=== PATIENT | female | born 1960 | race Caucasian/White ===

== ENCOUNTER 2017-08-14 12:30 | Outpatient (RCR) | payer BC, SELFPAY ==
--- NOTE | 2017-06-24 12:26 | HP.PTEVAL_ITS ---
Patient's Visit Information MELYSSA DOSS is a 56 year old F referred to Physical Therapy by Irma Ramos with a diagnosis of VERTIGO AND CERVICAL SPINE PAIN. Date of Evaluation: 06/24/17 Physical Therapist: Sandy Faith Visit Plan Frequency: 1x/Week Duration: 8 VISITS Plan: CERVICAL DEEP TISSUE MASSAGE. POSTURE CORRECTION/STRENGTHENING, INSTRUCTION IN APPROPRIATE BODY MECHANICS AND ACTIVITY MODIFICATIONS. CARMEL UE ROM, STRETCHING AND STRENGTHENING. HEP INSTRUCTION. - Subjective Subjective: Diagnosis: VERTIGO AND CERVICAL SPINE PAIN. 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 Disability: NO. Present symptoms: CARMEL NECK PAIN. Present since: 30 YEARS. Pain Scale: WORST 6/10, LEAST 0/10. Currently: 0/10. Commenced as a result of: NO APPARENT REASON. Symptoms at onset: SAME. Worse: MAKING JEWLRY, LOOKING DOWN, WORK, LEANING OVER COMPUTER. Better: MASSAGE, CHIROPRACTIC, TYLON[place], DOING NOTHING. Disturbed sleep: YES. Previous history/Previous treatment: MASSAGE, CHIROPRACTIC, ACCUNCTURE. CURRENTLY SEEING CHIROPRACTOR. Dizziness: 99% GONE. Tinnitis: NO. Nausea: NO. Difficulty Swollowing: NO. Gait: NORMAL. Accidents: NO. Unexplained weight loss: NO. Imaging: NO HISTORY OF NECK X-RAY OR MRI PER PATIENT REPORT. PMH: HYPOTHYROIDISM, ALL CANCER 2005 - TREATED WITH CHEMO. I'VE BEEN TOLD I HAVE LOW BACK ISSUES TOO. Recent major surgery: BROKEN NOSE. OTHER: PATIENT REPORTS THAT SHE IS HERE FOR DEEP TISSUE MASSAGE. OPEN TO CORRECTIVE EX TOO. PATIENT IS QUESTIONING MASSAGE COVERAGE BY PHYSICAL THERAPY AND STATES SHE HAS UNLIMITED VISITS THROUGH HER INSURANCE - Objective Sitting Posture: FAIR. Standing Posture: FAIR. Active Correction of posture: NE. Other Observations: INDEP GAIT AND TRANSFERS. PATIENT DENIES BEING IN ANY ACUTE PAIN AND MOVEMENTS ARE NOT GUARDED. Motor deficit: CARMEL UE'S WFL. Sensory deficit: CARMEL UE LIGHT TOUCH SENSATION APPEARS GROSSLY INTACT AND SYMMETRICAL. ROM deficit: CARMEL UE ROM WFL. Dural Signs: NEGATIVE CARMEL UE'S. Cervical Mvmt Loss: Flex: MIN. Pro: NIL. Ext: MIN. Ret: MOD. RSB: MIN. LSB: MIN. R Rot: MOD. L Rot: MIN. Postural strength: FAIR. Palpation: INCREASED MUSCLE TONE CARMEL UPPER TRAPS AND CERVICAL PARASPINALS. NO ACUTE SPINAL TENDERNESS. OCCIPUT TENDERNESS RIGHT > LEFT. OTHER: INSTRUCTION GIVEN IN INSURANCE COVERAGE LIMITATIONS - Goals Goal 1:: DECREASE C/O NECK PAIN Goal Time Frame: 6-8 Weeks Goal 2:: IMPROVE READING, SLEEP AND RECREATIONAL FUNCTION Goal Time Frame: 6-8 Weeks Goal 3:: INSTRUCT IN PROPHYLAXIS/INDEP HEP Goal Time Frame: 6-8 Weeks - Rehabilitation Potential Rehabilitation Potential: Fair - Anticipated Interventions Patient/Client Instruction: Educate patient on: Condition, Plan of Care, Risk Factors, Benefits of Fitness Program For the Purpose of:: To improve self management Therapeutic Exercise to Include: Strength training, Body mechanics, Postural training, Flexibilty training, Scapular Strength/Stabilization Comment: CORRECTIVE EX FOLLOWING DEEP TISSUE MASSAGE. For the Purpose of:: To decrease pain, To increase ROM, To improve muscle performance and motor function, To increase tolerance to activity/condition/ position, To improve ability of physical actions for home/community/work/leisure Manual Therapy Techniques to Include: Massage, Soft tissue mobilization Comment: DEEP TISSUE MASSAGE For the Purpose of:: To decrease pain, To increase ROM Thank you for the opportunity to evaluate your patient. For Medicare and Medicare HMO plans, please review the plan of care and approve it. It will need to be FAXED BACK to us at [phone] for Medicare purposes. Please let me know if there are questions or concerns regarding this plan of care. Physician Signature: Date:
--- NOTE | 2017-08-14 13:15 | HP.PTDCSUM ---
HP - PT D/C Summary It has been my pleasure to treat MELYSSA DOSS under orders from Irma Vásquez, for the diagnosis of VERTIGO AND CERVICAL SPINE PAIN for a total of 8 visit(s). Discharge Date: 08/14/17 Please see the following information for a summary of their discharge status. - Subjective Subjective: PATIENT REPORTS THE LENGTH OF TIME BETWEEN PAIN IS LONGER. ABLE TO BE ACTIVE LONGER WITHOUT CREATING PAIN. PATIENT REPORTS SHE HAS LEARNED A LOT AND SHE IS READY TO TRY TO CONTINUE ON HER OWN AT THIS POINT. IS GOING TO CONSIDER DRY NEEDLING IN THE FUTURE NEEDED. - Overall Improvement % Improvement: 85 - Objective Objective/Function: ALL GOALS MET. INDEP HOME PROGRAM. UPON EXAM,. Cervical Mvmt Loss: Flex: VERY MIN. Pro: NIL. Ext: MIN. Ret: MOD. RSB: MIN. LSB: MIN. R Rot: MIN. L Rot: NIL. Palpation: INCREASED MUSCLE TONE CARMEL UPPER TRAPS AND CERVICAL PARASPINALS. RIGHT UPPER TRAP TENDERNESS TOO TODAY. NECK OSWESTRY HAS IMPROVED FROM 8 TO 6. - Goals Goal 1:: DECREASE C/O NECK PAIN Goal 2:: IMPROVE READING, SLEEP AND RECREATIONAL FUNCTION Goal 3:: INSTRUCT IN PROPHYLAXIS/INDEP HEP - Plan Plan: D/C TO INDEP EX AND FOLLOW UP WITH DR. VÁSQUEZ NEEDED. IF PATIENT DOES NOT CONTINUE TO IMPROVE WITH TIME AND EX SHE MAY BE A GOOD DRY NEEDLING CANDIDATE. - D/C Information If there are questions or concerns regarding this patient's physical therapy, please feel free to call me at [phone]. Thank you for the referral of this patient. Sincerely, Sandy Jiang
== END 2017-08-14 14:07 | disposition home or self-care (01) ==
LOC: PT 12:30
PROVIDERS: Family Provider Internal Medicine; PCP Internal Medicine; Visit Provider Internal Medicine
DX: R42 Dizziness and giddiness (principal); M54.2 Cervicalgia
CPT/HCPCS: 97110; 97140; 97162; 97164; 97530

== ENCOUNTER → 2018-02-12 15:22 | Outpatient (CLI) | payer BC, SELFPAY ==
--- NOTE | 2018-02-12 15:30 | BD_ITS ---
STUDY: DUAL ENERGY X-RAY ABSORPTIOMETRY / DXA REASON FOR EXAM: Female, 57 years old. Early menopause. Loss of height. TECHNIQUE: Bone Mineral Density (BMD) measurements of lumbar spine and bilateral hips were obtained. COMPARISON: Comparison is made with prior study dated July 28, 2012. FINDINGS: Lumbar Spine (L1-L4): g/cm2 (1.081) / T-score (-0.7) / Z-score (0.4) Findings are suggestive of normal bone density with a low fracture risk. Left Femur Total: g/cm2 (0.753) / T-score (-2.0) / Z-score (-1.1) Left Femoral Neck: g/cm2 (0.677) / T-score (-2.6) / Z-score (-1.4) Right Femur Total: g/cm2 (0.805) / T-score (-1.6) / Z-score (-0.7) Right Femoral Neck: g/cm2 (0.753) / T-score (-2.0) / Z-score (-0.8) The T-Scores on the most recent prior examination were: Lumbar Spine (L1-L4): There has been improvement of bone density since the previous examination. Left Femur Total: which represents a worsening of 1.2%. Right Femur Total: which represents a worsening of 1.2%. BD/Dexa Bone Density Study IMPRESSION: The patient is considered osteopenic as outlined below according to World Erwin Organization (WHO) criteria with a high fracture risk. There has been worsening of bone density since the previous examination. Reference Information: The T-score is the number of standard deviations above or below the standard which is normal for young adults at their peak bone mineral density. The World Health Organization (WHO) interprets the T-scores as follows: Above -1 Normal bone density Between -1 and -2.5 Osteopenia Equal to / or below -2.5 Osteoporosis As a practical clinical guideline, osteopenia may be graded as follows: Mild -1 through -1.5 Moderate -1.6 through -2.0 Severe -2.1 through -2.4 The Z-score is the number of standard deviations above or below age-matched controls. A Z-score of less than -1.5 would be considered abnormal. References: 1. NIH Osteoporosis and Related Bone Diseases http://www.osteo.org 2. International Society for Clinical Densitometry http://www.iscd.org 3. National Osteoporosis Foundation http://www.nof.org Electronically Signed: Johnnie Bejarano MD at 10:13 EST Tel [phone], Service support ,
== END ==
PROVIDERS: Family Provider Internal Medicine; PCP Internal Medicine; Visit Provider Internal Medicine
DX: Z78.0 Asymptomatic menopausal state (principal)
CPT/HCPCS: 77080

== ENCOUNTER → 2018-03-04 12:40 | Outpatient (CLI) | payer BC, SELFPAY ==
--- NOTE | 2018-03-04 12:44 | BI_ITS ---
MAMMOGRAPHY - BILATERAL SCREENING REASON FOR EXAM: Female, 57 years old. Routine annual screening examination. PERTINENT HISTORY: Non-contributory. TECHNIQUE: Digital bilateral breast lauro (3D mammographic acquisition) in the CC and MLO projections. 2-D mediolateral oblique (MLO) and craniocaudad (CC) views of both breasts were obtained. CAD: Full Field Digital Mammography with Computer Added Detection was performed. COMPARISON: Comparison is made with prior study dated January 20, 2017 and April 12, 2015. FINDINGS: Breast Composition: The breasts are heterogeneously dense, which may obscure small masses. There are no dominant masses or suspicious calcifications. No other significant abnormalities are identified. There has been no significant change since the prior study. BI/SCREENING MAMM (CAD), BILAT IMPRESSION: Stable bilateral screening mammogram. Yearly follow-up mammogram recommended. (A) ASSESSMENT CATEGORY: BIRADS Category 1: Negative. A letter regarding these results will be sent to the patient by the facility within 30 days. Approximately 10% of breast cancers are not detected by mammography. A normal mammogram should not delay biopsy of a clinically suspicious abnormality. [id number] Electronically Signed: Johnnie Bejarano MD at 14:16 EST Tel [phone], Service support ,
--- OUTSIDE RECORDS SUMMARY | 2018-05-09 08:51 | XMS RPT_ITS | Continuity of Care Document ---
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 Status: Active Cough (R05, 786.2) Comments: mucienx Status: Active Cough (R05, 786.2) Status: Active Current nonsmoker (Renamed from Current non-smoker) (Z78.9, V49.89) Status: Active Deliveries (Parity) Comments: Term, 2 Status: Active Eczema, unspecified type (L30.9, 692.9) Comments: derm said -- synthriod can exac--?? but at this time with dose working and eczema min will cont Status: Active Encounter for screening for lipid disorder (Z13.220, V77.91) Status: Active Encounter for screening mammogram for malignant neoplasm of breast (Z12.31, V76.12) Status: Active Hypothyroid (E03.9, 244.9) Status: Active Low HDL (under 40) (E78.6, 272.5) Status: Active Need for prophylactic vaccination and inoculation against influenza (Renamed from Need for immunization against influenza) (Z23, V04.81) Status: Active Osteopenia (M85.80, 733.90) Status: Active Postmenopausal (Renamed from Postmenopausal status) (Z78.0, V49.81) Status: Active Pregnancies () Comments: 2 Status: Active right foot 4th nail -abnormality Status: Active Screening for breast cancer (Z12.31, V76.10) Status: Active Screening for malignant neoplasm of breast (Z12.39, V76.10) Status: Active Shingles (B02.9, 053.9) Status: Active Sleep disorder (G47.9, 780.50) Comments: she is doing better Status: Active Synovial cyst (M71.30, 727.40) Status: Active Unspecified Diagnosis Status: Active Unspecified Diagnosis Status: Active Vertigo (R42, 780.4) Status: Active Vertigo (R42, 780.4) Status: Active Wheezing (R06.2, 786.07) Status: Active Medications Name Dates Details CALCIUM 600 + D, [id number] (Oral Tablet) 1 BID for 0 days Refills: 0 Ordered:29-Jan-2009 Mast BETSY, Lia Magnesium 300 MG Oral Capsule 1 (one) Capsule daily for 0 days Quantity: 30 {Capsule} Refills: 0 Ordered:14-Nov-2015 Rosie Maxwell CNP Start : 14-Nov-2015 Active Meclizine HCl 25 MG Oral Tablet 1 (one) Tablet q 8hr prn for 0 days Quantity: 20 {Tablet} Refills: 0 Ordered:29-May-2017 David Vásquez DO, DO, Kathleen Start : 29-May-2017 Active PROVENTIL HFA, 108 (90 Base)MCG/ACT (Inhalation Aerosol Solution) 2 (two) Aerosol Soln qid prn for 0 days Quantity: 1 {Inhaler} Refills: 0 Ordered:05-Jun-2015 Alison Rodriguez DO Start : 05-Jun-2015 Active Synthroid 75 MCG Oral Tablet 1 (one) Tablet daily for 90 days Quantity: 90 {Tablet} Refills: 3 Ordered:16-Feb-2018 David Vásquez DO, DO, Kathleen Start : 16-Feb-2018 Active Dispense as Written Comments:MAIKOL MAIKOL MAIKOL- take 2 on sun Vitamin D3 5000 UNIT Oral Tablet 1 (one) Tablet daily for 0 days Quantity: 30 {Tablet} Refills: 0 Ordered:14-Nov-2015 Alissa VAN Rosie Bauer Start : 14-Nov-2015 Active ACTONEL, 35MG (Oral Tablet) 1 tab Tablet q week for 90 days Quantity: 12 {Tablet} Refills: 3 Ordered:06-Aug-2013 Alison Rodriguez DO Start : 06-Aug-2013 End : 06-Aug-2013 Inactive Acyclovir 800 MG Oral Tablet 1 (one) Tablet 5 times daily for 7 days Quantity: 35 {QS} Refills: 0 Ordered:18-Mar-2016 Alissa VAN Rosie Bauer Start : 18-Mar-2016 End : 25-Mar-2016 Inactive ACYCLOVIR, 400MG (PO Tab) 1 Bid (400 MG) Inactive ATIVAN, 0.5MG (Oral Tablet) 1-2 PRN for 0 days Refills: 0 Ordered:25-May-2010 Moriah Mosley LPN End : 25-May-2010 Inactive AZITHROMYCIN, 250MG (Oral Tablet) 1 Tablet 2 the first day then 1 a day for 4 more days for 5 days Quantity: 6 {Tablet} Refills: 0 Ordered:20-Dec-2010 Samira Espinal MD Start : 20-Dec-2010 End : 25-Dec-2010 Inactive BACTRIM DS, 800-160MG (PO Tablet) (800-160 MG) Inactive BIAXIN XL, 500MG (Oral Tablet Extended Release 24 Hour) 2 (two) Tablet ER 24HR qd for 0 days Quantity: 28 {Tablet_ER_24HR} Refills: 0 Ordered:25-May-2010 Moriah Mosley LPN Start : 23-Mar-2010 End : 25-May-2010 Inactive CIPRO, 500MG (Oral Tablet) 1 Tablet BID for 7 days Quantity: 14 {Tablet} Refills: 0 Ordered:2-Aug-2007 Pamela Kelly RN Start : 18-Sep-2006 End : 13-Oct-2006 Inactive CLARITHROMYCIN, 500MG (Oral Tablet) 1 (one) Tablet Tablet bid for 0 days Quantity: 20 {Tablet} Refills: 0 Ordered:07-Jun-2015 Kim Naidu LPN Start : 06-Jan-2015 End : 07-Jun-2015 Inactive Comments:will call if need this, void after 30 days CORTISPORIN, 3.5-16975-8 (Otic Solution) 2 (two) Drop(s) tid for 7 days Quantity: 1 {Solution} Refills: 0 Ordered:25-May-2010 Rosie Maxwell CNP Start : 25-May-2010 End : 01-Jun-2010 Inactive COUMADIN, 5MG (PO Tab) 1 qd (5 MG) Inactive DEXAMETHASONE, 4MG (Oral Tablet) 2.5 tabs x 5days once a month for 0 days Refills: 0 Ordered:22-Dec-2007 Pamela Kelly RN End : 04-Nov-2006 Inactive FISH OIL CONCENTRATE, 1000MG (Oral Capsule) 1 cap daily for 0 days Refills: 0 Ordered:25-May-2010 Moriah Mosley LPN End : 25-May-2010 Inactive LEVAQUIN, 500MG (Oral Tablet) 1 (one) Tablet qd for 0 days Quantity: 10 {Tablet} Refills: 0 Ordered:25-May-2010 Moriah Mosley LPN Start : 11-Apr-2008 End : 25-May-2010 Inactive METHOTREXATE, 2.5MG (Oral Tablet) 16tabs once a week for 0 days Refills: 0 Ordered:22-Dec-2007 Pamela Kelly RN End : 04-Nov-2006 Inactive PLAQUENIL, 200MG (Oral Tablet) 1 1/2 tab qd (200 MG) Inactive PURINETHOL, 50MG (Oral Tablet) 2 tabs qd for 0 days Refills: 0 Ordered:22-Dec-2007 Pamela Kelly RN End : 04-Nov-2006 Inactive TESSALON PERLES, 100MG (Oral Capsule) 1 (one) Capsule tid prn for 0 days Quantity: 30 {Capsule} Refills: 0 Ordered:07-Jun-2015 Kim Naidu LPN Start : 02-Jun-2015 End : 07-Jun-2015 Inactive VICODIN HP, 10-660MG (Oral Tablet) PRN for 0 days Refills: 0 Ordered:27-Nov-2010 Princess Beavers End : 27-Nov-2010 Inactive Zithromax Z-Igor 250 MG Oral Tablet 1 Tablet TAD for 0 days Quantity: 1 {Package} Refills: 0 Ordered:24-Jan-2017 Kim Naidu LPN Start : 14-Nov-2015 End : 24-Jan-2017 Inactive B6 (tingling) End : 18-Sep-2006 Discontinued Biaxin XL Pac 500 MG Oral Tablet Extended Release 24 Hour 2 (two) Tablet ER 24HR Tablet ER 24HR qd for 0 days Quantity: 1 {Package} Refills: 0 Ordered:14-Nov-2015 Masha Goss LPN Start : 07-Jun-2015 End : 14-Nov-2015 Discontinued CHERATUSSIN AC, 100-10MG/5ML (Oral Syrup) 1-2 Teaspoon qhs prn for 0 days Quantity: 6 {Ounce} Refills: 0 Ordered:29-Aug-2014 Princess Beavers Start : 19-May-2014 End : 29-Aug-2014 Discontinued CLARINEX, 5MG (Oral Tablet) 1 tab Tablet qd, prn for 0 days Quantity: 30 {Tablet} Refills: 3 Ordered:07-Jun-2015 Masha Goss LPN Start : 02-Jun-2015 End : 07-Jun-2015 Discontinued COD LIVER OIL (Oral Oil) 1 cap qd End : 29-Aug-2014 Discontinued DIAZEPAM, 5MG (PO Tablet) PRN (5 MG) End : 18-Sep-2006 Discontinued FLONASE, 50MCG/ACT (Nasal Suspension) 2 (two) Suppository(ies) daily for 0 days Quantity: 1 {Suspension} Refills: 0 Ordered:29-Aug-2014 Princess Beavers Start : 02-Aug-2011 End : 29-Aug-2014 Discontinued GABAPENTIN, 300MG (Oral Capsule) 2 (two) Capsule tid for 0 days Quantity: 180 {Capsule} Refills: 3 Ordered:16-Feb-2007 Mast Pamela MEYER Start : 16-Feb-2007 End : 15-Sep-2007 Discontinued GUAIATUSSIN AC, 100-10MG/5ML (Oral Syrup) 1 Syrup qhs / HS for 0 days Quantity: 6 {Ounce(s)} Refills: 0 Ordered:02-Nov-2007 Mast BETSYPamela Start : 02-Nov-2007 End : 11-Nov-2007 Discontinued KYTRIL, 1MG (PO Tab) PRN (1 MG) End : 18-Sep-2006 Discontinued MECLIZINE ( Powder) prn End : 18-Sep-2006 Discontinued MULTIPLEX-1 (Oral Capsule) End : 10-Jun-2007 Discontinued MULTIVITAMIN (PO Tab) 1 tab qd End : 02-Jun-2015 Discontinued NASACORT AQ, 55MCG/ACT (Nasal Aerosol Solution) Aerosol Soln 1-2 squirts daily for 0 days Refills: 0 Ordered:02-Nov-2007 Mast BETSY Pamela Start : 02-Nov-2007 End : 11-Nov-2007 Discontinued PredniSONE 20 MG Oral Tablet 1 (one) Tablet Tablet qd for 0 days Quantity: 5 {Tablet} Refills: 0 Ordered:14-Nov-2015 Slarb CONTRIBUTION SOLICITOR, Masha Start : 12-Jun-2015 End : 14-Nov-2015 Discontinued PROMETHAZINE-DM, 5-7.5MG/5ML (PO Syrup) prn (5-7.5 MG/5ML) End : 18-Sep-2006 Discontinued SYNTHROID, 50MCG (PO Tablet) 1 qd (50 MCG) End : 18-Sep-2006 Discontinued VICODIN, 5-500MG (Oral Tablet) 1 tab Tablet prn for 0 days Quantity: 30 {Tablet} Refills: 0 Ordered:31-Jul-2010 Julia Bermudez Start : 31-Jul-2010 End : 19-Aug-2012 Discontinued Comments:This order discontinued per -Span. Allergies and Adverse Reactions Name Dates Details Adhesive Tape (Allergy) Status: Active Penicillins (Allergy) Status: Active Past Medical History Name Dates Details Abnormal lung sounds (R09.89, 786.7) Status: Resolved as of 16-Jun-2015 Abnormal mammogram (R92.8, 793.80) Status: Resolved as of 19-Jun-2010 Acute embolism and thrombosis of unspecified deep veins of unspecified lower extremity (I82.409, 453.40) Status: Inactive as of 06-Jan-2015 Allergic rhinitis due to other allergen (J30.89, 477.8) Status: Inactive as of 11-Aug-2008 Bilateral impacted cerumen (H61.23, 380.4) Status: Resolved as of 30-Jan-2018 Bronchitis (J40, 490) Status: Resolved as of 29-May-2011 Cerumen impaction (H61.20, 380.4) 21-May-2010 Status: Resolved as of 19-Jun-2010 Chronic pain of left knee (M25.562, 719.46) Status: Resolved as of 30-Jan-2018 Cough (R05, 786.2) 02-Aug-2011 Status: Resolved as of 25-Aug-2014 DVT Status: Inactive as of 06-Jan-2015 Dysuria (R30.0, 788.1) Comments: any fevers, shakes, worsening symptoms need to see medical care- pt to call oncologist so she is aware of issues Status: Inactive as of 11-Aug-2008 Elevated LFTs (R94.5, 790.6) Status: Resolved as of 15-Sep-2007 ETD (Eustachian tube dysfunction), left (H69.82, 381.81) Status: Resolved as of 30-Jan-2018 Eustachian tube dysfunction (H69.80, 381.81) Status: Resolved as of 30-Jan-2018 grinding of the elbow Status: Inactive as of 11-Aug-2008 Hematest positive stools (792.1) Status: Resolved as of 07-Dec-2012 Herpes zoster with other nervous system complications (B02.29, 053.19) Status: Resolved as of 29-May-2011 Hyperglyceridemia (E78.1, 272.1) Status: Resolved as of 15-Sep-2007 Hypotension, unspecified (I95.9, 458.9) Status: Resolved as of 19-Jun-2010 Laceration (879.8) Comments: pointer finger Left hand - flapcovered -applied steri dtrip Status: Inactive as of 06-Jan-2015 Laryngitis (J04.0, 464.00) Status: Resolved as of 26-Jun-2012 leg cramps Status: Resolved as of 26-Jun-2012 menopasual sx Status: Inactive as of 11-Aug-2008 Need for prophylactic vaccination and inoculation against influenza (Z23, V04.81) Status: Inactive as of 25-Aug-2014 Need for prophylactic vaccination and inoculation against influenza (Z23, V04.81) Status: Inactive as of 27-Apr-2010 Neoplasm of uncertain behavior of skin (D48.5, 238.2) Status: Resolved as of 26-Jun-2012 Otitis externa (H60.90, 380.10) Status: Resolved as of 19-Jun-2010 Paresthesia (R20.2, 782.0) Status: Resolved as of 30-Jan-2018 Pneumonia due to other specified bacteria (J15.8, 482.89) Status: Inactive as of 11-Aug-2008 possible ganglion vs other soft tissue mass right 3rd toe- refer Dr. Durán Status: Inactive as of 11-Aug-2008 Post-nasal drip (R09.82, 784.91) Status: Resolved as of 30-Jan-2018 Proteinuria (R80.9, 791.0) Status: Resolved as of 19-Jun-2010 rash Comments: question fungal- question granuloma annulare- try lotrisone bid for 2 weeks- call if worse or no resolve - send to [facility] Status: Inactive as of 11-Aug-2008 repeat pap for lack of cells- no charge Status: Resolved as of 19-Jun-2010 screening Status: Inactive as of 25-Aug-2014 screening Status: Inactive as of 25-Aug-2014 screening Status: Inactive as of 25-Aug-2014 Screening for HPV (human papillomavirus) (Z11.51, V73.81) Status: Inactive as of 25-Aug-2014 Sinusitis, acute (J01.90, 461.9) Comments: really think uri and willtreat think node in right neck small lymph node. will return if grows will have recheck 12- 14 when get pap Status: Resolved as of 25-Aug-2014 Subluxation of left patella, initial encounter (S83.002A, 836.3) Status: Resolved as of 30-Jan-2018 syncope Status: Inactive as of 11-Aug-2008 Thyroiditis, unspecified (245.9) Status: Inactive as of 06-Jan-2015 Unspecified Diagnosis Status: Inactive as of 29-May-2011 Urinary tract infection, site not specified (N39.0, 599.0) Status: Inactive as of 11-Aug-2008 Weight loss (R63.4, 783.21) Status: Resolved as of 26-Jun-2012 Well woman exam with routine gynecological exam (Z01.419, V72.31) Status: Inactive as of 25-Aug-2014 Procedures Procedure Dates Details Appendectomy Completed Tonsillectomy Completed Date Value Details 12-Feb-2018 Dexa Bone Density Study Result: Comments: See Note; NOTES: [facility] Imaging Services [address] [place] [address] Dexa Bone Density Study MR#: [id number] Acct: [id number] Name: MELYSSA HAYWOOD Rep #: [id number] : 1960 F 57 From: Johnnie Huizar MD PCP: Irma Vásquez DO Status: REG CLI Study: Dexa Bone Density Study Date of Exam: 02/12/18 Exam# [id number] Ordering Dr: Irma Vásquez DO ALEYDA DY: DUAL ENERGY X-RAY ABSORPTIOMETRY / DXA REASON FOR EXAM: Female, 57 years old. Early menopause. Loss of height. TECHNIQUE: Bone Mineral Density (BMD) measurements of lumbar spine and bilateral hips were obtained. COMPARISON: Comparison is made with prior study dated July 28, 2012. FINDINGS: Lumbar Spine (L1-L4): g/cm2 (1.081) / T-score (-0.7) / Z-score (0.4) Findings are suggestive of normal bone density with a low fracture risk. Left Femur Total: g/cm2 (0.753) / T-score (-2.0) / Z-score (-1.1) Left Femoral Neck: g/cm2 (0.677) / T-score (-2.6) / Z-score ( -1.4) Right Femur Total: g/cm2 (0.805) / T-score (-1.6) / Z-score (-0.7) Right Femoral Neck: g/cm2 (0.753) / T-score (-2.0) / Z-score (-0.8) The T-Scores on the most recent prior examination were: Lum bar Spine (L1-L4): There has been improvement of bone density since the previous examination. Left Femur Total: which represents a worsening of 1.2%. Right Femur Total: which represents a worsening of 1.2%. BD/Dexa Bone Density Study IMPRESSION: The patient is considered osteopenic as outlined below according to World Erwin Organization (WHO) c edilia with a high fracture risk. There has been worsening of bone density since the previous examination. Reference Information: The T-score is the number of summer dard deviations above or below the standard which is normal for young adults at their peak bone mineral density. The World Health Organization (WHO) interprets the T-scores as follows: Above -1 Normal bone density Between -1 and -2.5 Osteopenia Equal to / or below -2.5 Osteoporosis As a practical clinical guideline, osteopenia may be graded as follows: Mild - 1 through -1.5 Moderate -1.6 through -2.0 Severe -2.1 through -2.4 The Z-score is the number of standard deviations above or below age-matched controls. A Z-score of less than -1.5 would be considered abnormal. References: 1. NIH Osteoporosi s and Related Bone Diseases http://www.osteo.org 2. International Society for Clinical Densitometry http://www.iscd.org 3. National Osteoporosis Foundation http://www.nof.org Electronically Signed: Patrick Huizar MD at 10:13 EST Tel [phone], Service support , CC: Irma Vásquez DO Fire Investigation Manager: Signed 24-Nov-2017 Mule Developer Office Visit Report Result: Comments: See Note; NOTES: [facility]'s [address] [place] [address] OFFICE VISIT Date of Service: 11/24/17 MR#: [id number] Acct: [id number] Name: JOSHUA HAYWOOD Rep #: [id number] : 1960 Provider: Jasmine Dufyf MD Age/Sex: 57/F Location: [facility] Status: Signed Intake Vital Signs11/24/17 Height 5 ft 8.5 in 11/24/17 Weight: 148 lb 5 oz 11/24/17 Body Mass Index (BMI) 22.2 11/24/17 Blood Pressure 140/78 H Intake Visit Reasons: DISCUSS MENOPAUSE Chief Complaint: Menopause Consult Wiring Inspector Required: No Is patient in pain?: No Allergies clind amycin Allergy (Mild, Verified 11/24/17 13:05) nausea epinephrine Allergy (Mild, Verified 11/24/17 13:05) heart palpitations Latex, Natural Rubber Allergy (Mild, Verified 11/24/17 13:05) rash levofloxac in [From Levaquin] Allergy (Mild, Verified 11/24/17 13:07) Other penicillin V Allergy (Mild, Verified 11/24/17 13:05) unknown Medications calcium carbonate 600 mg calcium (1,500 mg) tablet 600 mg PO ONCE tab 02/06/17 [History Confirmed 11/24/17] cholecalciferol (vitamin D3) 5,000 unit capsule 5,000 unit PO ONCE 02/06/17 [History Confirmed 11/24/17] levothyroxine 75 mcg tablet PO 02/06/17 [History C onfirmed 11/24/17] magnesium 250 mg tablet 250 mg PO ONCE 02/06/17 [History Confirmed 11/24/17] Is last menstrual period known: No Post menopausal: Yes Patient : No : No PFSH Med ical History Acute lymphoblastic leukemia (ALL) (Acute) Hypothyroidism (Chronic) Osteopenia (Chronic) ALL (acute lymphoid leukemia) in remission (Inacti ve) Surgical History History of tonsillectomy (Acute) Hx of appendectomy (Acute) Broken nose (Inactive) Elbow fracture (Inactive) Hx of appendectomy ( Inactive) Hx of tonsillectomy (Inactive) Family History Mother Fibromyalgia Arthritis Social History Smoking Status: Never smoker alcohol intake: current details: social substance use type: does not use caffeine: Yes what type of physical activity do you participate in: walking frequency: 3-4 times per week seatbelt use: always do you feel safe at home: Yes additional social history: [employer]- Retired Patient works at [employer] HPI DISCUSS MENOPAUSE: Details: MELYSSA HAYWOOD is a 57 year old who presents for management of menopausal symptoms. she started having symptoms when sh rasheeda was getting treatment for ALL in 2004. she was on gabaptentin until 2009 for hot flash treatments. since then she has had persistent but non debilitating symptoms. she co daytime hot flash symptoms ar e getting worse and wanting to have support. she hasn't done any hormonal therapies in the past, she has tried black cohosh and acupuncture, no improvements. she has taken other natural therapies with n o improvement. Female Reproductive History Menopausal Symptoms: Yes hot flashes, Yes difficulty concentrating Pregancy History 2 Elective abortions Hx Para 2 Spontaneous abortions Past Preg nancies Del. DatName GA/WeeksOutcome Route [facility] LocaProviderFOB e ht en tn Unknown 1980 Liane Unknown 1982 Cor y ROS Const Constitutional: Denies poor appetite, hea dache(s), fever(s), increased appetite, weight gain, weight loss or fatigue Cardio Card: Denies chest pain Resp Resp: Denies dyspnea or cough GI GI: Reports as per HPI; denies vomiting, nausea, abdomina l pain or constipation : Reports hot flashes; denies nipple discharge Skin Skin/Breast: Denies breast lump, breast pain, breast skin changes, nipple discharge or change in hair Psych Psych: Reports difficulty concentrating Exam Const General: cooperative, healthy appearing, comfortable, no acute distress, well developed Nutritional Appearance: average body habitus Orientation: alert [facility] Head: normal to inspection, normocephalic Ears: hearing grossly normal bilaterally, external ears normal Nose: external nose normal, nares normal Face and sinus: normal facial exam Neck Neck: normal visual i nspection, trachea midline, no lymphadenopathy Thyroid: thyroid normal Resp Effort AND Inspection: normal respiratory effort Musc Other: gross motor intact no deficits, full bilateral strength Skin Gene ral: no rashes or lesions noted Neuro Motor: muscle tone normal throughout Assessment AND Plan Problems 1. Climacteric N95.1 Plan discussed at length information about hormonal and nonhormonal treatm ents of menopause. discussed safety and efficacy. plan for relizen possibly, consider effexor. would not recommend HRT at this time. Coding Level of Care Code Off vis,new,level 4 Diagnoses Climacteri c N95.1 11/24/17 1401 <Electronically signed by Jasmine Duffy MD> Date Jasmine Duffy MD Cosigner Signature: Date ____ (if applicable) CC: 14-Aug-2017 PT D/C Summary (1) Result: Comments: See Note; NOTES: [facility] Physical Therapy Health[address] [place] [address] Fax REHABILITATION SERVICES DISCHAR GE SUMMARY MR#: [id number] Acct: [id number] Name: MELYSSA HAYWOOD Rep #: [id number] : 1960 57 From: Sandy Jiang PT, Cert. MDT Referring Dr.: Irma Vásquez DO Status: REG RCR Insurance: ANT HEM SELF PAY INSURANCE HP - PT D/C Summary It has been my pleasure to treat MELYSSA HAYWOOD under orders from Irma Vásquez, for the diagnosis of VERTIGO AND CERVICAL SPINE PAIN for a total of 8 vis it(s). Discharge Date: 08/14/17 Please see the following information for a summary of their discharge status. - Subjective Subjective: PATIENT REPORTS THE LENGTH OF TIME BETWEEN PAIN IS LONGER. ABLE TO BE ACTIVE LONGER WITHOUT CREATING PAIN. PATIENT REPORTS SHE HAS LEARNED A LOT AND SHE IS READY TO TRY TO CONTINUE ON HER OWN AT THIS POINT. IS GOING TO CONSIDER DRY NEEDLING IN THE FUTURE NEEDED. - Overall Improvement % Improvement: 85 - Objective Objective/Function: ALL GOALS MET. INDEP HOME PROGRAM. UPON EXAM,. Cervical Mvmt Loss: Flex: VERY MIN. Pro: NIL. Ext: MIN. Ret: MOD. RSB: MIN. LSB: MIN. R Rot: MIN. L Rot: NIL. Palpation: INCREASED MUSCLE TONE CARMEL UPPER TRAPS AND CERVICAL PARASPINALS. RIGHT UPPER TRAP TENDERNESS TOO TODAY. NECK OSWESTRY HAS IMPROVED FROM 8 TO 6. - Goals Goal 1:: DECREASE C/O NECK PAIN Goal 2:: IMPROVE READING, SLEEP AND RECREATIONAL FUNCTION Goal 3:: INSTRUCT IN PROPHYLAXIS/INDEP HEP - Plan Plan: D/C TO INDEP EX AND FOLLOW UP WITH DR. VÁSQUEZ NEEDED. IF [facility] DOES NOT CONTINUE TO IMPROVE WITH TIME AND EX SHE MAY BE A GOOD DRY NEEDLING CANDIDATE. - D/C Information If there are questions or concerns regarding this patient's physical therapy, please feel f ree to call me at [phone]. Thank you for the referral of this patient. Sincerely, Sandy Jiang <Electronically signed by Sandy Jiang PTCert. MAYERT> 08/14/17 1315 CC: Irma Vásquez DO CHRIS Signed 24-Jun-2017 Inital Evaluation (1) - PT Result: Comments: See Note; NOTES: [facility] [address] [place], [place] [address] Fax REHABILITATION SERVICES INITIAL EVALUATION MR#: [id number] Acct: [id number] Name: MELYSSA HAYWOOD Rep #: [id number] : 1960 56 From: Cert. LEYLA Gary PTT Referring Dr.: Irma Vásquez DO Status: REG RCR Insurance: AN THEM SELF PAY INSURANCE Patient's Visit Information MELYSSA HAYWOOD is a 56 year old F referred to Physical Therapy by Irma Vásquez with a diagnosis of VERTIGO AND CERVICAL SPINE PAIN. Date of Leanne luation: 06/24/17 Physical Therapist: Sandy Jiang - Visit Plan Frequency: 1x/Week Duration: 8 VISITS Plan: CERVICAL DEEP TISSUE MASSAGE. POSTURE CORRECTION/STRENGTHENING, INSTRUCTION IN APPROPRIATE B LOKESH MECHANICS AND ACTIVITY MODIFICATIONS. CARMEL UE ROM, STRETCHING AND STRENGTHENING. HEP INSTRUCTION. - Subjective Subjective: Diagnosis: VERTIGO AND CERVICAL SPINE PAIN. 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 Disability: NO. Present symptoms: CARMEL NECK PAIN. Present since: 30 YEARS. Pain Scale: WORST 6/10, LEAST 0/10. Currently: 0/10. Commenced as a result of: NO APPARENT REASON. Symptoms at onset: SAME. Worse: MAKING JEWLRY, LOOKING DOWN, WORK, LEANING OVER COMPUTER. Better: MASSAGE, CHIROPRACTIC, TYLONOL, DOING NOTHING. Disturbe d sleep: YES. Previous history/Previous treatment: MASSAGE, CHIROPRACTIC, ACCUNCTURE. CURRENTLY SEEING CHIROPRACTOR. Dizziness: 99% GONE. Tinnitis: NO. Nausea: NO. Difficulty Swollowing: NO. Gait: ANGEL LUIS L. Accidents: NO. Unexplained weight loss: NO. Imaging: NO HISTORY OF NECK X-RAY OR MRI PER PATIENT REPORT. PMH: HYPOTHYROIDISM, ALL CANCER 2005 - TREATED WITH CHEMO. I'VE BEEN TOLD I HAVE LOW BACK ISSUES TOO. Recent major surgery: BROKEN NOSE. OTHER: PATIENT REPORTS THAT SHE IS HERE FOR DEEP TISSUE MASSAGE. OPEN TO CORRECTIVE EX TOO. PATIENT IS QUESTIONING MASSAGE COVERAGE BY PHYSIC AL THERAPY AND STATES SHE HAS UNLIMITED VISITS THROUGH HER INSURANCE - Objective Sitting Posture: FAIR. Standing Posture: FAIR. Active Correction of posture: NE. Other Observations: INDEP GAIT AND SELLERS SFERS. PATIENT DENIES BEING IN ANY ACUTE PAIN AND MOVEMENTS ARE NOT GUARDED. Motor deficit: CARMEL UE'S WFL. Sensory deficit: CARMEL UE LIGHT TOUCH SENSATION APPEARS GROSSLY INTACT AND SYMMETRICAL. ROM defici t: CARMEL UE ROM WFL. Dural Signs: NEGATIVE CARMEL UE'S. Cervical Mvmt Loss: Flex: MIN. Pro: NIL. Ext: MIN. Ret: MOD. RSB: MIN. LSB: MIN. R Rot: MOD. L Rot: MIN. Postural strength: FAIR. Palpation: INCREASED MUSCLE TONE CARMEL UPPER TRAPS AND CERVICAL PARASPINALS. NO ACUTE SPINAL TENDERNESS. OCCIPUT TENDERNESS RIGHT > LEFT. OTHER: INSTRUCTION GIVEN IN INSURANCE COVERAGE LIMITATIONS - Goals Goal 1:: DE CREASE C/O NECK PAIN Goal Time Frame: 6-8 Weeks Goal 2:: IMPROVE READING, SLEEP AND RECREATIONAL FUNCTION Goal Time Frame: 6-8 Weeks Goal 3:: INSTRUCT IN PROPHYLAXIS/INDEP HEP Goal Time Frame: 6-8 Weeks - Rehabilitation Potential Rehabilitation Potential: Fair - Anticipated Interventions Patient/Client Instruction: Educate patient on: Condition, Plan of Care, Risk Factors, Benefits of Fitness Nayely garcia For the Purpose of:: To improve self management Therapeutic Exercise to Include: Strength training, Body mechanics, Postural training, Flexibilty training, Scapular Strength/Stabilization Comment: COR RECTIVE EX FOLLOWING DEEP TISSUE MASSAGE. For the Purpose of:: To decrease pain, To increase ROM, To improve muscle performance and motor function, To increase tolerance to activity/condition/position, To improve ability of physical actions for home/community/work/leisure Manual Therapy Techniques to Include: Massage, Soft tissue mobilization Comment: DEEP TISSUE MASSAGE For the Purpose of:: To decrea se pain, To increase ROM Thank you for the opportunity to evaluate your patient. For Medicare and Medicare HMO plans, please review the plan of care and approve it. It will need to be FAXED BACK to us at [phone] for Medicare purposes. Please let me know if there are questions or concerns regarding this plan of care. Physician Signature: Dat e: <Electronically signed by Sandy Jiang PT, CertMichael MDT> 06/24/17 2185 CC: Irma Vásquez DO CHRIS Signed For Medicare only, by signing this I certify the plan of care. Physicians Signature Date 14-Feb-2017 PT D/C Summary (1) Result: Comments: See Note; NOTES: [facility] [address] [place] [address]. [address] [place], [place] [address] Fax REHABILITATION SERVICES AMI ZIEGLER SUMMARY MR#: [id number] Acct: [id number] Name: MELYSSA HAYWOOD Rep #: [id number] : 1960 56 From: Sandy Jiang PT, Cert. MDT Referring Dr.: Irma Rachel DO Status: REG RCR Insurance: ANT HEM SELF PAY INSURANCE HP - PT D/C Summary It has been my pleasure to treat MELYSSA HAYWOOD under orders from Irma Vásquez, for the diagnosis of LEFT KNEE PAIN AND PATELLA SUBLUXATION for a total o f 7 visit(s). Discharge Date: Please see the following information for a summary of their discharge status. - Subjective Subjective: Feeling good. Today will be my last visit. - Objective Objective /Function: Impriving strength and stability. Challenged with SLS but improving. - Goals Goal 1:: DECREASE EPISODES OF LEFT KNEE PATELLA DISLOCATIONS AND EPISODES OF PAIN. Goal 2:: PATIENT WILL BE INDEP WITH A HEP AND INDEP EX KNOWLEDGE FOR CHRONIC LEFT KNEE PATELAR DISLOCATIONS. - Plan Plan: Discharge per pt request. - D/C Information If there are questions or concerns regarding this patient's phys ical therapy, please feel free to call me at [phone]. Thank you for the referral of this patient. Sincerely, Sandy Jiang <Electronically signed by Sandy Jiang PT, Cert. MDT> 1640 CC: Miracle Rodríguez DO; Irma Vásquze DO CHRIS Signed 06-Feb-2017 Orthopedic Visit Report Result: Comments: See Note; NOTES: [facility] Orthopaedics AND Sports Medicine [address] [place] [address] OFFICE VISIT Date of Service: 02/06/17 MR#: [id number] Acct: [id number] Name: MELYSSA HAYWOOD Rep #: [id number] : 1960 Provider: Miracle Rodríguez DO Age/Sex: 56/F Location: [facility] [place] Status: Signed Intake Vital Signs02/06/17 Height 5 ft 8 in 02/06/17 Weight: 137 lb 1 04/09/16 Body Mass Index (BMI) 20.8 Intake Visit Reasons: LEFT KNEE Is patient in pain?: Yes Pain scale (1-10): 1 Allergies clindamycin Allergy (Mild, Verified 02/06/17 12:54) nausea epinephrine Aller gy (Mild, Verified 02/06/17 12:54) heart palpitations Latex, Natural Rubber Allergy (Mild, Verified 02/06/17 12:54) rash penicillin V Allergy (Mild, Verified 02/06/17 12:54) unknown Medications calci um carbonate 600 mg calcium (1,500 mg) tablet 600 mg PO ONCE tab 02/06/17 [History Confirmed 02/06/17] cholecalciferol (vitamin D3) 5,000 unit capsule 5,000 unit PO ONCE 02/06/17 [History Confirmed 01/18 03/05] levothyroxine 75 mcg tablet PO 02/06/17 [History Confirmed 02/06/17] magnesium 250 mg tablet 250 mg PO ONCE 02/06/17 [History Confirmed 02/06/17] [facility] Medical History Hypothyroidism (Chronic) Osteopenia (Chronic) ALL (acute lymphoid leukemia) in remission (Inactive) Surgical History Broken nose (Inactive) Elbow fracture (Inactive) Hx of appe ndectomy (Inactive) Hx of tonsillectomy (Inactive) Family History Mother Fibromyalgia Social History Smoking Status: Never smoker HPI LEFT KNEE: Details: MELYSSA HAYWOOD is a 56 year old F here to day for left knee. She states her knee cap dislocates which she then has pain anteriorly for about 1 hour. She states this has been going on since she was a child. No injury. No swelli ng. No radiation of pain. No tingling/numbness. Denies locking. Denies giving out. She has seen Dr. Vásquez for left knee, had x-ray done, ordered PT which she has only had 1 session so far. No prior kne e injections. ROS Const Reports system reviewed and no additional complaints, except as docu Eyes Reports system reviewed and no additional complaints, except as docu ENT Reports system reviewed and no additional complaints, except as docu Card Reports system reviewed and no additional complaints, except as docu Resp Reports system reviewed and no additional complaints, except as docu GI Reports syst em reviewed and no additional complaints, except as docu Reports system reviewed and no additional complaints, except as docu Musc Reports joint pain Skin/Breast Reports system reviewed and no additi onal complaints, except as docu Neuro Yes system reviewed and no additional complaints, except as docu Psych Reports system reviewed and no additional complaints, except as docu Endo Reports system revi ewed and no additional complaints, except as docu Dashawn/Lymph Reports system reviewed and no additional complaints, except as docu Aller/Immun Reports system reviewed and no additional complaints, except as docu Ortho Exam Left Knee Skin/Wound: Yes CDI Contralateral Normal: Yes Swelling: No Quad Atrophy: Yes Examination: Crepitus Patellar Tilt Normal: Yes Assessment AND Plan 1. 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 would benefit from cartilage injecttions. discussed knee scope and indications for this as well vs pf re placement. Personally reviewed the patients left knee xrays. See imaging report in chart for further details. Spoke with the patient about damage to the cartilage due to chronic patellar dislocations. S he has weakness of her VMO and she needs to work on strengthening. Explained the importance of strengthening.She should continue with her physical therapy. Patient may wear a knee brace to help with pat ellar stability. Spoke with her about cartilage injection which she did not want to do at this time. Patient should refrain from deep knee squats and lunges. Follow up on an as needed basis or sooner i f pain, swelling, numbness or associated symptoms, or concerns develop. Orders Referrals: 2. Primary osteoarthritis of left knee M17.12; M17.12 02/06/17 1329 <Electronically signed by Miracle castellano DO> Date Miracle Rodríguez DO Cosigner Signature: Date (if applicable) CC: 30-Jan-2017 Inital Evaluation (1) - PT Result: Comments: See Note; NOTES: [facility] [place] [address] Fax REHABILITATION SERVICES INITIAL EVALUATION MR#: [id number] Acct: [id number] Name: MELYSSA HAYWOOD Rep #: [id number] : 1960 56 From: Sandy Jiang PT, Cert. MDT Referring Dr.: Irma Vásquez DO Status: REG RCR Insurance: AN THEM SELF PAY INSURANCE Patient's Visit Information MELYSSA HAYWOOD is a 56 year old F referred to Physical Therapy by Irma Vásquez with a diagnosis of LEFT KNEE PAIN AND PATELLA SUBLUXATION. Date of Evaluation: 01/30/17 Physical Therapist: Sandy Jiang - Visit Plan Frequency: 2-3x /Week Duration: 4-6 Weeks Plan: CORE STRENGTHEING. POSTURE CORRECTION. CARMEL LE ROM, STRETCHING AND STRENGTHEING FO R CHRONIC PATELLAR DISLOCATING. CONSIDER ORTHOTICS. 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 Disability: NO. Present symptoms: LEFT KNEE DISLOCATING. NEV ER DAILY. THE LAST TIME IT DISLOCATED WAS ABOUT A WEEK AGO BUT CAUGHT IT BEFORE IT WENT COMPLETELY OUT. PATIENT ALSO HAS LOCALIZED LEFT KNEE PAIN THAT SHE HAS HAD SINCE 2006 AFTER CHEMOTHERAPY. THIS CARLOTTA N OCCURS EVERY FEW MONTHS AND CAN LAST BETWEEN 5 AND 10 MINUTES. SHE REPORTS IT OCCURS SEPERATELY FROM THE DISLOCATIONS. Present since: ABOUT 50 YEARS. Pain Scale: WORST IS 10/10 AND IT IS USUALLY A 10 OUT OF 10 EVERY TIME IT GOES OUT. NO PAIN IF IT IS NOT OUT. Currently: 0/10. Commenced as a result of: NO APPARENT REASON. Symptoms at onset: LEFT KNEE. Worse: FULL LEFT KNEE FLEXION IS THE MOST CONSIST ENT THING THAT MAKES IT GO OUT. Better: KNEE EXTENSION. PATIENT REPORTS SHE HAS ALWAYS BEEN ABLE TO GET IT BACK IN HERSELF. Disturbed sleep: NO. Previous history/Previous treatment: NONE. Gait: NORMAL U NLESS IT IS OUT. ABLE TO INDEP'LY REDUCE QUICKLY IF IT GOES OUT. Accidents: NO. Unexplained weight loss: NO. Imaging: SMALL JOINT EFFUSION. PMH: ACUTE LYMPHOBLASTIC LEUKEMIA 2005 - CHEMO. HYPOTHYROIDISM . OSTEOPENIA. OTHER: GOES TO A FITNESS CLASS AND HAS FOR ABOUT 3 YEARS NOW. IT HAS OCCASSIONALLY GONE OUT THERE AND INSTRUCTOR RECOMMENDED SHE HAVE IT LOOKED OUT. DR. VÁSQUEZ HAS REFERRED PATIENT TO DR. RODRÍGUEZ FOR CONSULT. - Objective THIS PATIENT AMBULATES INDEP'LY INTO PT WITHOUT ANY DEVIATIONS NOTED. SHE HAS GOOD FUNCTIONAL ROM AND STRENGTH OF CARMEL LE'S. SHE HAS POOR POSTURE CONTROL AND DECREASE D CORE STRENGTH. SHE HAS DECREASED APPROPRIATE EX KNOWLEDGE FOR THIS CONDITION. HER EXAM IS RELATIVELY BENIGN BUT SHE DOES HAVE CARMEL VASTUS MEDIALIS WEAKNESS AND CORE WEAKNESS. NO PAIN WAS PROVOKED DURIN IG EXAM AND SHE DOES APPEAR TO HAVE VERY MILD SWELLING LOCALIZED TO THE LEFT KNEE JOINT. - Goals Goal 1:: DECREASE EPISODES OF LEFT KNEE PATELLA DISLOCATIONS AND EPISODES OF PAIN. Goal Time Frame: 4-6 Weeks Goal 2:: PATIENT WILL BE INDEP WITH A HEP AND INDEP EX KNOWLEDGE FOR CHRONIC LEFT KNEE PATELAR DISLOCATIONS. Goal Time Frame: 4-6 Weeks - Rehabilitation Potential Rehabilitation Potential: Good - Anticipated Interventions Patient/Client Instruction: Educate patient on: Condition, Plan of Care, Risk Factors, Benefits of Fitness Program For the Purpose of:: To improve self management Therapeutic Exercise to Include: Strength training, Body mechanics, Postural training, Flexibilty training For the Purpose of:: To improve ability of physical actions for home/community/work/leisure Thank you for the opportunity to evaluate your patient. For Medicare and Medicare HMO plans, please review the plan of care and approve it. It will need to be FAXED BACK to us at [phone] for Medicare purpos es. Please let me know if there are questions or concerns regarding this plan of care. Physician Signature: Date: <Electronicall y signed by Sandy Jiang PT, Cert. MDT> 01/30/17 1322 CC: Irma Vásquez DO CHRIS Signed For Medicare only, by signing this I certify the plan of care. Physicians Signature Date 27-Jan-2017 Knee 4 or More Views Result: Comments: See Note; NOTES: [facility] Imaging Services [address] [place] [address] Knee 4 or More Views MR#: [id number] Acct: [id number] Name: MELYSSA HAYWOOD Rep #: [id number] : 1960 F 56 From: Payam Pisano MD PCP: Irma Vásquez DO Status: REG CLI Study: Knee 4 or More Views Date of Exam: 01/27/17 Exam# [id number] Ordering Dr: Irma Vásquez DO STUDY: X-RA Y - LEFT KNEE REASON FOR EXAM: Female, 56 years old. Dislocation TECHNIQUE: 4 view(s) of the knee. COMPARISON: None. FINDINGS: Normal visualized distal femur. Nor mal visualized proximal tibia and fibula. Normal proximal tibiofibular articulation. Normal medial femorotibial compartment. Normal lateral femorotibial compartment. Normal patellofemoral articulation. There is a small joint effusion. RAD/Knee 4 or More Views IMPRESSION: Small joint effusion Electronically Signed: Payam Pisano MD at 21:48 EST Tel , Service support , CC: Irma Vásquez DO Fire Investigation Manager: Signed 20-Jan-2017 SCREENING MAMM (CAD), BILAT Result: Comments: See Note; NOTES: [facility] Imaging Services [address] [place] [id number] SCREENING MAMM (CAD), BILAT MR#: [id number] Acct: [id number] Name: MELYSSA HAYWOOD Rep #: [id number] : 1960 F 56 From: Johnnie Huizar MD PCP: Irma Vásquez DO Status: REG CLI Study: SCREENING MAMM (CAD), BILAT Date of Exam: 01/20/17 Exam# [id number] Ordering Dr: Irma Vásquez DO MAMMOGRAPHY - BILATERAL SCREENING REASON FOR EXAM: Female, 56 years old. Routine annual screening examination. PERTINENT HISTORY: Non-contributory. TECHNIQUE: Digital bilateral breast lauro (3D mammographic acquisition) in the CC and MLO projections. 2-D mediolateral oblique (MLO) and craniocaudad (CC) views of both breasts were obtained. CAD: Full Field Digital Mammography with Computer Added Detection was performed. COMPARISON: Comparison is made with prior study dated April 12, 2015 and February 03, 2014. FINDINGS: Breast Composition: The breasts a re heterogeneously dense, which may obscure small masses. There are no dominant masses or suspicious calcifications. No other significant abnormalities are identified. There has been no significant ch zunilda since the prior study. 0022 HPBI/SCREENING MAMM (CAD), BILAT IMPRESSION: Stable bilateral screening mammogram. Yearly follow-up mammogram recomme nded. (A) ASSESSMENT CATEGORY: BIRADS Category 1: Negative. A letter regarding these results will be sent to the patient by the facility within 30 days. Approximat fani 10% of breast cancers are not detected by mammography. A normal mammogram should not delay biopsy of a clinically suspicious abnormality. [id number] Electronically Signed: Johnnie Huizar MD 01/20 at 13:55 EST Tel [phone], Service support , CC: Irma Vásquez DO Fire Investigation Manager: Signed 07-Jun-2015 Spirometry ([id number]) Comments: mild abnormality Result: 12-Apr-2015 Bilat Scrn Digital AND CAD Result: Comments: See Note; NOTES: [facility] Imaging Services [address] [place] [address] Verdana 4d Bilat Scrn Digital AND CAD MR#: [id number] Acct: [id number] Name: MELYSSA HAYWOOD Rep #: [id number] : 1960 F 54 From: Johnnie Huizar MD PCP: Alison Rodriguez DO Status: REG CLI Study: Ezequiel Verdugo Digital AND CAD Date of Exam: 04/12/15 Exam# [id number] Ordering Dr: Alison Rodriguez DO MAMMOGRAPHY - BILATERAL SCREENING REASON FOR EXAM: Female, 54 years old. Routine annual screening examination. PERTINENT HISTORY: Non- contributory. TECHNIQUE: Digital exam ination. Mediolateral oblique (MLO) and craniocaudad (CC) views of both breasts were obtained. CAD: CAD was performed on this study. COMPARISON: Comparison is made with prior study dated January and February 01, 2013. FINDINGS: Breast Composition: The breasts are heterogeneously dense, which may obscure small masses. There are no dominant alysia s or suspicious calcifications. No other significant abnormalities are identified. There has been no significant change since the prior study. IMPRESSION: Stab le bilateral screening mammogram. Yearly follow-up mammogram recommended. (A) ASSESSMENT CATEGORY: BIRADS Category 1: Negative. A letter regarding these results will be sent to the patient by the facility within 30 days. Approximately 10% of breast cancers are not detected by mammography. A normal mammogram should not delay biopsy of a clinically suspiciou s abnormality. [id number] Electronically Signed: Johnnie Huizar MD at 14:58 EST Tel [phone], Service support [phone], CC: Alison Rodriguez DO Fire Investigation Manager: Signed 03-Feb-2014 zEequiel Verdugo Digital AND CAD Result: Comments: See Note; NOTES: [facility] Imaging Services [address] [place] [address] Breast Imaging Report MR#: [id number] Acct: [id number] Name: MELYSSA HAYWOOD Rep #: [id number] : 1960 F 53 From: Johnnie Huizar MD PCP: Alison Rodriguez DO Status: REG CLI Study: Ezequeil Scrn Digital AND CAD Date of Exam: 02/03/14 Exam# [id number] Ordering Dr: Alison Rodriguez DO MAMMOGRAPHY - BILATERAL SCREENING REASON FOR EXAM: Female, 53 years old. Routine annual screening examination. PERTINENT HISTORY: Non-contributory. TECHNIQUE: Digital examination. Mediolateral o blique (MLO) and craniocaudad (CC) views of both breasts were obtained. CAD: CAD was performed on this study. COMPARISON: Comparison is made with prior study dated February 01, 2013 and January. FINDINGS: Breast Composition: The breasts are heterogeneously dense, which may obscure small masses. There are no dominant masses or suspicious calcifi cations. No other significant abnormalities are identified. There has been no significant change since the prior study. IMPRESSION: Stable bilateral screening mammogram. Yearly follow-up recommended. (A) ASSESSMENT CATEGORY: BIRADS Category 2: Benign. A letter regarding these results will be sent to the patient by the facility within 30 days. Approximately 10% of breast cancers are not detected by mammography. A normal mammogram should not delay biopsy of a clinically suspicious abnormality. Electronically Sign ed: Johnnie Huizar MD at 10:55 EST Tel [phone], Service support [phone], CC: Alison Rodriguez DO Fire Investigation Manager: Signed 29-Aug-2013 Carotid Duplex Ultrasound Result: Comments: See Note; NOTES: [facility] Cardiovascular Services [address] [place] [address] Carotid Duplex Ultrasound 08/19/13 1102 MR#: [id number] Acct: [id number] Vitaliy e: MELYSSA HAYWOOD Rep #: [id number] : 1960 53 From: Yannick Garcia MD Attending Dr: Alison Rodriguez DO Status: REG CLI Ordering Dr: Alison Rodriguez DO Date: 08/19/13 Location: [facility] Sex: F C Admitted: Rt. Velocities/BP Lt. Velocities/BP Prox CCA 98.5/32.2 cm/sec. Prox CCA 101/32.8 cm/sec. Mid CCA 106/29.9 cm/sec. Mid CCA 97.9/35.2 cm/sec. Dist CCA 90.9/32.8 cm/sec. Dist CCA 98.5/ 38.1 cm/sec . Prox ICA 93.2/27.6 cm/sec. Prox ICA 47.5/ 17.6 cm/sec. Mid ICA 103/49.8 cm/sec. Mid ICA 81.5/36.4 cm/sec. Dist ICA 100/44.0 cm/sec. Dist ICA 93.8/ 42.8 cm/sec. Rt. ICA/CCA = 1.0. Lt. ICA/CCA = 1. 0. Prox ECA 90.3/21.1 cm/sec. Prox ECA 89.7/ 23.5 cm/sec. Rt. Vert. 61.0/22.9 cm/sec. Lt. Vert. 47.5/ 17.0 cm/sec. Right Extracranial There is intimal thickening but no significant atherosclerotic plaque noted in the right common carotid artery. There is intimal thickening but no significant atherosclerotic plaque noted in the right internal carotid artery. There is intimal thickening but no significant atherosclerotic plaque noted in the right external carotid artery. Antegrade flow is noted in the right vertebral artery. Left Extracranial There is intimal thickening but no significa nt atherosclerotic plaque noted in the left common carotid artery. There is intimal thickening but no significant atherosclerotic plaque noted in the left internal carotid artery. There is intimal t hickening but no significant atherosclerotic plaque noted in the left external carotid artery. Antegrade flow is noted in the left vertebral artery. Procedure Carotid Duplex [id number]. The exam was di agnostic. Exam performed in department. Interpretation Summary Mild (<50%) stenosis right extracranial internal carotid. Mild (<50%) stenosis left extracranial internal carotid. Phi w within the vertebral arteries is antegrade bilaterally. Ordering Physician: Alison Rodriguez ormed By: Alfa Zamarripa RVAndrea : Alison Rodriguez DO Date Dictated: 08/19/13 1102 Date Transcribed: 08/29/13 0859 Fire Investigation Manager: Signed 01-Feb-2013 Bilat Scrn Digital & CAD Result: Comments: See Note; NOTES: [facility] Imaging Services [address] [place] [address] Breast Imaging Report MR#: [id number] Acct: [id number] Name: MELYSSA HAYWOOD Rep #: [id number] : 1960 F 52 From: Johnnie Huizar MD PCP: Alison Rodriguez DO Status: REG CLI Exam# [id number] Ordering Dr: Alison Rodriguez DO MAMMOGRAPHY - BILATERAL SCREENING REASON FOR EXAM: Fem brandon, 52 years old. Routine annual screening examination. PERTINENT HISTORY: Non-contributory. TECHNIQUE: Digital examination. Mediolateral oblique (MLO) and craniocaudad (CC) views of both breasts were obtained. CAD: CAD was performed on this study. COMPARISON: Comparison is made with prior study dated January 31, 2012 and June 15, 2010. FINDINGS: Th e breast composition is heterogeneously dense - ranging from 51% to 75% of the breast tissue. There are no dominant masses or suspicious calcifications. No other significant abnormalities are ident ified. There has been no significant change since the prior study. IMPRESSION: Stable bilateral screening mammogram. Yearly follow-up recommended. (A) ASSESSMENT CATEGORY: BIRADS Category 2: Benign finding(s). A letter regarding these results will be sent to the patient by the facility within 30 days. Approximately 10% of breast cancers are not detected by mammography. A normal mammogram should not delay biopsy of a clinically suspicious abnormality. Electronically Signed: Johnnie Huizar M.D. at 9:56 EST , Service support [phone], CC: Alison Rodriguez DO Fire Investigation Manager: Signed Immunization Name Dates Details Influenza (3 years and up) on: 09-Dec-2006 Comments: given in left deltoid, 0.5cc, lot#[id number], exp.6.30.08 WF Influenza (3 years and up) on: 22-Dec-2007 Comments: Lot #:[id number] date:07/26Amount given:0.5mlRoute: imSite given:Right deltoidGiven by: Amilcar Obrien LPN Influenza (3 years and up) on: 25-Nov-2008 Tdap (7 years and up) on: 27-Jan-2009 Comments: Lot #[id number]-left deltoidDose0.5mlgiven by Zenobia English LPN Social History Name Dates Details Alcohol Use Comments: Heavy alcohol use - 2 glasses of red wine daily Status: Active Caffeine Use Comments: 1-2 cups qd Status: Active 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 Status: Active Smoking Status Name Dates Details Never smoker Vital Signs Date Test Result Details [id number] Temperature 97.1 f Comments: Method: Temporal Pulse 89 /min Comments: Pattern: Regular Respiration Rate 18 /min Comments: Pattern: Unlabored O2 SAT 98 % Comments: Room air BP Systolic 126 mm[Hg] Comments: Patient Position: Sitting; Cuff Location: Left Arm; Cuff Size: Standard BP Diastolic 80 mm[Hg] Comments: Patient Position: Sitting; Cuff Location: Left Arm; Cuff Size: Standard Weight 146.375 lb Height 68 in Body Mass Index Calculated 22.26 kg/m2 Body Surface Area Calculated 1.79 m2 :51 Pulse 82 /min Comments: Pattern: Regular Respiration Rate 18 /min Comments: Pattern: Unlabored O2 SAT 98 % Comments: Room air BP Systolic 118 mm[Hg] Comments: Patient Position: Sitting; Cuff Location: Left Arm; Cuff Size: Large BP Diastolic 80 mm[Hg] Comments: Patient Position: Sitting; Cuff Location: Left Arm; Cuff Size: Large Weight 143.125 lb Height 68 in Body Mass Index Calculated 21.76 kg/m2 Body Surface Area Calculated 1.77 m2 :01 Pulse 83 /min Comments: Pattern: Regular Respiration Rate 18 /min Comments: Pattern: Unlabored O2 SAT 98 % Comments: Room air BP Systolic 118 mm[Hg] Comments: Patient Position: Sitting; Cuff Location: Left Arm; Cuff Size: Standard BP Diastolic 62 mm[Hg] Comments: Patient Position: Sitting; Cuff Location: Left Arm; Cuff Size: Standard Weight 143 lb Height 68 in Body Mass Index Calculated 21.74 kg/m2 Body Surface Area Calculated 1.77 m2 :47 Pulse 95 /min Comments: Pattern: Regular Respiration Rate 18 /min Comments: Pattern: Unlabored O2 SAT 96 % Comments: Room air BP Systolic 122 mm[Hg] Comments: Patient Position: Sitting; Cuff Location: Left Arm; Cuff Size: Standard BP Diastolic 76 mm[Hg] Comments: Patient Position: Sitting; Cuff Location: Left Arm; Cuff Size: Standard Weight 141.25 lb Height 68 in Body Mass Index Calculated 21.48 kg/m2 Body Surface Area Calculated 1.76 m2 :40 Temperature 98.2 f Comments: Method: Temporal Pulse 106 /min Comments: Pattern: Regular Respiration Rate 17 /min Comments: Pattern: Unlabored O2 SAT 98 % Comments: Room air BP Systolic 124 mm[Hg] Comments: Patient Position: Sitting; Cuff Location: Left Arm; Cuff Size: Standard BP Diastolic 72 mm[Hg] Comments: Patient Position: Sitting; Cuff Location: Left Arm; Cuff Size: Standard Weight 135.25 lb Height 68 in Body Mass Index Calculated 20.56 kg/m2 Body Surface Area Calculated 1.73 m2 :53 Temperature 97.7 f Pulse 81 /min Comments: Pattern: Regular Respiration Rate 17 /min Comments: Pattern: Unlabored O2 SAT 97 % Comments: Room air BP Systolic 116 mm[Hg] Comments: Patient Position: Sitting; Cuff Location: Left Arm; Cuff Size: Standard BP Diastolic 78 mm[Hg] Comments: Patient Position: Sitting; Cuff Location: Left Arm; Cuff Size: Standard Weight 135.25 lb Height 68 in Body Mass Index Calculated 20.56 kg/m2 Body Surface Area Calculated 1.73 m2 :38 Pulse 88 /min Comments: Pattern: Regular Respiration Rate 18 /min Comments: Pattern: Unlabored BP Systolic 118 mm[Hg] Comments: Patient Position: Sitting; Cuff Location: Left Arm; Cuff Size: Standard BP Diastolic 78 mm[Hg] Comments: Patient Position: Sitting; Cuff Location: Left Arm; Cuff Size: Standard Weight 135.25 lb Height 68 in Body Mass Index Calculated 20.56 kg/m2 Body Surface Area Calculated 1.73 m2 :22 Pulse 94 /min Comments: Pattern: Regular Respiration Rate 18 /min Comments: Pattern: Unlabored O2 SAT 95 % Comments: Room air BP Systolic 108 mm[Hg] Comments: Patient Position: Sitting; Cuff Location: Left Arm; Cuff Size: Standard BP Diastolic 62 mm[Hg] Comments: Patient Position: Sitting; Cuff Location: Left Arm; Cuff Size: Standard Weight 135.25 lb Height 68 in Body Mass Index Calculated 20.56 kg/m2 Body Surface Area Calculated 1.73 m2 :02 Temperature 97 f Pulse 76 /min Comments: Pattern: Regular Respiration Rate 17 /min Comments: Pattern: Unlabored O2 SAT 98 % Comments: Room air BP Systolic 112 mm[Hg] Comments: Patient Position: Sitting; Cuff Location: Left Arm; Cuff Size: Standard BP Diastolic 78 mm[Hg] Comments: Patient Position: Sitting; Cuff Location: Left Arm; Cuff Size: Standard Weight 136.25 lb Height 68 in Body Mass Index Calculated 20.72 kg/m2 Body Surface Area Calculated 1.74 m2 :26 Temperature 97 f Pulse 81 /min Comments: Pattern: Regular Respiration Rate 17 /min Comments: Pattern: Unlabored O2 SAT 98 % Comments: Room air BP Systolic 114 mm[Hg] Comments: Patient Position: Sitting; Cuff Location: Left Arm; Cuff Size: Standard BP Diastolic 80 mm[Hg] Comments: Patient Position: Sitting; Cuff Location: Left Arm; Cuff Size: Standard Weight 136.25 lb Height 68 in Body Mass Index Calculated 20.72 kg/m2 Body Surface Area Calculated 1.74 m2 :47 Temperature 97.6 f Comments: Method: Temporal Pulse 70 /min Comments: Pattern: Regular Respiration Rate 18 /min Comments: Pattern: Unlabored O2 SAT 98 % Comments: Room air BP Systolic 114 mm[Hg] Comments: Patient Position: Sitting; Cuff Location: Left Arm; Cuff Size: Standard BP Diastolic 70 mm[Hg] Comments: Patient Position: Sitting; Cuff Location: Left Arm; Cuff Size: Standard Weight 134 lb Height 68 in Body Mass Index Calculated 20.37 kg/m2 Body Surface Area Calculated 1.72 m2 :13 Temperature 97.7 f Comments: Method: Oral Pulse 76 /min Comments: Pattern: Regular Respiration Rate 16 /min Comments: Pattern: Unlabored BP Systolic 116 mm[Hg] Comments: Patient Position: Sitting; Cuff Location: Left Arm; Cuff Size: Standard BP Diastolic 82 mm[Hg] Comments: Patient Position: Sitting; Cuff Location: Left Arm; Cuff Size: Standard Weight 134 lb Height 68 in Body Mass Index Calculated 20.37 kg/m2 Body Surface Area Calculated 1.72 m2 :40 Temperature 97.8 f Comments: Method: Temporal Pulse 76 /min Comments: Pattern: Regular Respiration Rate 17 /min Comments: Pattern: Unlabored O2 SAT 98 % Comments: Room air BP Systolic 122 mm[Hg] Comments: Patient Position: Sitting; Cuff Location: Left Arm; Cuff Size: Standard BP Diastolic 74 mm[Hg] Comments: Patient Position: Sitting; Cuff Location: Left Arm; Cuff Size: Standard Weight 137.3 lb Height 68 in Body Mass Index Calculated 20.88 kg/m2 Body Surface Area Calculated 1.74 m2 :24 Temperature 98 f Comments: Method: Temporal Pulse 74 /min Comments: Pattern: Regular Respiration Rate 16 /min Comments: Pattern: Unlabored O2 SAT 97 % Comments: Room air BP Systolic 124 mm[Hg] Comments: Patient Position: Sitting; Cuff Location: Left Arm; Cuff Size: Standard BP Diastolic 72 mm[Hg] Comments: Patient Position: Sitting; Cuff Location: Left Arm; Cuff Size: Standard Weight 137.3 lb Height 68 in Body Mass Index Calculated 20.88 kg/m2 Body Surface Area Calculated 1.74 m2 :28 Temperature 98.6 f Comments: Method: Temporal Pulse 62 /min Comments: Pattern: Regular Respiration Rate 16 /min Comments: Pattern: Unlabored O2 SAT 99 % Comments: Room air BP Systolic 124 mm[Hg] Comments: Patient Position: Sitting; Cuff Location: Left Arm; Cuff Size: Standard BP Diastolic 68 mm[Hg] Comments: Patient Position: Sitting; Cuff Location: Left Arm; Cuff Size: Standard Weight 137.3 lb Height 68 in Body Mass Index Calculated 20.88 kg/m2 Body Surface Area Calculated 1.74 m2 :05 Pulse 73 /min Comments: Pattern: Regular Respiration Rate 16 /min Comments: Pattern: Unlabored O2 SAT 98 % Comments: Room air BP Systolic 120 mm[Hg] Comments: Patient Position: Sitting; Cuff Location: Left Arm; Cuff Size: Standard BP Diastolic 72 mm[Hg] Comments: Patient Position: Sitting; Cuff Location: Left Arm; Cuff Size: Standard Weight 134 lb Height 68 in Body Mass Index Calculated 20.37 kg/m2 Body Surface Area Calculated 1.72 m2 :51 Temperature 98.8 f Comments: Method: Oral Pulse 77 /min Comments: Pattern: Regular Respiration Rate 16 /min Comments: Pattern: Unlabored O2 SAT 98 % Comments: Room air BP Systolic 116 mm[Hg] Comments: Patient Position: Sitting; Cuff Location: Left Arm; Cuff Size: Standard BP Diastolic 72 mm[Hg] Comments: Patient Position: Sitting; Cuff Location: Left Arm; Cuff Size: Standard Weight 134 lb Height 68 in Body Mass Index Calculated 20.37 kg/m2 Body Surface Area Calculated 1.72 m2 :27 Temperature 97.4 f Pulse 92 /min Comments: Pattern: Regular Respiration Rate 16 /min Comments: Pattern: Unlabored BP Systolic 112 mm[Hg] Comments: Patient Position: Sitting; Cuff Location: Left Arm; Cuff Size: Standard BP Diastolic 68 mm[Hg] Comments: Patient Position: Sitting; Cuff Location: Left Arm; Cuff Size: Standard Weight 134 lb Height 68 in Body Mass Index Calculated 20.37 kg/m2 Body Surface Area Calculated 1.72 m2 :01 Temperature 100.9 f Comments: Method: Oral Pulse 68 /min Comments: Pattern: Regular Respiration Rate 18 /min Comments: Pattern: Unlabored BP Systolic 122 mm[Hg] Comments: Patient Position: Sitting; Cuff Location: Left Arm; Cuff Size: Standard BP Diastolic 78 mm[Hg] Comments: Patient Position: Sitting; Cuff Location: Left Arm; Cuff Size: Standard Weight 132.3125 lb Height 67 in Body Mass Index Calculated 20.72 kg/m2 Body Surface Area Calculated 1.7 m2 :02 Temperature 98.1 f Comments: Method: Oral Pulse 60 /min Comments: Pattern: Regular Respiration Rate 16 /min Comments: Pattern: Unlabored BP Systolic 118 mm[Hg] Comments: Patient Position: Sitting; Cuff Location: Left Arm; Cuff Size: Standard BP Diastolic 80 mm[Hg] Comments: Patient Position: Sitting; Cuff Location: Left Arm; Cuff Size: Standard Weight 130 lb Height 67 in Body Mass Index Calculated 20.36 kg/m2 Body Surface Area Calculated 1.68 m2 :18 Temperature 97.9 f Comments: Method: Oral Pulse 84 /min Comments: Pattern: Regular Respiration Rate 18 /min O2 SAT 96 % Comments: Room air BP Systolic 118 mm[Hg] Comments: Patient Position: Sitting; Cuff Location: Left Arm; Cuff Size: Standard BP Diastolic 72 mm[Hg] Comments: Patient Position: Sitting; Cuff Location: Left Arm; Cuff Size: Standard Weight 130 lb Height 67 in Body Mass Index Calculated 20.36 kg/m2 Body Surface Area Calculated 1.68 m2 :10 Temperature 97.7 f Pulse 84 /min Comments: Pattern: Regular Respiration Rate 16 /min Comments: Pattern: Unlabored BP Systolic 110 mm[Hg] Comments: Patient Position: Sitting; Cuff Location: Left Arm; Cuff Size: Standard BP Diastolic 80 mm[Hg] Comments: Patient Position: Sitting; Cuff Location: Left Arm; Cuff Size: Standard Weight 130 lb Height 67 in Body Mass Index Calculated 20.36 kg/m2 Body Surface Area Calculated 1.68 m2 :36 Temperature 98.5 f Comments: Method: Oral Pulse 88 /min Comments: Pattern: Regular Respiration Rate 17 /min BP Systolic 110 mm[Hg] Comments: Patient Position: Sitting; Cuff Location: Left Arm; Cuff Size: Standard BP Diastolic 68 mm[Hg] Comments: Patient Position: Sitting; Cuff Location: Left Arm; Cuff Size: Standard Weight 132 lb Height 67 in Body Mass Index Calculated 20.67 kg/m2 Body Surface Area Calculated 1.69 m2 :11 Temperature 98.8 f Comments: Method: Oral Pulse 92 /min Comments: Pattern: Regular Respiration Rate 16 /min Comments: Pattern: Unlabored O2 SAT 98 % Comments: Room air BP Systolic 124 mm[Hg] Comments: Patient Position: Sitting; Cuff Location: Left Arm; Cuff Size: Standard BP Diastolic 72 mm[Hg] Comments: Patient Position: Sitting; Cuff Location: Left Arm; Cuff Size: Standard Weight 130 lb Height 67.75 in Body Mass Index Calculated 19.91 kg/m2 Body Surface Area Calculated 1.7 m2 :42 Temperature 97.9 f Pulse 80 /min Comments: Pattern: Regular Respiration Rate 16 /min Comments: Pattern: Unlabored BP Systolic 94 mm[Hg] Comments: Patient Position: Sitting; Cuff Location: Left Arm; Cuff Size: Large BP Diastolic 64 mm[Hg] Comments: Patient Position: Sitting; Cuff Location: Left Arm; Cuff Size: Large Weight 135 lb Height 67.75 in Body Mass Index Calculated 20.68 kg/m2 Body Surface Area Calculated 1.72 m2 :17 Temperature 98 f Comments: Method: Oral Pulse 84 /min Comments: Pattern: Regular Respiration Rate 16 /min Comments: Pattern: Unlabored BP Systolic 100 mm[Hg] Comments: Patient Position: Sitting; Cuff Location: Left Arm; Cuff Size: Standard BP Diastolic 62 mm[Hg] Comments: Patient Position: Sitting; Cuff Location: Left Arm; Cuff Size: Standard Weight 128 lb Height 68 in Body Mass Index Calculated 19.46 kg/m2 Body Surface Area Calculated 1.69 m2 :48 Temperature 98.6 f Pulse 82 /min Comments: Pattern: Regular Respiration Rate 16 /min Comments: Pattern: Unlabored BP Systolic 106 mm[Hg] Comments: Patient Position: Sitting; Cuff Location: Left Arm; Cuff Size: Large BP Diastolic 78 mm[Hg] Comments: Patient Position: Sitting; Cuff Location: Left Arm; Cuff Size: Large Weight 128 lb Height 68 in Body Mass Index Calculated 19.46 kg/m2 Body Surface Area Calculated 1.69 m2 :50 Temperature 97.2 f Comments: Method: Oral Pulse 82 /min Comments: Pattern: Regular Respiration Rate 16 /min Comments: Pattern: Unlabored BP Systolic 96 mm[Hg] Comments: Patient Position: Sitting; Cuff Location: Left Arm; Cuff Size: Standard BP Diastolic 68 mm[Hg] Comments: Patient Position: Sitting; Cuff Location: Left Arm; Cuff Size: Standard Weight 128.0625 lb Height 68 in Body Mass Index Calculated 19.47 kg/m2 Body Surface Area Calculated 1.69 m2 :13 Pulse 80 /min Comments: Pattern: Regular Respiration Rate 20 /min Comments: Pattern: Unlabored BP Systolic 98 mm[Hg] Comments: Patient Position: Sitting; Cuff Location: Left Arm; Cuff Size: Large BP Diastolic 62 mm[Hg] Comments: Patient Position: Sitting; Cuff Location: Left Arm; Cuff Size: Large Weight 128.0625 lb Height 68 in Body Mass Index Calculated 19.47 kg/m2 Body Surface Area Calculated 1.69 m2 :44 Temperature 98 f Pulse 88 /min Comments: Pattern: Regular Respiration Rate 16 /min Comments: Pattern: Unlabored BP Systolic 88 mm[Hg] Comments: Patient Position: Sitting; Cuff Location: Left Arm; Cuff Size: Large BP Diastolic 58 mm[Hg] Comments: Patient Position: Sitting; Cuff Location: Left Arm; Cuff Size: Large Weight 130 lb Height 68 in Body Mass Index Calculated 19.77 kg/m2 Body Surface Area Calculated 1.7 m2 :27 Temperature 98.5 f Pulse 92 /min Comments: Pattern: Regular Respiration Rate 16 /min Comments: Pattern: Unlabored BP Systolic 108 mm[Hg] Comments: Patient Position: Sitting; Cuff Location: Left Arm; Cuff Size: Standard BP Diastolic 76 mm[Hg] Comments: Patient Position: Sitting; Cuff Location: Left Arm; Cuff Size: Standard :15 Temperature 98.5 f Comments: Method: Oral Pulse 80 /min Comments: Pattern: Regular Respiration Rate 14 /min Comments: Pattern: Unlabored BP Systolic 120 mm[Hg] Comments: Patient Position: Sitting; Cuff Location: Left Arm; Cuff Size: Large BP Diastolic 60 mm[Hg] Comments: Patient Position: Sitting; Cuff Location: Left Arm; Cuff Size: Large Weight 134 lb :39 Temperature 97.8 f Comments: Method: Oral Pulse 88 /min Comments: Pattern: Regular Respiration Rate 16 /min Comments: Pattern: Unlabored BP Systolic 100 mm[Hg] Comments: Patient Position: Sitting; Cuff Location: Right Arm; Cuff Size: Standard BP Diastolic 62 mm[Hg] Comments: Patient Position: Sitting; Cuff Location: Right Arm; Cuff Size: Standard Weight 132 lb Height 0 in Head Circumference 0.00 cm :49 Temperature 99.3 f Comments: Method: Undefined Pulse 96 /min Comments: Pattern: Regular Respiration Rate 18 /min Comments: Pattern: Undefined BP Systolic 102 mm[Hg] Comments: Patient Position: Sitting; Cuff Location: Right Arm; Cuff Size: Standard BP Diastolic 66 mm[Hg] Comments: Patient Position: Sitting; Cuff Location: Right Arm; Cuff Size: Standard Weight 0 lb Height 0 in Head Circumference 0.00 cm :50 Pulse 92 /min Comments: Pattern: Regular Respiration Rate 18 /min Comments: Pattern: Unlabored O2 SAT 98 % Comments: Room air BP Systolic 98 mm[Hg] Comments: Patient Position: Sitting; Cuff Location: Left Arm; Cuff Size: Standard BP Diastolic 52 mm[Hg] Comments: Patient Position: Sitting; Cuff Location: Left Arm; Cuff Size: Standard Weight 135.375 lb Height 68 in Body Mass Index Calculated 20.58 kg/m2 Body Surface Area Calculated 1.73 m2 Head Circumference 0.00 cm :35 Temperature 98.2 f Comments: Method: Oral Pulse 72 /min Comments: Pattern: Regular Respiration Rate 18 /min Comments: Pattern: Unlabored BP Systolic 98 mm[Hg] Comments: Patient Position: Sitting; Cuff Location: Right Arm; Cuff Size: Standard BP Diastolic 58 mm[Hg] Comments: Patient Position: Sitting; Cuff Location: Right Arm; Cuff Size: Standard Weight 138 lb Height 69 in Body Mass Index Calculated 20.38 kg/m2 Body Surface Area Calculated 1.76 m2 Head Circumference 0.00 cm :13 Temperature 98.1 f Comments: Method: Oral Pulse 88 /min Comments: Pattern: Regular Respiration Rate 18 /min Comments: Pattern: Unlabored O2 SAT 96 % Comments: Room air BP Systolic 106 mm[Hg] Comments: Patient Position: Sitting; Cuff Location: Right Arm; Cuff Size: Standard BP Diastolic 62 mm[Hg] Comments: Patient Position: Sitting; Cuff Location: Right Arm; Cuff Size: Standard Weight 140 lb Height 0 in Head Circumference 0.00 cm :50 Temperature 97.6 f Comments: Method: Undefined Pulse 84 /min Comments: Pattern: Regular Respiration Rate 16 /min Comments: Pattern: Undefined BP Systolic 96 mm[Hg] Comments: Patient Position: Sitting; Cuff Location: Right Arm; Cuff Size: Standard BP Diastolic 72 mm[Hg] Comments: Patient Position: Sitting; Cuff Location: Right Arm; Cuff Size: Standard Weight 140 lb Height 0 in Head Circumference 0.00 cm :41 Temperature 98.3 f Comments: Method: Undefined Pulse 92 /min Comments: Pattern: Regular Respiration Rate 16 /min Comments: Pattern: Undefined BP Systolic 92 mm[Hg] Comments: Patient Position: Sitting; Cuff Location: Left Arm; Cuff Size: Large BP Diastolic 58 mm[Hg] Comments: Patient Position: Sitting; Cuff Location: Left Arm; Cuff Size: Large Weight 141 lb Height 68.5 in Body Mass Index Calculated 21.13 kg/m2 Body Surface Area Calculated 1.77 m2 Head Circumference 0.00 cm :02 Temperature 97.8 f Comments: Method: Undefined Pulse 100 /min Comments: Pattern: Regular Respiration Rate 16 /min Comments: Pattern: Undefined O2 SAT 100 % Comments: Room air BP Systolic 90 mm[Hg] Comments: Patient Position: Sitting; Cuff Location: Left Arm; Cuff Size: Standard BP Diastolic 70 mm[Hg] Comments: Patient Position: Sitting; Cuff Location: Left Arm; Cuff Size: Standard Weight 0 lb Height 0 in Head Circumference 0.00 cm :02 Temperature 98.5 f Comments: Method: Oral Pulse 92 /min Comments: Pattern: Regular Respiration Rate 18 /min Comments: Pattern: Unlabored BP Systolic 100 mm[Hg] Comments: Patient Position: Sitting; Cuff Location: Right Arm; Cuff Size: Standard BP Diastolic 70 mm[Hg] Comments: Patient Position: Sitting; Cuff Location: Right Arm; Cuff Size: Standard Weight 0 lb Height 0 in Head Circumference 0.00 cm :43 Temperature 99 f Comments: Method: Oral Pulse 76 /min Comments: Pattern: Regular Respiration Rate 16 /min Comments: Pattern: Unlabored BP Systolic 104 mm[Hg] Comments: Patient Position: Sitting; Cuff Location: Left Arm; Cuff Size: Standard BP Diastolic 68 mm[Hg] Comments: Patient Position: Sitting; Cuff Location: Left Arm; Cuff Size: Standard Weight 152 lb Height 68.5 in Body Mass Index Calculated 22.78 kg/m2 Body Surface Area Calculated 1.83 m2 Head Circumference 0.00 cm :47 Pulse 60 /min Comments: Pattern: Regular Respiration Rate 20 /min Comments: Pattern: Unlabored BP Systolic 100 mm[Hg] Comments: Patient Position: Sitting; Cuff Location: Left Arm; Cuff Size: Standard BP Diastolic 60 mm[Hg] Comments: Patient Position: Sitting; Cuff Location: Left Arm; Cuff Size: Standard Weight 153 lb Height 0 in Head Circumference 0.00 cm :19 Temperature 98.4 f Comments: Method: Oral Pulse 96 /min Comments: Pattern: Regular Respiration Rate 16 /min Comments: Pattern: Unlabored BP Systolic 100 mm[Hg] Comments: Patient Position: Sitting; Cuff Location: Right Arm; Cuff Size: Standard BP Diastolic 62 mm[Hg] Comments: Patient Position: Sitting; Cuff Location: Right Arm; Cuff Size: Standard Weight 151 lb Height 68.25 in Body Mass Index Calculated 22.79 kg/m2 Body Surface Area Calculated 1.82 m2 Head Circumference 0.00 cm :41 Temperature 98.2 f Comments: Method: Oral Pulse 72 /min Comments: Pattern: Regular Respiration Rate 16 /min Comments: Pattern: Unlabored BP Systolic 108 mm[Hg] Comments: Patient Position: Sitting; Cuff Location: Left Arm; Cuff Size: Standard BP Diastolic 64 mm[Hg] Comments: Patient Position: Sitting; Cuff Location: Left Arm; Cuff Size: Standard Weight 0 lb Height 0 in Head Circumference 0.00 cm :28 Temperature 98.1 f Comments: Method: Oral Pulse 62 /min Comments: Pattern: Regular Respiration Rate 15 /min Comments: Pattern: Unlabored BP Systolic 110 mm[Hg] Comments: Patient Position: Sitting; Cuff Location: Left Arm; Cuff Size: Standard BP Diastolic 72 mm[Hg] Comments: Patient Position: Sitting; Cuff Location: Left Arm; Cuff Size: Standard Weight 148.5 lb Height 0 in Head Circumference 0.00 cm Results Date Description Value Details [id number] TSH (71291) Comments: PATIENT NOT FASTINGPERFORMED BY: LYSSA Vega [id number] [facility] [id number] TSH 1.620 {uIU/mL} (Normal) Range: 0.450-4.500 [id number]:10 T4, FREE (THYROXINE) ([id number]) Comments: PATIENT NOT FASTINGPERFORMED BY: [facility]6[address] [facility] [id number] T4,Free(Direct) 1.60 ng/dL (Normal) Range: 0.82-1.77 :10 T3, FREE (TRIDOTHYRONINE) ([id number]) Comments: PATIENT NOT FASTINGPERFORMED BY: [address] [id number] Triiodothyronine,Free,Serum 2.6 pg/mL (Normal) Range: 2.0-4.4 :27 T3, FREE (TRIDOTHYRONINE) ([id number]) Comments: PATIENT NOT FASTINGPERFORMED BY: [address] [id number] Triiodothyronine,Free,Serum 2.6 pg/mL (Normal) Range: 2.0-4.4 :27 T4, FREE (THYROXINE) (13090) Comments: PATIENT NOT FASTINGPERFORMED BY: [place] [id number] [facility] [id number] T4,Free(Direct) 1.58 ng/dL (Normal) Range: 0.82-1.77 :27 TSH (THYROID STIMULATING Comments: PATIENT NOT FASTINGPERFORMED BY: [address] [id number] HORMONE) ([id number]) TSH 2.660 {uIU/mL} (Normal) Range: 0.450-4.500 [id number] TSH ([id number]) Comments: PATIENT NOT FASTINGPERFORMED BY: [place] [id number] [facility] [id number] TSH 3.930 {uIU/mL} (Normal) Range: 0.450-4.500 [id number]:37 Vitamin D Hydroxy (76690) Comments: PATIENT WAS FASTINGPERFORMED BY: [facility] [id number] Vitamin D, 25-Hydroxy 96.4 ng/mL (Normal) Range: 30.0-100.0 Comments: Vitamin D deficiency has been defined by the [place] [facility] and an Endocrine Society practice guideline as alevel of serum 25-OH vitamin D less than 20 ng/mL (1,2).The Endocrine Society went on to further define vitamin Dinsufficiency as a level between 21 and 29 ng/mL (2).1. IOM ([place] of Medicine). 2010. Dietary reference intakes for calcium and D. [place]: The National Academies Press.2. Darren MF, Reji NC, Kal BUTT, et al. Evaluation, treatment, and prevention of vitamin D deficiency: an Endocrine Society clinical practice guideline. JCEM. 2010; 96(7):1911-30. :37 CBC with auto diff Comments: PATIENT WAS FASTINGPERFORMED BY: [facility] [facility] [id number] Information: [id number] ([id number]) Immature Grans (Abs) 0.0 {x10E3/uL} (Normal) Range: 0.0-0.1 Immature Granulocytes 0 % (Normal) Baso (Absolute) 0.0 {x10E3/uL} (Normal) Range: 0.0-0.2 Eos (Absolute) 0.3 {x10E3/uL} (Normal) Range: 0.0-0.4 Monocytes(Absolute) 0.3 {x10E3/uL} (Normal) Range: 0.1-0.9 Lymphs (Absolute) 1.8 {x10E3/uL} (Normal) Range: 0.7-3.1 Neutrophils (Absolute) 2.9 {x10E3/uL} (Normal) Range: 1.4-7.0 Basos 1 % (Normal) Eos 5 % (Normal) Monocytes 6 % (Normal) Lymphs 33 % (Normal) Neutrophils 55 % (Normal) Platelets 202 {x10E3/uL} (Normal) Range: 150-379 RDW 13.6 % (Normal) Range: 12.3-15.4 MCHC 32.9 g/dL (Normal) Range: 31.5-35.7 MCH 30.3 pg (Normal) Range: 26.6-33.0 MCV 92 fL (Normal) Range: 79-97 Hematocrit 40.7 % (Normal) Range: 34.0-46.6 Hemoglobin 13.4 g/dL (Normal) Range: 11.1-15.9 RBC 4.42 {x10E6/uL} (Normal) Range: 3.77-5.28 WBC 5.3 {x10E3/uL} (Normal) Range: 3.4-10.8 [id number] METABOLIC PANEL, COMPREHENSIVE Comments: PATIENT WAS FASTINGPERFORMED BY: [facility] CenterTselce3452 [facility] [id number] ([id number]) ALT (SGPT) 16 [iU]/L (Normal) Range: 0-32 AST (SGOT) 24 [iU]/L (Normal) Range: 0-40 Alkaline Phosphatase, S 70 [iU]/L (Normal) Range: 39-117 Bilirubin, Total 0.7 mg/dL (Normal) Range: 0.0-1.2 A/G Ratio 2.5 (Normal) Range: 1.1-2.5 Globulin, Total 1.9 g/dL (Normal) Range: 1.5-4.5 Albumin, Serum 4.7 g/dL (Normal) Range: 3.5-5.5 Protein, Total, Serum 6.6 g/dL (Normal) Range: 6.0-8.5 Calcium, Serum 10.0 mg/dL (Normal) Range: 8.7-10.2 Carbon Dioxide, Total 27 mmol/L (Normal) Range: 18-29 Chloride, Serum 102 mmol/L (Normal) Range: 97-108 Potassium, Serum 5.1 mmol/L (Normal) Range: 3.5-5.2 Sodium, Serum 143 mmol/L (Normal) Range: 134-144 BUN/Creatinine Ratio 22 (Normal) Range: 9-23 eGFR If Africn Am 82 mL/min/1.73 (Normal) eGFR If NonAfricn Am 71 mL/min/1.73 (Normal) Creatinine, Serum 0.91 mg/dL (Normal) Range: 0.57-1.00 BUN 20 mg/dL (Normal) Range: 6-24 Glucose, Serum 93 mg/dL (Normal) Range: 65-99 :37 LIPID PANEL (38586) Comments: PATIENT WAS FASTINGPERFORMED BY: [facility]6[address] [facility] [id number] LDL/HDL Ratio 1.0 {ratio_units} (Normal) Range: 0.0-3.2 Comments: LDL/HDL Ratio Men Women 1/2 Avg.Risk 1.0 1.5 Av g.Risk 3.6 3.2 2X Avg.Risk 6.2 5.0 3X Avg.Risk 8.0 6.1 LDL Cholesterol Calc 83 mg/dL (Normal) Range: 0-99 VLDL Cholesterol Julianne 14 mg/dL (Normal) Range: 5-40 HDL Cholesterol 84 mg/dL (Normal) Comments: According to ATP-III Guidelines, HDL-C >59 mg/dL is considered anegative risk factor for CHD. Triglycerides 71 mg/dL (Normal) Range: 0-149 Cholesterol, Total 181 mg/dL (Normal) Range: 100-199 :37 TSH (38986) Comments: PATIENT WAS FASTINGPERFORMED BY: [facility]6[address] [facility] [id number] TSH 2.440 {uIU/mL} (Normal) Range: 0.450-4.500 :07 LIPID PANEL (78057) Comments: PATIENT WAS FASTINGPERFORMED BY: [facility]6[address] [facility] [id number] LDL Cholesterol Calc 89 mg/dL (Normal) Range: 0-99 LDL/HDL Ratio 1.2 {ratio_units} (Normal) Range: 0.0-3.2 VLDL Cholesterol Julianne 15 mg/dL (Normal) Range: 5-40 Cholesterol, Total 179 mg/dL (Normal) Range: 100-199 HDL Cholesterol 75 mg/dL (Normal) Comments: According to ATP-III Guidelines, HDL-C >59 mg/dL is considered anegative risk factor for CHD. Triglycerides 76 mg/dL (Normal) Range: 0-149 :07 METABOLIC PANEL, COMPREHENSIVE Comments: PATIENT WAS FASTINGPERFORMED BY: [place] 0545370 [facility] [id number] ([id number]) ALT (SGPT) 13 [iU]/L (Normal) Range: 0-32 AST (SGOT) 22 [iU]/L (Normal) Range: 0-40 Alkaline Phosphatase, S 63 [iU]/L (Normal) Range: 39-117 Bilirubin, Total 0.5 mg/dL (Normal) Range: 0.0-1.2 A/G Ratio 2.4 (Normal) Range: 1.1-2.5 Globulin, Total 1.8 g/dL (Normal) Range: 1.5-4.5 Albumin, Serum 4.3 g/dL (Normal) Range: 3.5-5.5 Calcium, Serum 9.6 mg/dL (Normal) Range: 8.7-10.2 Protein, Total, Serum 6.1 g/dL (Normal) Range: 6.0-8.5 Carbon Dioxide, Total 26 mmol/L (Normal) Range: 19-28 Chloride, Serum 104 mmol/L (Normal) Range: 97-108 Potassium, Serum 4.2 mmol/L (Normal) Range: 3.5-5.2 Sodium, Serum 144 mmol/L (Normal) Range: 134-144 BUN/Creatinine Ratio 25 (Abnormal) Range: 9-23 eGFR If Africn Am 97 mL/min/1.73 (Normal) eGFR If NonAfricn Am 85 mL/min/1.73 (Normal) Creatinine, Serum 0.79 mg/dL (Normal) Range: 0.57-1.00 BUN 20 mg/dL (Normal) Range: 6-24 Glucose, Serum 88 mg/dL (Normal) Range: 65-99 92-Wtq-33828:07 CBC WITH MANUAL DIFF Comments: PATIENT WAS FASTINGPERFORMED BY: LYSSA [facility] Zpbprc3847 [facility] [id number] Information: [id number] ([id number]) Immature Grans (Abs) 0.0 {x10E3/uL} (Normal) Range: 0.0-0.1 Immature Granulocytes 0 % (Normal) Range: 0-2 Baso (Absolute) 0.0 {x10E3/uL} (Normal) Range: 0.0-0.2 Eos (Absolute) 0.2 {x10E3/uL} (Normal) Range: 0.0-0.4 Monocytes(Absolute) 0.3 {x10E3/uL} (Normal) Range: 0.1-0.9 Lymphs (Absolute) 1.9 {x10E3/uL} (Normal) Range: 0.7-3.1 Neutrophils (Absolute) 3.7 {x10E3/uL} (Normal) Range: 1.4-7.0 Basos 1 % (Normal) Range: 0-3 Eos 4 % (Normal) Range: 0-5 Monocytes 5 % (Normal) Range: 4-12 Lymphs 31 % (Normal) Range: 14-46 Neutrophils 59 % (Normal) Range: 40-74 Platelets 223 {x10E3/uL} (Normal) Range: 155-379 RDW 13.3 % (Normal) Range: 12.3-15.4 MCHC 32.3 g/dL (Normal) Range: 31.5-35.7 MCH 29.5 pg (Normal) Range: 26.6-33.0 Hematocrit 40.3 % (Normal) Range: 34.0-46.6 MCV 91 fL (Normal) Range: 79-97 Hemoglobin 13.0 g/dL (Normal) Range: 11.1-15.9 RBC 4.41 {x10E6/uL} (Normal) Range: 3.77-5.28 WBC 6.2 {x10E3/uL} (Normal) Range: 3.4-10.8 :07 TSH ([id number]) Comments: PATIENT WAS FASTINGPERFORMED BY: SubtleData [facility] Mfnsnb2871 [facility] [id number] TSH 0.975 {uIU/mL} (Normal) Range: 0.450-4.500 :07 Vitamin D Hydroxy (03622) Comments: PATIENT WAS FASTINGPERFORMED BY: [facility] Btfwrp2847 [facility] [id number] Vitamin D, 25-Hydroxy 76.3 ng/mL (Normal) Range: 30.0-100.0 Comments: Vitamin D deficiency has been defined by the [place] of[place] and an Endocrine Society practice guideline as alevel of serum 25-OH vitamin D less than 20 ng/mL (1,2).The Endocrine Society went on to further define vitamin Dinsufficiency as a level between 21 and 29 ng/mL (2).1. IOM ([place] of Medicine). 2010. Dietary reference intakes for calcium and D. [place]: The National Academies Press.2. Darren MF, Reji BENITES, Kal BUTT, et al. Evaluation, treatment, and prevention of vitamin D deficiency: an Endocrine Society clinical practice guideline. JCEM. 2010; 96(7):1911-30. 66-Efd-558652:56 Anti-TPO Antibody (26389) Comments: PATIENT NOT FASTINGPERFORMED BY: [facility] [id number] Information: [id number] Thyroid Peroxidase (TPO) Ab 240 {IU/mL} (Abnormal) Range: 0-34 78-Uba-410241:14 DEXA BONE DENSITY STUDY (HP) Radiology Report See Note Comments: PROCEDURE: DUAL ENERGY X-RAY ABSORPTIOMETRY / DXA REASON FOR EXAM: Female, 52 years old. Osteopenia. The patient ispostmenopausal. TECHNIQUE: Bone Mineral Density (BMD) measurements of lumbar spi (Normal) ne andbilateral hips were obtained. COMPARISON: Comparison is made with prior study dated June 12, 2010. FINDINGS: Lumbar Spine (L1-L4): g/cm2 (1.108) / T-score (-0.6) / Z-score (0.1)Findings are suggestive of normal bone density with a low fracture risk. Left Femur Total: g/cm2 (0.762) / T-score (-2.0) / Z- score (-1.3)Left Femoral Neck: g/cm2 (0.710) / T-score (-2.4) / Z-score (-1.4)Right Femur Total: g/cm2 (0.815) / T-score (-1.5) / Z-score (-0.9)Right Femoral Neck: g/cm2 (0.752) / T-score (-2.1) / Z-score (-1.1) The T-Scores on the mo st recent prior examination were: Lumbar Spine (L1-L4): There has been worsening of bone density since theprevious examination. Left Femur Total: which represents a worsening of 3.4%.Right Femur T otal: which represents an improvement of 3.4%. IMPRESSION:The patient is considered osteopenic as outlined below according to WorldHeath Organization (WHO) criter ia with a moderate fracture risk. Therehasbeen worsening of bone density since the previous examination. Reference Information:The T-score is the number of standard deviations above or below thestandard which is normal for young adults at their peak bone mineraldensity. The World Health Organization (WHO) interprets the T-scores asfollows: Above -1 Normal bone densityBetween -1 and -2.5 OsteopeniaEqual to / or below -2.5 Osteoporosis As a practical clinical guideline, osteopenia may be graded as follows:Mild -1 through -1.5Moderate -1.6 through -2. 0Severe -2.1 through -2.4 The Z-score is the number of standard deviations above or below age-matchedcontrols. A Z-score of less than -1.5 would be considered abnormal. References:1. NIH Osteoporosis and Related Bone Diseases http://www.osteo.org2. International Society for Clinical Densitometry http://www.iscd.org3. National Osteoporosis Foundation http://www.nof.org Signed:Mesha GarciaAugust 27, 2012 at 4:07:47 PM [phone] Signed GP/GP If you are the referring physician and would like to consult with theradiologist who provided this interpretation, please zaria Puga M.D. at [phone]. If this radiologist is unavailable, youwill be directed to another radiologist to assist. If you are a patient with a question regarding this report, pleasecon tactyour referring physician directly. Professional Interpretation Provided By: Juan, Phone , These documents contain legally protected and confidential healthinform ation intended only for the use of the individual or entity namedabove. If you are not the intended recipient, you are hereby notifiedthatany disclosure, copying, distribution, or other use of these doc uments isstrictly prohibited. If you have received this information in error,pleasenotify the sender immediately and arrange for the return or destructionofthese documents. Dictated on 08/27/12 1607 by Darci MAYER,Colleenranscribed on 08/27/12 1609 by ITS IMPORTSign by Darci MAYER,Johnnie on 08/27/12 1610 Sign by: Johnnie Huizar MD 5-Kon-357230:13 FERRITIN ([id number]) Comments: PATIENT NOT FASTINGPERFORMED BY: [facility] Otpsbf1205 [facility] [id number] Ferritin, Serum 317 ng/mL (Abnormal) Range: 15-150 5-Luk-070665:13 IRON (47016) Comments: PATIENT NOT FASTINGPERFORMED BY: [facility] Uwxpph9358 [facility] [id number] Iron, Serum 106 ug/dL (Normal) Range: 35-155 8-Jjx-211544:13 CBC WITH MANUAL DIFF Comments: PATIENT NOT FASTINGPERFORMED BY: [facility] Fnhzjm8820 [facility] [id number] Information: [id number] (30258) Immature Grans (Abs) 0.0 {x10E3/uL} (Normal) Range: 0.0-0.1 Baso (Absolute) 0.0 {x10E3/uL} (Normal) Range: 0.0-0.2 Immature Granulocytes 0 % (Normal) Range: 0-2 Eos (Absolute) 0.3 {x10E3/uL} (Normal) Range: 0.0-0.4 Monocytes(Absolute) 0.4 {x10E3/uL} (Normal) Range: 0.1-0.9 Lymphs (Absolute) 1.7 {x10E3/uL} (Normal) Range: 0.7-3.1 Neutrophils (Absolute) 3.1 {x10E3/uL} (Normal) Range: 1.4-7.0 Basos 1 % (Normal) Range: 0-3 Eos 6 % (Abnormal) Range: 0-5 Monocytes 7 % (Normal) Range: 4-12 Lymphs 30 % (Normal) Range: 14-46 Neutrophils 56 % (Normal) Range: 40-74 Platelets 214 {x10E3/uL} (Normal) Range: 155-379 RDW 13.2 % (Normal) Range: 12.3-15.4 MCHC 33.9 g/dL (Normal) Range: 31.5-35.7 MCH 30.5 pg (Normal) Range: 26.6-33.0 MCV 90 fL (Normal) Range: 79-97 Hematocrit 37.2 % (Normal) Range: 34.0-46.6 Hemoglobin 12.6 g/dL (Normal) Range: 11.1-15.9 RBC 4.13 {x10E6/uL} (Normal) Range: 3.77-5.28 WBC 5.5 {x10E3/uL} (Normal) Range: 3.4-10.8 9-Mvg-133832:35 FECAL OCCULT HGB ASSAY- tubes sent home (36027) FECAL OCCULT HGB ASSAY, QUAL, 1-3 SIMULTANEOU negative (Normal) 7-Vmq-800539:13 TSH (63826) Comments: PATIENT NOT FASTINGPERFORMED BY: SupportPayRehoboth McKin[facility] Christian [facility] Care ServicesDnpvqc1252 [facility] [id number] TSH 2.430 {uIU/mL} (Normal) Range: 0.450-4.500 48-Bhw-079859:19 FERRITIN (13629) Comments: PATIENT NOT FASTINGPERFORMED BY: Support[employer] Jyocwz5484 [facility] [id number] Ferritin, Serum 302 ng/mL (Abnormal) Range: 15-150 49-Hiq-950364:19 IRON BINDING CAPACITY Comments: PATIENT NOT FASTINGPERFORMED BY: SupportPay [employer] [facility] [id number] Information: [id number] ORDER NO DRAW F EE (TIBC) (88881) Iron Saturation 43 % (Normal) Range: 15-55 Iron, Serum 123 ug/dL (Normal) Range: 35-155 UIBC 164 ug/dL (Normal) Range: 150-375 Iron Bind.Cap.(TIBC) 287 ug/dL (Normal) Range: 250-450 42-Ohr-033526:19 CBC WITH MANUAL DIFF Comments: PATIENT WAS FASTINGPERFORMED BY: [facility] Tqzknr7604 [facility] [id number] Information: [id number] (20495) Immature Grans (Abs) 0.0 {x10E3/uL} (Normal) Range: 0.0-0.1 Immature Granulocytes 0 % (Normal) Range: 0-2 Baso (Absolute) 0.0 {x10E3/uL} (Normal) Range: 0.0-0.2 Eos (Absolute) 0.5 {x10E3/uL} (Abnormal) Range: 0.0-0.4 Monocytes(Absolute) 0.3 {x10E3/uL} (Normal) Range: 0.1-1.0 Lymphs (Absolute) 1.8 {x10E3/uL} (Normal) Range: 0.7-4.5 Neutrophils (Absolute) 2.9 {x10E3/uL} (Normal) Range: 1.8-7.8 Basos 1 % (Normal) Range: 0-3 Eos 8 % (Abnormal) Range: 0-7 Monocytes 6 % (Normal) Range: 4-13 Lymphs 33 % (Normal) Range: 14-46 Neutrophils 52 % (Normal) Range: 40-74 Platelets 184 {x10E3/uL} (Normal) Range: 140-415 RDW 13.4 % (Normal) Range: 12.3-15.4 MCHC 34.1 g/dL (Normal) Range: 31.5-35.7 MCH 30.5 pg (Normal) Range: 26.6-33.0 MCV 89 fL (Normal) Range: 79-97 Hematocrit 38.7 % (Normal) Range: 34.0-46.6 Hemoglobin 13.2 g/dL (Normal) Range: 11.1-15.9 RBC 4.33 {x10E6/uL} (Normal) Range: 3.77-5.28 WBC 5.4 {x10E3/uL} (Normal) Range: 4.0-10.5 :19 METABOLIC PANEL, COMPREHENSIVE Comments: PATIENT WAS FASTINGPERFORMED BY: [facility] [id number] ([id number]) ALT (SGPT) 16 [iU]/L (Normal) Range: 0-32 AST (SGOT) 21 [iU]/L (Normal) Range: 0-40 Alkaline Phosphatase, S 57 [iU]/L (Normal) Range: 25-150 Bilirubin, Total 0.6 mg/dL (Normal) Range: 0.0-1.2 A/G Ratio 2.3 (Normal) Range: 1.1-2.5 Globulin, Total 2.0 g/dL (Normal) Range: 1.5-4.5 Albumin, Serum 4.5 g/dL (Normal) Range: 3.5-5.5 Protein, Total, Serum 6.5 g/dL (Normal) Range: 6.0-8.5 Calcium, Serum 9.5 mg/dL (Normal) Range: 8.7-10.2 Carbon Dioxide, Total 26 mmol/L (Normal) Range: 19-28 Comments: Please note reference interval change Chloride, Serum 103 mmol/L (Normal) Range: 97-108 Potassium, Serum 5.0 mmol/L (Normal) Range: 3.5-5.2 Sodium, Serum 141 mmol/L (Normal) Range: 134-144 BUN/Creatinine Ratio 25 (Abnormal) Range: 9-23 eGFR If Africn Am 92 mL/min/1.73 (Normal) eGFR If NonAfricn Am 80 mL/min/1.73 (Normal) Creatinine, Serum 0.83 mg/dL (Normal) Range: 0.57-1.00 BUN 21 mg/dL (Normal) Range: 6-24 Glucose, Serum 82 mg/dL (Normal) Range: 65-99 :19 LIPID PANEL (81128) Comments: PATIENT WAS FASTINGPERFORMED BY: NERI70 [facility] [id number] LDL/HDL Ratio 1.4 {ratio_units} (Normal) Range: 0.0-3.2 LDL Cholesterol Calc 102 mg/dL (Abnormal) Range: 0-99 VLDL Cholesterol Julianne 15 mg/dL (Normal) Range: 5-40 HDL Cholesterol 74 mg/dL (Normal) Comments: According to ATP-III Guidelines, HDL-C >59 mg/dL is considered anegative risk factor for CHD. Triglycerides 75 mg/dL (Normal) Range: 0-149 Cholesterol, Total 191 mg/dL (Normal) Range: 100-199 02-Bgs-768615:19 TSH (18468) Comments: PATIENT WAS FASTINGPERFORMED BY: CB [facility] Htjrsy8989 [facility] [id number] TSH 5.290 {uIU/mL} (Abnormal) Range: 0.450-4.500 78-Skm-542973:14 HPV automatic Comments: Source.............Cervical;EndocervicalNo. of containers..01 CYTYC Thin Prep VialPATIENT NOT FASTINGPERFORMED BY: WB [facility] Igvhjjipht416 [facility] [place] W [id number] BY: =G L (79401) [facility] Onpqjaklhu537 [facility], [place] [id number] Information: [id number] HPV, high-risk Negative Comments: This high-risk HPV test detects thirteen high- risk types(16/18/31/33/35/39/45/51/52/56/58/59/68) without differentiation. . (Normal) Note: PAPSMR (Normal) Comments: The Pap smear is a screening test designed to aid in the detection ofpremalignant and malignant conditions of the uterine cervix. It is not adiagnostic procedure and should not be used as the sole mean s of detectingcervical cancer. Both false-positive and false-negative reports do occur. .This liquid based ThinPrep(R) pap test w as screened with theuse of an image guided system. See Note . (Normal) DIAGNOSIS: SPRCS (Normal) Comments: NEGATIVE FOR INTRAEPITHELIAL LESION AND MALIGNANCY.CELLULAR CHANGES ASSOCIATED WITH ATROPHY ARE PRESENT.Satisfactory for evaluation. Endocervical component may not bedistinguished in cases of atrophy.V 73.81 ; Special screening examination, human papillomavirus [HPV]Radha Colbert [employer] Account Executive (ASC) 78-Ssp-04258:26 FECAL OCCULT HGB ASSAY- tubes sent home (11874) FECAL OCCULT HGB ASSAY, QUAL, 1-3 SIMULTANEOU positive (Normal) 08-Hni-27016:44 BILAT SCRN DIGITAL & CAD Radiology Report See Note (Normal) Comments: MAMMOGRAPHY - BILATERAL SCREENING REASON FOR EXAM: Female, 51 years old. Routine annual screeningexamination. PERTINENT HISTORY: Non-contributory. TECHNIQUE: Digital examination. Med iolateral ob lique (MLO) andcraniocaudad (CC) views of both breasts were obtained. CAD: CAD wasperformed on this study. COMPARISON: Comparison is made with prior studies dated June 12nd February 08, 2009. FINDINGS:The breast composition is heterogeneously dense. There are no dominant masses or suspicious calcifications. Scatteredmicrocalcifications are once again seen. No other significant abnormalities are identified. There has been nosignificant change since the prior study. IMPRESSION:Stable bilateral screening mammogram. Yearly follow-up recommended. (A) ASSESSMENT CATEGORY:BIRADS Category 2: Benign finding(s). A letter regarding these resultswill be sent to the patient by the facility within 30 days. Approximately 10% of breast cancers are not detected by mammography. Anormal mammogram s hould not delay biopsy of a clinically suspiciousabnormality. Signed:Johnnie Huizar M.D.January 31, 2012 at 10:22:06 AM [phone] Signed GP/GP If you are the referring physicia n and would like to consult with theradiologist who provided this interpretation, please contact Heidi Puga at [phone]. If this radiologist is unavailable, youwill be directed to [facility] to assist. If you are a patient with a question regarding this report, pleasecontactyour referring physician directly. Professional Interpretation Provided By: byyd, Phone , These documents contain legally protected and confidential healthinformation intended only for the use of the individual or entity namedabove. If you are not the intended recipie nt, you are hereby notifiedthatany disclosure, copying, distribution, or other use of these documents isstrictly prohibited. If you have received this information in error,pleasenotify the sender elizabeth humphriesmary and arrange for the return or destructionofthese documents. Dictated on 01/31/12 0944 by Colleen Huizar MDranscribed on 01/31/12 1026 by ITS IMPORTSign by Johnnie Huizar MD on 2 1027 Sign by: Johnnie Huizar MD 56-Aoi-168960:04 Vitamin D Hydroxy (41987) Comments: PATIENT WAS FASTINGPERFORMED BY: LabYamisee Pybxcy5518 [facility] [id number] Vitamin D, 25-Hydroxy 48.9 ng/mL (Normal) Range: 30.0-100.0 Comments: Vitamin D deficiency has been defined by the [place] of[place]icine and an Endocrine Society practice guideline as alevel of serum 25-OH vitamin D less than 20 ng/mL (1,2).The Endocrine Society went on to further define vitamin Dinsufficiency as a level between 21 and 29 ng/mL (2).1. IOM ([place] of Medicine). 2010. Dietary reference intakes for calcium and D. [place]: The National Academies Press.2. Darren MF, Reji NC, Kal BUTT, et al. Evaluation, treatment, and prevention of vitamin D deficiency: an Endocrine Society clinical practice guideline. JCEM. 2010; 96(7):1911-30. :04 CBC WITH MANUAL DIFF Comments: PATIENT WAS FASTINGPERFORMED BY: LabCo Piczmq5726 [facility] [id number] Information: [id number] (91777) Immature Grans (Abs) 0.0 {x10E3/uL} (Normal) Range: 0.0-0.1 Immature Granulocytes 0 % (Normal) Range: 0-2 Baso (Absolute) 0.0 {x10E3/uL} (Normal) Range: 0.0-0.2 Eos (Absolute) 0.3 {x10E3/uL} (Normal) Range: 0.0-0.4 Monocytes(Absolute) 0.5 {x10E3/uL} (Normal) Range: 0.1-1.0 Lymphs (Absolute) 2.6 {x10E3/uL} (Normal) Range: 0.7-4.5 Neutrophils (Absolute) 6.4 {x10E3/uL} (Normal) Range: 1.8-7.8 Basos 0 % (Normal) Range: 0-3 Eos 3 % (Normal) Range: 0-7 Monocytes 5 % (Normal) Range: 4-13 Lymphs 26 % (Normal) Range: 14-46 Neutrophils 66 % (Normal) Range: 40-74 Platelets 191 {x10E3/uL} (Normal) Range: 140-415 RDW 13.2 % (Normal) Range: 12.3-15.4 MCHC 33.9 g/dL (Normal) Range: 31.5-35.7 MCH 30.8 pg (Normal) Range: 26.6-33.0 MCV 91 fL (Normal) Range: 79-97 Hematocrit 39.2 % (Normal) Range: 34.0-46.6 Hemoglobin 13.3 g/dL (Normal) Range: 11.1-15.9 RBC 4.32 {x10E6/uL} (Normal) Range: 3.77-5.28 WBC 9.9 {x10E3/uL} (Normal) Range: 4.0-10.5 31-Ddy-558855:04 METABOLIC PANEL, COMPREHENSIVE Comments: PATIENT WAS FASTINGPERFORMED BY: LabCoJersey [facility] University Medical CenterKqzyau8816 [facility] [id number] ([id number]) ALT (SGPT) 22 [iU]/L (Normal) Range: 0-40 AST (SGOT) 22 [iU]/L (Normal) Range: 0-40 Alkaline Phosphatase, S 62 [iU]/L (Normal) Range: 25-150 Bilirubin, Total 0.6 mg/dL (Normal) Range: 0.0-1.2 A/G Ratio 1.9 (Normal) Range: 1.1-2.5 Globulin, Total 2.3 g/dL (Normal) Range: 1.5-4.5 Albumin, Serum 4.4 g/dL (Normal) Range: 3.5-5.5 Protein, Total, Serum 6.7 g/dL (Normal) Range: 6.0-8.5 Calcium, Serum 9.8 mg/dL (Normal) Range: 8.7-10.2 Carbon Dioxide, Total 26 mmol/L (Normal) Range: 20-32 Chloride, Serum 103 mmol/L (Normal) Range: 97-108 Potassium, Serum 4.9 mmol/L (Normal) Range: 3.5-5.2 Sodium, Serum 142 mmol/L (Normal) Range: 134-144 BUN/Creatinine Ratio 18 (Normal) Range: 9-23 eGFR If Africn Am 87 mL/min/1.73 (Normal) eGFR If NonAfricn Am 75 mL/min/1.73 (Normal) Creatinine, Serum 0.88 mg/dL (Normal) Range: 0.57-1.00 BUN 16 mg/dL (Normal) Range: 6-24 Glucose, Serum 90 mg/dL (Normal) Range: 65-99 08-Uxs-862896:04 TSH (98793) Comments: PATIENT WAS FASTINGPERFORMED BY: [employer] [facility] Hwaqet6173 [facility] [id number] TSH 2.560 {uIU/mL} (Normal) Range: 0.450-4.500 34-Dxc-345051:04 LIPID PANEL (27141) Comments: PATIENT WAS FASTINGPERFORMED BY: [employer] [facility] Vtwfwz1429 [facility] [id number] LDL/HDL Ratio 1.0 {ratio_units} (Normal) Range: 0.0-3.2 LDL Cholesterol Calc 81 mg/dL (Normal) Range: 0-99 VLDL Cholesterol Julianne 13 mg/dL (Normal) Range: 5-40 HDL Cholesterol 78 mg/dL (Normal) Comments: According to ATP-III Guidelines, HDL-C >59 mg/dL is considered anegative risk factor for CHD. Triglycerides 67 mg/dL (Normal) Range: 0-149 Cholesterol, Total 172 mg/dL (Normal) Range: 100-199 39-Pmo-391042:29 DORSAL SPINE,3 VIEWS Radiology Report See Note (Normal) Comments: PROCEDURE: X-RAY - THORACIC SPINE REASON FOR EXAM: Female, 50 years old. Paresthesia, mid back pain TECHNIQUE: AP and lateral views of the thoracic spine were obtained. COMPARISON: None. FINDIN GS:Normal visualized thoracic vertebrae. There is multi-level disc space narrowing with endplate spondylosis ofthethoracic spine. Normal kyphosis. Normal visualized soft tissue structures. IMPRESSION:De generative changes of the thoracic spine. Dictated on 11/27/10 1127 by DWAYNE WILSON MD BTranscribed on 11/27/10 1505 by ITS IMPORTSign by DWAYNE WILSON MD on 11/27/10 1506 Sign by: DWAYNE WILSON MD 0-Not-277695:40 CHEST, PA AND LATERAL Radiology Report See Note (Normal) Comments: CLINICAL:Female, 50 years old. Weight loss X-RAY EXAMINATION - CHEST TECHNIQUE:Frontal and lateral views of the chest. COMPARISON:None. FINDINGS: The lungs are expanded. There is no demonstrated parenc hymalabnormality.There is no demonstrated pleural abnormality. Normal heart and pericardium. Normal mediastinum and anitha. Normal visualized pulmonary arteries.Normalvisualized aortic arch and descendin g thoracic aorta. Normal visualized thoracic spine. Normal visualized ribs, clavicles, andshoulders. There is no demonstrated abnormality of the visualized soft tissuestructures of the upper abdomen. I MPRESSION:Normal x-ray examination of the chest. Dictated on 07/25/10 1050 by Erin Gallegos MDranscribed on 07/26/10 1403 by ITS IMPORTSign by Eileen Lomeli MD on 07/26/10 1404 Sign by : Eileen Gallegos MD 1-Xvz-964487:11 SED RATE ERYTHROCYTE (47879) Comments: PATIENT NOT FASTINGPERFORMED BY: LYSSA LabCojuliano BurnettPfjehd0521 [facility] [id number] Sedimentation Rate-Westergren 2 mm/h (Normal) Range: 0-56 Comments: Please note reference interval change :11 C-REACTIVE PROTEIN (32653) Comments: PATIENT NOT FASTINGPERFORMED BY: LabCojuliano MartinesPegfks9236 [facility] [id number] C-Reactive Protein, Quant 1.8 mg/L (Normal) Range: 0.0-4.9 5-Ukk-129250:11 TSH (04766) Comments: PATIENT NOT FASTINGPERFORMED BY: LabCo Uyacul0840 [facility] [id number] Information: [id number]; appt 07/31/10 TSH 1.950 {uIU/mL} (Normal) Range: 0.450-4.500 25-Ptw-507437:29 UNILAT LT DIAG DIGITAL & CAD Radiology See Note Comments: MAMMOGRAPHY - UNILATERAL DIAGNOSTIC: LEFT BREAST INDICATION:Female, 49 years old. PERTINENT HISTORY:Non-contributory. TECHNIQUE:Digital examination. Mediolateral oblique (MLO) and craniocaudad (CC)vie Report (Normal) ws of the breast were obtained. CAD: COMPARISON:None. FINDINGS:The breast composition is There are no masses or suspicious microcalcifications. No other significant abnormalities are identified. IMPRESS ION:Normal unilateral diagnostic mammogram. One year follow-up recommended.(1) ASSESSMENT CATEGORY: Approximately 10% of breast cancers are not detected by mammography. Anormal mammogram should not de lay biopsy of a clinically suspiciousabnormality. Dictated on 06/15/10 0934 by EMERY WILLIAM MDTranscribed on 06/15/10 1459 by ITS IMPORTSign by EMERY WILLIAM MD on 06/15/10 1500 Sign by: EMERY WILLIAM MD Addendum ADDENDUM This is an addendum tothe left unilateral diagnostic mammogram of June 15, 2010, on [facility]. TECHNIQUE: Digital examination. Left true lateral and roll craniocaudalviews of the left breast were obtained. CAD images were performed. COMPARISON: February 08, 2009 and June 12, 2010. FINDINGS: There is a moderate to severe extent of fibroglandularparenchymapresent. The area of asymmetric parenchymal density seen in the upperleftbreast on examination of June 12, 2010, is not a persistent finding. Thedensity did, th erefore, represent superimposition of normal parenchymalstructures. IMPRESSION: Normal mammogram ASSESSMENT CATEGORY:BIRADS 2. Benign findings. Dictated on 06/15/10 1505 by EMERY WILLIAM MDTranscrib ed on 06/15/10 1505 by ITS IMPORTSign by EMERY WILLIAM MD on 07/03/10 1659 Sign by: EMERY WILLIAM MD 96-Cam-700135:05 BILAT SCRN DIGITAL & CAD Radiology Report See Note (Normal) Comments: MAMMOGRAPHY - BILATERAL SCREENING INDICATION:Female, 49 years old. Routine annual screening examination. PERTINENT HISTORY:Non-contributory. TECHNIQUE:Digital examination. Mediolateral oblique (MLO) a nd craniocaudad (CC)views of both breasts were obtained. CAD: CAD was performed on thisstudy. COMPARISON:October 24, 2007 and February 08, 2009 FINDINGS:The breast composition is heterogeneously dense. There are scattered areas of asymmetric parenchymal density throughoutbothbreasts. On the left, the possibility of a new density in the upperouterquadrant of the breast is raised. This may represent s uperimposition.Todistinguish between superimposition and a nodule, left true lateral androlled craniocaudal views are recommended. No new densities are seen onthe right.There are no suspicious microcal cifications. No other significant abnormalities are identified. IMPRESSION:New density versus superimposition on the left. Additional views arerecommended. ASSESSMENT CATEGORY:BIRADS Category 0: Need Additional Imaging Evaluation. A letterregardingthese results will be sent to the patient by the facility within 30 days. Approximately 10% of breast cancers are not detected by mammography. Anormal m ammogram should not delay biopsy of a clinically suspiciousabnormality. Dictated on 06/12/10 1427 by NATALIIA MAYER,EMERYTranscribed on 06/13/10934 by ITS IMPORTSign by NATALIIA MAYER,EMERY on 06/13/10935 Sign by: NATALIIA MAYER,EMERY 21-Ddn-501285:05 DEXA BONE DENSITY STUDY (HP) Radiology Report See Note (Normal) Comments: CLINICAL:Female, 49 years old. The patient is postmenopausal. EXAMINATION:DUAL ENERGY X-RAY ABSORPTIOMETRY / DEXA. TECHNIQUE:Bone Mineral Density (BMD) measurements of lumbar spine and bila teralhipswer e obtained using a Play[employer] scanner.. COMPARISON:Comparison is made with prior examination dated November 03, 2007. FINDINGS: Lumbar Spine (L1-L4): g/cm2 (1.171) / T-score (-0.1) / Z-score (0.7)Left Femur Total: g/cm2 ( 0.771 ) / T-score (-1.9) / Z- score (-1.2)Right Femur Total: g/cm2 (0.813) / T-score (-1.5) / Z-score (- 0.9) Since prior study, there has been an impro vement of 13% in the bonedensity. IMPRESSION:The patient is considered osteopenic, as outlined above, according toWorldHealth Organization (WHO) criteria. Fracture risk is moderate. Reference Informati on:The T-score is the number of standard deviations above or below thestandard which is normal for young adults at their peak bone mineraldensity. The World Health Organization (WHO) interprets the T-sc ores asfollows: Above -1 Normal bone densityBetween -1 and -2.5 OsteopeniaEqual to / or below -2.5 Osteoporosis As a practical clinical guideline, osteopenia may be graded as follows:Mild -1 through -1.5Moderate -1.6 through -2.0Severe -2.1 through -2.4 The Z-score is the number of standard deviations above or below age- matchedcontrols. A Z-score of less than -1.5 would be considered abnormal. References:1. NIH Osteoporosis and Related Bone Diseases http://www.osteo.org2. International Society for Clinical Densitometry http://www.iscd.org3. National Osteoporosis Fou ndation http://www.nof.org Dictated on 06/12/10 1507 by Colleen Huizar MDranscribed on 06/12/101823 by ITS IMPORTSign by Johnnie Huizar MD on 06/12/101824 Sign by: Johnnie Huizar MD 17-Fav-312383:51 Microscopic Examination Comments: PATIENT NOT FASTINGPERFORMED BY: HCDC [id number] [facility] [id number] Bacteria None seen (Normal) Epithelial Cells (non renal) 0-10 {/hpf} (Normal) Range: 0 - 10 RBC 0-3 {/hpf} (Normal) Range: 0 - 3 WBC 0-5 {/hpf} (Normal) Range: 0 - 5 15-Lro-122743:51 Anti-TPO Antibody (81846) Comments: to repeat in 2-3 weeks; PATIENT NOT FASTINGPERFORMED BY: [employer] Rqpfia3814 [facility] [id number] Thyroid Peroxidase (TPO) Ab 270 {IU/mL} (Abnormal) Range: 0-34 :51 TSH (94607) Comments: PATIENT NOT FASTINGPERFORMED BY: SupportPayJersey Shore University Medical CenterCqszds7917 [facility] [id number] TSH 9.900 {uIU/mL} (Abnormal) Range: 0.450-4.500 :51 T4, FREE (THYROXINE) (22644) Comments: PATIENT NOT FASTINGPERFORMED BY: [employer] [id number] [facility] [id number] T4,Free(Direct) 1.13 ng/dL (Normal) Range: 0.82-1.77 :51 T3, FREE (TRIDOTHYRONINE) (56759) Comments: PATIENT NOT FASTINGPERFORMED BY: [employer] Owvnuu9956 [facility]Former[facility] [id number] Triiodothyronine,Free,Serum 2.7 pg/mL (Normal) Range: 2.0-4.4 :51 URINALYSIS, W/ MICRO Comments: patient to repeat in 2-3 weeks; PATIENT NOT FASTINGPERFORMED BY: [employer] [id number] [facility] [id number] Information: [id number] (67003) Microscopic Examination See below: (Normal) Bilirubin Negative (Normal) Ketones Negative (Normal) Microscopic Examination MICRON (Normal) Comments: Microscopic follows if indicated. Nitrite, Urine Negative (Normal) Occult Blood Negative (Normal) Urobilinogen,Semi-Qn 0.2 mg/dL (Normal) Range: 0.0-1.9 Glucose Negative (Normal) Protein Negative (Normal) WBC Esterase Negative (Normal) Appearance Clear (Normal) Urine-Color Yellow (Normal) pH 6.0 (Normal) Range: 5.0-7.5 Specific [place] 1.018 (Normal) Range: 1.005-1.030 :34 Microscopic Examination Comments: PATIENT WAS FASTINGPERFORMED BY: [employer] Wixqbi9098 [facility] [id number] Bacteria Few (Normal) Mucus Threads Present (Normal) Epithelial Cells (non renal) 0-10 {/hpf} (Normal) Range: 0 - 10 RBC 0-3 {/hpf} (Normal) Range: 0 - 3 WBC 0-5 {/hpf} (Normal) Range: 0 - 5 :34 Vitamin D Hydroxy (99830) Comments: PATIENT WAS FASTINGPERFORMED BY: YCD MultimediaNev[facility] Fgrorr6452 [facility] [id number] Vitamin D, 25-Hydroxy 53.3 ng/mL (Normal) Range: 32.0-100.0 Comments: Recent studies consider the lower limit of 32.0 ng/mL to be athreshold for optimal health.Manuel ALATORRE. J Nutr. 2005 Mar;135(2):317-22. 6-Ota-501082:34 METABOLIC PANEL, COMPREHENSIVE Comments: PATIENT WAS FASTINGPERFORMED BY: [employer] [facility] [id number] ([id number]) ALT (SGPT) 18 [iU]/L (Normal) Range: 0-40 A/G Ratio 2.0 (Normal) Range: 1.1-2.5 Alkaline Phosphatase, S 51 [iU]/L (Normal) Range: 25-150 AST (SGOT) 21 [iU]/L (Normal) Range: 0-40 Bilirubin, Total 0.6 mg/dL (Normal) Range: 0.0-1.2 Albumin, Serum 4.3 g/dL (Normal) Range: 3.5-5.5 Globulin, Total 2.1 g/dL (Normal) Range: 1.5-4.5 Protein, Total, Serum 6.4 g/dL (Normal) Range: 6.0-8.5 Calcium, Serum 9.6 mg/dL (Normal) Range: 8.7-10.2 Carbon Dioxide, Total 27 mmol/L (Normal) Range: 20-32 Chloride, Serum 105 mmol/L (Normal) Range: 97-108 Potassium, Serum 4.7 mmol/L (Normal) Range: 3.5-5.2 BUN/Creatinine Ratio 24 (Abnormal) Range: 9-23 Sodium, Serum 142 mmol/L (Normal) Range: 135-145 eGFR If Africn Am 93 mL/min/1.73 (Normal) Comments: Note: A persistent eGFR <60 mL/min/1.73 m2 (3 months or more) mayindicate chronic kidney disease. An eGFR >59 mL/min/1.73 m2 with anelevated urine protein also may indicate chronic kidney disease.Calculated using CKD-EPI formula. eGFR If NonAfricn Am 81 mL/min/1.73 (Normal) BUN 20 mg/dL (Normal) Range: 6-24 Creatinine, Serum 0.84 mg/dL (Normal) Range: 0.57-1.00 Glucose, Serum 85 mg/dL (Normal) Range: 65-99 :34 CBC WITH MANUAL DIFF Comments: PATIENT WAS FASTINGPERFORMED BY: NERI70 [facility] [id number] Information: [id number] ([id number]) Immature Grans (Abs) 0.0 {x10E3/uL} (Normal) Range: 0.0-0.1 Baso (Absolute) 0.0 {x10E3/uL} (Normal) Range: 0.0-0.2 Eos (Absolute) 0.3 {x10E3/uL} (Normal) Range: 0.0-0.4 Immature Granulocytes 0 % (Normal) Range: 0-1 Lymphs (Absolute) 2.3 {x10E3/uL} (Normal) Range: 0.7-4.5 Monocytes(Absolute) 0.3 {x10E3/uL} (Normal) Range: 0.1-1.0 Neutrophils (Absolute) 2.0 {x10E3/uL} (Normal) Range: 1.8-7.8 Basos 1 % (Normal) Range: 0-3 Eos 6 % (Normal) Range: 0-7 Monocytes 6 % (Normal) Range: 4-13 Lymphs 46 % (Normal) Range: 14-46 Neutrophils 41 % (Normal) Range: 40-74 Platelets 145 {x10E3/uL} (Normal) Range: 140-415 MCH 31.0 pg (Normal) Range: 27.0-34.0 MCHC 34.8 g/dL (Normal) Range: 32.0-36.0 MCV 89 fL (Normal) Range: 80-98 RDW 13.0 % (Normal) Range: 11.7-15.0 Hematocrit 39.4 % (Normal) Range: 34.0-44.0 Hemoglobin 13.7 g/dL (Normal) Range: 11.5-15.0 RBC 4.42 {x10E6/uL} (Normal) Range: 3.80-5.10 WBC 4.9 {x10E3/uL} (Normal) Range: 4.0-10.5 5-Dha-314658:34 URINALYSIS, W/ MICRO ([id number]) Comments: PATIENT WAS FASTINGPERFORMED BY: LabCoJersey Shore University Medical CenterHsxzwf8512 [facility] [id number] Bilirubin Negative (Normal) Microscopic Examination MICRON (Normal) Comments: Microscopic follows if indicated. Microscopic Examination See below: (Normal) Nitrite, Urine Negative (Normal) Urobilinogen,Semi-Qn 0.2 mg/dL (Normal) Range: 0.0-1.9 Ketones Negative (Normal) Occult Blood Negative (Normal) Glucose Negative (Normal) Protein Trace (Normal) Appearance Clear (Normal) WBC Esterase Negative (Normal) pH 7.0 (Normal) Range: 5.0-7.5 Urine-Color Yellow (Normal) Specific [place] 1.024 (Normal) Range: 1.005-1.030 :34 TSH ([id number]) Comments: PATIENT WAS FASTINGPERFORMED BY: SupportPayRobert Ville [id number] [facility] [id number] TSH 8.410 {uIU/mL} (Abnormal) Range: 0.450-4.500 :34 LIPID PANEL (51440) Comments: PATIENT WAS FASTINGPERFORMED BY: YCD MultimediaChristina Ville [id number] [facility] [id number] LDL/HDL Ratio 1.1 {ratio_units} (Normal) Range: 0.0-3.2 LDL Cholesterol Calc 76 mg/dL (Normal) Range: 0-99 HDL Cholesterol 70 mg/dL (Normal) Comments: According to ATP-III Guidelines, HDL-C >59 mg/dL is considered anegative risk factor for CHD. VLDL Cholesterol Julianne 11 mg/dL (Normal) Range: 5-40 Cholesterol, Total 157 mg/dL (Normal) Range: 100-199 Triglycerides 55 mg/dL (Normal) Range: 0-149 09-Hkg-105919:43 Thin prep Pap Comments: Source.............Cervical;EndocervicalNo. of containers..01 CYTYC Thin Prep VialPATIENT NOT FASTINGPERFORMED BY: LabCo[address] [id number] Information: [id number] ([id number]) Note: PAPSMR (Normal) Comments: The Pap smear is a screening test designed to aid in the detection ofpremalignant and malignant conditions of the uterine cervix. It is not adiagnostic procedure and should not be used as the sole mean s of detectingcervical cancer. Both false-positive and false-negative reports do occur. .The HPV DNA reflex criteria were not met with this specimen resulttherefore, no HPV testing was performed. . See Note . (Normal) DIAGNOSIS: SPRCS (Normal) Comments: NEGATIVE FOR INTRAEPITHELIAL LESION AND MALIGNANCY.Satisfactory for evaluation. Endocervical and/or squamous metaplasticcells (endocervical component) are present.V72.31 ; Routine gynecolog ical examtiff Jang Territory Account Executive (ASCP) :27 ANTI-CCP 061973 5 {units} (Normal) Range: 0-19 Comments: Negative <20Weak positive 20 - 39Moderate positive 40 - 59Strong positive >59 :27 C-REACTIVE PROT < 2.90 mg/L (Normal) Range: 0.0-3.0 Comments: C-Reactive Protein (CRP) provides useful information for thediagnosis, therapy and monitoring of inflammatory processesand associated diseases. For the evaluation of Relative Riskfor Cardiovascular Dise ase, a High Sensitivity CRP (HSCRP)should be ordered. :27 CBCD ABSOLUTE NEUT 2.9 3/uL (Normal) Range: 2.0-7.7 BASO% 0.7 % (Normal) Range: 0-1 EO% 3.4 % (Normal) Range: 0-5 HCT 40.1 % (Normal) Range: 37-47 HGB 13.7 g/dL (Normal) Range: 12.0-16.0 LY% 36.2 % (Normal) Range: 19-41 MCH 31.8 pg (Normal) Range: 27.0-32.0 MCHC 34.2 g/dL (Normal) Range: 32-36 MCV 93.0 fL (Normal) Range: 81-99 MONO% 5.4 % (Normal) Range: 0-10 MPV 6.1 fL (Abnormal) Range: 6.5-12.0 NEUT% 54.3 % (Normal) Range: 47-70 PLT 174 K/mm3 (Normal) Range: 150-450 RBC 4.31 {M/mm3} (Normal) Range: 4.2-5.4 RDW 13.2 % (Normal) Range: 11.6-14.6 WBC 5.3 K/mm3 (Normal) Range: 4.4-11.0 :27 COMP METABOLIC ALK P 63 U/L (Normal) Range: 50-136 ALT 34 U/L (Normal) Range: 12-78 CL 102 mmol/L (Normal) Range: 98-107 CO2 34.0 mmol/L (Abnormal) Range: 21.0-32.0 GAP 6 (Normal) Range: 5-15 K 3.9 mmol/L (Normal) Range: 3.5-5.1 NA 142 mmol/L (Normal) Range: 136-145 T BILI 0.60 mg/dL (Normal) Range: 0.00-1.00 A/G 1.4 {RATIO} (Normal) Range: 0.9-2.4 ALB 4.4 g/dL (Normal) Range: 3.4-5.0 AST 23 U/L (Normal) Range: 15-37 BUN 22 mg/dL (Abnormal) Range: 7-18 BUN/CRE 27.5 {RATIO} (Abnormal) Range: 10-20 CA 10.1 mg/dL (Normal) Range: 8.5-10.1 CREAT,SERUM 0.8 mg/dL (Normal) Range: 0.6-1.0 EST GFR 81 mL/min (Normal) EST GFR - AA 98 mL/min (Normal) GLOB 3.1 g/dL (Normal) Range: 2.7-4.2 GLU 81 mg/dL (Normal) Range: 70-110 T PROT 7.5 g/dL (Normal) Range: 6.4-8.2 :27 ESR SED RATE 4 mm/h (Normal) Range: 0-30 :27 RHEUMATOID FAC < 10.0 {IU/mL} (Normal) :27 VIT D,25 33441 34.5 ng/mL (Normal) Range: 32.0-100.0 Comments: Recent studies consider the lower limit of 32.0 ng/mL to pepe threshold for optimal health.Manuel ALATORRE. J Nutr. 2004;135(2):317-22.Performed at: [facility] Lab[address] [id number] Director: Jeff Mirza MDPerformed at: [facility] Lab[address] [id number] Director: Pako Barajas MD 34-Dzc-318896:07 Pap IG, HPV-hr Comments: Source.............Cervical;EndocervicalNo. of containers..01 CYTYC Thin Prep VialPERFORMED BY: WB [facility] Iwrdgqrqwd726 [facility] [place] W [id number] BY: =G [facility] Chlswdmmdf69 0 [facility] [place] W [id number] Information: [id number] HPV, high-risk Negative Comments: This high-risk HPV test detects thirteen high- risk types(16/18/31/33/35/39/45/51/52/56/58/59/68) without differentiation.. (Normal) Note: PAPSMR (Normal) Comments: The Pap smear is a screening test designed to aid in the detection ofpremalignant and malignant conditions of the uterine cervix. It is not adiagnostic procedure and should not be used as the sole mean s of detectingcervical cancer. Both false-positive and false-negative reports do occur..This liquid based ThinPrep(R) pap test was screened with theuse of an image guided system. See Note . (Normal) DIAGNOSIS: SPRCS (Normal) Comments: NEGATIVE FOR INTRAEPITHELIAL LESION AND MALIGNANCY.CELLULAR CHANGES ASSOCIATED WITH ATROPHY ARE PRESENT.Satisfactory for evaluation. Endocervical and/or squamous metaplasticcells (endocervical componen t) are present.V72.31 ; Routine gynecological examinationJames Fracisco Castillo, Territory Account Executive (ASCP) 45-Egz-51351:58 BILAT SCRN DIGITAL & CAD Radiology Report See Note (Normal) Comments: Exam Number: [id number] DIGITAL BILATERAL MAMMOGRAM HISTORYThis is a 48-year-old female patient with history of routine screeningexam. Digital oblique and craniocaudal views were obtained. C omparison is made with the prior examination dated November 03, 2007.Interpretation was made with the benefit of the CAD system. FINDINGSThere is a moderate amount of fibroglandular tissue. No dominant masslesion is seen. Once again, scattered microcalcifications are seenbilaterally. No focal clustering is seen. No mass lesion is present.The overlying skin is not thickened. IMPRESSION1. There has been no farrar ge since prior examination. 2. Routine annual mammographic followup is suggested.3. BIRADS Category 2. Benign. A letter regarding the results has been sent to the patient. This interpretation was r endered by a radiologist certified under theMammography Quality Standards Act of 1992 (MQSA). The mammograms werealso examined with computer-aided detection software (ImageMiArch, [employer] Reported By: JOHNNIE HUIZAR 93-Hjt-439118:05 Thin prep Pap Comments: Source.............Cervical;EndocervicalLMP / Prev Treat...MBH=[id number]. of containers..01 CYTYC Thin Prep VialPATIENT NOT FASTINGClinical Information: [id number] PERFORMED BY: [employer] ([id number]) [address] [id number] . . (Normal) DIAGNOSIS: SPRCS (Normal) Comments: UNSATISFACTORY FOR EVALUATION.Suggest follow up as clinically appropriate.Specimen processed and examined but unsatisfactory for evaluation becauseof insufficient cellularity.V72.31 ; Routine gynecologi julianne Latanya Jang, Territory Account Executive (ASCP)Rhianna Wick, Supervisory Territory Account Executive (ASCP) Note: PAPSMR (Normal) Comments: The Pap smear is a screening test designed to aid in the detection ofpremalignant and malignant conditions of the uterine cervix. It is not adiagnostic procedure and should not be used as the sole mean s of detectingcervical cancer. Both false-positive and false-negative reports do occur. .The HPV DNA reflex criteria were not met with this specimen resulttherefore, no HPV testing was performed. . 55-Jai-743693:04 ELBOW,MIN 3 VIEWS (MT) Radiology Report See Note (Normal) Comments: Exam Number: [id number] CLINICAL:Injured as a child, no recent injury, complain of grinding, with movement. X-RAY EXAMINATION: LEFT ELBOW TECHNIQUE:3 views of the elbow were obtained. COMPAR JERARDO:None. F INDINGS:Tiny spur formation involves the olecranon with narrowing and sclerosis of the olecranon humeral joint, the radial head, and the anterior distal humerus volar aspect at the antecubital fossa, th e radial ulna joint with sclerosis, narrowing and spur formation.Distal humerus, supracondylar level demonstrate a non-acute indistinct transverse lucent line on lateral view, which may have been the fo rmer fracture site. There is no elevation of the anterior fat pad, and there are no x-ray findings of a joint effusion. Normal visualized proximal ulna and olecranon process, without a demonstrated frac ture or osseous abnormality. Normal visualized proximal radius including the radial head and neck, without a demonstrated fracture or osseous abnormality. There is no definitive plain film findings of d emineralization. There is no demonstrated soft tissue abnormality. IMPRESSION:No acute osseous injury or traumatic malalignment .Degenerative changes as delineated above. Reported By: ANJANA IRENE M.D. 82-Vka-130487:07 Thin prep Pap Comments: Source.............Cervical;EndocervicalLMP / Prev Treat...NED=[id number]. of containers..01 CYTYC Thin Prep VialPATIENT NOT FASTINGClinical Information: ADD [id number] PERFORMED BY: [employer] ([id number]) [address] [id number] . . (Normal) DIAGNOSIS: SPRCS (Normal) Comments: NEGATIVE FOR INTRAEPITHELIAL LESION AND MALIGNANCY.CELLULAR CHANGES ASSOCIATED WITH ATROPHY ARE PRESENT.THIS SPECIMEN WAS RESCREENED PART OF OUR [employer]ING [employer] PROGRAM.Satisfactory for e valuation. Endocervical and/or squamous metaplasticcells (endocervical component) are present.V72.31 ; Routine gynecological examinationYuli Monroe, Territory Account Executive (ASCP)Janice Bryant, Supervisory Territory Account Executive (ASCP) Note: PAPSMR (Normal) Comments: The Pap smear is a screening test designed to aid in the detection ofpremalignant and malignant conditions of the uterine cervix. It is not adiagnostic procedure and should not be used as the sole mean s of detectingcervical cancer. Both false-positive and false-negative reports do occur. .The HPV DNA reflex criteria were not met with this specimen resulttherefore, no HPV testing was performed. . :37 BILAT SCRN DIGITAL & CAD Radiology Report See Note (Normal) Comments: Exam Number: [id number] BILATERAL DIGITAL SCREENING MAMMOGRAM WITH COMPUTER-ASSISTED DETECTION COMPARISONSept2006 and September 25, 2005 MLO and CC views were acquired bilaterally. The breasts are comprisedof heterogeneously-dense parenchyma. Computer assisted detection wasused. There are bilateral vascular calcifications. There are also scatteredbilateral benign calcifications. No clusters o f microcalcifications,architectural distortion, mass lesion or skin thickening. There hasbeen no appreciable change from previous studies. IMPRESSION1. No mammographic evidence of malignancy. Stable appearance of thebreasts.2. BIRADS Category 2. Benign findings. Screening study in 1 year. A letter regarding these results has been sent to the patient. This interpretation was rendered by a radiolog ist certified underthe Mammography Quality Standards Act of 1992 (MQSA). The mammogramswere also examined with computer-aided detection software(ImageDepositphotos.). Reported By: OCHOA CAM M.D. 36-Uam-87913:36 DEXA BONE DENSITY STUDY () Radiology Report See Note (Normal) Comments: Exam Number: [id number] DEXA BONE DENSITY STUDY COMPARISONSept2006. HISTORYOsteopenia, postmenopausal. Hologic unit was used for assessment. The lumbar spine is measured from L1 thr ough L4. Th e average bonemineral density was calculated to be 0.914 g/cm2 with a T-score of-1.2 and a Z-score of -0.5. Compared to the previous study ofOctober 30, 2006, the bone density has increased by 0.9%, which isnot significant. The left hip was also assessed. The left femoral neck had a bonemineral density of 0.578 with a T-score of -2.4 and a Z-score of-1.8. For the total left hip, the BMD was measu red at 0.734 g/ma1uwqm a T-score of -1.7 and a Z-score of -1.3. Compared to theprevious study of 2006, the bone density of the total left hip hasincreased 0.4%, which is not significant. IMPRESSIONThe patient meets WHO criteria for osteopenia with moderate increasedrisk for fracture. There has been no significant change from theprevious study of 2006. Reported By: OCHOA CAM M.D. 7-Adg-446325:0 GLU GTT-2 HOUR 91 mg/dL (Normal) Comments: 2HR GTT GLU 2 HR GLU GTT-2 HOUR from 0509:D78810Z. 3 Range: 70-120 0-Aha-871971:1 GLU GTT-1 HOUR 105 mg/dL (Abnormal) Comments: 2HR GTT GLU 1 HR GLU GTT-1 HOUR from 0509:A78379B. 5 Range: 120-170 7-Omk-303189:2 GLU GTT-30 min. 106 mg/dL (Abnormal) Comments: 2HR GTT GLU 1/2 HR GLU GTT-30 min. from 508:N21605R. 5 Range: 110-170 :5 GLU GTT-FASTING 75 mg/dL (Normal) Comments: 2HR GTT FASTING GLU GTT-FASTING from 508:S07433N. 0 Range: 70-110 Comments: GLUCOSE TOLERANCE TEST Reference Interval Non- Adults Fasting 70 - 110 30 minutes 110 - 170 1 hour 120 - 170 2 hour 70 - 120 3 hour 70 - 110 4 hour 70 - 110 5 hour 70 - 110 4-Axg-977215:22 CBCD,SMEAR DIFF BAND 3 % (Normal) Range: 0-5 CELLS COUNTED 100 (Normal) EOS 3 % (Normal) Range: 0-5 HCT 40.3 % (Normal) Range: 37-47 HGB 13.9 g/dL (Normal) Range: 12.0-16.0 LYMPH 34 % (Normal) Range: 19-41 MCH 32.2 pg (Abnormal) Range: 27.0-32.0 MCHC 34.5 g/dL (Normal) Range: 32-36 MCV 93.3 fL (Normal) Range: 81-99 MONOCYTE 6 % (Normal) Range: 0-10 PLT 155 K/mm3 (Normal) Range: 150-450 PLT EST SeeNote (Normal) Comments: Result: ADEQUATE RBC 4.32 {M/mm3} (Normal) Range: 4.2-5.4 RDW 12.9 % (Normal) Range: 11.6-14.6 RED CELL MORPH SeeNote {NORMAL} (Normal) Comments: Result: NORM C+C SEGS 54 % (Normal) Range: 47-70 WBC 4.5 K/mm3 (Normal) Range: 4.4-11.0 0-Uzi-019433:22 COMP METABOLIC A/G 1.3 {RATIO} (Normal) Range: 0.9-2.4 ALB 4.1 g/dL (Normal) Range: 3.4-5.0 ALK P 72 U/L (Normal) Range: 50-136 ALT 44 [iU]/L (Normal) Range: 30-65 AST 30 U/L (Normal) Range: 15-37 BUN 18 mg/dL (Normal) Range: 7-18 BUN/CRE 22.5 {RATIO} (Abnormal) Range: 10-20 CA 9.0 mg/dL (Normal) Range: 8.5-10.1 CL 101 mmol/L (Normal) Range: 98-107 CO2 29.8 mmol/L (Normal) Range: 21.0-32.0 CREAT,SERUM 0.8 mg/dL (Normal) Range: 0.6-1.0 GAP 7 (Normal) Range: 5-15 GLOB 3.2 g/dL (Normal) Range: 2.7-4.2 GLU 74 mg/dL (Normal) Range: 70-110 K 3.7 mmol/L (Normal) Range: 3.5-5.1 NA 138 mmol/L (Normal) Range: 136-145 T BILI 0.62 mg/dL (Normal) Range: 0.00-1.00 T PROT 7.3 g/dL (Normal) Range: 6.4-8.2 0-Zur-174725:22 ESTROGEN 4549 38 pg/mL (Normal) Comments: Prepubertal <40 Female Cycle: 1-10 Days 61 - 394 11-20 Days 122 - 437 21-30 Days 156 - 350 Post-Menopausal <40 HMG Treatment for Ovulation Induction: 400 - 800Performed At: [facility] [address] [place], [place] [id number] At: [facility] [address] [place], [place] [id number] 7-Ikg-701433:22 LIPID CHOL 169 mg/dL (Normal) Comments: <200 mg/dL Desirable 200-240 mg/dL Borderline >240 mg/dL High Risk HDL 51 mg/dL (Normal) Comments: Reference Range HDL <40 mg/dL Low HDL Cholesterol HDL >or= 60 mg/dL High HDL Cholesterol LDL 109 mg/dL (Normal) Range: 0-130 TRIG 46 mg/dL (Normal) Comments: Serum Triglycerides Reference Interval Normal <150 mg/dL Borderline high 150 - 199 mg/dL High 200 - 499 mg/dL Very High > or = 500 mg/dL VLDL 9 mg/dL (Normal) Range: 5-40 4-Bdl-984893:22 PROGESTER. 4317 0.2 ng/mL (Normal) Comments: Female: Follicular 0.2 - 1.4 Luteal 3.3 - 25.6 Mid-luteal 4.4 - 28.0 Postmenopausal 0.0 - 0.7 : 1st Trimester 11.2 - 90.0 2nd Trimester 25.5 - 89.4 3rd Trimester 48.4 - 422.5 0-Vjd-341631:22 TESTOST [id number] TESTOSTER %FREE 1.84 % (Normal) Range: 0.50-2.80 TESTOSTER,FREE 0.52 ng/dL (Normal) Range: 0.10-0.85 TESTOSTER,TOTAL 28 ng/dL (Normal) Range: 14-76 2-Zov-804577:22 TSH 3.87 {uIU/mL} (Normal) Range: 0.34-4.82 :50 HgA1C , Office (75842) HgA1C , Office 5.1 % (Normal) Range: 4.6 - 7.1 :50 Blood Glucose , Office (18287) Blood Glucose , Office 97 (Normal) :18 BC No growth in 5 days. (Normal) :18 CBCD,SMEAR DIFF BAND 10 % (Abnormal) Range: 0-5 CELLS COUNTED 100 (Normal) HCT 37.2 % (Normal) Range: 37-47 HGB 12.9 g/dL (Normal) Range: 12.0-16.0 LYMPH 25 % (Normal) Range: 19-41 MCH 32.5 pg (Abnormal) Range: 27.0-32.0 MCHC 34.5 g/dL (Normal) Range: 32-36 MCV 94.0 fL (Normal) Range: 81-99 MONOCYTE 6 % (Normal) Range: 0-10 PLT 108 K/mm3 (Abnormal) Range: 150-450 PLT EST SLT DEC (Normal) RBC 3.96 {M/mm3} (Abnormal) Range: 4.2-5.4 RDW 13.1 % (Normal) Range: 11.6-14.6 RED CELL MORPH SeeNote {NORMAL} (Normal) Comments: Result: NORM C+C SEGS 59 % (Normal) Range: 47-70 WBC 6.3 K/mm3 (Normal) Range: 4.4-11.0 84-Wkf-475411:18 COMP METABOLIC Comments: RESULTS FAXED 05/11/07 1352 MELYSSA VALDEZ. A/G 1.2 {RATIO} (Normal) Range: 0.9-2.4 ALB 3.4 g/dL (Normal) Range: 3.4-5.0 ALK P 67 U/L (Normal) Range: 50-136 ALT 44 [iU]/L (Normal) Range: 30-65 AST 34 U/L (Normal) Range: 15-37 BUN 17 mg/dL (Normal) Range: 7-18 BUN/CRE 21.3 {RATIO} (Abnormal) Range: 10-20 CA 8.1 mg/dL (Abnormal) Range: 8.5-10.1 CL 104 mmol/L (Normal) Range: 98-107 CO2 34.5 mmol/L (Abnormal) Range: 21.0-32.0 Comments: Please Note Reference Interval Change CREAT,SERUM 0.8 mg/dL (Normal) Range: 0.6-1.0 GAP 1 (Abnormal) Range: 5-15 GLOB 2.8 g/dL (Normal) Range: 2.7-4.2 Comments: Please Note Reference Interval Change K 5.1 mmol/L (Normal) Range: 3.5-5.1 NA 139 mmol/L (Normal) Range: 136-145 T BILI 0.31 mg/dL (Normal) Range: 0.00-1.00 T PROT 6.2 g/dL (Abnormal) Range: 6.4-8.2 GLU 99 mg/dL (Normal) Range: 70-110 01-Ahg-851919:55 CALC U24 4082 Comments: PATIENT SPECIMEN IS 25 MINUTES OVER THE SUGGESTED 24 HOURCOLLECTION TIME CALCIUM,U 21069 7.1 mg/dL (Normal) CALCIUM,U24 92.3 {mg/24_hr} (Abnormal) Range: 100.0-300.0 Comments: Performed At: [facility] [place], [place] [id number] :14 CBCD,SMEAR DIFF BAND 1 % (Normal) Range: 0-5 CELLS COUNTED 100 (Normal) HCT 37.1 % (Normal) Range: 37-47 HGB 13.0 g/dL (Normal) Range: 12.0-16.0 HYPOCHROMASIA 1+ (Normal) LYMPH 46 % (Abnormal) Range: 19-41 MACROCYTE 1+ (Normal) MCH 36.5 pg (Abnormal) Range: 27.0-32.0 MCHC 35.1 g/dL (Normal) Range: 32-36 MCV 103.8 fL (Abnormal) Range: 81-99 MONOCYTE 6 % (Normal) Range: 0-10 PLT 181 K/mm3 (Normal) Range: 150-450 PLT EST SeeNote (Normal) Comments: Result: ADEQUATE RBC 3.58 {M/mm3} (Abnormal) Range: 4.2-5.4 RDW 14.3 % (Normal) Range: 11.6-14.6 SEGS 47 % (Normal) Range: 47-70 WBC 2.5 K/mm3 (Abnormal) Range: 4.4-11.0 :14 COMP METABOLIC A/G 1.3 {RATIO} (Normal) Range: 0.9-2.4 ALB 3.6 g/dL (Normal) Range: 3.4-5.0 ALK P 81 U/L (Normal) Range: 50-136 ALT 48 [iU]/L (Normal) Range: 30-65 AST 29 U/L (Normal) Range: 15-37 BUN 17 mg/dL (Normal) Range: 7-18 BUN/CRE 21.3 {RATIO} (Abnormal) Range: 10-20 CA 8.5 mg/dL (Normal) Range: 8.5-10.1 CL 105 mmol/L (Normal) Range: 98-107 CO2 29.7 mmol/L (Normal) Range: 21.0-32.0 Comments: Please Note Reference Interval Change CREAT,SERUM 0.8 mg/dL (Normal) Range: 0.6-1.0 GAP 7 (Normal) Range: 5-15 GLOB 2.7 g/dL (Normal) Range: 2.7-4.2 Comments: Please Note Reference Interval Change GLU 74 mg/dL (Normal) Range: 70-110 K 3.8 mmol/L (Normal) Range: 3.5-5.1 NA 142 mmol/L (Normal) Range: 136-145 T BILI 0.57 mg/dL (Normal) Range: 0.00-1.00 T PROT 6.3 g/dL (Abnormal) Range: 6.4-8.2 :14 PHOS 2.7 mg/dL (Normal) Range: 2.5-4.9 :14 PROT.[id number] ALBUMIN,UR 33.7 % (Normal) GSGZZ-9-URBB,U 4.3 % (Normal) JATDS-8-UGKP,U 23.7 % (Normal) BETA GLOB,U 29.6 % (Normal) GAMMA GLOB,U 8.7 % (Normal) M-SPIKE,U SeeNote % (Normal) Comments: Result: Not Observed NOTE Comment (Normal) Comments: Protein electrophoresis scan will follow via mail orcourier. PROTEIN,UR 11.2 mg/dL (Normal) Range: 0.0-15.0 :14 PTH,[id number] PTH,Intact 24 pg/mL (Normal) Range: 12-65 Comments: Performed At: [address] [id number] :14 SPE [id number] A/G RATIO 1.7 (Normal) Range: 0.7-2.0 ALBUMIN 3.6 g/dL (Normal) Range: 3.2-5.6 ALPHA-1 GLOBUL 0.2 g/dL (Normal) Range: 0.1-0.4 ALPHA-2 GLOBUL 0.4 g/dL (Normal) Range: 0.4-1.2 BETA GLOBULIN 0.7 g/dL (Normal) Range: 0.6-1.3 GAMMA GLOBULIN 0.8 g/dL (Normal) Range: 0.5-1.6 GLOBULIN, TOTAL 2.1 g/dL (Normal) Range: 2.0-4.5 M-SPIKE SeeNote g/dL (Normal) Comments: Result: Not Observed SPE shows decreased total protein. NOTE: Comment (Normal) Comments: Protein electrophoresis scan will follow via mail orcourier. PROTEIN,TOTAL 5.7 g/dL (Abnormal) Range: 6.0-8.5 96-Mco-666674:14 TSH 2.39 {uIU/mL} (Normal) Range: 0.34-4.82 :14 VITD 1,25 61459 24.3 pg/mL (Normal) Range: 15.9-55.6 Comments: Performed At: [facility] [address] [place], [place] [id number] At: [facility] [address] [id number] 42-Kkw-600741:11 BILAT SCRN DIGITAL & CAD Radiology Report See Note (Normal) Comments: Exam Number: [id number] BILATERAL SCREENING MAMMOGRAM COMPARISONComparison study October 03, 2005, September 25, 2005. TECHNIQUERoutine MLO and CC views were acquired. FINDINGSThe breast parenchyma is hetero geneously dense. Benign vascularcalcifications are shown bilaterally. No suspicious cluster ofmicrocalcifications, area of architectural distortion, orthree-dimensional spiculated masses are shown. The re has been nosignificant interval change. IMPRESSION1. No mammographic evidence for malignancy.2. BIRADS code 2. Benign findings. Followup in 1 year. A letter regarding these results has been sent t o the patient. This interpretation was rendered by a radiologist certified underthe Mammography Quality Standards Act of 1992 (MQSA). The mammogramswere also examined with computer-aided detection soft duvall([email or web address] Reported By: CHARAN QUIJANO M.D. 85-Lom-112238:09 DEXA BONE DENSITY STUDY (HP) Radiology Report See Note (Normal) Comments: Exam Number: [id number] BONE DENSITOMETRY HISTORYOsteopenia. TECHNIQUE Bone densitometry of the lumbar spine and left hip was performed. Thebest criteria for evaluation of osteoporosis is the T-ron ue whichrepresents the comparison of the patient's bone mass to an expectedpeak bone mass. For most patients, the mean T-value of L1 through L4and the T-value of the total left hip are most useful. F INDINGSIn this patient, the mean T-value of L1 through L4 is -1.3 which is inthe range of osteopenia. Digital lateral view for evaluation ofvertebral deformity only demonstrates no obvious compressionfr actures. Bone mineral density is measured at 3.8% less than cw1970. The T- value of the left femoral neck is -2.5 which is in the range ofosteoporosis. The T-value of the total left hip is -1.7 which is in the range ofosteopenia. Bone mineral density is measured at 12.5% less than [id number]. IMPRESSIONThere is osteopenia of the lumbar spine and total left hip. Reported By: EMERY WILLIAM M.D. 97-Vrp-179390:15 Urinalysis, Office (74685) UA - BILIRUBIN Negative (Normal) UA - BLOOD Negative (Normal) UA - GLUCOSE Negative (Normal) UA - KETONES Negative mg/dL (Normal) UA - LEUKOCYTE ESTERASE Negative (Normal) UA - NITRITE Negative (Normal) UA - PH 7.0 (Normal) UA - PROTEIN Negative mg/dL (Normal) UA - SPECIFIC GRAVITY 1.010 (Normal) URINE UROBILINGN MAE TIMED Normal mg/dL (Normal) 18-Sep-20069:00 CULTURE, URINE URINE CULTURE See Note {CFU/mL} Comments: COLONY COUNT >100,000 ORGANISM 1: PRESUMPTIVE E. COLI PRESUMPTIVE E. COLI: REACTION AMOXICILLIN/CLAVULANIC ACID $$ <=8 S AMPICILLIN G (Normal) N $ 2 S CARBENICILLIN $$$ <=16 S CEFAZOLIN $ <=8 S CEFOXITIN $$ <=2 S CEFTRIAXONE $$$ <=8 S CEFUROXIME $$ <=4 S CIPROFLOXACIN GN $$$ <=0.5 S GENTAMICIN GN $ 4 S LEVOFLOXACIN $$ <=1 S NALIDIXIC ACID $$$ <=16 S NITROFURANTOIN $ <=32 S OFLOXACIN $$$ <=1 S TETRACYCLINE $$ >=16 R TICARCILLIN GN NOT PSEUDO $$$ <=16 S TRIMETHOPRIM/SULFAMETHOXAZ $$ >=320 R 18-Sep-20068:51 Urinalysis, Office (99340) UA - BILIRUBIN Negative (Normal) UA - BLOOD Negative (Normal) UA - GLUCOSE Negative (Normal) UA - KETONES Negative mg/dL (Normal) UA - LEUKOCYTE ESTERASE Trace (Normal) UA - NITRITE Positive (Normal) UA - PH 7.5 (Normal) UA - PROTEIN Negative mg/dL (Normal) UA - SPECIFIC GRAVITY 1.010 (Normal) URINE UROBILINGN MAE TIMED Normal mg/dL (Normal) :00 LIVER ALB 4.0 g/dL (Normal) Range: 3.4-5.0 ALK P 87 U/L (Normal) Range: 50-136 ALT 119 [iU]/L (Abnormal) Range: 30-65 AST 33 U/L (Normal) Range: 15-37 D BILI 0.13 mg/dL (Normal) Range: 0.00-0.30 T BILI 0.79 mg/dL (Normal) Range: 0.00-1.00 T PROT 6.4 g/dL (Normal) Range: 6.4-8.2 :54 LIVER ALB 3.8 g/dL (Normal) Range: 3.4-5.0 ALK P 83 U/L (Normal) Range: 50-136 ALT 322 [iU]/L (Abnormal) Range: 30-65 AST 48 U/L (Abnormal) Range: 15-37 D BILI 0.14 mg/dL (Normal) Range: 0.00-0.30 T BILI 0.72 mg/dL (Normal) Range: 0.00-1.00 T PROT 6.4 g/dL (Normal) Range: 6.4-8.2 Plan of Care Name Dates Details Instructions Hypothyroid : Continue Current Prescription(s) Indication: Hypothyroid Hypothyroid : Reviewed Lab Indication: Hypothyroid Current nonsmoker (Renamed from Current non-smoker) : Eprescribed prescriptions (G8553) Indication: Current nonsmoker (Renamed from Current non-smoker) Shingles : Follow up if no improvement or if symptoms worsen Indication: Shingles Shingles : Shingles (Herpes Zoster) *: rash Indication: Shingles Shingles : Eprescribed prescriptions (G8553) Indication: Shingles Abnormal lung sounds : Follow up on friday for quick brandyn Indication: Abnormal lung sounds Abnormal lung sounds : Eprescribed prescriptions (G8553) Indication: Abnormal lung sounds Cough : Follow up on friday- with kf Indication: Cough Abnormal lung sounds : *Antibiotic Usage Education - Female Indication: Abnormal lung sounds Cough : *URI Treatment Indication: Cough Cough : *Antibiotic Usage Education - Female Indication: Cough Cough : Cough Medicines, Nonprescription: cough Indication: Cough Cough : Eprescribed prescriptions (G8553) Indication: Cough Allergic rhinitis : Follow up if no improvement or if symptoms worsen Indication: Allergic rhinitis Cough : Eprescribed prescriptions (G8553) Indication: Cough Eustachian tube dysfunction : Follow up if no improvement or if symptoms worsen Indication: Eustachian tube dysfunction Cough : Eprescribed prescriptions (G8553) Indication: Cough Sinusitis, acute : Eprescribed prescriptions (G8553) Indication: Sinusitis, acute Hypothyroid : Eprescribed prescriptions (G8553) Indication: Hypothyroid Hypothyroid : Thyroid-Stimulating Hormone (TSH) Test: tsh Indication: Hypothyroid Hypothyroid : Allergies: Controlling Your Environment: allergen Indication: Hypothyroid Well woman exam with routine gynecological exam : Pap Test (Cervical Smear) *: cervical cancer Indication: Well woman exam with routine gynecological exam Well woman exam with routine gynecological exam : Self breast exam Indication: Well woman exam with routine gynecological exam Well woman exam with routine gynecological exam : *Well Female Maintenance (KF) Indication: Well woman exam with routine gynecological exam Well woman exam with routine gynecological exam : Pap/Pelvic/Bimanual/Rectal/Breast Exam was done. Indication: Well woman exam with routine gynecological exam Need for prophylactic vaccination and inoculation against influenza : Flu Shots (Influenza Vaccine): immunization Indication: Need for prophylactic vaccination and inoculation against influenza Laryngitis : Laryngitis Education Indication: Laryngitis Bronchitis : *URI Treatment Indication: Bronchitis Bronchitis : *URI Symptoms Indication: Bronchitis Bronchitis : *Antibiotic Usage Education - Female Indication: Bronchitis Bronchitis : *URI Treatment Indication: Bronchitis Bronchitis : *URI Symptoms Indication: Bronchitis Bronchitis : *Antibiotic Usage Education - Female Indication: Bronchitis Well woman exam with routine gynecological exam : *Well Female Maintenance (KF) Indication: Well woman exam with routine gynecological exam Well woman exam with routine gynecological exam : Pap/Pelvic/Bimanual/Rectal/Breast Exam was done. Indication: Well woman exam with routine gynecological exam Bronchitis, acute : *Antibiotic Usage Education - Female Indication: Bronchitis, acute Well woman exam with routine gynecological exam : Pap/Pelvic/Bimanual/Rectal/Breast Exam was done. Indication: Well woman exam with routine gynecological exam Well woman exam with routine gynecological exam : Well Female Maintenance (KF) Indication: Well woman exam with routine gynecological exam Bronchitis, acute : Antibiotic Usage Education - Female Indication: Bronchitis, acute Bronchitis, acute : Antibiotic Usage Education - Female Indication: Bronchitis, acute Well woman exam with routine gynecological exam : Pap/Pelvic/Bimanual/Rectal/Breast Exam was done. Indication: Well woman exam with routine gynecological exam Well woman exam with routine gynecological exam : Well Female Maintenance (KF) Indication: Well woman exam with routine gynecological exam Wheezing : FOLLOW UP NEEDED Indication: Wheezing Allergic rhinitis due to other allergen : ALLERGY CONTROL Indication: Allergic rhinitis due to other allergen Allergic rhinitis due to other allergen : ALLERGY PROOFING Indication: Allergic rhinitis due to other allergen Allergic rhinitis due to other allergen : URI Symptoms Indication: Allergic rhinitis due to other allergen Pneumonia due to other specified bacteria : Antibiotic Usage Education - Female Indication: Pneumonia due to other specified bacteria Well woman exam with routine gynecological exam : Colon Cancer Screening Indication: Well woman exam with routine gynecological exam Well woman exam with routine gynecological exam : Pap/Pelvic/Bimanual/Rectal/Breast Exam was done. Indication: Well woman exam with routine gynecological exam Well woman exam with routine gynecological exam : Well Female Maintenance (KF) Indication: Well woman exam with routine gynecological exam Dysuria : Follow up for recheck urine 1 week after complete antibiotic Indication: Dysuria Dysuria : UTI treatment Indication: Dysuria Dysuria : Water in diet, brief version Indication: Dysuria Hyperglyceridemia : FOLLOW UP IN 6 MONTHS Indication: Hyperglyceridemia Planned Observations LIPID PANEL (07977)Indication: Encounter for screening for lipid disorder On: 38-Ydb-801680:37 Request IRON (31835)Indication: Hematest positive stools On: 64-Uqo-537090:24 Request CBC with manual diff (57736)Indication: Hematest positive stools On: 91-Sra-224354:23 Request Thin prep Pap (79989)Indication: Well woman exam with routine gynecological exam On: 29-Jha-47530:25 Request LIPID PANEL (51045)Indication: Low HDL (under 40) On: 63-Jgw-126134:25 Request LIPID PANEL (57347)Indication: Hyperglyceridemia On: 70-Zfj-737266:25 Request HEPATIC FUNCTION PANEL (91784)Indication: Elevated LFTs On: 77-Lij-834747:25 Request MONA CULTURE-BLOOD (43390)Indication: syncope On: 64-Fzl-740077:14 Request Comments: x2 METABOLIC PANEL, COMPREHENSIVE (50366)Indication: syncope On: 60-Ocn-830984:14 Request CBC WITH MANUAL DIFF (22958)Indication: syncope On: 18-Wyw-951646:14 Request METABOLIC PANEL, COMPREHENSIVE (81853) On: :31 Request HEPATIC FUNCTION PANEL (15551)Indication: Low HDL (under 40) On: :31 Request LIPID PANEL (48798)Indication: Low HDL (under 40) On: 92-Zox-197907:31 Request METABOLIC PANEL, COMPREHENSIVE (82739)Indication: Osteopenia On: :29 Request CBC WITH MANUAL DIFF (21914)Indication: Osteopenia On: :29 Request VITAMIN D, 1, 25-DIHYDROXY (20415)Indication: Osteopenia On: : Request URINE CALCIUM MAE TIMED 24 Hour (01374)Indication: Osteopenia On: :28 Request UPEP (67525)Indication: Osteopenia On: :28 Request SPEP (29139)Indication: Osteopenia On: :28 Request TSH (27665)Indication: Osteopenia On: :28 Request PHOSPHORUS (80659)Indication: Osteopenia On: :28 Request PARATHORMONE (14730)Indication: Osteopenia On: :28 Request Thin prep Pap (39076)Indication: Well woman exam with routine gynecological exam On: 74-Kft-122922:13 Request LIPID PANEL (82570)Indication: Hyperglyceridemia On: :56 Request HEPATIC FUNCTION PANEL (75427)Indication: Hyperglyceridemia On: :56 Request Comments: 6mos Planned Procedures DEXA SCAN AXIAL SKELETON (36043)By: On: 30-Jan-2018 Intent Irma Vásquez DO, DO, Kathleen SCREENING DIGITAL TOMOSYNTHESIS OF On: 30-Jan-2018 Intent BREAST (60321)By: Irma Vásquez DO, DO, Kathleen MAMMOGRAM BREAST BILATERAL On: 13-Jan-2018 Intent SCREENING DIGITAL (38264)By: Irma Vásquez DO, DO, Kathleen Wax CurettesBy: Irma Vásquez DO On: 23-Apr-2017 Intent Irma Vásquez DO Ear Irrigation (09138)By: Rachel On: 23-Apr-2017 Intent Irma GRANGER DO, Kathleen Comments: Bilateral ear irrigated with warm water and debrox solution Wax currettes usedSmall amount of yellow cerumen removed Pt tolerated well MSMITH,CONTRIBUTION SOLICITOR X-RAY LEFT KNEE, 3 VIEWS (96349)By: On: 24-Jan-2017 Intent Irma Vásquez DO, DO, Kathleen Flu Vaccine (Quadrivalent) 14362Lq: On: 10-Dec-2016 Intent Irma Vásquez DO, DO, Comments: lot: [id number]: 08/04/17ite/route: L ori, IMamt: 0.5mlVIS and ABN signed when applicableJOLEEN Dumont SCREENING DIGITAL TOMOSYNTHESIS OF On: 10-Dec-2016 Intent BREAST (76570)By: Mari Ruvalcaba Aerosol Treatment (89645)By: Wolfgang On: 14-Nov-2015 Intent CONTRIBUTION SOLICITOR, Masha Aerosol Treatment (41878)By: Rachel On: 07-Jun-2015 Intent Irma GRANGER DO, Kathleen Comments: more a/e more noise Aerosol Treatment (15546)By: Wolfgang On: 02-Jun-2015 Intent CONTRIBUTION SOLICITOR, Masha BILATERAL MAMMOGRAMS (35926)By: On: 06-Apr-2015 Intent Alison Rodriguez DO Carotid DopplerBy: Alison Rodriguez DO On: 11-Aug-2013 Intent MAMMOGRAM, SCREENING, BOTH BREAST On: 06-Aug-2013 Intent (35643)By: Alison Rodriguez DO Comments: dec MAMMOGRAM, SCREENING, BOTH BREASTS On: 07-Dec-2012 Intent (83550)By: Alison Rodriguez DO Comments: dec Eprescribed prescriptions On: 07-Dec-2012 Intent (G8553)By: Julia Bermudez Eprescribed prescriptions On: 19-Aug-2012 Intent (G8553)By: Julia Bermudez DXA, BONE DENSITY, AXIAL SKELETON On: 26-Jun-2012 Intent (83750)By: Alison Rodriguez DO IMMUNIZ ADMNIN, 1 VAC, SNGL/COMBO On: 28-Nov-2011 Intent (29362)By: Kim Naidu LPN Comments: Lot #:[id number] date:04.29Amount given:prefilled syringeSite given:L Dltd, IMGiven by: MALLY Flores signed FLU VAC, SPLIT, >3 YEARS, INTRAMUSC On: 28-Nov-2011 Intent (37593)By: Kim Naidu LPN Aerosol Treatment (56207)By: Mckennaesamilcar On: 02-Aug-2011 Intent Rosie VAN MAMMOGRAM, SCREENING, BOTH BREASTS On: 29-May-2011 Intent (06585)By: Fast DO Alison A Aerosol Treatment (61257)By: Alissa On: 23-Apr-2011 Intent Rosie VAN Pneumovax (19014)By: Roger CARRERA, On: 14-Jan-2011 Intent Valentina Solares Comments: Lot #[id number]- L arm, IMDose 0.5mlgiven by:zee FLU VAC, SPLIT, >3 YEARS, INTRAMUSC On: 27-Nov-2010 Intent (39284)By: Princess Beavers Comments: Lot #:[id number] date:mount given:0.5mlRoute: IMSite given:left deltGiven by: LEATHA Flores Radiology - Thoracic SpineBy: Fast On: 27-Nov-2010 Intent DO, Alison A PNEUM VAC ADLT/IMUMNOSPR, SBC/INTRM On: 27-Nov-2010 Intent (08682)By: Princess Beavers Comments: received in 2004 IMMUNIZ ADMNIN, 1 VAC, SNGL/COMBO On: 27-Nov-2010 Intent (41999)By: Princess Beavers Eprescribed prescriptions On: 19-Jun-2010 Intent (G8553)By: Alison Rodriguez DO Radiology - Chest- PA and LatBy: On: 19-Jun-2010 Intent Michael GRANGER Alison A Wax CurettesBy: Alissa VAN Rosie Bauer On: 25-May-2010 Intent Ear Irrigation (26036)By: Reyesa On: 25-May-2010 Intent CARLOTARosie Ear Irrigation (66415)By: Rachel On: 21-May-2010 Intent Irma GRANGER DO, Kathleen Comments: L Wax CurettesBy: Irma Vásquez DO On: 21-May-2010 Intent Irma Vásquez DO DXA, BONE DENSITY, AXIAL SKELETON On: 27-Apr-2010 Intent (81370)By: Princess Beavers MAMMOGRAM, SCREENING, BOTH BREASTS On: 27-Apr-2010 Intent (60004)By: Princess Beavers Wax Currettes (70396)By: Michael GRANGER, On: 27-Jan-2009 Intent Alison A Ear Irrigation (18581)By: Michael GRANGER, On: 27-Jan-2009 Intent Alison A Comments: done by [facility] TDAP VACCINE >7 IM (06213)By: Michael On: 27-Jan-2009 Intent Alison GRANGER Comments: Lot #[id number]-09/17/2011Site-left deltoidDose0.5mlgiven by Zenobia English LPN MAMMOGRAM, SCREENING, BOTH BREASTS On: 27-Jan-2009 Intent (30361)By: Alison Rodriguez DO FLU VAC, SPLIT, >3 YEARS, INTRAMUSC On: 25-Nov-2008 Intent (75384)By: Moriah Mosley LPN IMMUNIZ ADMNIN, 1 VAC, SNGL/COMBO On: 25-Nov-2008 Intent (21082)By: Moriah Mosley LPN Comments: lot # [id number]-WNKKaogyi-JQidcm- 0.5ML tolerated well CHenderson Wax CurettesBy: Sterling Rodriguez DOa A On: 08-Aug-2008 Intent Ear Irrigation (88984)By: Michael GRANGER, On: 08-Aug-2008 Intent Alison A Comments: done km b/l pt tolerated well Spirometry (83842)By: Michael GRANGER, On: 08-Aug-2008 Intent Alison A Comments: done kmgood effort and curve normal Aerosol Treatment (72051)By: Michael On: 08-Aug-2008 Intent DO Alison A Comments: done km with albuterol 0.83% pt tolerated well Inhaler Demo (83776)By: Michael GRANGER, On: 11-Apr-2008 Intent Alison Fitzgerald Spirometry (67664)By: Michael GRANGER, On: 11-Apr-2008 Intent Alison Fitzgerald Comments: good effort and curve mild airway obstruction Pulse Oximetry (27687)By: Michael GRANGER, On: 11-Apr-2008 Intent Alison Fitzgerald Comments: 97% on room air Radiology - Elbow - LeftBy: Michael On: 11-Apr-2008 Intent Alison GRANGER FLU VAC, SPLIT, >3 YEARS, INTRAMUSC On: 22-Dec-2007 Intent ([id number])By: Pamela Kelly RN Comments: Lot #:[id number] date:07/26Amount given:0.5mlRoute: imSite given:Right deltoidGiven by: Amilcar Obrien LPN IMMUNIZ ADMNIN, 1 VAC, SNGL/COMBO On: 22-Dec-2007 Intent ([id number])By: Pamela Kelly RN MAMMOGRAM, SCREENING, BOTH BREASTS On: 11-Nov-2007 Intent ([id number])By: Alison Rodriguez DO Aerosol Treatment ([id number])By: Alissa On: 02-Nov-2007 Intent Rosie VAN Comments: waiver signed Pulse Oximetry ([id number])By: Alissa On: 02-Nov-2007 Intent Rosie VAN Comments: waiver signed 96% r/a MAMMOGRAM, SCREENING, BOTH BREASTS On: 15-Sep-2007 Intent ([id number])By: Alison Rodriguez DO DXA, BONE DENSITY, AXIAL SKELETON On: 15-Sep-2007 Intent ([id number])By: Alison Rodriguez DO Echo CompleteBy: Alison Rodriguez DO On: 11-May-2007 Intent IV Needle placement ([id number])By: On: 11-May-2007 Intent TYE Elena Comments: #22 gauge needle placed to right anticub area without difficulty per karo INFUSION, NORMAL SALINE 1000 mlBy: On: 11-May-2007 Intent TYE Elena Comments: Lot #:[id number] date:09-25 Amount given:1000 ml Route: IV Site given:right anticub Given by: karo EKG ([id number])By: Alison Rodriguez DO On: 11-May-2007 Intent Comments: rsr with no acute st/t changes-- normal sinus with normal axis Aerosol Treatment ([id number])By: Michael On: 11-May-2007 Intent Alison GRANGER Pulse Oximetry ([id number])By: Michael GRANGER, On: 11-May-2007 Intent Alison Fitzgerald Ear Irrigation ([id number])By: Michael GRANGER, On: 09-Dec-2006 Intent Alison A Flu Vaccine, Split IM ([id number])By: On: 09-Dec-2006 Intent Alison Rodriguez DO Comments: given in left deltoid, 0.5cc, lot#[id number], exp..30.08 WF DXA, BONE DENSITY, AXIAL SKELETON On: 15-Oct-2006 Intent ([id number])By: Alison Rodriguez DO Comments: see if because high risk on prednisone her insurance will cover yearly MAMMOGRAM, SCREENING, BOTH BREASTS On: 15-Oct-2006 Intent ([id number])By: Alison Rodriguez DO Instructions Name Dates Details Current nonsmoker (Renamed from Current non-smoker) : How to access health information online Indication: Current nonsmoker (Renamed from Current non-smoker) Current nonsmoker (Renamed from Current non-smoker) : How to access health information online - Detail Indication: Current nonsmoker (Renamed from Current non-smoker) Current nonsmoker (Renamed from Current non-smoker) : Patient Instructions Indication: Current nonsmoker (Renamed from Current non-smoker) Current nonsmoker (Renamed from Current non-smoker) : How to access health information online Indication: Current nonsmoker (Renamed from Current non-smoker) Current nonsmoker (Renamed from Current non-smoker) : How to access health information online - Detail Indication: Current nonsmoker (Renamed from Current non-smoker) Current nonsmoker (Renamed from Current non-smoker) : Patient Instructions Indication: Current nonsmoker (Renamed from Current non-smoker) Current nonsmoker (Renamed from Current non-smoker) : How to access health information online Indication: Current nonsmoker (Renamed from Current non-smoker) Current nonsmoker (Renamed from Current non-smoker) : How to access health information online - Detail Indication: Current nonsmoker (Renamed from Current non-smoker) Current nonsmoker (Renamed from Current non-smoker) : Patient Instructions Indication: Current nonsmoker (Renamed from Current non-smoker) BMI 21.0-21.9, adult : How to access health information online Indication: BMI 21.0-21.9, adult BMI 21.0-21.9, adult : How to access health information online - Detail Indication: BMI 21.0-21.9, adult BMI 21.0-21.9, adult : Patient Instructions Indication: BMI 21.0-21.9, adult Shingles : How to access health information online Indication: Shingles Shingles : How to access health information online - Detail Indication: Shingles Shingles : Patient Instructions Indication: Shingles Cough : How to access health information online Indication: Cough Cough : How to access health information online - Detail Indication: Cough Cough : Patient Instructions Indication: Cough Abnormal lung sounds : How to access health information online Indication: Abnormal lung sounds Abnormal lung sounds : How to access health information online - Detail Indication: Abnormal lung sounds Abnormal lung sounds : Patient Instructions Indication: Abnormal lung sounds Cough : How to access health information online Indication: Cough Cough : How to access health information online - Detail Indication: Cough Cough : Patient Instructions Indication: Cough Cough : How to access health information online Indication: Cough Cough : How to access health information online - Detail Indication: Cough Cough : Patient Instructions Indication: Cough Bronchitis, acute : How to access health information online Indication: Bronchitis, acute Bronchitis, acute : How to access health information online - Detail Indication: Bronchitis, acute Bronchitis, acute : Patient Instructions Indication: Bronchitis, acute Synovial cyst : Patient Instructions Indication: Synovial cyst Cough : How to access health information online Indication: Cough Cough : How to access health information online - Detail Indication: Cough Cough : Patient Instructions Indication: Cough Sinusitis, acute : How to access health information online Indication: Sinusitis, acute Sinusitis, acute : How to access health information online - Detail Indication: Sinusitis, acute Sinusitis, acute : Patient Instructions Indication: Sinusitis, acute Hypothyroid : Patient Instructions Indication: Hypothyroid Hypothyroid : Patient Instructions Indication: Hypothyroid Hypothyroid : Patient Instructions Indication: Hypothyroid Well woman exam with routine gynecological exam : Patient Instructions Indication: Well woman exam with routine gynecological exam Laceration : Patient Instructions Indication: Laceration Neoplasm of uncertain behavior of skin : Patient Instructions Indication: Neoplasm of uncertain behavior of skin Encounters Office Visit On: 30-Jan-2018 11:05 Encounter Reason: Follow up for chronic medical issues - The patient feels well with minor complaints, has good energy level and is sleeping well. Patient has been compliant with instructions. Current medication use: no End: 30-Jan-2018 11:52 side effects and compliant with dosing regimen. Patient sleeps 6 hours per night. Nutrition: balanced diet, supplemental vitamins and low salt diet. The medical issues the patient is following up for in clude All identified problems below, blood sugar issues, cardiac issues (syncope), high blood pressure, high cholesterol, osteoporosis/osteopenia and other (dvt, lymphocytic leukemia). weight :. Note fo r Follow up for chronic medical issues: feels well and - doing well- and off actonel for body breakEncounter Diagnosis: BMI 21.0-21.9, adult, Current nonsmoker (Renamed from Current non-smoker), Encounter for screening mammogram for malignant neoplasm of breast, Hypothyroid, Osteopenia (733.90), Encounter for screening for lipid disorder, Postmenopausal (Renamed from Postmenopausal status), Eczema, unspecified type, Allergic rhinitis [facility] Annotation/Addendum On: 13-Jan-2018 9:15 Encounter Diagnosis: Screening for breast cancer End: 13-Jan-2018 9:20 [facility] Office Visit On: 29-May-2017 13:43 Encounter Diagnosis: BMI 21.0-21.9, adult, Current nonsmoker (Renamed from Current non-smoker), Vertigo, ETD (Eustachian tube dysfunction), left End: 29-May-2017 14:08 [facility] Office Visit On: 23-Apr-2017 10:56 Encounter Reason: Vertigo - The onset of the vertigo has been sudden and has been occurring in an intermittent pattern for 1 week. The course has been recurrent. The vertigo is characterized as lightheadedness. The verti End: 23-Apr-2017 12:26 go is precipitated by position change (when she works out). There has been no associated ear infection or tinnitus.Encounter Diagnosis: BMI 21.0-21.9, adult, Current nonsmoker (Renamed from Current non-smoker), Vertigo, Eustachian tube dysfunction, Post-nasal drip, Bilateral impacted cerumen [facility] Phone Encounter On: 04-Feb-2017 12:01 Encounter Diagnosis: Hypothyroid End: 04-Feb-2017 12:02 [facility] Office Visit On: 24-Jan-2017 10:46 Encounter Reason: Knee Pain - This condition occurred without any known injury. The injury involved the left knee. This occurred month(s) ago (since age 5 has been dislocating an its been 4 times this year).Encounter Diagnosis: End: 24-Jan-2017 11:25 Current nonsmoker (Renamed from Current non-smoker), BMI 21.0-21.9, adult, Chronic pain of left knee, Subluxation of left patella, initial encounter [facility] Lab Order On: 11-Dec-2016 15:09 Encounter Diagnosis: Hypothyroid End: 11-Dec-2016 15:11 [facility] Office Visit On: 10-Dec-2016 15:59 Encounter Reason: Injections - The medication the patient is here to receive is other (influenza vaccine).Encounter Diagnosis: Need for prophylactic vaccination and inoculation against influenza (Renamed from Need for immunization against influenza) End: 11-Dec-2016 9:44 [facility] Phone Encounter On: 10-Dec-2016 15:48 Encounter Diagnosis: Encounter for screening mammogram for malignant neoplasm of breast End: 10-Dec-2016 15:50 [facility] Phone Encounter On: 10-Dec-2016 10:27 Encounter Diagnosis: Hypothyroid End: 10-Dec-2016 10:29 [facility] Office Visit On: 18-Mar-2016 9:40 Encounter Reason: RashEncounter Diagnosis: Shingles End: 18-Mar-2016 10:12 [facility] Office Visit On: 14-Nov-2015 9:46 Encounter Reason: Cough - Symptoms include cough. The cough is described as dry. Cough onset was gradual 1 week(s) ago. Current treatment includes inhaled corticosteroids. By report there is good compliance with treatmen End: 14-Nov-2015 10:32 t and poor symptom control. Previous presentation included a cough.Encounter Diagnosis: Cough, Wheezing (786.07) [facility] Office Visit On: 16-Jun-2015 11:16 Encounter Reason: Follow up acute care visit - The patient feeling better since last seen. Patient has been compliant with instructions. Current medication use: experiencing side effects. Nutrition: balanced diet.Encounter Diagnosis: Cough, End: 16-Jun-2015 11:45 Abnormal lung sounds, Current nonsmoker (Renamed from Current non-smoker) [facility] Office Visit On: 12-Jun-2015 11:20 Encounter Reason: Cough - The onset of the cough has been 3 weeks ago. The symptoms have been associated with wheezing. the color of the sputum is greenish and yellowish.Encounter Diagnosis: Abnormal lung sounds, Cough End: 12-Jun-2015 11:48 [facility] Office Visit On: 07-Jun-2015 10:55 Encounter Reason: Cough - The onset of the cough has been 3 weeks ago. The symptoms have been associated with wheezing. the color of the sputum is greenish and yellowish.Encounter Diagnosis: Cough, Acute bronchitis, unspecified organism, End: 08-Jun-2015 9:50 Abnormal lung sounds [facility] Office Visit On: 02-Jun-2015 11:23 Encounter Reason: Cough - Symptoms include cough and wheezing. The cough is described as productive. Cough onset was sudden 2 day(s) ago. The cough occurs intermittently. The episodes last for 2 days. Symptoms are descri End: 02-Jun-2015 11:45 bed as moderate in severity and worsening. Symptoms are not exacerbated by smoke exposure, pollen exposure, animal exposure, going outside, activity, lying down, cold temperature or inhaled bronchodilat or use. The patient is not currently being treated for this problem. By report there is good compliance with treatment. Pertinent medical history includes asthma (as kid) and chronic bronchitis (not chr onic, but hx of bronchitis). Risk factors include exposure to an ill person, while risk factors do not include air pollution exposure, passive smoke exposure, smoking, pets in the home, ANGELIKA inhibitor us e, alcohol abuse, drug abuse, impaired immunity or missed immunizations. Previous presentation included a cough.Encounter Diagnosis: Cough, Allergic rhinitis [facility] Lab Order On: 06-Apr-2015 11:48 Encounter Diagnosis: Screening for malignant neoplasm of breast End: 06-Apr-2015 11:50 [facility] Office Visit On: 06-Jan-2015 10:47 Encounter Reason: Bronchitis, Acute, Adult - The last clinic visit was 1 week(s) ago. Symptoms include productive cough, non-productive cough and fatigue. The patient describes this as mild. Note for Acute bronchitis: little better End: 06-Jan-2015 11:22 Encounter Diagnosis: Bronchitis, acute, Current nonsmoker (Renamed from Current non-smoker) [facility] Office Visit On: 29-Aug-2014 13:09 Encounter Reason: Skin Lesions - Symptoms include single skin lesion. Lesion(s) are located on the right hand (index finger). The patient describes the lesion(s) as painful, raised and flesh-colored. Onset was gradual 4 End: 29-Aug-2014 20:37 month(s) ago. There is no known event that preceded symptom onset. The symptoms occur constantly. The patient describes this as unchanged. Associated symptoms do not include chills, fever, nausea or vom iting. The patient is not currently being treated for this problem.Encounter Diagnosis: Synovial cyst, HYPOTHYROIDISM NOS (244.9), Low HDL (272.5), Osteopenia (733.90) [facility] Office Visit On: 19-May-2014 9:39 Encounter Reason: Cough - The onset of the cough has been 3 weeks ago.Encounter Diagnosis: Cough (786.2), Eustachian tube dysfunction End: 19-May-2014 10:06 [facility] Office Visit On: 24-Dec-2013 10:24 Encounter Diagnosis: SINUSITIS, ACUTE NOS (461.9) End: 24-Dec-2013 10:44 [facility] Phone Encounter On: 11-Aug-2013 13:41 Encounter Diagnosis: Atherosclerosis End: 11-Aug-2013 13:44 [facility] Office Visit On: 06-Aug-2013 11:27 Encounter Reason: Follow up tests - Date: (07.13.13)., [ADDITIONAL REASON] Follow up for chronic medical issues - The patient feels well with no complaints End: 08-Aug-2013 23:10 , has good energy level and is sleeping well. Patient has been compliant with instructions. Current medication use: no side effects and compliant with dosing regimen. Patient sleeps 6 hours per night. N utrition: balanced diet, supplemental vitamins and low salt diet. The medical issues the patient is following up for include All identified problems below, blood sugar issues, cardiac issues (syncope), high blood pressure, high cholesterol, osteoporosis/osteopenia and other (dvt, lymphocytic leukemia). Note for Follow up for chronic medical issues: feels well and - doing well- and off actonel for body break Encounter Diagnosis: HYPOTHYROIDISM NOS (244.9), Sleep disorder (780.50), Low HDL (272.5), Osteopenia (733.90), screening , right foot 4th nail -abnormality [facility] Office Visit On: 07-Dec-2012 12:00 Encounter Reason: Follow up for chronic medical issues - The patient feels well with no complaints, has good energy level and is sleeping well. Patient has been compliant with instructions. Current medication use: no chio End: 07-Dec-2012 13:30 e effects and compliant with dosing regimen. Patient sleeps 6 hours per night. Nutrition: balanced diet, supplemental vitamins and low salt diet. The medical issues the patient is following up for inclu de All identified problems below, blood sugar issues, cardiac issues (syncope), high blood pressure, high cholesterol, osteoporosis/osteopenia and other (dvt, lymphocytic leukemia)., [ADDITIONAL REASON] Follow up tests - Date: (11/24/12 blood work). Encounter Diagnosis: HYPOTHYROIDISM NOS (244.9), Osteopenia (733.90), Hematest positive stools (792.1), Low HDL (272.5), screening [facility] Phone Encounter On: 03-Sep-2012 7:49 Encounter Diagnosis: HYPOTHYROIDISM NOS (244.9) End: 03-Sep-2012 7:53 [facility] Office Visit On: 19-Aug-2012 10:48 Encounter Reason: Follow up tests - Date: (08/14/12 blood work). Note for Discuss procedure results: no abd pain change in bowels has bright red blood with wiping if constipated but hasnt had in a really long time- her End: 19-Aug-2012 11:43 stools positive for blood she doesnt recall eating meat or iron around that time=- she is taking her thyroid routinely - on empty stomach - dont eat for hours no meds or vits for 2 hours Encounter Diagnosis: HYPOTHYROIDISM NOS (244.9), Hematest positive stools (792.1), Low HDL (272.5) [facility] Phone Encounter On: 07-Aug-2012 16:14 Encounter Diagnosis: Hematest positive stools (792.1) End: 07-Aug-2012 16:24 [facility] Office Visit On: 26-Jun-2012 9:14 Encounter Reason: Well Women Exam - The patient feels well with no complaints, has good energy level and is sleeping well. Pap smear: date of last pap: (04/2010). Contraceptive history: The patient is not using any method End: 26-Jun-2012 9:56 of contraception at this time. Patient exercises a weekly. The patient's libido is decreased. The patient reports that she performs monthly self breast exam. Calcium intake includes 1200 mg with Vit D daily supplement and 1 serving milk daily. The patient denies the use of oral contraceptives or hormone replacement therapy. Menstruation: Last menstrual period date: (post-radha).Encounter Diagnosis: Well Woman Exam (V72.31) (Pap,Mammo,Routine Female), SCREENING FOR HUMAN PAPILLOMAVIRUS (HPV) (V73.81), Osteopenia (733.90), Thyroiditis, unspecified (245.9), Low HDL (272.5), Acute lymphocytic leukemia 11/21- Dr Dupree, Lesion-Unknown behavior (238.2), Weight loss (783.21), Laryngitis (464.00), leg cramps [facility] Office Visit On: 02-Jan-2012 10:01 Encounter Reason: Skin Problems - The onset of the skin problems has been sudden and they have been occurring in a persistent pattern for 4 days. The course has been constant. The problem is characterized as a change in End: 02-Jan-2012 11:33 skin color. Lesions are described as other (yellow).Encounter Diagnosis: Laceration (879.8) [facility] Office Visit On: 28-Nov-2011 11:02 Encounter Reason: Skin Lesions - The last clinic visit was month(s) ago. No changes in management were made at the last visit. Symptoms include single skin lesion (rt side of the neck). Lesion(s) are located on the right End: 28-Nov-2011 13:51 side of the neck. The patient describes the lesion(s) as itchy. There is no known event that preceded symptom onset.Encounter Diagnosis: Need for prophylactic vaccination and inoculation against influenza (V04.81), Lesion-Unknown behavior (238.2) [facility] Office Visit On: 02-Aug-2011 9:14 Encounter Reason: Sinusitis/ - The duration of the symptoms are 1 week The course has been worsening. The sinusitis/ has no relieving factors. Associated features include The symptoms have been associated with cough (unp End: 02-Aug-2011 9:36 roductive) and nasal discharge/stuffy nose (yellow/green), while the symptoms have not been associated with ear pain, sinus pain, sore throat, swollen lymph glands or teeth pain. No previous evaluations were reported.Encounter Diagnosis: Laryngitis (464.00), Cough (786.2) [facility] Office Visit On: 29-May-2011 9:53 Encounter Reason: Follow up for chronic medical issues - The patient feels well with minor complaints (sleep disturbance off and on), has good energy level and is sleeping poorly (wakes up alot thru the night sometimes t End: 29-May-2011 10:37 hen sometimes sleep great). Patient has been compliant with instructions. Current medication use: no side effects and compliant with dosing regimen. Patient sleeps 7 (then sometimes not- those nights ge ts 4hr) hours per night. Nutrition: balanced diet, supplemental vitamins and low salt diet. The medical issues the patient is following up for include All identified problems below, blood sugar issues, cardiac issues (syncope), high blood pressure, high cholesterol, osteoporosis/osteopenia and other (dvt, lymphocytic leukemia). Note for Follow up for chronic medical issues: feeling good in general n o gerd or dysphagia- due for mammo- she hasnt had to go back to [facility] she feels she is cured, [ADDITIONAL REASON] Sleep Disturbance - The onset of the sleep disturbance has been gradual and has been occurring in an intermittent pattern for years. The course has been recurrent. The sleep disturbance is described as moderate. The menstrual problem is characterized as restlessness and early morni ng awakenings. The symptoms have been associated with caffeine use daily, tried benadryl and tried OTC meds. Note for Sleep Disturbance: comes and goes not all the time- freq will wake mid of night an d then cant shut back down- uses benadryl- and that will work- only needs on occasion- is exercising routinely- think may be anxiety- she is working right up to bed with computer so tobi shut that down 1 hour prior -disussed meditation Encounter Diagnosis: HYPOTHYROIDISM NOS (244.9), Weight loss (783.21), Low HDL (272.5), screening, Sleep disorder (780.50), Osteopenia (733.90) [facility] Office Visit On: 23-Apr-2011 8:29 Encounter Reason: Sinusitis/ - The duration of the symptoms are 1 week (this time) The course has been increasing. The sinusitis/ has no relieving factors. Associated features include The symptoms have been associated wi End: 23-Apr-2011 8:52 th cough (productive), nasal discharge/stuffy nose (clear) and sinus pain, while the symptoms have not been associated with ear pain, sore throat, swollen lymph glands or teeth pain. No previous evaluations were reported.Encounter Diagnosis: Cough (786.2), Wheezing (786.07), BRONCHITIS, NOT SPECIFIED ACUTE OR CHRONIC (490.) [facility] Office Visit On: 14-Jan-2011 10:33 Encounter Reason: Injections - The medication the patient is here to receive is pneumovax IM.Encounter Diagnosis: Unspecified Diagnosis End: 14-Jan-2011 10:51 [facility] Office Visit On: 20-Dec-2010 9:10 Encounter Reason: Cold Symptoms - Symptoms include nasal congestion (is yellow. was really tight and now draining), runny nose and productive cough (sputum but not see it. ). Onset was 1 week(s) ago.Encounter Diagnosis: End: 20-Dec-2010 9:29 BRONCHITIS, NOT SPECIFIED ACUTE OR CHRONIC (490.) [facility] Office Visit On: 27-Nov-2010 10:29 Encounter Reason: Follow up for chronic medical issues - The patient feels well with minor complaints (itching spot on back), has good energy level and is sleeping well. Patient has been compliant with instructions. Curr End: 27-Nov-2010 12:27 ent medication use: no side effects and compliant with dosing regimen. Patient sleeps 7 hours per night. Nutrition: balanced diet, supplemental vitamins and low salt diet. The medical issues the patient is following up for include All identified problems below, blood sugar issues, cardiac issues (syncope), high blood pressure, high cholesterol, osteoporosis/osteopenia and other (dvt, lymphocytic leuke romulo). Note for Follow up for chronic medical issues: weight up 7 pounds- she is going to gym routinely- feels well- leg cramps mostly great, [ADDITIONAL REASON] Itching - Symptoms do not include rash, dry skin, skin lesions (??) or skin pain . Symptom locations include the back (middle). Onset was gradual 2 year(s) ago. There is no known event that preceded symptom onset. The symptoms occur frequently. The patient describes this as moderate in severity and unchanged. Symptoms are not relieved by antihistamines or moisturizers. Associated symptoms do not include sweating, diarrhea, abdominal pain, fever, chills, nausea or vomiting. The pat ient is not currently being treated for this problem. Note for Itching: also notices numbness in this area of itchiness. Not sure if from previous chemo treatments ?? on mid back thoracic spine Encounter Diagnosis: Need for prophylactic vaccination and inoculation against influenza (V04.81), Weight loss (783.21), HYPOTHYROIDISM NOS (244.9), Osteopenia (733.90), leg cramps, Parasthesia (782.0) [facility] Office Visit On: 31-Jul-2010 9:16 Encounter Reason: Follow up tests - Diagnostic tests include other (labs: tsh, crp, sed rate) and X-Ray (Chest). Date: (07/25/10). Follow up visit with no current symptoms. Note for Follow up tests: she decided to stop p End: 31-Jul-2010 9:50 laquenil as she checked into at can cause weight loss- she has been off for a month- and it wasnt helping her anyway- weight is stableEncounter Diagnosis: leg cramps, Weight loss (783.21), Osteopenia (733.90), HYPOTHYROIDISM NOS (244.9) [facility] Office Visit On: 19-Jun-2010 11:47 Encounter Reason: Follow up, Diagnostic Procedure Results - Diagnostic tests include other (bone dexa). Date: (06/12/10)., [ADDITIONAL REASON] Follow up, Laboratory Test Results - Lab results: other (abn thyroid studies). D End: 19-Jun-2010 12:29 ate: (06/12/10). Current symptoms/reason for visit include/s Follow up visit with no current symptoms. Encounter Diagnosis: HYPOTHYROIDISM NOS (244.9), Weight loss (783.21), Proteinuria (791.0), Hypotension, unspecified (458.9), Abnormal mammogram (793.80), repeat pap for lack of cells- no charge, Osteopenia (733.90) [facility] Office Visit On: 25-May-2010 8:41 Encounter Reason: Ear pain - The onset of the pain has been sudden and has been occurring in a persistent pattern for days. The course has been increasing. The pain is described as a moderate pressure. The pain is descri End: 25-May-2010 9:45 bed as being located in the inner ear. The pain is felt in the right ear. The symptoms have been associated with inability to 'pop' ear drum, while the symptoms have not been associated with chills, dec reased hearing, fever, non-purulent discharge from ear, purulent discharge from ear, sinus problems or sore throat.Encounter Diagnosis: Otitis externa (380.10), Cerumen impaction (380.4) [facility] Phone Encounter On: 22-May-2010 16:08 Encounter Diagnosis: Proteinuria (791.0), HYPOTHYROIDISM NOS (244.9) End: 22-May-2010 16:11 [facility] Office Visit On: 21-May-2010 10:13 Encounter Diagnosis: Cerumen impaction (380.4) End: 21-May-2010 10:36 [facility] Office Visit On: 27-Apr-2010 9:35 Encounter Reason: Well Women Exam - The patient feels well with no complaints, has good energy level and is sleeping well. Pap smear: history of abnormal pap (01/25- it was re-done in 03/29 and were nl) and date of last p End: 27-Apr-2010 10:19 ap: (03/29). Contraceptive history: The patient is not using any method of contraception at this time. Patient exercises 3 - 4 times per week. The patient's libido is decreased. The patient reports that she performs monthly self breast exam. Calcium intake includes 1200 mg with Vit D daily supplement and 1 serving milk daily. Previous evaluations: radiation/chemotherapy (ALL- chemo 2004 (nov)- No radia tion). The patient denies the use of oral contraceptives or hormone replacement therapy. Note for Well Women Exam: feels great- this is her usual weight - and she is exercising routinely- - due for pneumovax- Encounter Diagnosis: Well Woman Exam (V72.31) (Pap,Mammo,Routine Female), Low HDL (272.5), Osteopenia (733.90) [facility] Office Visit On: 23-Mar-2010 9:22 Encounter Reason: Cold Symptoms - Symptoms include sneezing, nasal congestion, runny nose, scratchy throat, productive cough, facial pressure, facial pain and headache, while symptoms do not include sore throat or hoarse End: 23-Mar-2010 9:53 ness. Onset was sudden 1 week(s) ago. There is no known event that preceded symptom onset. The symptoms occur constantly. The patient describes this as moderate in severity and unchanged. Associated sym ptoms include wheezing, while associated symptoms do not include ear pain, shortness of breath, nausea, vomiting, diarrhea, fever or chills. Current treatment includes non-prescription cold medication ( advil cold and sinus) and cough suppressants. Note for Cold Symptoms: she used proair inhaler yesterday- some help- coughing sputum cant see sputumEncounter Diagnosis: Bronchitis,Acute (466.0) [facility] Office Visit On: 30-Mar-2009 10:06 Encounter Diagnosis: repeat pap for lack of cells- no charge End: 30-Mar-2009 10:45 [facility] Office Visit On: 27-Jan-2009 11:39 Encounter Reason: Well Women Exam - The patient feels well with no complaints. Pap smear: date of last pap: (10/25). Contraceptive history: The patient is not using any method of contraception at this time. Patient does n End: 29-Jan-2009 21:45 ot exercise. The patient's libido is normal. The patient reports that she performs monthly self breast exam. Calcium intake includes 1200 mg with Vit D daily supplement. 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 The patient denies the use of oral contraceptives or hormone replacement therapy. Note for Well Women Exam: sheis feeling well this is her normal we ight- her bp is great- rarely uses vicoden but uses for leg cramps-- followup 1 year or prn soonerEncounter Diagnosis: Well Woman Exam (V72.31) (Pap,Mammo,Routine Female), Osteopenia (733.90), leg cramps, Cerumen impaction (380.4) [facility] Nurse Visit (Non-[facility]) On: 25-Nov-2008 14:28 Encounter Diagnosis: Need for prophylactic vaccination and inoculation against influenza (V04.81) End: 25-Nov-2008 15:52 [facility] Historical Summary On: 11-Aug-2008 13:58 [facility] End: 11-Aug-2008 14:01 Office Visit On: 08-Aug-2008 15:49 Encounter Reason: Cough - The onset of the cough has been gradual and 2 weeks ago. The cough is characterized as productive of mucoid sputum. The cough occurs all the time. The symptoms are aggravated by supine posture, End: 08-Aug-2008 21:52 but not by meals. The symptoms have been associated with hoarseness and runny nose, while the symptoms have not been associated with fever ,headache ,sore throat or wheezing. Encounter Diagnosis: Allergic rhinitis due to other allergen (477.8), Bronchitis,Acute (466.0), Cerumen impaction (380.4) [facility] Office Visit On: 11-Apr-2008 13:48 Encounter Reason: Upper respiratory infection - The duration of the symptoms are 1 week The course has been gradually worsening. The upper respiratory infection has no relieving factors. Associated features include cough End: 11-Apr-2008 14:41 ,nasal discharge/stuffy nose and sinus pain. No previous evaluations were reported. allergies. Note for Upper respiratory infection: in chest and head --no fever- taking mucinex and ibuprofen and benadryl, [ADDITIONAL REASON] Elbow Pain - The onset of the elbow pain has been gradual and has been occurring in a persistent pattern for months. The course has been gradually worsening. The elbow pain is moder ate. The elbow pain is described as being located over the medial elbow. Aggravating factors include flexing elbow and extending elbow. There were no relieving factors. The symptoms have been associated with catching. Note for Elbow Pain: Pt broke elbow when she was a child. Pt now noticing alot of grinding in her elbow. No pain- she hears it when rubs the counter Encounter Diagnosis: Bronchitis,Acute (466.0), grinding of the elbow [facility] Nurse Visit (Non-[facility]) On: 22-Dec-2007 10:42 Encounter Diagnosis: Need for prophylactic vaccination and inoculation against influenza (V04.81) End: 22-Dec-2007 14:49 [facility] Office Visit On: 11-Nov-2007 11:25 Encounter Reason: Well Women Exam - The patient feels well with minor complaints ,has good energy level and is sleeping poorly. Pap smear: date of last pap: (10/15/2006). Contraceptive history: The patient is not using an End: 11-Nov-2007 23:37 y method of contraception at this time. Patient does not exercise. The patient's libido is decreased. The patient reports that she performs monthly self breast exam. Calcium intake includes 1200 mg with Vit D daily supplement. Previous evaluations: radiation/chemotherapy (Acute Lymphoma). The patient denies the use of oral contraceptives or hormone replacement therapy. Menstruation: Last menstrual period date: (01/21). Encounter Diagnosis: Well Woman Exam (V72.31) (Pap,Mammo,Routine Female), Osteopenia (733.90) [facility] Office Visit On: 02-Nov-2007 8:11 Encounter Reason: Nasal congestion - The onset of the nasal congestion has been acute (began a week ago yesterday) and has been occurring in a persistent pattern for 1 weeks. The course has been constant. The nasal conge End: 02-Nov-2007 9:06 stion is described as moderate. Encounter Diagnosis: Allergic rhinitis due to other allergen (477.8), Cough (786.2), Wheezing (786.07) [facility] Office Visit On: 15-Sep-2007 10:45 Encounter Reason: Follow up for chronic medical issues - The patient feels well with no complaints (stopped the gabapentin) ,has good energy level and is sleeping well. Patient has been compliant with instructions. Curre End: 15-Sep-2007 22:15 nt medication use: no side effects and compliant with dosing regimen. The medical issues the patient is following up for include All identified problems below ,blood sugar issues ,cardiac issues (syncop e) ,high blood pressure ,high cholesterol ,osteoporosis/osteopenia and other (dvt, lymphocytic leukemia). Note for Follow up for chronic medical issues: she is feeling well-- working on diet and feels good at this weight-- quit the gabapentin -- she weaned and had some insomnia-- but doing ok without now- and is doing acupuncture for her night sweats and menopausal sx--she is waiting to see if this helps-- , [ADDITIONAL REASON] Follow up, Laboratory Test Results - Date: (06/26/07). Encounter Diagnosis: Diabetes, Type II, controlled (250.00), Hypertriglycerides (272.1), Elevated LFT (790.6), Osteopenia (733.90), Abnormal mammogram (793.80), Acute lymphocytic leukemia 11/21- Dr Dupree [facility] Office Visit On: 10-Jun-2007 9:41 Encounter Reason: Follow up for chronic medical issues - The patient feels well with no complaints ,has good energy level and is sleeping well. Patient has been compliant with instructions. Current medication use: no chio End: 11-Jun-2007 18:28 e effects and compliant with dosing regimen. Nutrition: balanced diet ,supplemental vitamins and low salt diet. The medical issues the patient is following up for include All identified problems below , blood sugar issues ,high cholesterol ,osteoporosis/osteopenia and other (hypotension, dvt, ). weight :. 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 The course has been increasing. The nasal congestion is described as mod End: 11-May-2007 21:26 erate. Note for Nasal congestion: was taking coridican d-- temp 101 -- now no temp - , [ADDITIONAL REASON] Cough - The onset of the cough has been sudden (5 days ago). The cough is charac terized as productive of mucoid sputum (can't cough it up though). The cough occurs all the time. The symptoms are not aggravated by supine posture or meals. The symptoms have been associated with fever ,hoarseness ,runny nose and sore throat (from coughing), while the symptoms have not been associated with headache or wheezing. , [ADDITIONAL REASON] Syncope - The onset of the syncope has been sudden and has been occurring for se conds. There has been no associated chest pain ,dizziness ,headache ,history of COPD ,history of heart disease ,loss of bladder control ,loss of bowel control ,nausea ,palpitations ,salivation ,speech d isturbances ,sweating ,vertigo or visual changes. Note for Syncope: she was sitting at computer-- typing-- she doesnt remember standing up- she stood up and went to go lay down because she didnt feel well- she hit chin and split it open-- she had been eating and drinking and not vomiting-- wasnt coughing at the time-- her bps have been very low--- in am 73/49--80/57- she had labs a couple weeks- she just had life screen and carotids and all were normal-- Encounter Diagnosis: Pneumonia due to other specified bacteria (482.89), syncope, Hypotension, unspecified (458.9) [facility] Office Visit On: 16-Feb-2007 9:01 Encounter Reason: Shingles - The onset of the shingles has been acute and has been occurring in a persistent pattern for 3 days. The course has been increasing. The shingles is characterized as red ,pustular and raised a End: 16-Feb-2007 9:36 mi the skin. The rash was first seen on the trunk and the back. There has been no progression of the rash. The symptoms have been associated with pain. 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 Note for Follow up, Laboratory Test Results: tolerating the actonel well and workup was normal, End: 10-Dec-2006 6:47 [ADDITIONAL REASON] Follow up for chronic medical issues - The patient feels well with no complaints ,has good energy level and is sleeping well. Patient has been compliant with instructions. Current m edication use: no side effects and compliant with dosing regimen. Nutrition: balanced diet ,supplemental vitamins and low salt diet. The medical issues the patient is following up for include All identi fied problems below ,blood sugar issues ,high cholesterol ,osteoporosis/osteopenia and other (dvt, all cancer). Encounter Diagnosis: Osteopenia (733.90), Low HDL (272.5), Cerumen impaction (380.4), Diabetes, Type II, controlled (250.00), Acute lymphocytic leukemia 11/21- Dr Dupree, Elevated LFT (790.6) [facility] Office Visit On: 04-Nov-2006 10:47 Encounter Reason: Rash - The onset of the rash has been sudden and has been occurring in a persistent pattern for 1 days. The course has been increasing. The rash is characterized as red and flat. The rash was first seen End: 04-Nov-2006 11:34 on the trunk and the back. It spread to the groin. There has been no associated chills ,fever ,itching ,loss of sensation or pain. Note for Rash: no itch and showed up last night, [ADDITIONAL REASON] Follow up, Diagnostic Procedure Results - Diagnostic tests include mammography and other (bone dexa). Date: (10/30/06). Encounter Diagnosis: Osteopenia (733.90), rash [facility] Office Visit On: 15-Oct-2006 10:19 Encounter Reason: Well Women Exam - The patient feels well with no complaints ,has good energy level and is sleeping well. Pap smear: date of last pap: (10/14/05). Contraceptive history: The patient is not using any metho End: 16-Oct-2006 21:11 d of contraception at this time. Patient exercises a weekly. The patient's libido is decreased. The patient reports that she performs monthly self breast exam. Calcium intake includes 1200 mg with Vit D daily supplement. The patient denies the use of oral contraceptives or hormone replacement therapy. Note for Well Women Exam: her oncologist is monitoring her and she is doing greatEncounter Diagnosis: Well Woman Exam (V72.31) (Pap,Mammo,Routine Female), Osteopenia (733.90), Urinary tract infection, site not specified (599.0) [facility] Office Visit On: 18-Sep-2006 8:40 Encounter Reason: Dysuria - The onset of the dysuria has been acute and has been occurring in an intermittent pattern for 1 days. The course has been decreasing. The dysuria is described as mild. The quality of the pain End: 18-Sep-2006 9:21 is described as a burning sensation The dysuria is described as being located in the perineal area. The dysuria does not radiate. Note for Dysuria:. states she is on chemotherapy drugsEncounter Diagnosis: Dysuria (788.1), Acute lymphocytic leukemia 11/21- Dr Dupree [facility] Office Visit On: 27-Dec-2005 10:24 Encounter Reason: Follow up, Laboratory Test Results - Lab results: abnormal liver function tests. Date: (12/02/05). Encounter Diagnosis: Osteopenia (733.90), Elevated LFT (790.6), Abnormal mammogram (793.80), End: 30-Dec-2005 6:57 possible ganglion vs other soft tissue mass right 3rd toe- refer Dr. 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
--- OUTSIDE RECORDS SUMMARY | 2018-05-09 08:52 | XMS RPT_ITS | Continuity of Care Document ---
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 Status: Active Chronic pain of left knee (M25.562, 719.46) Status: Active Cough (R05, 786.2) Status: Active Cough (R05, 786.2) Comments: mucienx Status: Active Current nonsmoker (Renamed from Current non-smoker) (Z78.9, V49.89) Status: Active Deliveries (Parity) Comments: Term, 2 Status: Active Encounter for screening mammogram for malignant neoplasm of breast (Z12.31, V76.12) Status: Active ETD (Eustachian tube dysfunction), left (H69.82, 381.81) Status: Active Eustachian tube dysfunction (H69.80, 381.81) Status: Active Hypothyroid (E03.9, 244.9) Status: Active Low HDL (under 40) (E78.6, 272.5) Status: Active Need for prophylactic vaccination and inoculation against influenza (Renamed from Need for immunization against influenza) (Z23, V04.81) Status: Active Osteopenia (M85.80, 733.90) Status: Active Paresthesia (R20.2, 782.0) Status: Active Post-nasal drip (R09.82, 784.91) Status: Active Pregnancies () Comments: 2 Status: Active right foot 4th nail -abnormality Status: Active Screening for breast cancer (Z12.31, V76.10) Status: Active Screening for malignant neoplasm of breast (Z12.39, V76.10) Status: Active Shingles (B02.9, 053.9) Status: Active Sleep disorder (G47.9, 780.50) Comments: she is doing better Status: Active Subluxation of left patella, initial encounter (S83.002A, 836.3) Status: Active Synovial cyst (M71.30, 727.40) Status: Active Unspecified Diagnosis Status: Active Unspecified Diagnosis Status: Active Vertigo (R42, 780.4) Status: Active Vertigo (R42, 780.4) Status: Active Wheezing (R06.2, 786.07) Status: Active Medications Name Dates Details CALCIUM 600 + D, 175-338LN-SWVZ (Oral Tablet) 1 BID for 0 days [...] 90 days Quantity: 90 {Tablet} Refills: 3 Ordered:27-May-2017 rIma Vásquez DORachel Irma GRANGER Start : 27-May-2017 Active Dispense as Written Comments:MAIKOL LASSITER MAIKOL- take 2 on sun Vitamin D3 5000 UNIT Oral Tablet 1 (one) Tablet daily for 0 days Quantity: 30 {Tablet} Refills: 0 Ordered:14-Nov-2015 Rosie Maxwell CNP Start : 14-Nov-2015 Active ACTONEL, 35MG (Oral Tablet) 1 tab Tablet q week for 90 days Quantity: 12 {Tablet} Refills: 3 Ordered:06-Aug-2013 Alison Rodriguez DO Start : 06-Aug-2013 End : 06-Aug-2013 Inactive Acyclovir 800 MG Oral Tablet 1 (one) Tablet 5 times daily for 7 days Quantity: 35 {QS} Refills: 0 Ordered:18-Mar-2016 Rosie Maxwell CNP Start : 18-Mar-2016 End : 25-Mar-2016 Inactive [...] 7 days Quantity: 14 {Tablet} Refills: 0 Ordered:18-Sep-2006 Pamela Kelly RN Start : 18-Sep-2006 End : 13-Oct-2006 Inactive CLARITHROMYCIN, 500MG (Oral Tablet) 1 (one) Tablet Tablet bid for 0 days Quantity: 20 {Tablet} Refills: 0 Ordered:07-Jun-2015 Kim Naidu LPN Start : 06-Jan-2015 End : 07-Jun-2015 Inactive Comments:will call if need this, void after 30 days CORTISPORIN, 3.5-13379-6 (Otic Solution) 2 (two) Drop(s) tid for 7 days Quantity: 1 {Solution} Refills: 0 Ordered:25-May-2010 Alissa VANRosie Start : 25-May-2010 End : 01-Jun-2010 Inactive [...] days Quantity: 1 {Package} Refills: 0 Ordered:14-Nov-2015 Slarb TWISTER TENDER, Masha Start : 07-Jun-2015 End : 14-Nov-2015 Discontinued CHERATUSSIN AC, 100-10MG/5ML (Oral Syrup) 1-2 Teaspoon qhs prn for 0 days Quantity: 6 {Ounce} Refills: 0 Ordered:29-Aug-2014 Princess Beavers Start : 19-May-2014 End : 29-Aug-2014 Discontinued CLARINEX, 5MG (Oral Tablet) 1 tab Tablet qd, prn for 0 days Quantity: 30 {Tablet} Refills: 3 Ordered:07-Jun-2015 Slarb DEBI, Masha Start : 02-Jun-2015 End : 07-Jun-2015 Discontinued [...] days Quantity: 180 {Capsule} Refills: 3 Ordered:16-Feb-2007 Pamela Kelly RN Start : 16-Feb-2007 End : 15-Sep-2007 Discontinued GUAIATUSSIN AC, 100-10MG/5ML (Oral Syrup) 1 Syrup qhs / HS for 0 days Quantity: 6 {Ounce(s)} Refills: 0 Ordered:02-Nov-2007 Pamela Kelly RN Start : 02-Nov-2007 End : 11-Nov-2007 Discontinued KYTRIL, 1MG (PO Tab) PRN (1 MG) End : 18-Sep-2006 Discontinued MECLIZINE ( Powder) prn End : 18-Sep-2006 Discontinued MULTIPLEX-1 (Oral Capsule) End : 10-Jun-2007 Discontinued MULTIVITAMIN (PO Tab) 1 tab qd End : 02-Jun-2015 Discontinued NASACORT AQ, 55MCG/ACT (Nasal Aerosol Solution) Aerosol Soln 1-2 squirts daily for 0 days Refills: 0 Ordered:02-Nov-2007 Pamela Kelly RN Start : 02-Nov-2007 End : 11-Nov-2007 Discontinued PredniSONE 20 MG Oral Tablet 1 (one) Tablet Tablet qd for 0 days Quantity: 5 {Tablet} Refills: 0 Ordered:14-Nov-2015 Slarb TWISTER TENDER, Masha Start : 12-Jun-2015 End : 14-Nov-2015 Discontinued PROMETHAZINE-DM, 5-7.5MG/5ML (PO Syrup) prn (5-7.5 MG/5ML) End : 18-Sep-2006 Discontinued SYNTHROID, 50MCG (PO Tablet) 1 qd (50 MCG) End : 18-Sep-2006 Discontinued VICODIN, 5-500MG (Oral Tablet) 1 tab Tablet prn for 0 days Quantity: 30 {Tablet} Refills: 0 Ordered:31-Jul-2010 Julia Bermudez Start : 31-Jul-2010 End : 19-Aug-2012 Discontinued Comments:This order discontinued per [employer]. Allergies and Adverse Reactions Name Dates Details [...] (J30.89, 477.8) Status: Inactive as of 11-Aug-2008 Bronchitis (J40, 490) Status: Resolved as of 29-May-2011 Cerumen impaction (H61.20, 380.4) 21-May-2010 Status: Resolved as of 19-Jun-2010 Cough (R05, 786.2) 02-Aug-2011 Status: Resolved as of 25-Aug-2014 DVT Status: Inactive as of 06-Jan-2015 Dysuria (R30.0, 788.1) Comments: any fevers, shakes, worsening symptoms need to see medical care- pt to call oncologist so she is aware of issues Status: Inactive as of 11-Aug-2008 Elevated LFTs (R94.5, 790.6) Status: Resolved as of 15-Sep-2007 grinding of the elbow Status: Inactive as [...] (H60.90, 380.10) Status: Resolved as of 19-Jun-2010 Pneumonia due to other specified bacteria (J15.8, 482.89) Status: Inactive as of 11-Aug-2008 possible ganglion vs other soft tissue mass right 3rd toe- refer Dr. Durán Status: Inactive as of 11-Aug-2008 Proteinuria (R80.9, 791.0) Status: Resolved as of 19-Jun-2010 rash Comments: question fungal- question granuloma annulare- try lotrisone bid for 2 weeks- call if worse or no resolve - send to Mai Status: Inactive as of 11-Aug-2008 repeat pap [...] get pap Status: Resolved as of 25-Aug-2014 syncope Status: Inactive as of 11-Aug-2008 Thyroiditis, [...] Appendectomy Completed Tonsillectomy Completed Date Value Details 24-Nov-2017 Kiln Packer Office Visit Report Result: Comments: See Note; NOTES: [facility] Care [address] [place] [address]. [address] [place] [address] OFFICE VISIT Date of Service: 11/24/17 MR#: [id number] Acct: [id number] Name: ROMARIOJOSHUA Rep #: [id number] : 1960 Provider: Jasmine Duffy MD Age/Sex: 57/F Location: [facility] Status: Signed Intake Vital Signs11/24/17 Height 5 ft 8.5 in 11/24/17 Weight: 148 lb 5 oz 11/24/17 Body Mass Index (BMI) 22.2 11/24/17 Blood Pressure 140/78 H Intake Visit Reasons: DISCUSS MENOPAUSE Chief Complaint: Menopause Consult Java Programmer Required: No Is patient in pain?: No [...] social history: Alfa- Retired Patient works at [employer] HPI DISCUSS MENOPAUSE: Details: MELYSSA HAYWOOD is a 57 year old who presents for management of menopausal symptoms. she started having symptoms when sh e was getting treatment for ALL in 2004. [...] Past Preg nancies Del. DatName GA/WeeksOutcome Route [facility] LocaProviderFOB e ht en tn Unknown [...] Nutritional Appearance: average body habitus Orientation: alert [facility] Head: normal to inspection, normocephalic Ears: hearing [...] Summary (1) Result: Comments: See Note; NOTES: [facility] [address] [place] [address] Fax REHABILITATION SERVICES DISCHAR GE SUMMARY MR#: [id number] Acct: [id number] Name: MELYSSA HAYWOOD Rep #: [id number] [...] feel f ree to call me at [phone]. Thank you for the referral of this patient. Sincerely, Sandy Jiang <Electronically signed by Sandy Jiang PT, MDT> 08/14/17 1315 CC: Irma Vásquez DO CHRIS Signed 24-Jun-2017 Inital Evaluation (1) - PT Result: Comments: See Note; NOTES: [facility] [address] [place] [address]. [address] [place] [address] Fax REHABILITATION SERVICES INITIAL EVALUATION MR#: [id number] Acct: [id number] Name: MELYSSA HAYWOOD Rep #: [id number] : 1960 56 From: Sandy Jiang PT, CertMichael MDT Referring Dr.: Irma Vásquez DO Status: [...] Diagnosis: VERTIGO AND CERVICAL SPINE PAIN. 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 Disability: NO. [...] to be FAXED BACK to us at [phone] for Medicare purposes. Please let me know if there are questions or concerns regarding this plan of care. Physician Signature: Dat e: <Electronically signed by Sandy Jiang PT, Cert. MDT> 06/24/17 1226 CC: Irma Vásquez DO CHRIS Signed For Medicare only, by signing this I certify the plan of care. Physicians Signature Date 14-Feb-2017 PT D/C Summary (1) Result: Comments: See Note; NOTES: [facility] [address] [place] [address] Fax REHABILITATION SERVICES AMI ZIEGLER SUMMARY MR#: [id number] Acct: [id number] Name: MELYSSA HAYWOOD Rep #: [id number] [...] please feel free to call me at [phone]. Thank you for the referral of this patient. Sincerely, Sandy Jiang <Electronically signed by Sandy Jiang PT, Cert. MDT> 1124 CC: Miracle Rodríguez DO; Irma Vásquez DO CHRIS Signed 06-Feb-2017 Orthopedic Visit Report Result: Comments: See Note; NOTES: [facility] Orthopaedics AND Sports Medicine [address] [place] [address] OFFICE VISIT Date of Service: 02/06/17 MR#: [id number] Acct: [id number] Name: MELYSSA HAYWOOD Rep #: [id number] : 1960 Provider: Miracle Rodríguez DO Age/Sex: 56/F Location: [facility].S[facility] Status: Signed Intake Vital Signs02/06/17 Height 5 [...] mg PO ONCE 02/06/17 [History Confirmed 02/06/17] [facility] Medical History Hypothyroidism (Chronic) Osteopenia (Chronic) [...] - PT Result: Comments: See Note; NOTES: [facility] [address] [place] [address] Fax REHABILITATION SERVICES INITIAL EVALUATION MR#: [id number] Acct: [id number] Name: MELYSSA HAYWOOD Rep #: [id number] : 1960 56 From: Sandy Jiang PT, Cert. MDT Referring DrMichael: Irma Rachel DO Status: REG RCR Insurance: AN THEM [...] DISLOCATING. CONSIDER ORTHOTICS. 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 Disability: [...] HAS GOOD FUNCTIONAL ROM AND STRENGTH OF CARMLE LE'S. SHE HAS POOR POSTURE CONTROL AND [...] to be FAXED BACK to us at [phone] for Medicare purpos es. Please let me know if there are questions or concerns regarding this plan of care. Physician Signature: Date: <Electronicjazmin y signed by Sandy Jiang PT, Cert. MDT> 01/30/17 1322 CC: Irma Vásquez DO CHRIS Signed For Medicare only, by signing this I certify the plan of care. Physicians Signature Date 27-Jan-2017 Knee 4 or More Views Result: Comments: See Note; NOTES: [facility] Imaging Services [address] [place] [address] Knee 4 or More Views MR#: [id number] Acct: [id number] Name: MELYSSA HAYWOOD Rep #: [id number] : 1960 F 56 From: Payam Pisano MD PCP: Irma Vásquez DO Status: REG CLI Study: Knee 4 or More Views Date of Exam: 01/27/17 Exam# [id number] Ordering Dr: Irma Vásquez DO STUDY: X-RA [...] Service support , CC: Irma Vásquez DO Director Of Hemophilia: Signed 20-Jan-2017 SCREENING MAMM (CAD), BILAT Result: Comments: See Note; NOTES: [facility] Imaging Services [address] [place] [address] SCREENING MAMM (CAD), BILAT MR#: [id number] Acct: [id number] Name: MELYSSA HAYWOOD Rep #: [id number] : 1960 F 56 From: Johnnie Huizar MD PCP: Irma Vásquez DO Status: REG CLI Study: SCREENING MAMM (CAD), BILAT Date of Exam: 01/20/17 Exam# [id number] Ordering Dr: Irma Vásquez DO MAMMOGRAPHY - [...] delay biopsy of a clinically suspicious abnormality. [id number] Electronically Signed: Johnnie Huizar MD 01/20 at 13:55 EST Tel [phone], Service support , CC: Irma Vásquez DO Director Of Hemophilia: Signed 07-Jun-2015 Spirometry (08429) Comments: mild abnormality Result: 12-Apr-2015 Bilat Scrn Digital AND CAD Result: Comments: See Note; NOTES: [facility] Imaging Services [address] [place] [address] Verdana 4d Bilat Scrn Digital AND CAD MR#: [id number] Acct: [id number] Name: MELYSSA HAYWOOD Rep #: [id number] : 1960 F 54 From: Johnnie Huizar MD PCP: Alison Rodriguez DO Status: REG CLI Study: Ezequiel Verdugo Digital AND CAD Date of Exam: 04/12/15 Exam# [id number] Ordering Dr: Alison Rodriguez DO MAMMOGRAPHY - [...] biopsy of a clinically suspiciou s abnormality. [id number] Electronically Signed: Johnnie Huizar MD at 14:58 EST Tel [phone], Service support [phone], CC: Alison Rodriguez DO Director Of Hemophilia: Signed 03-Feb-2014 Ezequiel Verdugo Digital AND CAD Result: Comments: See Note; NOTES: [facility] Imaging Services [address] [place] [address] Breast Imaging Report MR#: [id number] Acct: [id number] Name: MELYSSA HAYWOOD Rep #: [id number] : 1960 F 53 From: Johnnie Huizar MD PCP: Alison Rodriguez DO Status: REG CLI Study: Bilat Scrn Digital AND CAD Date of Exam: 02/03/14 Exam# [id number] Ordering Dr: Alison Rodriguez DO MAMMOGRAPHY - [...] Johnnie Huizar MD at 10:55 EST Tel [phone], Service support [phone], CC: Alison Rodriguez DO Director Of Hemophilia: Signed 29-Aug-2013 Carotid Duplex Ultrasound Result: Comments: See Note; NOTES: [facility] Cardiovascular Services [address] [place] [address] Carotid Duplex Ultrasound 08/19/13 1102 MR#: [id number] Acct: [id number] Nam e: MELYSSA HAYWOOD Rep #: [id number] : 1960 53 From: Yannick Garcia MD Attending Dr: Alison Rodriguez DO Status: REG CLI Ordering Dr: Alison Rodriguez DO Date: 08/19/13 Location: [facility] Sex: F C Admitted: Rt. Velocities/BP Lt. [...] the left vertebral artery. Procedure Carotid Duplex 80118. The exam was di agnostic. Exam performed in department. Interpretation Summary Mild (<50%) stenosis right extracranial internal carotid. Mild (<50%) stenosis left extracranial internal carotid. Phi w within the vertebral arteries is antegrade bilaterally. Ordering Physician: Alison Rodriguez Perf ormed By: Alfa Zamarripa RVT : Alison Rodriguez DO Date Dictated: 08/19/13 1102 Date Transcribed: 08/29/13 0859 Director Of Hemophilia: Signed 01-Feb-2013 Ezequiel Verdugo Digital & CAD Result: Comments: See Note; NOTES: [facility] Imaging Services [address] [place] [address] Breast Imaging Report MR#: [id number] Acct: [id number] Name: MELYSSA HAYWOOD Rep #: [id number] : 1960 F 52 From: Johnnie Huizar MD PCP: Alison Rodriguez DO Status: REG CLI Exam# [id number] Ordering Dr: Alison Rodriguez DO MAMMOGRAPHY - [...] M.D. at 9:56 EST , Service support [phone], CC: Alison Rodriguez DO Director Of Hemophilia: Signed Immunization Name Dates Details Influenza (3 years and up) on: 09-Dec-2006 Comments: given in left deltoid, 0.5cc, lot#[id number], exp.6.30.08 WF Influenza (3 years and up) on: 22-Dec-2007 Comments: Lot #:[id number] date:07/26Amount given:0.5mlRoute: imSite given:Right deltoidGiven by: Amilcar Obrien LPN Influenza (3 years and up) on: 25-Nov-2008 Tdap (7 years and up) on: 27-Jan-2009 Comments: Lot #[id number]-left deltoidDose0.5mlgiven by Zenobia English LPN Social History Name Dates Details Alcohol Use Comments: Heavy alcohol use - 2 glasses of red wine daily Status: Active Caffeine Use Comments: 1-2 cups qd Status: Active 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 Status: Active Smoking Status Name Dates Details Never smoker Vital Signs Date Test Result Details 04-Kab-396556:51 Pulse 82 /min Comments: Pattern: Regular Respiration [...] 0.00 cm Results Date Description Value Details :10 TSH (84885) Comments: PATIENT NOT FASTINGPERFORMED BY: BilnaCoAncora Psychiatric HospitalPxibfj8737 [facility] [id number] TSH 1.620 {uIU/mL} (Normal) Range: 0.450-4.500 16-Hca-076286:10 T4, FREE (THYROXINE) (39077) Comments: PATIENT NOT FASTINGPERFORMED BY: [facility]6370 [facility] [id number] T4,Free(Direct) 1.60 ng/dL (Normal) Range: 0.82-1.77 25-Oaa-700855:10 T3, FREE (TRIDOTHYRONINE) (82970) Comments: PATIENT NOT FASTINGPERFORMED BY: LabCoAncora Psychiatric HospitalUacgel9722 [facility] [id number] Triiodothyronine,Free,Serum 2.6 pg/mL (Normal) Range: 2.0-4.4 :27 T3, FREE (TRIDOTHYRONINE) (55923) Comments: PATIENT NOT FASTINGPERFORMED BY: [facility] Pdspbt4234 [facility] [place] [id number] Triiodothyronine,Free,Serum 2.6 pg/mL (Normal) Range: 2.0-4.4 :27 T4, FREE (THYROXINE) (76064) Comments: PATIENT NOT FASTINGPERFORMED BY: [facility]6370 [facility] [place] [id number] T4,Free(Direct) 1.58 ng/dL (Normal) Range: 0.82-1.77 :27 TSH (THYROID STIMULATING Comments: PATIENT NOT FASTINGPERFORMED BY: [facility]6370 [facility] [id number] HORMONE) (21548) TSH 2.660 {uIU/mL} (Normal) Range: 0.450-4.500 74-Kom-951050:55 TSH (88029) Comments: PATIENT NOT FASTINGPERFORMED BY: [facility]6370 [facility] [place] [id number] TSH 3.930 {uIU/mL} (Normal) Range: 0.450-4.500 :37 Vitamin D Hydroxy (98996) Comments: PATIENT WAS FASTINGPERFORMED BY: [facility] Chgzje4067 [facility] Centerin [place] [id number] Vitamin D, 25-Hydroxy 96.4 ng/mL (Normal) Range: 30.0-100.0 Comments: Vitamin D deficiency has been defined by the [place] ofMedicine and an Endocrine Society practice guideline as alevel of serum 25-OH vitamin D less than 20 ng/mL (1,2).The Endocrine Society went on to further define vitamin Dinsufficiency as a level between 21 and 29 ng/mL (2).1. IOM ([place] of Medicine). 2010. Dietary reference intakes for calcium and D. [place]: The National Academies Press.2. Darren MF, Reji NC, Kal BUTT, et al. Evaluation, treatment, and prevention of vitamin D deficiency: an Endocrine Society clinical practice guideline. JCEM. 2010; 96(7):1911-30. :37 CBC with auto diff Comments: PATIENT WAS FASTINGPERFORMED BY: LabCoAncora Psychiatric HospitalJcohle2292 [facility] [id number] Information: [id number] (01913) Immature Grans (Abs) 0.0 {x10E3/uL} (Normal) Range: [...] 3.77-5.28 WBC 5.3 {x10E3/uL} (Normal) Range: 3.4-10.8 :37 METABOLIC PANEL, COMPREHENSIVE Comments: PATIENT WAS FASTINGPERFORMED BY: [employer] Euwhni1434 [facility] [id number] (71535) ALT (SGPT) 16 [iU]/L (Normal) Range: 0-32 [...] Glucose, Serum 93 mg/dL (Normal) Range: 65-99 46-Jvg-32487:37 LIPID PANEL (55651) Comments: PATIENT WAS FASTINGPERFORMED BY: [employer] Football NetworkAncora Psychiatric HospitalHvfrvp4265 [facility] [id number] LDL/HDL Ratio 1.0 {ratio_units} (Normal) Range: 0.0-3.2 [...] Cholesterol, Total 181 mg/dL (Normal) Range: 100-199 28-Qjo-44488:37 TSH (24909) Comments: PATIENT WAS FASTINGPERFORMED BY: [employer] Ilajpd9361 [facility] [id number] TSH 2.440 {uIU/mL} (Normal) Range: 0.450-4.500 :07 LIPID PANEL (66740) Comments: PATIENT WAS FASTINGPERFORMED BY: [employer]70 [facility] [id number] LDL Cholesterol Calc 89 mg/dL (Normal) Range: [...] PANEL, COMPREHENSIVE Comments: PATIENT WAS FASTINGPERFORMED BY: [employer] SystemsEastern New Mexico Medical CenterGqwbgc1668 [facility] [id number] (49130) ALT (SGPT) 13 [iU]/L (Normal) Range: 0-32 [...] Glucose, Serum 88 mg/dL (Normal) Range: 65-99 42-Yfi-16696:07 CBC WITH MANUAL DIFF Comments: PATIENT WAS FASTINGPERFORMED BY: LabCoAncora Psychiatric HospitalGdxvgi8798 [facility] [id number] Information: [id number] (71886) Immature Grans (Abs) 0.0 {x10E3/uL} (Normal) Range: [...] 6.2 {x10E3/uL} (Normal) Range: 3.4-10.8 :07 TSH (13066) Comments: PATIENT WAS FASTINGPERFORMED BY: [employer] [facility] [id number] TSH 0.975 {uIU/mL} (Normal) Range: 0.450-4.500 :07 Vitamin D Hydroxy (97000) Comments: PATIENT WAS FASTINGPERFORMED BY: [employer] LabMEDEM6370 [facility] [place] [id number] Vitamin D, 25-Hydroxy 76.3 ng/mL (Normal) Range: 30.0-100.0 Comments: Vitamin D deficiency has been defined by the [place] ofAvita Health Systemcine and an Endocrine Society practice guideline as alevel of serum 25-OH vitamin D less than 20 ng/mL (1,2).The Endocrine Society went on to further define vitamin Dinsufficiency as a level between 21 and 29 ng/mL (2).1. IOM ([place] of Medicine). 2010. Dietary reference intakes for calcium and D. [place]: The National Academies Press.2. Darren MF, Reji BENITES, Kal BUTT, et al. Evaluation, treatment, and prevention of vitamin D deficiency: an Endocrine Society clinical practice guideline. JCEM. 2010; 96(7):1911-30. :56 Anti-TPO Antibody (40543) Comments: PATIENT NOT FASTINGPERFORMED BY: [employer].comox RoadDublin [place] [id number] Information: [id number] Thyroid Peroxidase (TPO) Ab 240 {IU/mL} (Abnormal) Range: 0-34 72-Foc-226764:14 DEXA BONE DENSITY STUDY () Radiology Report See Note Comments: PROCEDURE: DUAL [...] Signed:Mesha GarciaAugust 27, 2012 at 4:07:47 PM [phone] Signed GP/GP If you are the referring physician and would like to consult with theradiologist who provided this interpretation, please zaria Puga M.D. at [phone]. If this radiologist is unavailable, youwill be directed to another radiologist to assist. If you are a patient with a question regarding this report, pleasecon tactyour referring physician directly. Professional Interpretation Provided By: [facility] Phone , These documents contain legally protected [...] documents. Dictated on 08/27/12 1607 by Darci MAYER,GabrieleTranscribed on 08/27/12 1609 by ITS IMPORTSign by Darci MAYER,Johnnie on 08/27/12 1610 Sign by: Johnnie Huizar MD 8-Ckw-987858:13 FERRITIN (18174) Comments: PATIENT NOT FASTINGPERFORMED BY: [facility] Uichav6119 [facility] [id number] Ferritin, Serum 317 ng/mL (Abnormal) Range: 15-150 7-Juz-286033:13 IRON (83731) Comments: PATIENT NOT FASTINGPERFORMED BY: [facility] Iscitz1262 [facility] [id number] Iron, Serum 106 ug/dL (Normal) Range: 35-155 9-Jav-408958:13 CBC WITH MANUAL DIFF Comments: PATIENT NOT FASTINGPERFORMED BY: [facility] Ergche9320 [facility] [id number] Information: [id number] (14584) Immature Grans (Abs) 0.0 {x10E3/uL} (Normal) Range: [...] 3.77-5.28 WBC 5.5 {x10E3/uL} (Normal) Range: 3.4-10.8 0-Qfj-056388:35 FECAL OCCULT HGB ASSAY- tubes sent home (23727) FECAL OCCULT HGB ASSAY, QUAL, 1-3 SIMULTANEOU negative (Normal) 2-Rzj-885043:13 TSH (63944) Comments: PATIENT NOT FASTINGPERFORMED BY: LYSSA Ultimate Football NetworkEastern New Mexico Medical CenterOmimva8513 [facility] [id number] TSH 2.430 {uIU/mL} (Normal) Range: 0.450-4.500 32-Juj-533550:19 FERRITIN (67021) Comments: PATIENT NOT FASTINGPERFORMED BY: Ultimate Football NetworkAncora Psychiatric HospitalUfvoli6222 [facility] [id number] Ferritin, Serum 302 ng/mL (Abnormal) Range: 15-150 74-Psq-527813:19 IRON BINDING CAPACITY Comments: PATIENT NOT FASTINGPERFORMED BY: Ultimate Football NetworkAncora Psychiatric HospitalAqxipg5822 [facility] [id number] Information: [id number],2ND ORDER NO DRAW F EE (TIBC) (29087) Iron Saturation 43 % (Normal) Range: 15-55 Iron, Serum 123 ug/dL (Normal) Range: 35-155 UIBC 164 ug/dL (Normal) Range: 150-375 Iron Bind.Cap.(TIBC) 287 ug/dL (Normal) Range: 250-450 30-Fhw-587728:19 CBC WITH MANUAL DIFF Comments: PATIENT WAS FASTINGPERFORMED BY: Ultimate Football NetworkAncora Psychiatric HospitalScywcp9982 [facility] [id number] Information: [id number] (20920) Immature Grans (Abs) 0.0 {x10E3/uL} (Normal) Range: [...] 3.77-5.28 WBC 5.4 {x10E3/uL} (Normal) Range: 4.0-10.5 56-Foc-845977:19 METABOLIC PANEL, COMPREHENSIVE Comments: PATIENT WAS FASTINGPERFORMED BY: LabCoAncora Psychiatric HospitalPmfvko1086 [facility] [id number] (13453) ALT (SGPT) 16 [iU]/L (Normal) Range: 0-32 [...] Glucose, Serum 82 mg/dL (Normal) Range: 65-99 89-Vfz-211936:19 LIPID PANEL (82598) Comments: PATIENT WAS FASTINGPERFORMED BY: [employer] Ckhctb5622 [facility] [id number] LDL/HDL Ratio 1.4 {ratio_units} (Normal) Range: 0.0-3.2 LDL Cholesterol Calc 102 mg/dL (Abnormal) Range: 0-99 VLDL Cholesterol Julianne 15 mg/dL (Normal) Range: 5-40 HDL Cholesterol 74 mg/dL (Normal) Comments: According to ATP-III Guidelines, HDL-C >59 mg/dL is considered anegative risk factor for CHD. Triglycerides 75 mg/dL (Normal) Range: 0-149 Cholesterol, Total 191 mg/dL (Normal) Range: 100-199 58-Dfz-989804:19 TSH (17187) Comments: PATIENT WAS FASTINGPERFORMED BY: [employer]6[address] [id number] TSH 5.290 {uIU/mL} (Abnormal) Range: 0.450-4.500 88-Yth-257748:14 HPV automatic Comments: Source.............Cervical;EndocervicalNo. of containers..01 CYTYC Thin Prep VialPATIENT NOT FASTINGPERFORMED BY: WB [facility] Cgnd[address] [id number] BY: =John Solares (57212) [facility] Crljukghtd443 [facility] [place] [id number] Information: [id number] HPV, high-risk Negative Comments: This high-risk HPV [...] Special screening examination, human papillomavirus [HPV]Radha Colbert Engineering Director (ASCP) 77-Nqo-10061:26 FECAL OCCULT HGB ASSAY- tubes sent home (94135) FECAL OCCULT HGB ASSAY, QUAL, 1-3 SIMULTANEOU positive (Normal) 86-Ntg-31014:44 BILAT SCRN DIGITAL & CAD Radiology Report [...] Huizar M.D.January 31, 2012 at 10:22:06 AM [id number] Signed GP/GP If you are the referring physicia n and would like to consult with theradiologist who provided this interpretation, please contact Heidi Puga at [phone]. If this radiologist is unavailable, youwill be directed to [facility] radiologist to assist. If you are a patient with a question regarding this report, pleasecontactyour referring physician directly. Professional Interpretation Provided By: [employer] Phone , These documents contain legally protected and confidential healthinformation intended only for the use of the individual or entity namedabove. If you are not the intended recipie nt, you are hereby notifiedthatany disclosure, copying, distribution, or other use of these documents isstrictly prohibited. If you have received this information in error,pleasenotify the sender elizabeth duong and arrange for the return or destructionofthese documents. Dictated on 01/31/12 0944 by Moshe Huizar MDscribed on 01/31/12 1026 by ITS IMPORTSign by Johnnie Huizar MD on 2 1027 Sign by: Johnnie Huizar MD :04 Vitamin D Hydroxy (37379) Comments: PATIENT WAS FASTINGPERFORMED BY: LabCoAncora Psychiatric HospitalRgekhb2336 [facility] [id number] Vitamin D, 25-Hydroxy 48.9 ng/mL (Normal) Range: 30.0-100.0 Comments: Vitamin D deficiency has been defined by the [place] ofMedicine and an Endocrine Society practice guideline as alevel of serum 25-OH vitamin D less than 20 ng/mL (1,2).The Endocrine Society went on to further define vitamin Dinsufficiency as a level between 21 and 29 ng/mL (2).1. IOM ([place] of Medicine). 2010. Dietary reference intakes for calcium and D. [place]: The National Academies Press.2. Darren MF, Reji BENITES, Kal BTUT, et al. Evaluation, treatment, and prevention of vitamin D deficiency: an Endocrine Society clinical practice guideline. JCEM. 2010; 96(7):1911-30. :04 CBC WITH MANUAL DIFF Comments: PATIENT WAS FASTINGPERFORMED BY: [facility] Nruzvx5089 [facility] [id number] Information: [id number] (85640) Immature Grans (Abs) 0.0 {x10E3/uL} (Normal) Range: [...] 3.77-5.28 WBC 9.9 {x10E3/uL} (Normal) Range: 4.0-10.5 44-Wnz-167937:04 METABOLIC PANEL, COMPREHENSIVE Comments: PATIENT WAS FASTINGPERFORMED BY: LabCoAncora Psychiatric HospitalWlqucg3729 [facility] [id number] (81874) ALT (SGPT) 22 [iU]/L (Normal) Range: 0-40 [...] Glucose, Serum 90 mg/dL (Normal) Range: 65-99 85-Oia-025235:04 TSH (56131) Comments: PATIENT WAS FASTINGPERFORMED BY: LabCoAncora Psychiatric HospitalPphkqc1066 [facility] [id number] TSH 2.560 {uIU/mL} (Normal) Range: 0.450-4.500 :04 LIPID PANEL (76408) Comments: PATIENT WAS FASTINGPERFORMED BY: [facility]6370 [facility] [id number] LDL/HDL Ratio 1.0 {ratio_units} (Normal) Range: 0.0-3.2 LDL Cholesterol Calc 81 mg/dL (Normal) Range: 0-99 VLDL Cholesterol Julianne 13 mg/dL (Normal) Range: 5-40 HDL Cholesterol 78 mg/dL (Normal) Comments: According to ATP-III Guidelines, HDL-C >59 mg/dL is considered anegative risk factor for CHD. Triglycerides 67 mg/dL (Normal) Range: 0-149 Cholesterol, Total 172 mg/dL (Normal) Range: 100-199 89-Stb-362879:29 DORSAL SPINE,3 VIEWS Radiology Report See Note [...] WILSON MD on 11/27/10 1506 Sign by: KATIE MAYER,DWAYNE Banks 4-Fjh-123455:40 CHEST, PA AND LATERAL Radiology Report See [...] the chest. Dictated on 07/25/10 1050 by El MAYER,JonahieTranscribed on 07/26/10 1403 by ITS IMPORTSign by Eileen Lomeli MD on 07/26/10 1404 Sign by : Eileen Gallegos MD 4-Bjt-182704:11 SED RATE ERYTHROCYTE (82094) Comments: PATIENT NOT FASTINGPERFORMED BY: [employer]6370 Tee 3NodUNC Health Rockingham [id number] Sedimentation Rate-Westergren 2 mm/h (Normal) Range: 0-56 Comments: Please note reference interval change :11 C-REACTIVE PROTEIN (08044) Comments: PATIENT NOT FASTINGPERFORMED BY: Cranite Systemsrp Imoyem0934 TeeRipley County Memorial HospitalWebeeUNC Health Rockingham [id number] C-Reactive Protein, Quant 1.8 mg/L (Normal) Range: 0.0-4.9 :11 TSH (77280) Comments: PATIENT NOT FASTINGPERFORMED BY: [employer] Lawzbu3555 TeeRipley County Memorial HospitalWebeeUNC Health [facility]ingham [id number] Information: [id number]; appt 07/31/10 TSH 1.950 {uIU/mL} (Normal) Range: 0.450-4.500 31-Tth-410651:29 UNILAT LT DIAG DIGITAL & CAD Radiology [...] diagnostic mammogram of June 15, 2010, on [facility]. TECHNIQUE: Digital examination. Left true lateral and [...] 07/03/10 1659 Sign by: EMERY WILLIAM MD 48-Ggg-093290:05 BILAT SCRN DIGITAL & CAD Radiology Report [...] clinically suspiciousabnormality. Dictated on 06/12/10 1427 by EMERY WILLIAM MDTranscribed on 06/13/10 0935 by ITS IMPORTSign by MEERY WILLIAM MD on 06/13/10 0936 Sign by: EMERY WILLIAM MD 29-Utx-571731:05 DEXA BONE DENSITY STUDY (HP) Radiology Report See Note (Normal) Comments: CLINICAL:Female, 49 years old. The patient is postmenopausal. EXAMINATION:DUAL ENERGY X-RAY ABSORPTIOMETRY / DEXA. TECHNIQUE:Bone Mineral Density (BMD) measurements of lumbar spine and bila teralhipswer e obtained using a ImageBrief scanner.. COMPARISON:Comparison is made with prior examination [...] ndation [email or web address] Dictated on 06/12/10 1507 by Darci MAYER,PatrickrieleTranscribed on 06/12/101823 by ITS IMPORTSign by Johnnie Huizar MD on 04/26/11 1825 Sign by: Johnnie Huizar MD :51 Microscopic Examination Comments: PATIENT NOT FASTINGPERFORMED BY: LabMym[facility] Branch6370 [facility] [id number] Bacteria None seen (Normal) Epithelial Cells (non renal) 0-10 {/hpf} (Normal) Range: 0 - 10 RBC 0-3 {/hpf} (Normal) Range: 0 - 3 WBC 0-5 {/hpf} (Normal) Range: 0 - 5 :51 Anti-TPO Antibody (58929) Comments: to repeat in 2-3 weeks; PATIENT NOT FASTINGPERFORMED BY: [facility]6370 [facility] [id number] Thyroid Peroxidase (TPO) Ab 270 {IU/mL} (Abnormal) Range: 0-34 :51 TSH (63797) Comments: PATIENT NOT FASTINGPERFORMED BY: [facility]6370 [facility] [id number] TSH 9.900 {uIU/mL} (Abnormal) Range: 0.450-4.500 :51 T4, FREE (THYROXINE) (21091) Comments: PATIENT NOT FASTINGPERFORMED BY: [facility]6370 [facility] [id number] T4,Free(Direct) 1.13 ng/dL (Normal) Range: 0.82-1.77 :51 T3, FREE (TRIDOTHYRONINE) (79908) Comments: PATIENT NOT FASTINGPERFORMED BY: [facility]6370 [facility] [id number] Triiodothyronine,Free,Serum 2.7 pg/mL (Normal) Range: 2.0-4.4 :51 URINALYSIS, W/ MICRO Comments: patient to repeat in 2-3 weeks; PATIENT NOT FASTINGPERFORMED BY: [facility]6370 [facility] [id number] Information: [id number] (37298) Microscopic Examination See below: (Normal) Bilirubin Negative (Normal) Ketones Negative (Normal) Microscopic Examination MICRON (Normal) Comments: Microscopic follows if indicated. Nitrite, Urine Negative (Normal) Occult Blood Negative (Normal) Urobilinogen,Semi-Qn 0.2 mg/dL (Normal) Range: 0.0-1.9 Glucose Negative (Normal) Protein Negative (Normal) WBC Esterase Negative (Normal) Appearance Clear (Normal) Urine-Color Yellow (Normal) pH 6.0 (Normal) Range: 5.0-7.5 Specific [place] 1.018 (Normal) Range: 1.005-1.030 7-Gow-557210:34 Microscopic Examination Comments: PATIENT WAS FASTINGPERFORMED BY: [employer]70 [employer] M[employer] Internationalin [place] [id number] Bacteria Few (Normal) Mucus Threads Present (Normal) Epithelial Cells (non renal) 0-10 {/hpf} (Normal) Range: 0 - 10 RBC 0-3 {/hpf} (Normal) Range: 0 - 3 WBC 0-5 {/hpf} (Normal) Range: 0 - 5 8-Aum-038596:34 Vitamin D Hydroxy (07228) Comments: PATIENT WAS FASTINGPERFORMED BY: [employer]6370 Relativity Media PLblin [place] [id number] Vitamin D, 25-Hydroxy 53.3 ng/mL (Normal) Range: 32.0-100.0 Comments: Recent studies consider the lower limit of 32.0 ng/mL to be athreshold for optimal health.Manuel ALATORRE. J Nutr. 2004;135(2):317-22. :34 METABOLIC PANEL, COMPREHENSIVE Comments: PATIENT WAS FASTINGPERFORMED BY: [employer] Znbzny7637 [employer] Internationalin [place] [id number] (98075) ALT (SGPT) 18 [iU]/L (Normal) Range: 0-40 [...] Glucose, Serum 85 mg/dL (Normal) Range: 65-99 3-Stu-767068:34 CBC WITH MANUAL DIFF Comments: PATIENT WAS FASTINGPERFORMED BY: [facility] Jmaurg2251 [facility] [id number] Information: [id number] (09233) Immature Grans (Abs) 0.0 {x10E3/uL} (Normal) Range: [...] 3.80-5.10 WBC 4.9 {x10E3/uL} (Normal) Range: 4.0-10.5 :34 URINALYSIS, W/ MICRO (82445) Comments: PATIENT WAS FASTINGPERFORMED BY: [facility]opleCl[facility] [id number] Bilirubin Negative (Normal) Microscopic Examination See below: (Normal) Microscopic Examination MICRON (Normal) Comments: Microscopic follows if indicated. Nitrite, Urine Negative (Normal) Urobilinogen,Semi-Qn 0.2 mg/dL (Normal) Range: 0.0-1.9 Ketones Negative (Normal) Occult Blood Negative (Normal) Glucose Negative (Normal) Protein Trace (Normal) Appearance Clear (Normal) WBC Esterase Negative (Normal) pH 7.0 (Normal) Range: 5.0-7.5 Urine-Color Yellow (Normal) Specific [place] 1.024 (Normal) Range: 1.005-1.030 :34 TSH (99349) Comments: PATIENT WAS FASTINGPERFORMED BY: WantrUNC Health [facility] [id number] TSH 8.410 {uIU/mL} (Abnormal) Range: 0.450-4.500 5-Amd-246171:34 LIPID PANEL (34644) Comments: PATIENT WAS FASTINGPERFORMED BY: [facility] Hzrzix48[address] [place] [id number] LDL/HDL Ratio 1.1 {ratio_units} (Normal) Range: 0.0-3.2 LDL Cholesterol Calc 76 mg/dL (Normal) Range: 0-99 HDL Cholesterol 70 mg/dL (Normal) Comments: According to ATP-III Guidelines, HDL-C >59 mg/dL is considered anegative risk factor for CHD. VLDL Cholesterol Julianne 11 mg/dL (Normal) Range: 5-40 Cholesterol, Total 157 mg/dL (Normal) Range: 100-199 Triglycerides 55 mg/dL (Normal) Range: 0-149 23-Pwi-723547:43 Thin prep Pap Comments: Source.............Cervical;EndocervicalNo. of containers..01 CYTYC Thin Prep VialPATIENT NOT FASTINGPERFORMED BY: [facility] [address] [id number] Information: [id number] (86468) Note: PAPSMR (Normal) Comments: The Pap smear [...] component) are present.V72.31 ; Routine gynecolog ical erick Jang Engineering Director (ASCP) 21-Jun-20099:27 ANTI-CCP 551951 5 {units} (Normal) Range: 0-19 Comments: Negative <20Weak positive 20 - 39Moderate positive 40 - 59Strong positive >59 5-May-36678:27 C-REACTIVE PROT < 2.90 mg/L (Normal) Range: [...] < 10.0 {IU/mL} (Normal) :27 VIT D,25 88511 34.5 ng/mL (Normal) Range: 32.0-100.0 Comments: Recent studies consider the lower limit of 32.0 ng/mL to pepe threshold for optimal health.Manuel ALATORRE. J Nutr. 2004;135(2):317-22.Performed at: [address] [id number] Director: Jeff Mirza MDPerformed at: [address] [id number] Director: Pako Barajas MD 07-Fxz-716979:07 Pap IG, HPV-hr Comments: Source.............Cervical;EndocervicalNo. of containers..01 CYTYC Thin Prep VialPERFORMED BY: WB [facility]120 [facility] [id number] BY: =G [place] [address] 0 [facility] [id number] Information: [id number] HPV, high-risk Negative Comments: This high-risk HPV [...] present.V72.31 ; Routine gynecological examinationJames Fracisco Castillo, Engineering Director (ASCP) 38-Twm-49650:58 BILAT SCRN DIGITAL & CAD Radiology Report See Note (Normal) Comments: Exam Number: [id number] DIGITAL BILATERAL MAMMOGRAM HISTORYThis is a 48-year-old [...] mammograms werealso examined with computer-aided detection software (ImageLifetime Oy Lifetime Studiosckdrop.io, [employer] Reported By: JOHNNIE HUIZAR 24-Oby-462664:05 Thin prep Pap Comments: Source.............Cervical;EndocervicalLMP / Prev Treat...PAV=497370Gg. of containers..01 CYTYC Thin Prep VialPATIENT NOT FASTINGClinical Information: [id number] PERFORMED BY: DARA [employer] (99133) [address] [place] [id number] . . (Normal) DIAGNOSIS: SPRCS (Normal) Comments: UNSATISFACTORY FOR EVALUATION.Suggest follow up as clinically appropriate.Specimen processed and examined but unsatisfactory for evaluation becauseof insufficient cellularity.V72.31 ; Routine gynecologi julianne Latanya Jang, Engineering Director (ASCP)Rhianna Wick, Supervisory Engineering Director (ASCP) Note: PAPSMR (Normal) Comments: The Pap [...] resulttherefore, no HPV testing was performed. . 54-Cxy-397944:04 ELBOW,MIN 3 VIEWS (MT) Radiology Report See Note (Normal) Comments: Exam Number: [id number] CLINICAL:Injured as a child, no recent injury, [...] delineated above. Reported By: ANJANA IRENE M.D. 96-Bvz-130369:07 Thin prep Pap Comments: Source.............Cervical;EndocervicalLMP / Prev Treat...RKZ=175783Lh. of containers..01 CYTYC Thin Prep VialPATIENT NOT FASTINGClinical Information: ADD [id number] PERFORMED BY: [employer] (74496) [address] [place] [id number] . . (Normal) DIAGNOSIS: SPRCS (Normal) Comments: NEGATIVE FOR INTRAEPITHELIAL LESION AND MALIGNANCY.CELLULAR CHANGES ASSOCIATED WITH ATROPHY ARE PRESENT.THIS SPECIMEN WAS RESCREENED PART OF OUR SURVEYOR ROD HELPER PROGRAM.Satisfactory for e valuation. Endocervical and/or squamous metaplasticcells (endocervical component) are present.V72.31 ; Routine gynecological examinationYuli Monroe, Engineering Director (ASCP)Janice Bryant, Supervisory Engineering Director (ASCP) Note: PAPSMR (Normal) Comments: The Pap [...] resulttherefore, no HPV testing was performed. . 88-Mjd-27889:37 BILAT SCRN DIGITAL & CAD Radiology Report See Note (Normal) Comments: Exam Number: [id number] BILATERAL DIGITAL SCREENING MAMMOGRAM WITH COMPUTER-ASSISTED DETECTION [...] The mammogramswere also examined with computer-aided detection software(ImageCrunchyroll.). Reported By: OCHOA CAM M.D. :36 DEXA BONE DENSITY STUDY () Radiology Report See Note (Normal) Comments: Exam Number: [id number] DEXA BONE DENSITY STUDY 2006. HISTORYOsteopenia, postmenopausal. Hologic unit was used for [...] the BMD was measu red at 0.734 g/is6qxvz a T-score of -1.7 and a Z-score of -1.3. Compared to theprevious study of 2006, the bone density of the total left hip hasincreased 0.4%, which is not significant. IMPRESSIONThe patient meets WHO criteria for osteopenia with moderate increasedrisk for fracture. There has been no significant change from theprevious study of 2006. Reported By: OCHOA CAM M.D. 6-Xkv-054441:0 GLU GTT-2 HOUR 91 mg/dL (Normal) Comments: 2HR GTT GLU 2 HR GLU GTT-2 HOUR from 0509:J90175H. 3 Range: 70-120 :1 GLU GTT-1 HOUR 105 mg/dL (Abnormal) Comments: 2HR GTT GLU 1 HR GLU GTT-1 HOUR from 0509:J73651Y. 5 Range: 120-170 5-Bid-093141:2 GLU GTT-30 min. 106 mg/dL (Abnormal) Comments: 2HR GTT GLU 1/2 HR GLU GTT-30 min. from 0509:S80226K. 5 Range: 110-170 6-Uue-016650:5 GLU GTT-FASTING 75 mg/dL (Normal) Comments: 2HR GTT FASTING GLU GTT-FASTING from 0509:J42977K. 0 Range: 70-110 Comments: GLUCOSE TOLERANCE TEST Reference Interval Non- Adults Fasting 70 - 110 30 minutes 110 - 170 1 hour 120 - 170 2 hour 70 - 120 3 hour 70 - 110 4 hour 70 - 110 5 hour 70 - 110 1-Zvj-976549:22 CBCD,SMEAR DIFF BAND 3 % (Normal) Range: [...] 47-70 WBC 4.5 K/mm3 (Normal) Range: 4.4-11.0 :22 COMP METABOLIC A/G 1.3 {RATIO} (Normal) Range: [...] T PROT 7.3 g/dL (Normal) Range: 6.4-8.2 5-Acr-628055:22 ESTROGEN 4549 38 pg/mL (Normal) Comments: Prepubertal <40 Female Cycle: 1-10 Days 61 - 394 11-20 Days 122 - 437 21-30 Days 156 - 350 Post-Menopausal <40 HMG Treatment for Ovulation Induction: 400 - 800Performed At: [facility]6370 [place], [place] [id number] At: BNLabCorp Qzwreekxgo1502 [place], [place] [id number] 6-Pdy-840782:22 LIPID CHOL 169 mg/dL (Normal) Comments: <200 [...] mg/dL VLDL 9 mg/dL (Normal) Range: 5-40 3-Nbv-870165:22 PROGESTER. 4317 0.2 ng/mL (Normal) Comments: Female: Follicular 0.2 - 1.4 Luteal 3.3 - 25.6 Mid-luteal 4.4 - 28.0 Postmenopausal 0.0 - 0.7 : 1st Trimester 11.2 - 90.0 2nd Trimester 25.5 - 89.4 3rd Trimester 48.4 - 422.5 3-Ojc-612968:22 TESTOST [id number] TESTOSTER %FREE 1.84 % (Normal) Range: 0.50-2.80 TESTOSTER,FREE 0.52 ng/dL (Normal) Range: 0.10-0.85 TESTOSTER,TOTAL 28 ng/dL (Normal) Range: 14-76 :22 TSH 3.87 {uIU/mL} (Normal) Range: 0.34-4.82 :50 HgA1C , Office (52103) HgA1C , Office 5.1 % (Normal) Range: 4.6 - 7.1 :50 Blood Glucose , Office (63684) Blood Glucose , Office 97 (Normal) :18 [...] 47-70 WBC 6.3 K/mm3 (Normal) Range: 4.4-11.0 :18 COMP METABOLIC Comments: RESULTS FAXED 05/11/07 1358 MELYSSA VALDEZ. A/G 1.2 {RATIO} (Normal) Range: [...] 6.4-8.2 GLU 99 mg/dL (Normal) Range: 70-110 :55 CALC U24 2458 Comments: PATIENT SPECIMEN IS 25 MINUTES OVER THE SUGGESTED 24 HOURCOLLECTION TIME CALCIUM,U 67894 7.1 mg/dL (Normal) CALCIUM,U24 92.3 {mg/24_hr} (Abnormal) Range: 100.0-300.0 Comments: Performed At: [address] [id number] 86-Fpu-282466:14 CBCD,SMEAR DIFF BAND 1 % (Normal) Range: [...] :14 PHOS 2.7 mg/dL (Normal) Range: 2.5-4.9 59-Hlm-631928:14 PROT.[id number] ALBUMIN,UR 33.7 % (Normal) OXXXZ-1-UBTO,U 4.3 % (Normal) THTWE-8-YNNP,U 23.7 % (Normal) BETA GLOB,U 29.6 % (Normal) GAMMA GLOB,U 8.7 % (Normal) M-SPIKE,U SeeNote % (Normal) Comments: Result: Not Observed NOTE Comment (Normal) Comments: Protein electrophoresis scan will follow via mail orcourier. PROTEIN,UR 11.2 mg/dL (Normal) Range: 0.0-15.0 :14 PTH,[id number] PTH,Intact 24 pg/mL (Normal) Range: 12-65 Comments: Performed At: [address] [id number] :14 SPE [id number] A/G RATIO 1.7 (Normal) Range: 0.7-2.0 ALBUMIN [...] orcourier. PROTEIN,TOTAL 5.7 g/dL (Abnormal) Range: 6.0-8.5 :14 TSH 2.39 {uIU/mL} (Normal) Range: 0.34-4.82 :14 VITD 1,25 25877 24.3 pg/mL (Normal) Range: 15.9-55.6 Comments: Performed At: [address] [id number] At: [address] [id number] 61-Anz-933204:11 [facility] DIGITAL & CAD Radiology Report See Note (Normal) Comments: Exam Number: [id number] BILATERAL SCREENING MAMMOGRAM COMPARISONComparison study October 03, [...] mammogramswere also examined with computer-aided detection soft duvall(Voxli.). Reported By: CHARAN QUIJANO M.D. 63-Ivi-341693:09 DEXA BONE DENSITY STUDY (HP) Radiology Report See Note (Normal) Comments: Exam Number: [id number] BONE DENSITOMETRY HISTORYOsteopenia. TECHNIQUE Bone densitometry of [...] density is measured at 3.8% less than [id number]. The T- value of the left femoral neck is -2.5 which is in the range ofosteoporosis. The T-value of the total left hip is -1.7 which is in the range ofosteopenia. Bone mineral density is measured at 12.5% less than [id number]. IMPRESSIONThere is osteopenia of the lumbar spine and total left hip. Reported By: EMERY WILLIAM M.D. 72-Vxu-247022:15 Urinalysis, Office (06663) UA - BILIRUBIN Negative (Normal) UA - BLOOD Negative (Normal) UA - GLUCOSE Negative (Normal) UA - KETONES Negative mg/dL (Normal) UA - LEUKOCYTE ESTERASE Negative (Normal) UA - NITRITE Negative (Normal) UA - PH 7.0 (Normal) UA - PROTEIN Negative mg/dL (Normal) UA - SPECIFIC GRAVITY 1.010 (Normal) URINE UROBILINGN MAE TIMED Normal mg/dL (Normal) :00 CULTURE, URINE URINE CULTURE See Note {CFU/mL} [...] TRIMETHOPRIM/SULFAMETHOXAZ $$ >=320 R 18-Sep-20068:51 Urinalysis, Office (96938) UA - BILIRUBIN Negative (Normal) UA - [...] Plan of Care Name Dates Details Instructions Shingles : Follow up if no improvement [...] IN 6 MONTHS Indication: Hyperglyceridemia Planned Observations IRON (51266)Indication: Hematest positive stools On: 15-Ogy-588821:24 Request CBC with manual diff (80665)Indication: Hematest positive stools On: 15-Kqa-768064:23 Request Thin prep Pap (34740)Indication: Well woman exam with routine gynecological exam On: 58-Rax-07785:25 Request LIPID PANEL (63998)Indication: Low HDL (under 40) On: 49-Vec-461856:25 Request LIPID PANEL (57555)Indication: Hyperglyceridemia On: 06-Ylc-242440:25 Request HEPATIC FUNCTION PANEL (03001)Indication: Elevated LFTs On: 97-Wno-869672:25 Request MONA CULTURE-BLOOD (71732)Indication: syncope On: 94-Gyl-122499:14 Request Comments: x2 METABOLIC PANEL, COMPREHENSIVE (52578)Indication: syncope On: 85-Qvk-209515:14 Request CBC WITH MANUAL DIFF (32685)Indication: syncope On: 50-Vtv-156137:14 Request METABOLIC PANEL, COMPREHENSIVE ([id number]) On: 06-Fmn-088376:31 Request HEPATIC FUNCTION PANEL ([id number])Indication: Low HDL (under 40) On: 01-Hny-184209:31 Request LIPID PANEL ([id number])Indication: Low HDL (under 40) On: 10-Avj-580514:31 Request METABOLIC PANEL, COMPREHENSIVE ([id number])Indication: Osteopenia On: :29 Request CBC WITH MANUAL DIFF ([id number])Indication: Osteopenia On: 70-Ppk-521234:29 Request VITAMIN D, 1, 25-DIHYDROXY ([id number])Indication: Osteopenia On: :28 Request URINE CALCIUM MAE TIMED 24 Hour ([id number])Indication: Osteopenia On: 44-Olm-005704:28 Request UPEP ([id number])Indication: Osteopenia On: 37-Muj-140914:28 Request SPEP ([id number])Indication: Osteopenia On: :28 Request TSH ([id number])Indication: Osteopenia On: :28 Request PHOSPHORUS ([id number])Indication: Osteopenia On: :28 Request PARATHORMONE ([id number])Indication: Osteopenia On: 50-Iuk-202647:28 Request Thin prep Pap ([id number])Indication: Well woman exam with routine gynecological exam On: 13-Mhg-004774:13 Request LIPID PANEL ([id number])Indication: Hyperglyceridemia On: :56 Request HEPATIC FUNCTION PANEL ([id number])Indication: Hyperglyceridemia On: :56 Request Comments: 6mos Planned Encounters Medical; General Medical - On: 30-Jan-2018 10:45 [facility] Irma Vásquez DO, DO, Kathleen Planned Procedures MAMMOGRAM BREAST BILATERAL On: 13-Jan-2018 Intent SCREENING DIGITAL ([id number])By: Irma Vásquez DO, DO, Kathleen Wax CurettesBy: Irma Vásquez DO On: 23-Apr-2017 Intent Irma Vásquez DO Ear Irrigation ([id number])By: Rachel On: 23-Apr-2017 Irma Frances DO, DO, Kathleen Comments: Bilateral ear irrigated with warm water and debrox solution Wax currettes usedSmall amount of yellow cerumen removed Pt tolerated well MSMITH,TWISTER TENDER X-RAY LEFT KNEE, 3 VIEWS ([id number])By: On: 24-Jan-2017 Irma Ramon DO, DO, Kathleen Flu Vaccine (Quadrivalent) [id number]: On: 10-Dec-2016 Intent Irma Vásquez DO, DO, Comments: lot: [id number]: 08/04/17ite/route: L ori, IMamt: 0.5mlVIS and ABN signed when applicableJOLEEN Dumont SCREENING DIGITAL TOMOSYNTHESIS OF On: 10-Dec-2016 Intent BREAST ([id number])By: Mari Ruvalcaba Aerosol Treatment ([id number])By: Wolfgang On: 14-Nov-2015 Intent TWISTER TENDER Masha Aerosol Treatment ([id number])By: Rachel On: 07-Jun-2015 Intent Irma GRANGER DO, Kathleen Comments: more a/e more noise Aerosol Treatment ([id number])By: Wolfgang On: 02-Jun-2015 Intent Masha CARRERA BILATERAL MAMMOGRAMS ([id number])By: On: 06-Apr-2015 Intent Alison Rodriguez DO Carotid DopplerBy: Alison Rodriguez DO On: 11-Aug-2013 Intent MAMMOGRAM, SCREENING, BOTH BREAST On: 06-Aug-2013 Intent ([id number])By: Alison Rodriguez DO Comments: dec MAMMOGRAM, SCREENING, BOTH BREASTS On: 07-Dec-2012 Intent ([id number])By: Alison Rodriguez DO Comments: dec Eprescribed prescriptions On: 07-Dec-2012 Intent ([id number])By: Julia Bermudez Eprescribed prescriptions On: 19-Aug-2012 Intent ([id number])By: Julia Bermudez DXA, BONE DENSITY, AXIAL SKELETON On: 26-Jun-2012 Intent ([id number])By: Alison Rodriguez DO IMMUNIZ ADMNIN, 1 VAC, SNGL/COMBO On: 28-Nov-2011 Intent ([id number])By: Kim Naidu LPN Comments: Lot #:[id number] date:04.29Amount given:prefilled syringeSite given:L Dltd, IMGiven by: MALLY Flores signed FLU VAC, SPLIT, >3 YEARS, INTRAMUSC On: 28-Nov-2011 Intent ([id number])By: Kim Naidu LPN Aerosol Treatment ([id number])By: Alissa On: 02-Aug-2011 Intent CARLOTARosie E MAMMOGRAM, SCREENING, BOTH BREASTS On: 29-May-2011 Intent ([id number])By: Alison Rodriguez DO Aerosol Treatment ([id number])By: Alissa On: 23-Apr-2011 Intent Rosie VAN Pneumovax ([id number])By: Roger CARRERA, On: 14-Jan-2011 Intent Valentina Solares Comments: Lot #[id number]- L arm, IMDose 0.5mlgiven by:zee FLU VAC, SPLIT, >3 YEARS, INTRAMUSC On: 27-Nov-2010 Intent ([id number])By: Princess Beavers Comments: Lot #:[id number] date:mount given:0.5mlRoute: IMSite given:left deltGiven by: LEATHA Flores Radiology - Thoracic SpineBy: Michael On: 27-Nov-2010 Intent DO, Alison A PNEUM VAC ADLT/IMUMNOSPR, SBC/INTRM On: 27-Nov-2010 Intent ([id number])By: Princess Beavers Comments: received in 2004 IMMUNIZ ADMNIN, 1 VAC, SNGL/COMBO On: 27-Nov-2010 Intent ([id number])By: Princess Beavers Eprescribed prescriptions On: 19-Jun-2010 Intent ([id number])By: Alison Rodriguez DO Radiology - Chest- PA and LatBy: On: 19-Jun-2010 Intent Michael GRANGER Alison A Wax CurettesBy: Ciesa TRAILER DRIVER, Antonella On: 25-May-2010 Intent Ear Irrigation ([id number])By: Ciesa On: 25-May-2010 Intent CARLOTA Antonella Ear Irrigation ([id number])By: Rachel On: 21-May-2010 Intent Irma GRANGER DO, Kathleen Comments: L Wax CurettesBy: Irma Vásquez DO On: 21-May-2010 Intent Irma Vásquez DO DXA, BONE DENSITY, AXIAL SKELETON On: 27-Apr-2010 Intent ([id number])By: Princess Beavers MAMMOGRAM, SCREENING, BOTH BREASTS On: 27-Apr-2010 Intent ([id number])By: Princess Beavers Wax Currettes ([id number])By: Michael GRANGER, On: 27-Jan-2009 Intent Alison A Ear Irrigation ([id number])By: Michael GRANGER, On: 27-Jan-2009 Intent Alison A Comments: done by [facility] TDAP VACCINE >7 IM ([id number])By: Michael On: 27-Jan-2009 Intent DO Alison A Comments: Lot #[id number]/17/2011Site-left deltoidDose0.5mlgiven by Zenobia English LPN MAMMOGRAM, SCREENING, BOTH BREASTS On: 27-Jan-2009 Intent ([id number])By: Michael GRANGER, Alison A FLU VAC, SPLIT, >3 YEARS, INTRAMUSC On: 25-Nov-2008 Intent ([id number])By: Moriah Mosley LPN IMMUNIZ ADMNIN, 1 VAC, SNGL/COMBO On: 25-Nov-2008 Intent ([id number])By: Moriah Mosley LPN Comments: lot # [id number]- [id number]-JNTHocmdu-NEntmm- 0.5ML tolerated well CHenderson Wax CurettesBy: Alison Rodriguez DO A On: 08-Aug-2008 Intent Ear Irrigation ([id number])By: Michael GRANGER, On: 08-Aug-2008 Intent Alison A Comments: done km b/l pt tolerated well Spirometry ([id number])By: Michael GRANGER, On: 08-Aug-2008 Intent Alison A Comments: done kmgood effort and curve normal Aerosol Treatment ([id number])By: Michael On: 08-Aug-2008 Alison Frances DO Comments: done km with albuterol 0.83% pt tolerated well Inhaler Demo ([id number])By: Michael GRANGER, On: 11-Apr-2008 Intent Alison A Spirometry ([id number])By: Michael GRANEGR, On: 11-Apr-2008 Intent Alison A Comments: good effort and curve mild airway obstruction Pulse Oximetry ([id number])By: Michael GRANGER, On: 11-Apr-2008 Intent Alison A Comments: 97% on room air Radiology - Elbow - LeftBy: Michael On: 11-Apr-2008 Alison Frances DO FLU VAC, SPLIT, >3 YEARS, INTRAMUSC On: 22-Dec-2007 Intent ([id number])By: Pamela Kelly RN Comments: Lot #:[id number] date:07/26Amount given:0.5mlRoute: imSite given:Right deltoidGiven by: Amilcar Obrien LPN IMMUNIZ ADMNIN, 1 VAC, SNGL/COMBO On: 22-Dec-2007 Intent ([id number])By: Pamela Kelly RN MAMMOGRAM, SCREENING, BOTH BREASTS On: 11-Nov-2007 Intent ([id number])By: Alison Rodriguez DO Aerosol Treatment ([id number])By: Alissa On: 02-Nov-2007 Intent Rosie VAN Comments: waiver signed Pulse Oximetry ([id number])By: Alissa On: 02-Nov-2007 Intent Rosie VAN Comments: waiver signed 96% r/a MAMMOGRAM, SCREENING, BOTH BREASTS On: 15-Sep-2007 Intent ([id number])By: Alison Rodriguez DO DXA, BONE DENSITY, AXIAL SKELETON On: 15-Sep-2007 Intent ([id number])By: Alison Rodriguez DO Echo CompleteBy: Alison Rodriguez DO On: 11-May-2007 Intent IV Needle placement (22381)By: On: 11-May-2007 Intent TYE Elena Comments: #22 gauge needle placed to right anticub area without difficulty per karo INFUSION, NORMAL SALINE 1000 mlBy: On: 11-May-2007 Intent TYE Elena Comments: Lot #:[id number] date:09-25 Amount given:1000 ml Route: IV Site given:right anticub Given by: karo EKG (11541)By: Alison Rodriguez DO On: 11-May-2007 Intent Comments: rsr with no acute st/t changes-- normal sinus with normal axis Aerosol Treatment ([id number])By: Michael On: 11-May-2007 Intent Alison GRANGER Pulse Oximetry ([id number])By: Michael GRANGER, On: 11-May-2007 Intent Alison A Ear Irrigation (69541)By: Michael GRANGER, On: 09-Dec-2006 Intent Alison A Flu Vaccine, Split IM ([id number])By: On: 09-Dec-2006 Intent Alison Rodriguez DO Comments: given in left deltoid, 0.5cc, lot#[id number], exp.6.30.08 WF DXA, BONE DENSITY, AXIAL SKELETON On: 15-Oct-2006 Intent ([id number])By: Alison Rodriguez DO Comments: see if because high risk on prednisone her insurance will cover yearly MAMMOGRAM, SCREENING, BOTH BREASTS On: 15-Oct-2006 Intent ([id number])By: Alison Rodriguez DO Instructions Name Dates Details [...] Neoplasm of uncertain behavior of skin Encounters Annotation/Addendum On: 13-Jan-2018 9:15 Encounter Diagnosis: Screening [...] LFT (790.6), Low HDL (272.5), Hypertriglycerides (272.1), [facility] Office Visit On: [...]
--- OUTSIDE RECORDS SUMMARY | 2018-05-09 08:53 | XMS RPT_ITS | Continuity of Care Document ---
:1960 Author Organization [facility] Address [address] [place] [address] Phone Care Team Providers Name Role Phone Irma Vásquez DO Unavailable Luis Armando DPM, Fracisco Fitzgerald Unavailable Miracle Rodríguez Unavailable Gravmohan, Nallely Unavailable Unavailable Slazelalem MECHANICAL PROJECT ENGINEER, Masha Unavailable Unavailable DEBI Naidu Unavailable Unavailable [...] Name Dates Details CALCIUM 600 + D, [id number] (Oral Tablet) 1 BID for 0 days [...] days Quantity: 90 {Tablet} Refills: 3 Ordered:27-May-2017 David Vásquez DO, DO, Kathleen Start : 27-May-2017 Active Dispense as Written Comments:MAIKOL MAIKOL MAIKOL- [...] need this, void after 30 days CORTISPORIN, 3.5-00358-0 (Otic Solution) 2 (two) Drop(s) tid for [...] Quantity: 5 {Tablet} Refills: 0 Ordered:14-Nov-2015 Slarb MECHANICAL PROJECT ENGINEER, Masha Start : 12-Jun-2015 End : 14-Nov-2015 [...] worse or no resolve - send to [facility] Status: Inactive as of 11-Aug-2008 [...] Completed Tonsillectomy Completed Date Value Details 24-Nov-2017 Sanitor Office Visit Report Result: Comments: See Note; NOTES: [facility] [address] [place] [address] OFFICE VISIT Date of Service: 11/24/17 MR#: [id number] Acct: [id number] Name: JOSHUA HAYWOOD Rep #: [id number] : 1960 Provider: Jasmine Duffy MD Age/Sex: 57/F Location[place] [facility] Status: Signed Intake Vital Signs11/24/17 Height 5 ft 8.5 in 11/24/17 Weight: 148 lb 5 oz 11/24/17 Body Mass Index (BMI) 22.2 11/24/17 Blood Pressure 140/78 H Intake Visit Reasons: DISCUSS MENOPAUSE Chief Complaint: Menopause Consult Pharmaceutical Compounding Supervisor Required: No Is patient in pain?: No [...] history: Alfa- Retired Patient works at [employer] HPI DISCUSS MENOPAUSE: Details: MELYSSA HAYWOOD is a 57 year old who presents for management of menopausal symptoms. she started having symptoms when maribel bauer was getting treatment for ALL in 2004. [...] Past Preg nancies Del. DatName GA/WeeksOutcome Route [facility]ocaProviderFOB e ht en tn Unknown 1980 [...] Nutritional Appearance: average body habitus Orientation: alert HENMT Head: normal to inspection, normocephalic Ears: hearing [...] Summary (1) Result: Comments: See Note; NOTES: [facility] Physical Therapy Health[address] [place] [address] Fax REHABILITATION SERVICES DISCHAR SUMMARY MR#: [id number] Acct: [id number] Name: MELYSSA HAYWOOD Rep #: [id number] : 1960 57 From: Sandy Jiang PT, Cert. MDT Referring DrMichael: Irma Vásquez DO Status: REG RCR Insurance: [...] feel f ree to call me at [phone]. Thank you for the referral of this patient. Sincerely, Sandy Jiang <Electronically signed by Sandy Jiang PTCert. MAYERT> 08/14/17 1315 CC: Irma Vásquez DO CHRIS Signed 24-Jun-2017 Inital Evaluation (1) - PT Result: Comments: See Note; NOTES: [facility] Physical Therapy Health[address] [place] [address] Fax REHABILITATION SERVICES INITIAL EVALUATION MR#: [id number] Acct: [id number] Name: MELYSSA HAYWOOD Rep #: [id number] : 1960 56 From: Sandy Jiang PT, CertMichael MAYERT Referring DrMichael: Irma Vásquez DO Status: REG RCR Insurance: AN THEM SELF PAY INSURANCE Patient's Visit Information MELYSSA HAYWOOD is a 56 year old F referred to Physical Therapy by Irma Vásquez with a diagnosis of VERTIGO AND CERVICAL SPINE PAIN. Date of Leanne luation: 06/24/17 Physical Therapist: Sandy Fitzgerald Cross - Visit Plan Frequency: 1x/Week Duration: 8 VISITS Plan: CERVICAL DEEP TISSUE MASSAGE. POSTURE CORRECTION/STRENGTHENING, INSTRUCTION IN APPROPRIATE B LOKESH MECHANICS AND ACTIVITY MODIFICATIONS. CARMEL UE ROM, STRETCHING AND STRENGTHENING. HEP INSTRUCTION. - Subjective Subjective: Diagnosis: VERTIGO AND CERVICAL SPINE PAIN. 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 Disability: NO. [...] of Care, Risk Factors, Benefits of Fitness Progra m For the Purpose of:: To improve self [...] to be FAXED BACK to us at [phone] for Medicare purposes. Please let me know if there are questions or concerns regarding this plan of care. Physician Signature: Dat e: <Electronically signed by Sandy Jiang PT, Cert. MDT> 06/24/17 1226 CC: Irma Vásquez DO CHRIS Signed For Medicare only, by signing this I certify the plan of care. Physicians Signature Date 14-Feb-2017 PT D/C Summary (1) Result: Comments: See Note; NOTES: [facility] Therapy [facility] [address] [place] [address] [address] [place], [place] [address] Fax REHABILITATION SERVICES DISCHAR GE SUMMARY MR#: [id number] Acct: [id number] Name: MELYSSA HAYWOOD Rep #: [id number] [...] please feel free to call me at [phone]. Thank you for the referral of this patient. Sincerely, Sanyd Jiang <Electronically signed by Sandy Jiang PT, CertMichael MDT> 1649 CC: Miracle Rodríguez DO; Irma Vásquez DO CHRIS Signed 06-Feb-2017 Orthopedic Visit Report Result: Comments: See Note; NOTES: [facility] [address] [place] [address] [address] [place] [address] OFFICE VISIT Date of Service: 02/06/17 MR#: [id number] Acct: [id number] Name: MELYSSA HAYWOOD Rep #: [id number] : 1960 Provider: Miracle Chicorelli DO Age/Sex: 56/F Location: [facility] Status: Signed Intake Vital Signs02/06/17 Height 5 [...] mg PO ONCE 02/06/17 [History Confirmed 02/06/17] PFS Medical History Hypothyroidism (Chronic) Osteopenia (Chronic) ALL [...] - PT Result: Comments: See Note; NOTES: [facility] Therapy [facility] [address] [place] [address] Fax REHABILITATION SERVICES INITIAL EVALUATION MR#: [id number] Acct: [id number] Name: MELYSSA HAYWOOD Rep #: [id number] : 1960 56 From: Sandy Jiang PT, Cert. MDT Referring Dr.: Irma Vásquez DO Status: REG RCR Insurance: AN THEM SELF PAY INSURANCE Patient's Visit Information MELYSSA HAWYOOD is a 56 year old F referred to Physical Therapy by Irma Vásquez with a diagnosis of LEFT KNEE PAIN AND PATELLA SUBLUXATION. Date of Evaluation: 01/30/17 Physical Therapist: Sandy Jiang - Visit Plan Frequency: 2-3x /Week Duration: 4-6 Weeks Plan: CORE STRENGTHEING. POSTURE CORRECTION. CARMEL LE ROM, STRETCHING AND STRENGTHEING FO R CHRONIC PATELLAR DISLOCATING. CONSIDER ORTHOTICS. 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 Disability: [...] to be FAXED BACK to us at [phone] for Medicare purpos es. Please let me [...] More Views Result: Comments: See Note; NOTES: [facility] Imaging Services [address] [place] [address] Knee 4 or More Views MR#: [id number] Acct: [id number] Name: MELYSSA HAYWOOD Rep #: [id number] : 1960 F 56 From: Payam Pisano MD PCP: Irma Vásquez DO Status: REG CLI Study: Knee 4 or More Views Date of Exam: 01/27/17 Exam# [id number] Ordering Dr: Irma Vásquez DO STUDY: X-RA [...] Service support , CC: Irma Vásquez DO Service Delivery Manager: Signed 20-Jan-2017 SCREENING MAMM (CAD), BILAT Result: Comments: See Note; NOTES: [facility] Imaging Services [address] [place] [address] SCREENING MAMM (CAD), BILAT MR#: [id number] Acct: [id number] Name: MELYSSA HAYWOOD Rep #: [id number] : 1960 F 56 From: Johnnie Huizar MD PCP: Irma Vásquez DO Status: REG CLI Study: SCREENING MAMM (CAD), BILAT Date of Exam: 01/20/17 Exam# [id number] Ordering Dr: Irma Vásquez DO MAMMOGRAPHY - [...] delay biopsy of a clinically suspicious abnormality. [id number] Electronically Signed: Johnnie Huizar MD 01/20 at 13:55 EST Tel [phone], Service support , CC: Irma Vásquez Service Delivery Manager: Signed 07-Jun-2015 Spirometry (91208) Comments: mild abnormality Result: 12-Apr-2015 Bilat Scrn Digital AND CAD Result: Comments: See Note; NOTES: [facility] Imaging Services [address] [place] [address] Verdana 4d Bilat Scrn Digital AND CAD MR#: [id number] Acct: [id number] Name: MELYSSA HAYWOOD Rep #: [id number] : 1960 F 54 From: Johnnie Huizar MD PCP: Alison Rodriguez DO Status: REG CLI Study: Bilat Scrn Digital AND CAD Date of Exam: 04/12/15 Exam# [id number] Ordering Dr: Alison Rodriguez DO MAMMOGRAPHY - [...] biopsy of a clinically suspiciou s abnormality. [id number] Electronically Signed: Johnnie Huizar MD at 14:58 EST Tel [phone], Service support [phone], CC: Alison Rodriguez DO Service Delivery Manager: Signed 03-Feb-2014 Bilat Scrn Digital AND CAD Result: Comments: See Note; NOTES: [facility] Imaging Services [address] [place] [address] Breast Imaging Report MR#: [id number] Acct: [id number] Name: MELYSSA HAYWOOD Rep #: [id number] : 1960 F 53 From: Johnnie Huizar MD PCP: Alison Rodriguez DO Status: REG CLI Study: Ezequiel Verdugo Digital AND CAD Date of Exam: 02/03/14 Exam# [id number] Ordering Dr: Alison Rodriguez DO MAMMOGRAPHY - [...] Johnnie Huizar MD at 10:55 EST Tel [phone], Service support [phone], CC: Alison Rodriguez DO Service Delivery Manager: Signed 29-Aug-2013 Carotid Duplex Ultrasound Result: Comments: See Note; NOTES: [facility] Cardiovascular Services [address] [place] [address] Carotid Duplex Ultrasound 08/19/13 1102 MR#: [id number] Acct: [id number] Nam e: MELYSSA HAYWOOD Rep #: [id number] : 1960 53 From: Yannick Garcia MD Attending Dr: Alison Rodriguez DO Status: REG CLI Ordering Dr: Alison Rodriguez DO Date: 08/19/13 Location: [facility] Sex: F C Admitted: Rt. Velocities/BP Lt. [...] the left vertebral artery. Procedure Carotid Duplex 33323. The exam was di agnostic. Exam performed in department. Interpretation Summary Mild (<50%) stenosis right extracranial internal carotid. Mild (<50%) stenosis left extracranial internal carotid. Phi w within the vertebral arteries is antegrade bilaterally. Ordering Physician: Alison Rodriguez Perf ormed By: Alfa Zamarripa RVT : Alison Rodriguez DO Date Dictated: 08/19/13 1102 Date Transcribed: 08/29/13 0859 Service Delivery Manager: Signed 01-Feb-2013 Bilat Scrn Digital & CAD Result: Comments: See Note; NOTES: [facility] Imaging Services [address] [place] [address] Breast Imaging Report MR#: [id number] Acct: [id number] Name: MELYSSA HAYWOOD Rep #: [id number] : 1960 F 52 From: Johnnie Huizar MD PCP: Alison Rodriguez DO Status: REG CLI Exam# [id number] Ordering Dr: Alison Rodriguez DO MAMMOGRAPHY - BILATERAL SCREENING REASON FOR EXAM: Tay taylor, 52 years old. Routine annual screening examination. [...] M.D. at 9:56 EST , Service support [phone], CC: Alison Rodriguez DO Service Delivery Manager: Signed Immunization Name Dates Details Influenza (3 years and up) on: 09-Dec-2006 Comments: given in left deltoid, 0.5cc, lot#[id number], exp.6.30.08 WF Influenza (3 years and up) on: 22-Dec-2007 Comments: Lot #:[id number] date:07/26Amount given:0.5mlRoute: imSite given:Right deltoidGiven by: Amilcar Obrien LPN Influenza (3 years and up) on: 25-Nov-2008 Tdap (7 years and up) on: 27-Jan-2009 Comments: Lot #[id number]-left deltoidDose0.5mlgiven by Zenobia English LPN Social History Name Dates Details Alcohol Use Comments: Heavy alcohol use - 2 glasses of red wine daily Status: Active Caffeine Use Comments: 1-2 cups qd Status: Active 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 Status: Active Smoking Status Name Dates Details Never smoker Vital Signs Date Test Result Details :06 Temperature 97.1 f Comments: Method: Temporal Pulse [...] Results Date Description Value Details :10 TSH (38812) Comments: PATIENT NOT FASTINGPERFORMED BY: [place] [id number] [facility] [id number] TSH 1.620 {uIU/mL} (Normal) Range: 0.450-4.500 :10 T4, FREE (THYROXINE) (14195) Comments: PATIENT NOT FASTINGPERFORMED BY: [facility] [facility] [id number] T4,Free(Direct) 1.60 ng/dL (Normal) Range: 0.82-1.77 :10 T3, FREE (TRIDOTHYRONINE) (47330) Comments: PATIENT NOT FASTINGPERFORMED BY: [facility] [facility] [id number] Triiodothyronine,Free,Serum 2.6 pg/mL (Normal) Range: 2.0-4.4 :27 T3, FREE (TRIDOTHYRONINE) (66287) Comments: PATIENT NOT FASTINGPERFORMED BY: [facility] [facility] [id number] Triiodothyronine,Free,Serum 2.6 pg/mL (Normal) Range: 2.0-4.4 :27 T4, FREE (THYROXINE) (11173) Comments: PATIENT NOT FASTINGPERFORMED BY: [facility] [facility] [id number] T4,Free(Direct) 1.58 ng/dL (Normal) Range: 0.82-1.77 :27 TSH (THYROID STIMULATING Comments: PATIENT NOT FASTINGPERFORMED BY: [facility] [id number] HORMONE) (77944) TSH 2.660 {uIU/mL} (Normal) Range: 0.450-4.500 73-Iee-134989:55 TSH (51080) Comments: PATIENT NOT FASTINGPERFORMED BY: [facility] [facility] [id number] TSH 3.930 {uIU/mL} (Normal) Range: 0.450-4.500 :37 Vitamin D Hydroxy (07289) Comments: PATIENT WAS FASTINGPERFORMED BY: [facility] [facility] [id number] Vitamin D, 25-Hydroxy 96.4 ng/mL (Normal) Range: 30.0-100.0 Comments: Vitamin D deficiency has been defined by the [place] [facility] and an Endocrine Society practice guideline as alevel of serum 25-OH vitamin D less than 20 ng/mL (1,2).The Endocrine Society went on to further define vitamin Dinsufficiency as a level between 21 and 29 ng/mL (2).1. IOM ([place] of Medicine). 2010. Dietary reference intakes for calcium and D. [place]: The National Academies Press.2. Darren MF, Reji NC, Kal BUTT, et al. Evaluation, treatment, and prevention of vitamin D deficiency: an Endocrine Society clinical practice guideline. JCEM. 2010; 96(7):1911-30. :37 CBC with auto diff Comments: PATIENT WAS FASTINGPERFORMED BY: [facility] [facility] [id number] Information: [id number], [id number] (19462) Immature Grans (Abs) 0.0 {x10E3/uL} (Normal) Range: [...] 3.77-5.28 WBC 5.3 {x10E3/uL} (Normal) Range: 3.4-10.8 46-Ntw-35942:37 METABOLIC PANEL, COMPREHENSIVE Comments: PATIENT WAS FASTINGPERFORMED BY: [facility]h4154 [facility] [id number] (76457) ALT (SGPT) 16 [iU]/L (Normal) Range: 0-32 [...] mg/dL (Normal) Range: 65-99 :37 LIPID PANEL (88839) Comments: PATIENT WAS FASTINGPERFORMED BY: [place] [id number] LDL/HDL Ratio 1.0 {ratio_units} (Normal) Range: 0.0-3.2 [...] 181 mg/dL (Normal) Range: 100-199 :37 TSH (32805) Comments: PATIENT WAS FASTINGPERFORMED BY: [facility] [id number] TSH 2.440 {uIU/mL} (Normal) Range: 0.450-4.500 :07 LIPID PANEL (19282) Comments: PATIENT WAS FASTINGPERFORMED BY: [facility] [id number] LDL Cholesterol Calc 89 mg/dL (Normal) Range: [...] PANEL, COMPREHENSIVE Comments: PATIENT WAS FASTINGPERFORMED BY: [facility] Vetptz6055 [facility] [id number] (83359) ALT (SGPT) 13 [iU]/L (Normal) Range: 0-32 [...] Glucose, Serum 88 mg/dL (Normal) Range: 65-99 :07 CBC WITH MANUAL DIFF Comments: PATIENT WAS FASTINGPERFORMED BY: [facility] HospitalAhczfi7785 [facility] [id number] Information: [id number] (50432) Immature Grans (Abs) 0.0 {x10E3/uL} (Normal) Range: [...] 3.77-5.28 WBC 6.2 {x10E3/uL} (Normal) Range: 3.4-10.8 70-Inf-10771:07 TSH (57980) Comments: PATIENT WAS FASTINGPERFORMED BY: [facility] HospitalDrhfny5188 [facility] [id number] TSH 0.975 {uIU/mL} (Normal) Range: 0.450-4.500 95-Rra-11796:07 Vitamin D Hydroxy (70342) Comments: PATIENT WAS FASTINGPERFORMED BY: [facility] [id number] Vitamin D, 25-Hydroxy 76.3 ng/mL (Normal) Range: 30.0-100.0 Comments: Vitamin D deficiency has been defined by the [place] ofMedicine and an Endocrine Society practice guideline as alevel of serum 25-OH vitamin D less than 20 ng/mL (1,2).The Endocrine Society went on to further define vitamin Dinsufficiency as a level between 21 and 29 ng/mL (2).1. IOM ([place] of Medicine). 2010. Dietary reference intakes for calcium and D. [place]: The National Academies Press.2. Darren MF, Reji BENITES, Kal BUTT, et al. Evaluation, treatment, and prevention of vitamin D deficiency: an Endocrine Society clinical practice guideline. JCEM. 2010; 96(7):1911-30. 03-Uzq-114875:56 Anti-TPO Antibody (07649) Comments: PATIENT NOT FASTINGPERFORMED BY: [facility] Sagyqc2529 [facility] [id number] Information: [id number] Thyroid Peroxidase (TPO) Ab 240 {IU/mL} (Abnormal) Range: 0-34 71-Rgg-490477:14 DEXA BONE DENSITY STUDY (HP) Radiology Report [...] Signed:Mesha GarciaAugust 27, 2012 at 4:07:47 PM [id number] Signed GP/GP If you are the referring physician and would like to consult with theradiologist who provided this interpretation, please zaria Puga M.D. at [phone]. If this radiologist is unavailable, youwill be directed to another radiologist to assist. If you are a patient with a question regarding this report, pleasecon tactyour referring physician directly. Professional Interpretation Provided By: [employer], Phone , These documents contain legally protected [...] on 08/27/12 1609 by ITS IMPORTSign by Johnnie Huizar MD on 08/27/12 1610 Sign by: Johnnie Huizar MD 8-Ccl-315342:13 FERRITIN (53097) Comments: PATIENT NOT FASTINGPERFORMED BY: [employer] Mnfxku8006 [facility] [id number] Ferritin, Serum 317 ng/mL (Abnormal) Range: 15-150 4-Wei-282814:13 IRON (00830) Comments: PATIENT NOT FASTINGPERFORMED BY: [facility]6370 [facility] [id number] Iron, Serum 106 ug/dL (Normal) Range: 35-155 0-Upz-124649:13 CBC WITH MANUAL DIFF Comments: PATIENT NOT FASTINGPERFORMED BY: [employer]70 [facility] [id number] Information: [id number] (75325) Immature Grans (Abs) 0.0 {x10E3/uL} (Normal) Range: [...] 3.77-5.28 WBC 5.5 {x10E3/uL} (Normal) Range: 3.4-10.8 7-Wdn-381802:35 FECAL OCCULT HGB ASSAY- tubes sent home (89051) FECAL OCCULT HGB ASSAY, QUAL, 1-3 SIMULTANEOU negative (Normal) 4-Rdw-657617:13 TSH (06592) Comments: PATIENT NOT FASTINGPERFORMED BY: [facility] HospitalWlzlqj1277 [facility] [id number] TSH 2.430 {uIU/mL} (Normal) Range: 0.450-4.500 86-Wog-471193:19 FERRITIN (88980) Comments: PATIENT NOT FASTINGPERFORMED BY: [facility] [facility] [id number] Ferritin, Serum 302 ng/mL (Abnormal) Range: 15-150 88-Yiw-392077:19 IRON BINDING CAPACITY Comments: PATIENT NOT FASTINGPERFORMED BY: [place] 6301670 [facility] [id number] Information: [id number],2ND ORDER NO DRAW F EE (TIBC) (96241) Iron Saturation 43 % (Normal) Range: 15-55 Iron, Serum 123 ug/dL (Normal) Range: 35-155 UIBC 164 ug/dL (Normal) Range: 150-375 Iron Bind.Cap.(TIBC) 287 ug/dL (Normal) Range: 250-450 06-Pal-718410:19 CBC WITH MANUAL DIFF Comments: PATIENT WAS FASTINGPERFORMED BY: [facility] [id number] Information: [id number],S22561 (84328) Immature Grans (Abs) 0.0 {x10E3/uL} (Normal) Range: [...] 3.77-5.28 WBC 5.4 {x10E3/uL} (Normal) Range: 4.0-10.5 78-Czz-770026:19 METABOLIC PANEL, COMPREHENSIVE Comments: PATIENT WAS FASTINGPERFORMED BY: [facility] HospitalGleoso0747 [facility] [id number] (09564) ALT (SGPT) 16 [iU]/L (Normal) Range: 0-32 [...] Glucose, Serum 82 mg/dL (Normal) Range: 65-99 79-Jnq-939097:19 LIPID PANEL (02090) Comments: PATIENT WAS FASTINGPERFORMED BY: [employer] Lolgyy3122 [facility] [id number] LDL/HDL Ratio 1.4 {ratio_units} (Normal) Range: 0.0-3.2 LDL Cholesterol Calc 102 mg/dL (Abnormal) Range: 0-99 VLDL Cholesterol Julianne 15 mg/dL (Normal) Range: 5-40 HDL Cholesterol 74 mg/dL (Normal) Comments: According to ATP-III Guidelines, HDL-C >59 mg/dL is considered anegative risk factor for CHD. Triglycerides 75 mg/dL (Normal) Range: 0-149 Cholesterol, Total 191 mg/dL (Normal) Range: 100-199 60-Rws-912146:19 TSH (25472) Comments: PATIENT WAS FASTINGPERFORMED BY: [facility] EntertainmentTrenton Psychiatric HospitalNsxbqc0638 [facility] [id number] TSH 5.290 {uIU/mL} (Abnormal) Range: 0.450-4.500 21-Osz-386304:14 HPV automatic Comments: Source.............Cervical;EndocervicalNo. of containers..01 CYTYC Thin Prep VialPATIENT NOT FASTINGPERFORMED BY: [facility] Jnjvkcfvpd304 [facility] [id number] BY: =G L (98821) [facility] Umevpsmham817 [facility] [id number] Information: [id number] HPV, high-risk Negative Comments: This high-risk HPV [...] Special screening examination, human papillomavirus [HPV]Radha Colbert Director Of [facility] (ASCP) 98-Hqk-96388:26 FECAL OCCULT HGB ASSAY- tubes sent home (42068) FECAL OCCULT HGB ASSAY, QUAL, 1-3 SIMULTANEOU positive (Normal) 01-Ixn-26073:44 BILAT SCRN DIGITAL & CAD Radiology Report [...] Huizar M.D.January 31, 2012 at 10:22:06 AM [id number] Signed GP/GP If you are the referring physicia n and would like to consult with theradiologist who provided this interpretation, please contact Heidi Puga at [phone]. If this radiologist is unavailable, youwill be directed to [facility] radiologist to assist. If you are a patient with a question regarding this report, pleasecontactyour referring physician directly. Professional Interpretation Provided By: [employer], Phone , These documents contain legally protected [...] 2 1027 Sign by: Johnnie Huizar MD 21-Api-549778:04 Vitamin D Hydroxy (64437) Comments: PATIENT WAS FASTINGPERFORMED BY: [facility] HospitalPsovme4672 [facility] [id number] Vitamin D, 25-Hydroxy 48.9 ng/mL (Normal) Range: 30.0-100.0 Comments: Vitamin D deficiency has been defined by the [place] ofMedicine and an Endocrine Society practice guideline as alevel of serum 25-OH vitamin D less than 20 ng/mL (1,2).The Endocrine Society went on to further define vitamin Dinsufficiency as a level between 21 and 29 ng/mL (2).1. IOM ([place] of Medicine). 2010. Dietary reference intakes for calcium and D. [place]: The National Academies Press.2. Darren MF, Reji NC, Kal BUTT, et al. Evaluation, treatment, and prevention of vitamin D deficiency: an Endocrine Society clinical practice guideline. JCEM. 2011 Pastor; 96(7):1911-30. :04 CBC WITH MANUAL DIFF Comments: PATIENT WAS FASTINGPERFORMED BY: LYSSA [facility] EntertainmentTrenton Psychiatric HospitalJwnwcf3677 [facility] [id number] Information: [id number] (81618) Immature Grans (Abs) 0.0 {x10E3/uL} (Normal) Range: [...] 3.77-5.28 WBC 9.9 {x10E3/uL} (Normal) Range: 4.0-10.5 :04 METABOLIC PANEL, COMPREHENSIVE Comments: PATIENT WAS FASTINGPERFORMED BY: [facility] EntertainmentTrenton Psychiatric HospitalZessrq0849 [facility] [id number] (80506) ALT (SGPT) 22 [iU]/L (Normal) Range: 0-40 [...] Glucose, Serum 90 mg/dL (Normal) Range: 65-99 61-Ger-040264:04 TSH (40102) Comments: PATIENT WAS FASTINGPERFORMED BY: [employer] [facility] Xmkese7251 [facility] [id number] TSH 2.560 {uIU/mL} (Normal) Range: 0.450-4.500 99-Fqw-561458:04 LIPID PANEL (07617) Comments: PATIENT WAS FASTINGPERFORMED BY: [facility] Xkynsn0227 [facility] [facility] [id number] LDL/HDL Ratio 1.0 {ratio_units} (Normal) Range: 0.0-3.2 LDL Cholesterol Calc 81 mg/dL (Normal) Range: 0-99 VLDL Cholesterol Julianne 13 mg/dL (Normal) Range: 5-40 HDL Cholesterol 78 mg/dL (Normal) Comments: According to ATP-III Guidelines, HDL-C >59 mg/dL is considered anegative risk factor for CHD. Triglycerides 67 mg/dL (Normal) Range: 0-149 Cholesterol, Total 172 mg/dL (Normal) Range: 100-199 :29 DORSAL SPINE,3 VIEWS Radiology Report See Note [...] 11/27/10 1506 Sign by: DWAYNE WILSON MD 3-Bgz-994784:40 CHEST, PA AND LATERAL Radiology Report See [...] MD on 07/26/10 1404 Sign by : El MAYER,Eileen :11 SED RATE ERYTHROCYTE (64371) Comments: PATIENT NOT FASTINGPERFORMED BY: CB [facility] [id number] [facility] [id number] Sedimentation Rate-Westergren 2 mm/h (Normal) Range: 0-56 Comments: Please note reference interval change :11 C-REACTIVE PROTEIN (53277) Comments: PATIENT NOT FASTINGPERFORMED BY: CB [facility] Zqatzd9736 [facility] [place] [id number] C-Reactive Protein, Quant 1.8 mg/L (Normal) Range: 0.0-4.9 :11 TSH (89789) Comments: PATIENT NOT FASTINGPERFORMED BY: CB [facility] Hepmgg6006 [facility] [id number] Information: [id number]; appt 07/31/10 TSH 1.950 {uIU/mL} (Normal) Range: 0.450-4.500 57-Mcq-394791:29 UNILAT LT DIAG DIGITAL & CAD Radiology [...] diagnostic mammogram of June 15, 2010, on [facility]. TECHNIQUE: Digital examination. Left true lateral and [...] 07/03/10 1659 Sign by: EMERY WILLIAM MD 55-Dgc-971443:05 BILAT SCRN DIGITAL & CAD Radiology Report [...] on 06/12/10 1427 by NATALIIA MAYER,EMERYTranscribed on 06/13/10 09 by ITS IMPORTSign by EMERY WILLIAM MD on 06/13/10935 Sign by: EMERY WILLIAM MD 35-Cox-642625:05 DEXA BONE DENSITY STUDY (HP) Radiology Report See Note (Normal) Comments: CLINICAL:Female, 49 years old. The patient is postmenopausal. EXAMINATION:DUAL ENERGY X-RAY ABSORPTIOMETRY / DEXA. TECHNIQUE:Bone Mineral Density (BMD) measurements of lumbar spine and bila teralhipswer e obtained using a [facility] scanner.. COMPARISON:Comparison is made with prior examination [...] on 06/12/101824 Sign by: Johnnie Huizar MD 09-Sao-332900:51 Microscopic Examination Comments: PATIENT NOT FASTINGPERFORMED BY: LocalBonus6370 [facility] [id number] Bacteria None seen (Normal) Epithelial Cells (non renal) 0-10 {/hpf} (Normal) Range: 0 - 10 RBC 0-3 {/hpf} (Normal) Range: 0 - 3 WBC 0-5 {/hpf} (Normal) Range: 0 - 5 18-Aua-237211:51 Anti-TPO Antibody (90338) Comments: to repeat in 2-3 weeks; PATIENT NOT FASTINGPERFORMED BY: Eligible70 [facility] [id number] Thyroid Peroxidase (TPO) Ab 270 {IU/mL} (Abnormal) Range: 0-34 05-Oza-359539:51 TSH (92745) Comments: PATIENT NOT FASTINGPERFORMED BY: Eligible70 [facility] [id number] TSH 9.900 {uIU/mL} (Abnormal) Range: 0.450-4.500 :51 T4, FREE (THYROXINE) (24959) Comments: PATIENT NOT FASTINGPERFORMED BY: [facility]6370 [facility] [id number] T4,Free(Direct) 1.13 ng/dL (Normal) Range: 0.82-1.77 :51 T3, FREE (TRIDOTHYRONINE) (98856) Comments: PATIENT NOT FASTINGPERFORMED BY: [facility]6370 [facility] [id number] Triiodothyronine,Free,Serum 2.7 pg/mL (Normal) Range: 2.0-4.4 :51 URINALYSIS, W/ MICRO Comments: patient to repeat in 2-3 weeks; PATIENT NOT FASTINGPERFORMED BY: [facility]6370 [facility] [id number] Information: [id number] (21837) Microscopic Examination See below: (Normal) Bilirubin Negative (Normal) Ketones Negative (Normal) Microscopic Examination MICRON (Normal) Comments: Microscopic follows if indicated. Nitrite, Urine Negative (Normal) Occult Blood Negative (Normal) Urobilinogen,Semi-Qn 0.2 mg/dL (Normal) Range: 0.0-1.9 Glucose Negative (Normal) Protein Negative (Normal) WBC Esterase Negative (Normal) Appearance Clear (Normal) Urine-Color Yellow (Normal) pH 6.0 (Normal) Range: 5.0-7.5 Specific [place] 1.018 (Normal) Range: 1.005-1.030 :34 Microscopic Examination Comments: PATIENT WAS FASTINGPERFORMED BY: [facility]6370 [facility] [id number] Bacteria Few (Normal) Mucus Threads Present (Normal) Epithelial Cells (non renal) 0-10 {/hpf} (Normal) Range: 0 - 10 RBC 0-3 {/hpf} (Normal) Range: 0 - 3 WBC 0-5 {/hpf} (Normal) Range: 0 - 5 7-Aep-769480:34 Vitamin D Hydroxy (56059) Comments: PATIENT WAS FASTINGPERFORMED BY: [facility] Qrjyvf0986 [facility] [id number] Vitamin D, 25-Hydroxy 53.3 ng/mL (Normal) Range: 32.0-100.0 Comments: Recent studies consider the lower limit of 32.0 ng/mL to be athreshold for optimal health.Manuel ALATORRE. J Nutr. 2004;135(2):317-22. 7-Aza-353017:34 METABOLIC PANEL, COMPREHENSIVE Comments: PATIENT WAS FASTINGPERFORMED BY: [facility] Cyarra3521 Tee [facility]inte[facility]UNC [facility] [id number] (79138) ALT (SGPT) 18 [iU]/L (Normal) Range: 0-40 [...] Glucose, Serum 85 mg/dL (Normal) Range: 65-99 4-Mzd-137714:34 CBC WITH MANUAL DIFF Comments: PATIENT WAS FASTINGPERFORMED BY: [facility]6370 [facility] [id number] Information: [id number] (91592) Immature Grans (Abs) 0.0 {x10E3/uL} (Normal) Range: [...] (Normal) Range: 4.0-10.5 :34 URINALYSIS, W/ MICRO (34957) Comments: PATIENT WAS FASTINGPERFORMED BY: [facility] EntertainmentZachary [place] [id number] [facility] [id number] Bilirubin Negative (Normal) Microscopic Examination MICRON (Normal) Comments: Microscopic follows if indicated. Microscopic Examination See below: (Normal) Nitrite, Urine Negative (Normal) Urobilinogen,Semi-Qn 0.2 mg/dL (Normal) Range: 0.0-1.9 Ketones Negative (Normal) Occult Blood Negative (Normal) Glucose Negative (Normal) Protein Trace (Normal) Appearance Clear (Normal) WBC Esterase Negative (Normal) pH 7.0 (Normal) Range: 5.0-7.5 Urine-Color Yellow (Normal) Specific [place] 1.024 (Normal) Range: 1.005-1.030 :34 TSH (68495) Comments: PATIENT WAS FASTINGPERFORMED BY: LabCoZachary Ville [id number] [facility] [id number] TSH 8.410 {uIU/mL} (Abnormal) Range: 0.450-4.500 :34 LIPID PANEL (84224) Comments: PATIENT WAS FASTINGPERFORMED BY: LabCo[address] [id number] LDL/HDL Ratio 1.1 {ratio_units} (Normal) Range: 0.0-3.2 LDL Cholesterol Calc 76 mg/dL (Normal) Range: 0-99 HDL Cholesterol 70 mg/dL (Normal) Comments: According to ATP-III Guidelines, HDL-C >59 mg/dL is considered anegative risk factor for CHD. VLDL Cholesterol Julianne 11 mg/dL (Normal) Range: 5-40 Cholesterol, Total 157 mg/dL (Normal) Range: 100-199 Triglycerides 55 mg/dL (Normal) Range: 0-149 36-Kwx-508631:43 Thin prep Pap Comments: Source.............Cervical;EndocervicalNo. of containers..01 CYTYC Thin Prep VialPATIENT NOT FASTINGPERFORMED BY: WB [facility] [address] Yasmin WHITTAKER [id number] Information: [id number] (45503) Note: PAPSMR (Normal) Comments: The Pap smear [...] present.V72.31 ; Routine gynecolog ical examtiff Jang Director [facility] (ASCP) :27 ANTI-CCP 247489 5 {units} (Normal) Range: 0-19 Comments: Negative [...] < 10.0 {IU/mL} (Normal) :27 VIT D,25 86379 34.5 ng/mL (Normal) Range: 32.0-100.0 Comments: Recent studies consider the lower limit of 32.0 ng/mL to pepe threshold for optimal health.Manuel ALATORRE. J Nutr. 2004;135(2):317-22.Performed at: [facility] LabfarmhoppingJoshua V[place] [address] [place], [place] [id number] Director: Jeff Mirza MDPerformed at: [address] [id number] Director: Pako Barajas MD 34-Wqw-141516:07 Pap IG, HPV-hr Comments: Source.............Cervical;EndocervicalNo. of containers..01 CYTYC Thin Prep VialPERFORMED BY: WB [employer] GmbHton120 [facility], [place] [id number] BY: =G [employer] GmbHton12 0 [facility], [place] [id number] Information: [id number] HPV, high-risk Negative Comments: This high-risk HPV [...] present.V72.31 ; Routine gynecological examinationJames Fracisco Castillo, Director Of [facility] (ASCP) 30-Msr-06282:58 BILAT SCRN DIGITAL & CAD Radiology Report See Note (Normal) Comments: Exam Number: [id number] DIGITAL BILATERAL MAMMOGRAM HISTORYThis is a 48-year-old [...] mammograms werealso examined with computer-aided detection software ([employer], [employer], Data[employer].). Reported By: JOHNNIE HUIZAR 97-Mhq-711392:05 Thin prep Pap Comments: Source.............Cervical;EndocervicalLMP / Prev Treat...POQ=[id number]. of containers..01 CYTYC Thin Prep VialPATIENT NOT FASTINGClinical Information: [id number] PERFORMED BY: [employer] ([address]) [address] [id number] . . (Normal) DIAGNOSIS: SPRCS (Normal) Comments: UNSATISFACTORY FOR EVALUATION.Suggest follow up as clinically appropriate.Specimen processed and examined but unsatisfactory for evaluation becauseof insufficient cellularity.V72.31 ; Routine gynecologi julianne Latanya Jang, Director Of [facility] (ASCP)Rhianna Wick, Supervisory Director Of [facility] (ASCP) Note: PAPSMR (Normal) Comments: The Pap [...] resulttherefore, no HPV testing was performed. . 83-Hbq-358644:04 ELBOW,MIN 3 VIEWS (MT) Radiology Report See Note (Normal) Comments: Exam Number: [id number] CLINICAL:Injured as a child, no recent injury, [...] delineated above. Reported By: ANJANA IRENE M.D. 98-Uvy-946187:07 Thin prep Pap Comments: Source.............Cervical;EndocervicalLMP / Prev Treat...CNP=932308Oo. of containers..01 CYTYC Thin Prep VialPATIENT NOT FASTINGClinical Information: ADD [id number] PERFORMED BY: [employer] ([address]) [address] [id number] . . (Normal) DIAGNOSIS: SPRCS (Normal) Comments: NEGATIVE FOR INTRAEPITHELIAL LESION AND MALIGNANCY.CELLULAR CHANGES ASSOCIATED WITH ATROPHY ARE PRESENT.THIS SPECIMEN WAS RESCREENED PART OF OUR PAPER CUTTING MACHINE OPERATOR PROGRAM.Satisfactory for e valuation. Endocervical and/or squamous metaplasticcells (endocervical component) are present.V72.31 ; Routine gynecological examinationLinleo Monroe, Director Of [facility] (ASCP)Janice Bryant, Supervisory Director Of [facility] (ASC) Note: PAPSMR (Normal) Comments: The Pap smear [...] resulttherefore, no HPV testing was performed. . 19-Ujs-01667:37 BILAT SCRN DIGITAL & CAD Radiology Report See Note (Normal) Comments: Exam Number: [id number] BILATERAL DIGITAL SCREENING MAMMOGRAM WITH COMPUTER-ASSISTED DETECTION [...] The mammogramswere also examined with computer-aided detection software([employer], [employer]el, DataContact.). Reported By: OCHOA CAM M.D. 79-Chw-10540:36 DEXA BONE DENSITY STUDY () Radiology Report See Note (Normal) Comments: Exam Number: [id number] DEXA BONE DENSITY STUDY COMPARISONSept2006. HISTORYOsteopenia, postmenopausal. Hologic unit was used for assessment. The lumbar spine is measured from L1 thr ough L4. Th e average bonemineral density was calculated to be 0.914 g/cm2 with a T-score of-1.2 and a Z-score of -0.5. Compared to the previous study ofSe2006, the bone density has increased by 0.9%, which isnot significant. The left hip was also assessed. The left femoral neck had a bonemineral density of 0.578 with a T-score of -2.4 and a Z-score of-1.8. For the total left hip, the BMD was measu red at 0.734 g/it4vuoo a T-score of -1.7 and a Z-score of -1.3. Compared to theprevious study of 2006, the bone density of the total left hip hasincreased 0.4%, which is not significant. IMPRESSIONThe patient meets WHO criteria for osteopenia with moderate increasedrisk for fracture. There has been no significant change from theprevious study of 2006. Reported By: OCHOA CAM M.D. 4-Ypx-050056:0 GLU GTT-2 HOUR 91 mg/dL (Normal) Comments: 2HR GTT GLU 2 HR GLU GTT-2 HOUR from 508:I04556R. 3 Range: 70-120 8-Bkk-681448:1 GLU GTT-1 HOUR 105 mg/dL (Abnormal) Comments: 2HR GTT GLU 1 HR GLU GTT-1 HOUR from 0509:A85787V. 5 Range: 120-170 3-Pqw-926384:2 GLU GTT-30 min. 106 mg/dL (Abnormal) Comments: 2HR GTT GLU 1/2 HR GLU GTT-30 min. from 508:B89595V. 5 Range: 110-170 0-Gbc-466970:5 GLU GTT-FASTING 75 mg/dL (Normal) Comments: 2HR GTT FASTING GLU GTT-FASTING from 508:A68009N. 0 Range: 70-110 Comments: GLUCOSE TOLERANCE TEST Reference Interval Non- Adults Fasting 70 - 110 30 minutes 110 - 170 1 hour 120 - 170 2 hour 70 - 120 3 hour 70 - 110 4 hour 70 - 110 5 hour 70 - 110 4-Wci-644655:22 CBCD,SMEAR DIFF BAND 3 % (Normal) Range: [...] T PROT 7.3 g/dL (Normal) Range: 6.4-8.2 :22 ESTROGEN 4549 38 pg/mL (Normal) Comments: Prepubertal <40 Female Cycle: 1-10 Days 61 - 394 11-20 Days 122 - 437 21-30 Days 156 - 350 Post-Menopausal <40 HMG Treatment for Ovulation Induction: 400 - 800Performed At: [facility] Gncqke5299 [place], [place] [id number] At: BNLabMalik V[place] [address] [place], [place] [id number] 9-Djc-334585:22 LIPID CHOL 169 mg/dL (Normal) Comments: <200 [...] mg/dL VLDL 9 mg/dL (Normal) Range: 5-40 9-Rwm-623529:22 PROGESTER. 4317 0.2 ng/mL (Normal) Comments: Female: Follicular 0.2 - 1.4 Luteal 3.3 - 25.6 Mid-luteal 4.4 - 28.0 Postmenopausal 0.0 - 0.7 : 1st Trimester 11.2 - 90.0 2nd Trimester 25.5 - 89.4 3rd Trimester 48.4 - 422.5 7-Ffo-815713:22 TESTOST [id number] TESTOSTER %FREE 1.84 % (Normal) Range: 0.50-2.80 TESTOSTER,FREE 0.52 ng/dL (Normal) Range: 0.10-0.85 TESTOSTER,TOTAL 28 ng/dL (Normal) Range: 14-76 5-Ozr-075178:22 TSH 3.87 {uIU/mL} (Normal) Range: 0.34-4.82 :50 HgA1C , Office (12902) HgA1C , Office 5.1 % (Normal) Range: 4.6 - 7.1 :50 Blood Glucose , Office (37522) Blood Glucose , Office 97 (Normal) :18 [...] 47-70 WBC 6.3 K/mm3 (Normal) Range: 4.4-11.0 55-Gqu-484197:18 COMP METABOLIC Comments: RESULTS FAXED 05/11/07 2701 MELYSSA VALDEZ. A/G 1.2 {RATIO} (Normal) Range: [...] mg/dL (Normal) Range: 70-110 :55 CALC U24 3269 Comments: PATIENT SPECIMEN IS 25 MINUTES OVER THE SUGGESTED 24 HOURCOLLECTION TIME CALCIUM,U [address]63 7.1 mg/dL (Normal) CALCIUM,U24 92.3 {mg/24_hr} (Abnormal) Range: 100.0-300.0 Comments: Performed At: [address] [id number] :14 CBCD,SMEAR DIFF BAND 1 % (Normal) [...] PHOS 2.7 mg/dL (Normal) Range: 2.5-4.9 :14 PROT.[id number] ALBUMIN,UR 33.7 % (Normal) PSTUM-5-EHKG,U 4.3 % (Normal) CTWWV-1-TCGS,U 23.7 % (Normal) BETA GLOB,U 29.6 % (Normal) GAMMA GLOB,U 8.7 % (Normal) M-SPIKE,U SeeNote % (Normal) Comments: Result: Not Observed NOTE Comment (Normal) Comments: Protein electrophoresis scan will follow via mail orcourier. PROTEIN,UR 11.2 mg/dL (Normal) Range: 0.0-15.0 :14 PTH,[id number] PTH,Intact 24 pg/mL (Normal) Range: 12-65 Comments: Performed At: [address] [id number] :14 SPE [id number] A/G RATIO 1.7 (Normal) Range: 0.7-2.0 ALBUMIN [...] {uIU/mL} (Normal) Range: 0.34-4.82 :14 VITD 1,25 66737 24.3 pg/mL (Normal) Range: 15.9-55.6 Comments: Performed At: CBL[address] [id number] At: BNLabCo[address] [id number] 24-Udk-489438:11 BILAT SCRN DIGITAL & CAD Radiology Report See Note (Normal) Comments: Exam Number: [id number] BILATERAL SCREENING MAMMOGRAM COMPARISONComparison study October 03, [...] mammogramswere also examined with computer-aided detection soft duvall([employer] Reported By: CHARAN QUIJANO M.D. 08-Lyr-904044:09 DEXA BONE DENSITY STUDY (HP) Radiology Report See Note (Normal) Comments: Exam Number: [id number] BONE DENSITOMETRY HISTORYOsteopenia. TECHNIQUE Bone densitometry of [...] density is measured at 3.8% less than lg3245. The T- value of the left femoral neck is -2.5 which is in the range ofosteoporosis. The T-value of the total left hip is -1.7 which is in the range ofosteopenia. Bone mineral density is measured at 12.5% less than fc1465. IMPRESSIONThere is osteopenia of the lumbar spine and total left hip. Reported By: EMERY WILLIAM M.D. 45-Ouh-473033:15 Urinalysis, Office (30223) UA - BILIRUBIN Negative (Normal) UA - [...] $$$ <=16 S TRIMETHOPRIM/SULFAMETHOXAZ $$ >=320 R :51 Urinalysis, Office (20921) UA - BILIRUBIN Negative (Normal) UA - [...] MONTHS Indication: Hyperglyceridemia Planned Observations LIPID PANEL (59901)Indication: Encounter for screening for lipid disorder On: 85-Hpy-883085:37 Request IRON (00546)Indication: Hematest positive stools On: 86-Nen-507835:24 Request CBC with manual diff (17685)Indication: Hematest positive stools On: 04-Zxs-699459:23 Request Thin prep Pap (97858)Indication: Well woman exam with routine gynecological exam On: : Request LIPID PANEL (25898)Indication: Low HDL (under 40) On: 76-Gtw-583885:25 Request LIPID PANEL (42113)Indication: Hyperglyceridemia On: : Request HEPATIC FUNCTION PANEL (47967)Indication: Elevated LFTs On: : Request MONA CULTURE-BLOOD (83013)Indication: syncope On: 86-Vnv-163763:14 Request Comments: x2 METABOLIC PANEL, COMPREHENSIVE (90837)Indication: syncope On: 81-Dxv-236724:14 Request CBC WITH MANUAL DIFF (96967)Indication: syncope On: 96-Fax-824073:14 Request METABOLIC PANEL, COMPREHENSIVE (49404) On: : Request HEPATIC FUNCTION PANEL (32458)Indication: Low HDL (under 40) On: 29-Oqw-109501:31 Request LIPID PANEL (12702)Indication: Low HDL (under 40) On: : Request METABOLIC PANEL, COMPREHENSIVE (03167)Indication: Osteopenia On: :29 Request CBC WITH MANUAL DIFF (47348)Indication: Osteopenia On: :29 Request VITAMIN D, 1, 25-DIHYDROXY (56014)Indication: Osteopenia On: : Request URINE CALCIUM MAE TIMED 24 Hour (87676)Indication: Osteopenia On: :28 Request UPEP (71707)Indication: Osteopenia On: :28 Request SPEP (13810)Indication: Osteopenia On: :28 Request TSH (72942)Indication: Osteopenia On: :28 Request PHOSPHORUS (97056)Indication: Osteopenia On: 62-Htw-699004:28 Request PARATHORMONE (14011)Indication: Osteopenia On: :28 Request Thin prep Pap (64068)Indication: Well woman exam with routine gynecological exam On: 60-Tdp-518258:13 Request LIPID PANEL (49626)Indication: Hyperglyceridemia On: :56 Request HEPATIC FUNCTION PANEL (77908)Indication: Hyperglyceridemia On: :56 Request Comments: 6mos Planned Procedures DEXA SCAN AXIAL SKELETON (14941)By: On: 30-Jan-2018 Intent Irma Vásquez DO, DO, Kathleen SCREENING DIGITAL TOMOSYNTHESIS OF On: 30-Jan-2018 Intent BREAST (77499)By: Irma Vásquez DO, DO, Kathleen MAMMOGRAM BREAST BILATERAL On: 13-Jan-2018 Intent SCREENING DIGITAL (92310)By: Irma Vásquez DO, DO, Kathleen Wax CurettesBy: Irma Vásquez DO On: 23-Apr-2017 Intent Irma Vásquez DO Ear Irrigation (69230)By: Rachel On: 23-Apr-2017 Irma Frances DO, DO, Kathleen Comments: Bilateral ear irrigated with warm water and debrox solution Wax currettes usedSmall amount of yellow cerumen removed Pt tolerated well MSMITH,MECHANICAL PROJECT ENGINEER X-RAY LEFT KNEE, 3 VIEWS (04314)By: On: 24-Jan-2017 Intent Irma Vásquez DO, DO, Kathleen Flu Vaccine (Quadrivalent) 72901Ns: On: 10-Dec-2016 Intent Irma Vásquez DO, DO, Comments: lot: [id number]: 08/04/17ite/route: L ori, IMamt: 0.5mlVIS and ABN signed when applicableChelsJOLEEN alcaraz Irma SCREENING DIGITAL TOMOSYNTHESIS OF On: 10-Dec-2016 Intent BREAST (14973)By: Mari Ruvalcaba Aerosol Treatment (00126)By: Wolfgang On: 14-Nov-2015 Intent MECHANICAL PROJECT ENGINEER, Masha Aerosol Treatment (55385)By: Rachel On: 07-Jun-2015 Intent Irma GRANGER DO, Kathleen Comments: more a/e more noise Aerosol Treatment (83260)By: Wolfgang On: 02-Jun-2015 Intent MECHANICAL PROJECT ENGINEER, Masha BILATERAL MAMMOGRAMS (67824)By: On: 06-Apr-2015 Intent Alison Rodriguez DO Carotid DopplerBy: Alison Rodriguez DO On: 11-Aug-2013 Intent MAMMOGRAM, SCREENING, BOTH BREAST On: 06-Aug-2013 Intent (61652)By: Alison Rodriguez DO Comments: dec MAMMOGRAM, SCREENING, BOTH BREASTS On: 07-Dec-2012 Intent (16194)By: Alison Rodriguez DO Comments: dec Eprescribed prescriptions On: 07-Dec-2012 Intent (G8553)By: Julia Bermudez Eprescribed prescriptions On: 19-Aug-2012 Intent (G8553)By: Julia Bermudez DXA, BONE DENSITY, AXIAL SKELETON On: 26-Jun-2012 Intent (56551)By: Alison Rodriguez DO IMMUNIZ ADMNIN, 1 VAC, SNGL/COMBO On: 28-Nov-2011 Intent (44331)By: Kim Naidu LPN Comments: Lot #:[id number] date:04.29Amount given:prefilled syringeSite given:L Dltd, IMGiven by: MALLY Flores signed FLU VAC, SPLIT, >3 YEARS, INTRAMUSC On: 28-Nov-2011 Intent (98776)By: Kim Naidu LPN Aerosol Treatment (32079)By: Alissa On: 02-Aug-2011 Intent Rosie VAN MAMMOGRAM, SCREENING, BOTH BREASTS On: 29-May-2011 Intent (47221)By: Alison Rodriguez DO Aerosol Treatment (52961)By: Alissa On: 23-Apr-2011 Intent Rosie VAN Pneumovax (49581)By: Roger CARRERA, On: 14-Jan-2011 Intent Valentina Solares Comments: Lot #[id number]- L arm, IMDose 0.5mlgiven by:zee PALUMBO VAC, SPLIT, >3 YEARS, INTRAMUSC On: 27-Nov-2010 Intent (86000)By: Princess Beavers Comments: Lot #:[id number] date:mount given:0.5mlRoute: IMSite given:left deltGiven by: LEATHA Flores - Thoracic SpineBy: Michael On: 27-Nov-2010 Intent Alison GRANGER PNEUM VAC ADLT/IMUMNOSPR, SBC/INTRM On: 27-Nov-2010 Intent (51381)By: Princess Beavers Comments: received in 2004 IMMUNIZ ADMNIN, 1 VAC, SNGL/COMBO On: 27-Nov-2010 Intent (96308)By: Princess Beavers Eprescribed prescriptions On: 19-Jun-2010 Intent (G8553)By: Alison Rodriguez DO Radiology - Chest- PA and LatBy: On: 19-Jun-2010 Intent Alison Rodriguez DO Wax CurettesBy: Ciesa HEARING THERAPISTRosie On: 25-May-2010 Intent Ear Irrigation (76733)By: Ciesa On: 25-May-2010 Intent Rosie VAN E Ear Irrigation (98899)By: Rachel On: 21-May-2010 Intent Irma GRANGER DO, Kathleen Comments: L Wax CurettesBy: Irma Vásquez DO On: 21-May-2010 Intent Irma Vásquez DO DXA, BONE DENSITY, AXIAL SKELETON On: 27-Apr-2010 Intent (56400)By: Princess Beavers MAMMOGRAM, SCREENING, BOTH BREASTS On: 27-Apr-2010 Intent (29513)By: Princess Beavers Wax Currettes (29789)By: Michael GRANGER, On: 27-Jan-2009 Intent Alison Fitzgerald Ear Irrigation (25204)By: Michael GRANGER, On: 27-Jan-2009 Intent Alison Fitzgerald Comments: done by [facility] TDAP VACCINE >7 IM (12693)By: Michael On: 27-Jan-2009 Alison Frances DO Comments: Lot #[id number]/17/2011Site-left deltoidDose0.5mlgiven by Zenobia English LPN MAMMOGRAM, SCREENING, BOTH BREASTS On: 27-Jan-2009 Intent (15750)By: Alison Rodriguez DO FLU VAC, SPLIT, >3 YEARS, INTRAMUSC On: 25-Nov-2008 Intent (35669)By: Moriah Mosley LPN IMMUNIZ ADMNIN, 1 VAC, SNGL/COMBO On: 25-Nov-2008 Intent (71938)By: Moriah Mosley LPN Comments: lot # [id number]-ZCwhni- 0.5ML tolerated well Paulette Wax CurettesBy: Alison Rodriguez DO On: 08-Aug-2008 Intent Ear Irrigation (82783)By: Micahel GRANGER, On: 08-Aug-2008 Intent Alison A Comments: done km b/l pt tolerated well Spirometry (13212)By: Michael GRANGER, On: 08-Aug-2008 Intent Alison A Comments: done kmgood effort and curve normal Aerosol Treatment (50847)By: Michael On: 08-Aug-2008 Intent Alison GRANGER Comments: done km with albuterol 0.83% pt tolerated well Inhaler Demo (04097)By: Michael GRANGER, On: 11-Apr-2008 Intent Alison A Spirometry (80896)By: Michael GRANGER, On: 11-Apr-2008 Intent Alison A Comments: good effort and curve mild airway obstruction Pulse Oximetry (62323)By: Michael GRANGER On: 11-Apr-2008 Intent Alison A Comments: 97% on room air Radiology - Elbow - LeftBy: Micheal On: 11-Apr-2008 Intent Alison GRANGER FLU VAC, SPLIT, >3 YEARS, INTRAMUSC On: 22-Dec-2007 Intent (96308)By: Pamela Kelly RN Comments: Lot #:[id number] date:07/26Amount given:0.5mlRoute: imSite given:Right deltoidGiven by: Amilcar Obrien LPN IMMUNIZ ADMNIN, 1 VAC, SNGL/COMBO On: 22-Dec-2007 Intent ([id number])By: Pamela Kelly RN MAMMOGRAM, SCREENING, BOTH BREASTS On: 11-Nov-2007 Intent ([id number])By: Alison Rodriguez DO Aerosol Treatment ([id number])By: Alissa On: 02-Nov-2007 Intent Rosie VAN Comments: waiver signed Pulse Oximetry ([id number])By: Alissa On: 02-Nov-2007 Intent Rosie VAN Comments: waiver signed 96% r/a MAMMOGRAM, SCREENING, BOTH BREASTS On: 15-Sep-2007 Intent ([id number])By: Alison Rodriguez DO DXA, BONE DENSITY, AXIAL SKELETON On: 15-Sep-2007 Intent (51493)By: Alison Rodriguez DO Echo CompleteBy: Alison Rodriguez DO On: 11-May-2007 Intent IV Needle placement (42026)By: On: 11-May-2007 Intent TYE Elena Comments: #22 gauge needle placed to right anticub area without difficulty per karo INFUSION, NORMAL SALINE 1000 mlBy: On: 11-May-2007 Intent TYE Elena Comments: Lot #:[id number] date:09-25 Amount given:1000 ml Route: IV Site given:right anticub Given by: karo EKG (90749)By: Alison Rodriguez DO On: 11-May-2007 Intent Comments: rsr with no acute st/t changes-- normal sinus with normal axis Aerosol Treatment (17518)By: Michael On: 11-May-2007 Alison Frances DO Pulse Oximetry (07493)By: Michael GRANGER, On: 11-May-2007 Intent Alison A Ear Irrigation (52982)By: Michael GRANGER, On: 09-Dec-2006 Intent Alison A Flu Vaccine, Split IM (70678)By: On: 09-Dec-2006 Intent Alison Rodriguez DO Comments: given in left deltoid, 0.5cc, lot#[id number], exp.6.30.08 WF DXA, BONE DENSITY, AXIAL SKELETON On: 15-Oct-2006 Intent (11356)By: Alison Rodriguez DO Comments: see if because high risk on prednisone her insurance will cover yearly MAMMOGRAM, SCREENING, BOTH BREASTS On: 15-Oct-2006 Intent (66456)By: Alison Rodriguez DO Instructions Name Dates Details [...] [facility], [ADDITIONAL REASON] [...] fever, chills, nausea or vomiting. The pat robin is not currently being treated for this [...] End: 19-Aug-2005 12:06 Payers Fan AVALOS/Mark Haywood; a guarantor
--- OUTSIDE RECORDS SUMMARY | 2018-05-09 08:54 | XMS RPT_ITS ---
:1960 Author Organization OHIP Care Team Providers Name Role Phone Irma Vásquez DO Attending Unavailable Alison Rodriguez DO Referring Unavailable Irma Vásquez DO Consulting Unavailable Irma Vásquez Attending Unavailable Irma Vásquez Primary Care Unavailable Rachel, Irma Attending Unavailable Rachel, Irma Primary Care Unavailable Rachel, Irma Referring Unavailable Rachel, Irma Attending Unavailable Rachel, Irma Referring Unavailable Rachel, Irma Primary Care Unavailable Tati, Jasmine Attending Unavailable Rachel, Irma Referring Unavailable Nirmal, Mary Solares Attending Unavailable PROBLEMS PROBLEMS DATE TYPE CONDITION / CODE ATTENDING STATUS SOURCE 11/24/2017 Unknown N95.1 - Marcanthony, Active [place] Menopausal and General acute hospital climacteric Repository states / N95.1(ICD-10) 08/14/2017 Unknown R42 - Dizziness Rachel, Active [place]ana and giddiness / Irma [facility] R42(ICD-10) Hospital Repository PROCEDURES PROCEDURES No Procedure Records FoundRESULTS RESULTS SCREENING MAMM (CAD), Observed: 03/04/2018 Status: F Source: [place] BILAT 12:44 PM [facility] Imaging Services [address] [place] [address] SCREENING MAMM (CAD), BILAT MR#: [id number] Acct: [id number] Name: NORIS DOSS Rep #: [id number] : 1960 F 57 From: Johnnie Bejarano MD PCP: Irma Vásquez DO Status: REG CLI Study: SCREENING MAMM (CAD), BILAT Date of Exam: 03/04/18 Exam# [id number] Ordering Dr: Irma Vásquez DO MAMMOGRAPHY - BILATERAL SCREENING REASON FOR EXAM: Female, 57 years old. Routine annual screening examination. PERTINENT HISTORY: Non-contributory. TECHNIQUE: Digital bilateral breast lauro (3D mammographic acquisition) in the CC and MLO projections. 2-D mediolateral oblique (MLO) and craniocaudad (CC) views of both breasts were obtained. CAD: Full Field Digital Mammography with Computer Added Detection was performed. COMPARISON: Comparison is made with prior study dated January 20, 2017 and April 12, 2015. FINDINGS: Breast Composition: The breasts are heterogeneously dense, which may obscure small masses. There are no dominant masses or suspicious calcifications. No other significant abnormalities are identified. There has been no significant change since the prior study. BI/SCREENING MAMM (CAD), BILAT IMPRESSION: Stable bilateral screening mammogram. Yearly follow-up mammogram recommended. (A) ASSESSMENT CATEGORY: BIRADS Category 1: Negative. A letter regarding these results will be sent to the patient by the facility within 30 days. Approximately 10% of breast cancers are not detected by mammography. A normal mammogram should not delay biopsy of a clinically suspicious abnormality. [id number] Electronically Signed: Johnnie Bejarano MD at 14:16 EST Tel [phone], Service support , CC: Irma Vásquez DO Professor Of Musicology: Signed DEXA BONE DENSITY Observed: 02/12/2018 Status: F Source: [place] STUDY 3:28 PM [facility] [place] Imaging Services [address] [place] [address] Dexa Bone Density Study MR#: [id number] Acct: [id number] Name: NORIS DOSS Rep #: [id number] : 1960 F 57 From: Johnnie Bejarano MD PCP: Irma Vásquez DO Status: [facility] Study: Dexa Bone Density Study Date of Exam: 02/12/18 Exam# [id number] Ordering Dr: Irma Vásquez DO STUDY: DUAL ENERGY X-RAY ABSORPTIOMETRY / DXA REASON [...] Total: g/cm2 (0.753) / T-score (-2.0) / Z- score (-1.1) Left Femoral Neck: g/cm2 (0.677) / T-score (-2.6) / Z- score (-1.4) Right Femur Total: g/cm2 (0.805) / T-score (-1.6) / Z- score (-0.7) Right Femoral Neck: g/cm2 (0.753) / T-score (-2.0) / Z-score (-0.8) The T-Scores on the most recent prior examination were: Lumbar Spine (L1-L4): There has been improvement of bone density since the previous examination. Left Femur Total: which represents a worsening of 1.2%. Right Femur Total: which represents a worsening of 1.2%. BD/Dexa Bone Density Study IMPRESSION: The patient is considered osteopenic as outlined below according to World Erwin Organization (WHO) criteria with a high fracture risk. There has been worsening of bone density since the previous examination. Reference Information: The T-score is the number of standard deviations above or below the standard which is normal for young adults at their peak bone mineral density. The World Health Organization (WHO) interprets the T-scores as follows: Above -1 Normal bone density Between -1 and -2.5 Osteopenia Equal to / or below -2.5 Osteoporosis As a practical clinical guideline, osteopenia may be graded as follows: Mild -1 through -1.5 Moderate -1.6 through -2.0 Severe -2.1 through -2.4 The Z-score is the number of standard deviations above or below age-matched controls. A Z-score of less than -1.5 would be considered abnormal. References: 1. NIH Osteoporosis and Related Bone Diseases http://www.osteo.org 2. International Society for Clinical Densitometry http://www.iscd.org 3. National Osteoporosis Foundation http://www.nof.org Electronically Signed: Johnnie Bejarano MD at 10:13 EST Tel [phone], Service support , CC: Irma Vásquez DO Professor Of Musicology: Signed ELECTROMECHANICAL EQUIPMENT TESTER OFFICE VISIT Observed: 11/24/2017 Status: F Source: JANA REPORT 2:01 PM [facility] [address] [place] [address] OFFICE VISIT Date of Service: 11/24/17 MR#: [id number] Acct: [id number] Name: NORIS DOSS Rep #: [id number] : 1960 Provider: Jasmine Duffy MD Age/Sex: 57/F Location: [facility] Status: Signed Intake Vital Signs11/24/17 Height 5 ft 8.5 in 11/24/17 Weight: 148 lb 5 oz 11/24/17 Body Mass Index (BMI) 22.2 11/24/17 Blood Pressure 140/78 H Intake Visit Reasons: DISCUSS MENOPAUSE Chief Complaint: Menopause Consult Travel Administrator Required: No Is patient in pain?: No Allergies clindamycin Allergy (Mild, Verified 11/24/17 13:05) nausea epinephrine Allergy (Mild, Verified 11/24/17 13:05) heart palpitations Latex, Natural Rubber Allergy (Mild, Verified 11/24/17 13:05) rash levofloxacin [From Levaquin] Allergy (Mild, Verified 11/24/17 13:07) Other penicillin V Allergy (Mild, Verified 11/24/17 13:05) unknown Medications calcium carbonate 600 mg calcium (1,500 mg) tablet 600 mg PO ONCE tab 02/06/17 [History Confirmed 11/24/17] cholecalciferol (vitamin D3) 5,000 unit capsule 5,000 unit PO ONCE 02/06/17 [History Confirmed 11/24/17] levothyroxine 75 mcg tablet PO 02/06/17 [History Confirmed 11/24/17] magnesium 250 mg tablet 250 mg PO ONCE 02/06/17 [History Confirmed 11/24/17] Is last menstrual period known: No Post menopausal: Yes Patient : No : No [facility] Medical History Acute lymphoblastic leukemia (ALL) (Acute) Hypothyroidism (Chronic) Osteopenia (Chronic) ALL (acute lymphoid leukemia) in remission (Inactive) Surgical History History of tonsillectomy (Acute) Hx of appendectomy (Acute) Broken nose (Inactive) Elbow fracture (Inactive) Hx of appendectomy (Inactive) Hx of tonsillectomy (Inactive) Family History Mother Fibromyalgia Arthritis Social History Smoking Status: Never smoker alcohol intake: current details: social substance use type: does not use caffeine: Yes what type of physical activity do you participate in: walking frequency: 3-4 times per week seatbelt use: always do you feel safe at home: Yes additional social history: [employer]- Retired Patient works at [employer] HPI DISCUSS MENOPAUSE: Details: NORIS DOSS is a 57 year old who presents for management of menopausal symptoms. she started having symptoms when she was getting treatment for ALL in 2004. she was on gabaptentin until 2010 for hot flash treatments. since then she has had persistent but non debilitating symptoms. she co daytime hot flash symptoms are getting worse and wanting to have support. she hasn't done any hormonal therapies in the past, she has tried black cohosh and acupuncture, no improvements. she has taken other natural therapies with no improvement. Female Reproductive History Menopausal Symptoms: Yes hot flashes, Yes difficulty concentrating Pregancy History 2 Elective abortions Hx Para 2 Spontaneous abortions Past Pregnancies Del. DatName [place]/WeeksOutcome Route [facility] De Jesus Yarbrough [facility] LocaProviderFOB e ht en tn Unknown 1980 Liane Unknown 1982 Cor y ROS Const Constitutional: Denies poor appetite, headache(s), fever(s), increased appetite, weight gain, weight loss or fatigue Cardio Card: Denies chest pain Resp Resp: Denies dyspnea or cough GI GI: Reports as per HPI; denies vomiting, nausea, abdominal pain or constipation : Reports hot flashes; [...] normal facial exam Neck Neck: normal visual inspection, trachea midline, no lymphadenopathy Thyroid: thyroid normal Resp Effort AND Inspection: normal respiratory effort Musc Other: gross motor intact no deficits, full bilateral strength Skin General: no rashes or lesions noted Neuro Motor: muscle tone normal throughout Assessment AND Plan Problems 1. Climacteric N95.1 Plan discussed at length information about hormonal and nonhormonal treatments of menopause. discussed safety and efficacy. plan for relizen possibly, consider effexor. would not recommend HRT at this time. Coding Level of Care Code Off vis,new,level 4 Diagnoses Climacteric N95.1 11/24/17 1401 <Electronically signed by Jasmine Duffy MD> Date Jasmine Duffy MD [facility] Signature: Date (if applicable) CC: PT D/C SUMMARY (1) Observed: 08/14/2017 Status: F Source: [place] 1:15 PM [facility] [address] [place] [address]. [address] [place], [place] [address] Fax REHABILITATION SERVICES DISCHARGE SUMMARY MR#: [id number] Acct: [id number] Name: NORIS DOSS Rep #: [id number] : 1960 57 From: Sandy Jiang PT, Cert. MDT Referring Dr.: Irma Vásquez DO Status: REG RCR Insurance: [employer] SELF PAY INSURANCE HP - PT D/C Summary It has been my pleasure to treat NORIS DOSS under orders from Irma Vásquez, for the diagnosis of VERTIGO AND CERVICAL SPINE PAIN for a total of 8 visit(s). Discharge Date: 08/14/17 Please see the following [...] FOLLOW UP WITH DR. VÁSQUEZ NEEDED. IF PATIENT DOES NOT CONTINUE TO IMPROVE WITH TIME AND EX SHE MAY BE A GOOD DRY NEEDLING CANDIDATE. - D/C Information If there are questions or concerns regarding this patient's physical therapy, please feel free to call me at [phone]. Thank you for the referral of this patient. Sincerely, Sandy Jiang <Electronically signed by Sandy Jiang PT, Cert. MDT> 08/14/17 1315 CC: Irma Vásquez DO CHRIS Signed INITAL EVALUATION (1) Observed: 06/24/2017 Status: F Source: JANA - PT 12:26 PM [facility] [address] [place] [address] Fax REHABILITATION SERVICES INITIAL EVALUATION MR#: [id number] Acct: [id number] Name: NORIS DOSS Rep #: [id number] : 1960 56 From: Sandy Jiang PT, Cert. MDT Referring Dr.: Irma Vásquez DO Status: REG RCR Insurance: [employer] SELF PAY INSURANCE Patient's Visit Information NORIS DOSS is a 56 year old F referred to Physical Therapy by Irma Vásquez with a diagnosis of VERTIGO AND CERVICAL SPINE PAIN. Date of Evaluation: 06/24/17 Physical Therapist: Sandy Jiang - Visit Plan Frequency: 1x/Week Duration: 8 VISITS Plan: CERVICAL DEEP TISSUE MASSAGE. POSTURE CORRECTION/STRENGTHENING, INSTRUCTION IN APPROPRIATE BODY MECHANICS AND ACTIVITY MODIFICATIONS. CARMEL UE ROM, STRETCHING AND STRENGTHENING. HEP INSTRUCTION. - Subjective Subjective: Diagnosis: VERTIGO AND CERVICAL SPINE PAIN. 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 Disability: NO. Present symptoms: CARMEL NECK PAIN. Present since: 30 YEARS. Pain Scale: WORST 6/10, LEAST 0/10. Currently: 0/10. Commenced as a result of: NO APPARENT REASON. Symptoms at onset: SAME. Worse: MAKING JEWLRY, LOOKING DOWN, WORK, LEANING OVER COMPUTER. Better: MASSAGE, CHIROPRACTIC, TYLONOL, DOING NOTHING. Disturbed sleep: YES. Previous history/Previous treatment: MASSAGE, CHIROPRACTIC, ACCUNCTURE. CURRENTLY SEEING CHIROPRACTOR. Dizziness: 99% GONE. Tinnitis: NO. Nausea: NO. Difficulty Swollowing: NO. Gait: NORMAL. Accidents: NO. Unexplained weight loss: NO. Imaging: NO HISTORY OF NECK X-RAY OR MRI PER PATIENT REPORT. PMH: HYPOTHYROIDISM, ALL CANCER 2005 - TREATED WITH CHEMO. I'VE BEEN TOLD I HAVE LOW BACK ISSUES TOO. Recent major surgery: BROKEN NOSE. OTHER: PATIENT REPORTS THAT SHE IS HERE FOR DEEP TISSUE MASSAGE. OPEN TO CORRECTIVE EX TOO. PATIENT IS QUESTIONING MASSAGE COVERAGE BY PHYSICAL THERAPY AND STATES SHE HAS UNLIMITED VISITS THROUGH HER INSURANCE - Objective Sitting Posture: FAIR. Standing Posture: FAIR. Active Correction of posture: NE. Other Observations: INDEP GAIT AND TRANSFERS. PATIENT DENIES BEING IN ANY ACUTE PAIN AND MOVEMENTS ARE NOT GUARDED. Motor deficit: CARMEL UE'S WFL. Sensory deficit: CARMEL UE LIGHT TOUCH SENSATION APPEARS GROSSLY INTACT AND SYMMETRICAL. ROM deficit: CARMEL UE ROM WFL. Dural Signs: NEGATIVE CARMEL UE'S. Cervical Mvmt Loss: Flex: MIN. Pro: NIL. Ext: MIN. Ret: MOD. RSB: MIN. LSB: MIN. R Rot: MOD. L Rot: MIN. Postural strength: FAIR. Palpation: INCREASED MUSCLE TONE CARMEL UPPER TRAPS AND CERVICAL PARASPINALS. NO ACUTE SPINAL TENDERNESS. OCCIPUT TENDERNESS RIGHT > LEFT. OTHER: INSTRUCTION GIVEN IN INSURANCE COVERAGE LIMITATIONS - Goals Goal 1:: DECREASE C/O NECK PAIN Goal Time Frame: 6-8 [...] Postural training, Flexibilty training, Scapular Strength/Stabilization Comment: CORRECTIVE EX FOLLOWING DEEP TISSUE MASSAGE. For the Purpose of:: To decrease pain, To increase ROM, To improve muscle performance and motor function, To increase tolerance to activity/condition/position, To improve ability of physical actions for home/community/work/leisure Manual Therapy Techniques to Include: Massage, Soft tissue mobilization Comment: DEEP TISSUE MASSAGE For the Purpose of:: To decrease pain, To increase ROM Thank you for the opportunity to evaluate your patient. For Medicare and Medicare HMO plans, please review the plan of care and approve it. It will need to be FAXED BACK to us at [phone] for Medicare purposes. Please let me know if there are questions or concerns regarding this plan of care. Physician Signature: Date: <Electronically signed by Sandy Jiang PT, Cert. MDT> 06/24/17 1226 CC: Irma Vásquez DO CHRIS Signed For Medicare only, by signing this I certify the plan of care. Physicians Signature Date ALLERGIES ALLERGIES DATE TYPE / NAME / CODE REACTION SEVERITY SOURCE CODE 11/24/2017 Drug Latex, Natural Rash [place] Allergy/41 Rubber/[id number] Community [id number]([facility](RXNORM) [facility]) Repository 11/24/2017 Drug epinephrine/F006 heart palpitations [place] Allergy/41 670505(RXNORM) Community 0124753([facility]) Repository 11/24/2017 Drug penicillin Unknown [place] Allergy/41 V/[id number](RXN Community 3269102( OR) [facility]) Repository 11/24/2017 Drug clindamycin/F006 Nausea [place] Allergy/41 321425(RXNORM) [facility] 8102231([facility]) Repository 11/24/2017 Drug levofloxacin/F00 Other [place] Allergy/41 9827795(RXNORM) [facility] [id number]([facility]) Repository ENCOUNTERS ENCOUNTERS ADMIT/DISCHARGE ACCOUNT ADMITTING ENCOUNTER LOCATION SOURCE NUMBER CLASS 03/04/2018 [id number] Ambulatory [place] 0 [facility] ing:OPBI Repository 02/12/2018 [id number] Ambulatory [place] 3 [facility] ing:OPBD Repository 01/30/2018 [id number] Ambulatory Building:[facility] Practices Repository 12/05/2017 [id number] Ambulatory BMSBuilding:[place] 3 [facility] Repository 11/24/2017/ [id number] Ambulatory BMSBuilding:B [place] 8 9 [facility] Repository 08/14/2017/ [id number] Ambulatory [place] 8 5 [facility] ing:PT Repository PAYERS PAYERS ENCOUNTER GUARANTOR PAYER SUBSCRIBER SOURCE 03/04/2018 REGGIE D Primary REGGIE D [place] [id number] Insurance:ANTHEMPolic FRANCKDOB: Pending sale to [facility] y Number: [id number] [id number] Repository [address]Sno: ([phone]) Date:6216-49-46YQ [phone] (HP) [id number] [place] [address]MV: 03/04/2018 Secondary NOT GIVENUNK [place] Insurance:SELF PAY [facility] Number: Effective Repository Date:2018-01-13 02/12/2018 REGGIE D Primary REGGIE D [place] [id number] Insurance:ANTHEMPolic FRANCKDOB: Community ADAN y Number: [id number] [id number] Repository [address]Iso: ([phone]) Date:7577-01-27[phone] (HP) [id number], [place] [address]RZ: 02/12/2018 Secondary NOT GIVENUNK [place] Insurance:SELF PAY [facility] Number: Effective Repository Date:2018-01-30 01/30/2018 Noris K Primary Noris K OHIP Practices FranckDOB: Insurance:[place] FranckDOB: Repository [id number] /BSPolicy Number: [id number] [facility] [id number] 0 [place], [place] Date:6616-78-20Qdzi [place], [place] [address]Yok: 330) Name:[facility] [address] [address]Kwi: [id number] [place] [address] [phone] (HP) (HP)Tel: [phone]: [phone] 01/30/2018 Secondary Noris K OHIP Practices Insurance:ReferralsPo FranckDOB: Repository licy Number: [id number] Effective Date: - 0 [place] [id number] Name: [place], [place] [address]Jss: ~( 30 (HP) 12/05/2017 Reggie D Primary Reggie D [place] [id number] Insurance:ANTHEMPolic FranckDOB: Community Adan y Number: [id number] [id number] Repository [address]Ehu: 330) Date:2836-45-80MS [phone] (HP) [id number] ALVARADO [address]UC: 12/05/2017 Secondary NOT GIVENUNK [place] Insurance:SELF PAY [facility] Number: Effective Repository Date:2017-12-05 11/24/2017 Reggie D Primary Reggie D [place] [id number] Insurance:ANTHEMPolic FranckDOB: [facility] y Number: [id number], [place] [id number] Repository [address]Lux: [phone]) Date:0120-56-98[phone] () [id number], [place] [address]ZY: 11/24/2017 Secondary NOT GIVENUNK [place] Insurance:SELF PAY [facility] Number: Effective Repository Date:2017-11-24 08/14/2017 Reggie D Primary Reggie D [place] [id number] Insurance:ANTHEMPolic FranckDOB: [facility] y Number: [id number], [place] [id number] Repository [address]Bmq: [phone]) Date:2704-99-42[phone] () 355[address]LFDBDOE, [place] [address]VV: 08/14/2017 Secondary NOT GIVENUNK [place] Insurance:SELF PAY [facility] Number: Effective Repository Date:2017-06-18
--- OUTSIDE RECORDS SUMMARY | 2018-05-09 08:54 | XMS RPT_ITS | Continuity of Care Document ---
:1960 Author Organization [facility] Address [address] [facility] [address] [place] [address] Phone Care Team Providers Name Role Phone [...] Name Dates Details CALCIUM 600 + D, [id number] (Oral Tablet) 1 BID for 0 days [...] days Quantity: 90 {Tablet} Refills: 3 Ordered:27-May-2017 Irma Vásquez DORachel Irma GRANGER Start : 27-May-2017 [...] need this, void after 30 days CORTISPORIN, 3.5-99174-0 (Otic Solution) 2 (two) Drop(s) tid for [...] Quantity: 1 {Package} Refills: 0 Ordered:14-Nov-2015 Slarb DYNAMO REPAIRER, Masha Start : 07-Jun-2015 End : 14-Nov-2015 [...] Quantity: 5 {Tablet} Refills: 0 Ordered:14-Nov-2015 Slarb DYNAMO REPAIRER, Masha Start : 12-Jun-2015 End : 14-Nov-2015 [...] Completed Tonsillectomy Completed Date Value Details 24-Nov-2017 Die Operator Office Visit Report Result: Comments: See Note; NOTES: [facility] [address] [place] [address]. [address] [place] [address] OFFICE VISIT Date of Service: 11/24/17 MR#: [id number] Acct: [id number] Name: ROMARIOJOSHUA Rep #: [id number] : 1960 Provider: Jasmine Duffy MD Age/Sex: 57/F Location: [facility] Status: Signed Intake Vital Signs11/24/17 Height 5 ft 8.5 in 11/24/17 Weight: 148 lb 5 oz 11/24/17 Body Mass Index (BMI) 22.2 11/24/17 Blood Pressure 140/78 H Intake Visit Reasons: DISCUSS MENOPAUSE Chief Complaint: Menopause Consult Drying Frame Operator Required: No Is patient in pain?: No [...] social history: Alfa- Retired Patient works at [employer] HPI DISCUSS MENOPAUSE: Details: MELYSSA HAYWOOD is [...] Past Preg nancies Del. DatName GA/WeeksOutcome Route [facility] LocaProviderFOB e ht en tn Unknown [...] Nutritional Appearance: average body habitus Orientation: alert [facility] Head: normal to inspection, normocephalic Ears: hearing [...] Summary (1) Result: Comments: See Note; NOTES: [facility] [address] [facility] [place] [address] Fax REHABILITATION SERVICES DISCHAR GE SUMMARY MR#: [id number] Acct: [id number] Name: MELYSSA HAYWOOD Rep #: [id number] [...] feel f ree to call me at [phone]. Thank you for the referral of this patient. Sincerely, Sandy Jiang <Electronically signed by Sandy Jiang PT, MDT> 08/14/17 1315 CC: Irma Vásquez DO CHRIS Signed 24-Jun-2017 Inital Evaluation (1) - PT Result: Comments: See Note; NOTES: [facility] [address] [place] [address]. [address] [place] [address] Fax REHABILITATION SERVICES INITIAL EVALUATION MR#: [id number] Acct: [id number] Name: MELYSSA HAYWOOD Rep #: [id number] [...] Diagnosis: VERTIGO AND CERVICAL SPINE PAIN. 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 Disability: [...] to be FAXED BACK to us at [phone] for Medicare purposes. Please let me know if there are questions or concerns regarding this plan of care. Physician Signature: Dat e: <Electronically signed by Sandy Jinag PT, Cert. MDT> 06/24/17 1226 CC: Irma Vásquez DO CHRIS Signed For Medicare only, by signing this I certify the plan of care. Physicians Signature Date 14-Feb-2017 PT D/C Summary (1) Result: Comments: See Note; NOTES: [facility] [address] [place] [address] Fax REHABILITATION SERVICES AMI ZIEGLER SUMMARY MR#: [id number] Acct: [id number] Name: MELYSSA HAYWOOD Rep #: [id number] [...] please feel free to call me at [phone]. Thank you for the referral of this patient. Sincerely, Sandy Jiang <Electronically signed by Sandy Jiang PT, Cert. MDT> [id number] CC: Miracle Rodríguez DO; Irma Vásquez DO CHRIS Signed 06-Feb-2017 Orthopedic Visit Report Result: Comments: See Note; NOTES: [facility]opa[facility] Medicine [address] [place] [address] OFFICE VISIT Date of Service: 02/06/17 MR#: [id number] Acct: [id number] Name: MELYSSA HAYWOOD Rep #: [id number] : 1960 Provider: Miracle Rodríguez DO Age/Sex: 56/F Location: [facility].S[facility] Status: Signed Intake Vital Signs02/06/17 Height 5 [...] mg PO ONCE 02/06/17 [History Confirmed 02/06/17] [facility] Medical History Hypothyroidism (Chronic) Osteopenia (Chronic) [...] - PT Result: Comments: See Note; NOTES: [facility] [address] [facility]. [address] [place] [address] Fax REHABILITATION SERVICES INITIAL EVALUATION MR#: [id number] Acct: [id number] Name: MELYSSA HAYWOOD Rep #: [id number] [...] DISLOCATING. CONSIDER ORTHOTICS. 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 Disability: [...] to be FAXED BACK to us at [phone] for Medicare purpos es. Please let me [...] More Views Result: Comments: See Note; NOTES: [facility] Imaging Services [address] [place] [address] Knee 4 or More Views MR#: [id number] Acct: [id number] Name: MELYSSA HAYWOOD Rep #: [id number] : 1960 F 56 From: Payam Pisano MD PCP: Irma Vásquez DO Status: REG CLI Study: Knee 4 or More Views Date of Exam: 01/27/17 Exam# [id number] Ordering Dr: Irma Vásquez DO STUDY: X-RA [...] Service support , CC: Irma Vásquez DO It Director: Signed 20-Jan-2017 SCREENING MAMM (CAD), BILAT Result: Comments: See Note; NOTES: [facility] Imaging Services [address] [place] [address] SCREENING MAMM (CAD), BILAT MR#: [id number] Acct: [id number] Name: MELYSSA HAYWOOD Rep #: [id number] : 1960 F 56 From: Johnnie Huizar MD PCP: Irma Vásquez DO Status: REG CLI Study: SCREENING MAMM (CAD), BILAT Date of Exam: 01/20/17 Exam# [id number] Ordering Dr: Irma Vásquez DO MAMMOGRAPHY - [...] delay biopsy of a clinically suspicious abnormality. [id number] Electronically Signed: Johnnie Huizar MD 01/20 at 13:55 EST Tel [phone], Service support , CC: Irma Vásquez DO It Director: Signed 07-Jun-2015 Spirometry (23633) Comments: mild abnormality Result: 12-Apr-2015 Bilat Scrn Digital AND CAD Result: Comments: See Note; NOTES: [facility] Imaging Services [address] [place] [address] Verdana 4d Bilat Scrn Digital AND CAD MR#: [id number] Acct: [id number] Name: MELYSSA HAYWOOD Rep #: [id number] : 1960 F 54 From: Johnnie Huizar MD PCP: Alison Rodriguez DO Status: REG CLI Study: Ezequiel Verdugo Digital AND CAD Date of Exam: 04/12/15 Exam# [id number] Ordering Dr: Alison Rodriguez DO MAMMOGRAPHY - [...] biopsy of a clinically suspiciou s abnormality. [id number] Electronically Signed: Johnnie Huizar MD at 14:58 EST Tel [phone], Service support [phone], CC: Alison Rodriguez DO It Director: Signed 03-Feb-2014 Ezequiel Verdugo Digital AND CAD Result: Comments: See Note; NOTES: [facility] Imaging Services [address] [place] [address] Breast Imaging Report MR#: [id number] Acct: [id number] Name: MELYSSA HAYWOOD Rep #: [id number] : 1960 F 53 From: Johnnie Huizar MD PCP: Alison Rodriguez DO Status: REG CLI Study: Bilat Scrn Digital AND CAD Date of Exam: 02/03/14 Exam# [id number] Ordering Dr: Alison Rodriguez DO MAMMOGRAPHY - [...] Johnnie Huizar MD at 10:55 EST Tel [phone], Service support [phone], CC: Alison Rodriguez DO It Director: Signed 29-Aug-2013 Carotid Duplex Ultrasound Result: Comments: See Note; NOTES: [facility] Cardiovascular Services [address] [place] [address] Carotid Duplex Ultrasound 08/19/13 1102 MR#: [id number] Acct: [id number] Nam e: MELYSSA HAYWOOD Rep #: [id number] : 1960 53 From: Yannick Garcia MD [...] the left vertebral artery. Procedure Carotid Duplex 98683. The exam was di agnostic. Exam performed in department. Interpretation Summary Mild (<50%) stenosis right extracranial internal carotid. Mild (<50%) stenosis left extracranial internal carotid. Phi w within the vertebral arteries is antegrade bilaterally. Ordering Physician: Alison Rodriguez Perf ormed By: Alfa Zamarripa RVT : Alison Rodriguez DO Date Dictated: 08/19/13 1102 Date Transcribed: 08/29/13 0859 It Director: Signed 01-Feb-2013 Ezequiel Verdugo Digital & CAD Result: Comments: See Note; NOTES: [facility] Imaging Services [address] [place] [address] Breast Imaging Report MR#: [id number] Acct: [id number] Name: MELYSSA HAYWOOD Rep #: [id number] : 1960 F 52 From: Johnnie Huizar MD PCP: Alison Rodriguez DO Status: REG CLI Exam# [id number] Ordering Dr: Alison Rodriguez DO MAMMOGRAPHY - [...] M.D. at 9:56 EST , Service support [phone], CC: Alison Rodriguez DO It Director: Signed Immunization Name Dates Details Influenza (3 years and up) on: 09-Dec-2006 Comments: given in left deltoid, 0.5cc, lot#[id number], exp.6.30.08 WF Influenza (3 years and up) on: 22-Dec-2007 Comments: Lot #:[id number] date:07/26Amount given:0.5mlRoute: imSite given:Right deltoidGiven by: Amilcar Obrien LPN Influenza (3 years and up) on: 25-Nov-2008 Tdap (7 years and up) on: 27-Jan-2009 Comments: Lot #[id number]-[id number]/17/2011Site-left deltoidDose0.5mlgiven by Zenobia English LPN Social History Name Dates Details Alcohol Use Comments: Heavy alcohol use - 2 glasses of red wine daily Status: Active Caffeine Use Comments: 1-2 cups qd Status: Active Current Work/Study Status Comments: [employer] Status: Active Exercise History Comments: 3-4 days week Status: Active Living Situation Comments: lives with spouse Status: Active No Drug Use Status: Active Tobacco use: Never smoker. Status: Active Smoking Status Name Dates Details Never smoker Vital Signs Date Test Result Details 44-Glz-062492:51 Pulse 82 /min Comments: Pattern: Regular Respiration [...] Results Date Description Value Details :10 TSH (61708) Comments: PATIENT NOT FASTINGPERFORMED BY: IntoOutdoorsCoLourdes Medical Center of Burlington CountyAsxzud8583 [facility] [id number] TSH 1.620 {uIU/mL} (Normal) Range: 0.450-4.500 74-Gjc-492363:10 T4, FREE (THYROXINE) (82751) Comments: PATIENT NOT FASTINGPERFORMED BY: [facility]OutdoorsCore[facility] Hospital6370 [facility] [id number] T4,Free(Direct) 1.60 ng/dL (Normal) Range: 0.82-1.77 27-Qfz-885579:10 T3, FREE (TRIDOTHYRONINE) (29045) Comments: PATIENT NOT FASTINGPERFORMED BY: LabCoLourdes Medical Center of Burlington CountyVxwiyc8336 [facility] [id number] Triiodothyronine,Free,Serum 2.6 pg/mL (Normal) Range: 2.0-4.4 :27 T3, FREE (TRIDOTHYRONINE) (08375) Comments: PATIENT NOT FASTINGPERFORMED BY: [facility] Tebexx2705 [facility] Institute[facility] [place] [id number] Triiodothyronine,Free,Serum 2.6 pg/mL (Normal) Range: 2.0-4.4 :27 T4, FREE (THYROXINE) (88585) Comments: PATIENT NOT FASTINGPERFORMED BY: [facility]6370 [facility]in [place] [id number] T4,Free(Direct) 1.58 ng/dL (Normal) Range: 0.82-1.77 :27 TSH (THYROID STIMULATING Comments: PATIENT NOT FASTINGPERFORMED BY: [facility]6370 [facility] [id number] HORMONE) (58091) TSH 2.660 {uIU/mL} (Normal) Range: 0.450-4.500 18-Yqv-345765:55 TSH (91221) Comments: PATIENT NOT FASTINGPERFORMED BY: LabCore[facility] Hospital[address] [facility] Institutebl[facility] [place] [id number] TSH 3.930 {uIU/mL} (Normal) Range: 0.450-4.500 :37 Vitamin D Hydroxy (49660) Comments: PATIENT WAS FASTINGPERFORMED BY: [facility] Loacvv4889 [facility] Campusin [place] [id number] Vitamin D, 25-Hydroxy 96.4 ng/mL (Normal) Range: 30.0-100.0 Comments: Vitamin D deficiency has been defined by the [place] of[place]icine and an Endocrine Society practice guideline as alevel of serum 25-OH vitamin D less than 20 ng/mL (1,2).The Endocrine Society went on to further define vitamin Dinsufficiency as a level between 21 and 29 ng/mL (2).1. IOM ([place] of Medicine). 2010. Dietary reference intakes for calcium and D. [place]: The National Academies Press.2. Darren MF, Reji NC, Kal BUTT, et al. Evaluation, treatment, and prevention of vitamin D deficiency: an Endocrine Society clinical practice guideline. JCEM. 2010; 96(7):1911-30. :37 CBC with auto diff Comments: PATIENT WAS FASTINGPERFORMED BY: LabCoLourdes Medical Center of Burlington CountyKnilbs8079 [facility] [id number] Information: [id number], [id number] (15309) Immature Grans (Abs) 0.0 {x10E3/uL} (Normal) Range: [...] PANEL, COMPREHENSIVE Comments: PATIENT WAS FASTINGPERFORMED BY: [employer] Pzaxtb8352 [facility] [id number] (57128) ALT (SGPT) 16 [iU]/L (Normal) Range: 0-32 [...] Glucose, Serum 93 mg/dL (Normal) Range: 65-99 52-Ace-93092:37 LIPID PANEL (04715) Comments: PATIENT WAS FASTINGPERFORMED BY: iMapDataLourdes Medical Center of Burlington CountyAqryvs1886 [facility] [id number] LDL/HDL Ratio 1.0 {ratio_units} (Normal) Range: 0.0-3.2 [...] Cholesterol, Total 181 mg/dL (Normal) Range: 100-199 19-Qat-33684:37 TSH (99776) Comments: PATIENT WAS FASTINGPERFORMED BY: [employer] Ecntji8002 [facility] [id number] TSH 2.440 {uIU/mL} (Normal) Range: 0.450-4.500 :07 LIPID PANEL (92227) Comments: PATIENT WAS FASTINGPERFORMED BY: [employer]70 [facility] [id number] LDL Cholesterol Calc 89 mg/dL (Normal) Range: [...] PANEL, COMPREHENSIVE Comments: PATIENT WAS FASTINGPERFORMED BY: XConnect Global NetworksMimbres Memorial HospitalGwvglp7302 [facility] [id number] (85227) ALT (SGPT) 13 [iU]/L (Normal) Range: 0-32 [...] Glucose, Serum 88 mg/dL (Normal) Range: 65-99 98-Vcm-32358:07 CBC WITH MANUAL DIFF Comments: PATIENT WAS FASTINGPERFORMED BY: LabCoLourdes Medical Center of Burlington CountyCatpoq1205 [facility] [id number] Information: [id number] (84325) Immature Grans (Abs) 0.0 {x10E3/uL} (Normal) Range: [...] 6.2 {x10E3/uL} (Normal) Range: 3.4-10.8 :07 TSH (98913) Comments: PATIENT WAS FASTINGPERFORMED BY: [employer] [facility] [id number] TSH 0.975 {uIU/mL} (Normal) Range: 0.450-4.500 :07 Vitamin D Hydroxy (81506) Comments: PATIENT WAS FASTINGPERFORMED BY: [employer] LabSpruce Health6370 [facility] Hospitalblin [place] [id number] Vitamin D, 25-Hydroxy 76.3 ng/mL (Normal) Range: 30.0-100.0 Comments: Vitamin D deficiency has been defined by the [place] ofMorrow County Hospitalcine and an Endocrine Society practice guideline as alevel of serum 25-OH vitamin D less than 20 ng/mL (1,2).The Endocrine Society went on to further define vitamin Dinsufficiency as a level between 21 and 29 ng/mL (2).1. IOM ([place]). 2010. Dietary reference intakes for calcium and D. [place]: The National Academies Press.2. Darren MF, Reji BENITES, Kal BUTT, et al. Evaluation, treatment, and prevention of vitamin D deficiency: an Endocrine Society clinical practice guideline. JCEM. 2010; 96(7):1911-30. :56 Anti-TPO Antibody (87348) Comments: PATIENT NOT FASTINGPERFORMED BY: Curemarkox RoadDublin [place] [id number] Information: [id number] Thyroid Peroxidase (TPO) Ab 240 {IU/mL} (Abnormal) Range: 0-34 07-Nac-273296:14 DEXA BONE DENSITY STUDY () Radiology Report [...] Signed:Mesha GarciaAugust 27, 2012 at 4:07:47 PM [id number] Signed GP/GP If you are the referring physician and would like to consult with theradiologist who provided this interpretation, please zaria Puga M.D. at [phone]. If this radiologist is unavailable, youwill be directed to another radiologist to assist. If you are a patient with a question regarding this report, pleasecon tactyour referring physician directly. Professional Interpretation Provided By: [employer], Phone , These documents contain legally protected [...] 08/27/12 1610 Sign by: Johnnie Huizar MD 3-Jio-743547:13 FERRITIN (68031) Comments: PATIENT NOT FASTINGPERFORMED BY: [facility] Uivsvj7161 [facility] [id number] Ferritin, Serum 317 ng/mL (Abnormal) Range: 15-150 0-Ptp-932886:13 IRON (26545) Comments: PATIENT NOT FASTINGPERFORMED BY: [facility] Yvnbyk2951 [facility] [id number] Iron, Serum 106 ug/dL (Normal) Range: 35-155 6-Kps-229424:13 CBC WITH MANUAL DIFF Comments: PATIENT NOT FASTINGPERFORMED BY: [facility] Xvthkp2803 [facility] [id number] Information: [id number] (46721) Immature Grans (Abs) 0.0 {x10E3/uL} (Normal) Range: [...] 3.77-5.28 WBC 5.5 {x10E3/uL} (Normal) Range: 3.4-10.8 5-Bwn-574152:35 FECAL OCCULT HGB ASSAY- tubes sent home (25407) FECAL OCCULT HGB ASSAY, QUAL, 1-3 SIMULTANEOU negative (Normal) 4-Mkw-711808:13 TSH (22250) Comments: PATIENT NOT FASTINGPERFORMED BY: LYSSA iMapDataMimbres Memorial HospitalTaxkvr4483 [facility] [id number] TSH 2.430 {uIU/mL} (Normal) Range: 0.450-4.500 03-Som-833407:19 FERRITIN (74873) Comments: PATIENT NOT FASTINGPERFORMED BY: iMapDataLourdes Medical Center of Burlington CountyQxlqmb2372 [facility] [id number] Ferritin, Serum 302 ng/mL (Abnormal) Range: 15-150 38-Yuf-779637:19 IRON BINDING CAPACITY Comments: PATIENT NOT FASTINGPERFORMED BY: iMapDataLourdes Medical Center of Burlington CountyQuhpoh3060 [facility] [id number] Information: [id number],2ND ORDER NO DRAW F EE (TIBC) (18711) Iron Saturation 43 % (Normal) Range: 15-55 Iron, Serum 123 ug/dL (Normal) Range: 35-155 UIBC 164 ug/dL (Normal) Range: 150-375 Iron Bind.Cap.(TIBC) 287 ug/dL (Normal) Range: 250-450 23-Lrg-400577:19 CBC WITH MANUAL DIFF Comments: PATIENT WAS FASTINGPERFORMED BY: iMapDataLourdes Medical Center of Burlington CountyJacclv7271 [facility] [id number] Information: [id number] (97873) Immature Grans (Abs) 0.0 {x10E3/uL} (Normal) Range: [...] 3.77-5.28 WBC 5.4 {x10E3/uL} (Normal) Range: 4.0-10.5 81-Xht-027119:19 METABOLIC PANEL, COMPREHENSIVE Comments: PATIENT WAS FASTINGPERFORMED BY: LabCoLourdes Medical Center of Burlington CountyWuqgkf8675 [facility] [id number] (58348) ALT (SGPT) 16 [iU]/L (Normal) Range: 0-32 [...] Glucose, Serum 82 mg/dL (Normal) Range: 65-99 76-Opm-794353:19 LIPID PANEL (98936) Comments: PATIENT WAS FASTINGPERFORMED BY: [employer] Vjpkks4435 [facility] [id number] LDL/HDL Ratio 1.4 {ratio_units} (Normal) Range: 0.0-3.2 LDL Cholesterol Calc 102 mg/dL (Abnormal) Range: 0-99 VLDL Cholesterol Julianne 15 mg/dL (Normal) Range: 5-40 HDL Cholesterol 74 mg/dL (Normal) Comments: According to ATP-III Guidelines, HDL-C >59 mg/dL is considered anegative risk factor for CHD. Triglycerides 75 mg/dL (Normal) Range: 0-149 Cholesterol, Total 191 mg/dL (Normal) Range: 100-199 96-Nwu-380632:19 TSH (28382) Comments: PATIENT WAS FASTINGPERFORMED BY: Interactive TKO6370 [place] [id number] TSH 5.290 {uIU/mL} (Abnormal) Range: 0.450-4.500 66-Wst-307959:14 HPV automatic Comments: Source.............Cervical;EndocervicalNo. of containers..01 CYTYC Thin Prep VialPATIENT NOT FASTINGPERFORMED BY: WB [facility] Auksmxamxi[address] [id number] BY: =John Solares (00407) [facility] Zhwhojmhmz364 [facility] [place] [id number] Information: [id number] HPV, high-risk Negative Comments: This high-risk HPV [...] Special screening examination, human papillomavirus [HPV]Radha Colbert Oceanographer Geological (ASCP) 86-Kha-81589:26 FECAL OCCULT HGB ASSAY- tubes sent home (05143) FECAL OCCULT HGB ASSAY, QUAL, 1-3 SIMULTANEOU positive (Normal) 57-Mav-28557:44 BILAT SCRN DIGITAL & CAD Radiology Report [...] Huizar M.D.January 31, 2012 at 10:22:06 AM [id number] Signed GP/GP If you are the referring physicia n and would like to consult with theradiologist who provided this interpretation, please contact Heidi Puga at [phone]. If this radiologist is unavailable, youwill be directed to [facility] radiologist to assist. If you are a patient with a question regarding this report, pleasecontactyour referring physician directly. Professional Interpretation Provided By: [employer], Phone , These documents contain legally protected [...] Johnnie Huizar MD :04 Vitamin D Hydroxy (74311) Comments: PATIENT WAS FASTINGPERFORMED BY: LabCoLourdes Medical Center of Burlington CountyYetmsu5024 [facility] [id number] Vitamin D, 25-Hydroxy 48.9 ng/mL (Normal) Range: 30.0-100.0 Comments: Vitamin D deficiency has been defined by the [place] of[place]icine and an Endocrine Society practice guideline as alevel of serum 25-OH vitamin D less than 20 ng/mL (1,2).The Endocrine Society went on to further define vitamin Dinsufficiency as a level between 21 and 29 ng/mL (2).1. IOM ([place] of Medicine). 2010. Dietary reference intakes for calcium and D. [place]: The National Academies Press.2. Darren MF, Reji BENITES, Kla BUTT, et al. Evaluation, treatment, and prevention of vitamin D deficiency: an Endocrine Society clinical practice guideline. JCEM. 2010; 96(7):1911-30. :04 CBC WITH MANUAL DIFF Comments: PATIENT WAS FASTINGPERFORMED BY: LabCo Zmovzb2769 [facility] [id number] Information: [id number] (55558) Immature Grans (Abs) 0.0 {x10E3/uL} (Normal) Range: [...] 3.77-5.28 WBC 9.9 {x10E3/uL} (Normal) Range: 4.0-10.5 14-Pcs-108791:04 METABOLIC PANEL, COMPREHENSIVE Comments: PATIENT WAS FASTINGPERFORMED BY: LabCoLourdes Medical Center of Burlington CountyCydama8205 [facility] [id number] (00444) ALT (SGPT) 22 [iU]/L (Normal) Range: 0-40 [...] Glucose, Serum 90 mg/dL (Normal) Range: 65-99 86-Trs-481816:04 TSH (22492) Comments: PATIENT WAS FASTINGPERFORMED BY: LabCoLourdes Medical Center of Burlington CountyVbygzs2077 [facility] [id number] TSH 2.560 {uIU/mL} (Normal) Range: 0.450-4.500 :04 LIPID PANEL (25019) Comments: PATIENT WAS FASTINGPERFORMED BY: LabCorewell Health Butterworth Hospital6370 [facility] [id number] LDL/HDL Ratio 1.0 {ratio_units} (Normal) Range: 0.0-3.2 LDL Cholesterol Calc 81 mg/dL (Normal) Range: 0-99 VLDL Cholesterol Julianne 13 mg/dL (Normal) Range: 5-40 HDL Cholesterol 78 mg/dL (Normal) Comments: According to ATP-III Guidelines, HDL-C >59 mg/dL is considered anegative risk factor for CHD. Triglycerides 67 mg/dL (Normal) Range: 0-149 Cholesterol, Total 172 mg/dL (Normal) Range: 100-199 04-Mvx-469625:29 DORSAL SPINE,3 VIEWS Radiology Report See Note [...] 11/27/10 1506 Sign by: KATIE MAYER,DWAYNE Banks 4-Mzj-810708:40 CHEST, PA AND LATERAL Radiology Report See [...] 1404 Sign by : Eileen Gallegos MD 8-Cvw-385792:11 SED RATE ERYTHROCYTE (21477) Comments: PATIENT NOT FASTINGPERFORMED BY: Interactive TKO6370 [facility] CampusTapUNC Health Johnston [facility] [id number] Sedimentation Rate-Westergren 2 mm/h (Normal) Range: 0-56 Comments: Please note reference interval change :11 C-REACTIVE PROTEIN (22391) Comments: PATIENT NOT FASTINGPERFORMED BY: XConnect Global Networksrp Qmobmc8140 TeeMadison Medical CenterVisual MiningUNC Health Johnston Clayton [id number] C-Reactive Protein, Quant 1.8 mg/L (Normal) Range: 0.0-4.9 :11 TSH (49225) Comments: PATIENT NOT FASTINGPERFORMED BY: [employer] Ynaayt0241 TeeMadison Medical CenterVisual MiningUNC Health Johnston Clayton [id number] Information: [id number]; appt 07/31/10 TSH 1.950 {uIU/mL} (Normal) Range: 0.450-4.500 18-Ytf-609683:29 UNILAT LT DIAG DIGITAL & CAD Radiology [...] diagnostic mammogram of June 15, 2010, on [facility]. TECHNIQUE: Digital examination. Left true lateral and [...] 07/03/10 1659 Sign by: EMERY WILLIAM MD 90-Dyx-370556:05 BILAT SCRN DIGITAL & CAD Radiology Report [...] on 06/13/10 0935 by ITS IMPORTSign by EMERY WILLIAM MD on 06/13/10 0936 Sign by: EMERY WILLIAM MD 28-Sru-953714:05 DEXA BONE DENSITY STUDY (HP) Radiology Report See Note (Normal) Comments: CLINICAL:Female, 49 years old. The patient is postmenopausal. EXAMINATION:DUAL ENERGY X-RAY ABSORPTIOMETRY / DEXA. TECHNIQUE:Bone Mineral Density (BMD) measurements of lumbar spine and bila teralhipswer e obtained using a Sitrion scanner.. COMPARISON:Comparison is made with prior examination [...] Microscopic Examination Comments: PATIENT NOT FASTINGPERFORMED BY: [facility] [id number] Bacteria None seen (Normal) Epithelial Cells (non renal) 0-10 {/hpf} (Normal) Range: 0 - 10 RBC 0-3 {/hpf} (Normal) Range: 0 - 3 WBC 0-5 {/hpf} (Normal) Range: 0 - 5 :51 Anti-TPO Antibody (05321) Comments: to repeat in 2-3 weeks; PATIENT NOT FASTINGPERFORMED BY: [facility] [id number] Thyroid Peroxidase (TPO) Ab 270 {IU/mL} (Abnormal) Range: 0-34 :51 TSH (67157) Comments: PATIENT NOT FASTINGPERFORMED BY: [facility] [facility] [id number] TSH 9.900 {uIU/mL} (Abnormal) Range: 0.450-4.500 :51 T4, FREE (THYROXINE) (64854) Comments: PATIENT NOT FASTINGPERFORMED BY: [facility] [facility] [id number] T4,Free(Direct) 1.13 ng/dL (Normal) Range: 0.82-1.77 :51 T3, FREE (TRIDOTHYRONINE) (07168) Comments: PATIENT NOT FASTINGPERFORMED BY: [facility] [facility] [id number] Triiodothyronine,Free,Serum 2.7 pg/mL (Normal) Range: 2.0-4.4 :51 URINALYSIS, W/ MICRO Comments: patient to repeat in 2-3 weeks; PATIENT NOT FASTINGPERFORMED BY: [facility] [facility] [id number] Information: [id number] ([id number]) Microscopic Examination See below: (Normal) Bilirubin Negative (Normal) Ketones Negative (Normal) Microscopic Examination MICRON (Normal) Comments: Microscopic follows if indicated. Nitrite, Urine Negative (Normal) Occult Blood Negative (Normal) Urobilinogen,Semi-Qn 0.2 mg/dL (Normal) Range: 0.0-1.9 Glucose Negative (Normal) Protein Negative (Normal) WBC Esterase Negative (Normal) Appearance Clear (Normal) Urine-Color Yellow (Normal) pH 6.0 (Normal) Range: 5.0-7.5 Specific [place] 1.018 (Normal) Range: 1.005-1.030 1-Zqw-833901:34 Microscopic Examination Comments: PATIENT WAS FASTINGPERFORMED BY: [employer] [employer] [place] [id number] Bacteria Few (Normal) Mucus Threads Present (Normal) Epithelial Cells (non renal) 0-10 {/hpf} (Normal) Range: 0 - 10 RBC 0-3 {/hpf} (Normal) Range: 0 - 3 WBC 0-5 {/hpf} (Normal) Range: 0 - 5 7-Uxg-743988:34 Vitamin D Hydroxy (41143) Comments: PATIENT WAS FASTINGPERFORMED BY: [employer] [employer] [place] [id number] Vitamin D, 25-Hydroxy 53.3 ng/mL (Normal) Range: 32.0-100.0 Comments: Recent studies consider the lower limit of 32.0 ng/mL to be athreshold for optimal health.Manuel ALATORRE. J Nutr. 2004;135(2):317-22. :34 METABOLIC PANEL, COMPREHENSIVE Comments: PATIENT WAS FASTINGPERFORMED BY: [employer] [employer] [place] [id number] (72521) ALT (SGPT) 18 [iU]/L (Normal) Range: 0-40 [...] Glucose, Serum 85 mg/dL (Normal) Range: 65-99 5-Yuj-903438:34 CBC WITH MANUAL DIFF Comments: PATIENT WAS FASTINGPERFORMED BY: [facility] Vluohq[address] [facility] [id number] Information: [id number] (47021) Immature Grans (Abs) 0.0 {x10E3/uL} (Normal) Range: [...] (Normal) Range: 4.0-10.5 :34 URINALYSIS, W/ MICRO (24476) Comments: PATIENT WAS FASTINGPERFORMED BY: [facility] [id number] Bilirubin Negative (Normal) Microscopic Examination See below: (Normal) Microscopic Examination MICRON (Normal) Comments: Microscopic follows if indicated. Nitrite, Urine Negative (Normal) Urobilinogen,Semi-Qn 0.2 mg/dL (Normal) Range: 0.0-1.9 Ketones Negative (Normal) Occult Blood Negative (Normal) Glucose Negative (Normal) Protein Trace (Normal) Appearance Clear (Normal) WBC Esterase Negative (Normal) pH 7.0 (Normal) Range: 5.0-7.5 Urine-Color Yellow (Normal) Specific [place] 1.024 (Normal) Range: 1.005-1.030 :34 TSH (72613) Comments: PATIENT WAS FASTINGPERFORMED BY: [facility] [id number] TSH 8.410 {uIU/mL} (Abnormal) Range: 0.450-4.500 0-Juj-343184:34 LIPID PANEL (73138) Comments: PATIENT WAS FASTINGPERFORMED BY: [facility] [address]ucbg[address] [place] [id number] LDL/HDL Ratio 1.1 {ratio_units} (Normal) Range: 0.0-3.2 LDL Cholesterol Calc 76 mg/dL (Normal) Range: 0-99 HDL Cholesterol 70 mg/dL (Normal) Comments: According to ATP-III Guidelines, HDL-C >59 mg/dL is considered anegative risk factor for CHD. VLDL Cholesterol Julianne 11 mg/dL (Normal) Range: 5-40 Cholesterol, Total 157 mg/dL (Normal) Range: 100-199 Triglycerides 55 mg/dL (Normal) Range: 0-149 57-Rzc-612538:43 Thin prep Pap Comments: Source.............Cervical;EndocervicalNo. of containers..01 CYTYC Thin Prep VialPATIENT NOT FASTINGPERFORMED BY: [facility] [address] [id number] Information: [id number] ([id number]) Note: PAPSMR (Normal) Comments: The Pap smear [...] present.V72.31 ; Routine gynecolog ical erick Jang Oceanographer Geological (ASCP) 21-Jun-20099:27 ANTI-CCP 467293 5 {units} (Normal) Range: 0-19 Comments: Negative <20Weak positive 20 - 39Moderate positive 40 - 59Strong positive >59 5-May-17837:27 C-REACTIVE PROT < 2.90 mg/L (Normal) Range: [...] < 10.0 {IU/mL} (Normal) :27 VIT D,25 30307 34.5 ng/mL (Normal) Range: 32.0-100.0 Comments: Recent studies consider the lower limit of 32.0 ng/mL to pepe threshold for optimal health.Manuel ALATORRE. J Nutr. 2004;135(2):317-22.Performed at: [address] [id number] Director: Jeff Mirza MDPerformed at: [address] [id number] Director: Pako Barajas MD 43-Rkk-075155:07 Pap IG, HPV-hr Comments: Source.............Cervical;EndocervicalNo. of containers..01 CYTYC Thin Prep VialPERFORMED BY: [facility] [id number] BY: =G [place] [address] 0 [facility] [id number] Information: [id number] HPV, high-risk Negative Comments: This high-risk HPV [...] present.V72.31 ; Routine gynecological examinationJames Fracisco Castillo, Oceanographer Geological (ASCP) 22-Jmr-18767:58 BILAT SCRN DIGITAL & CAD Radiology Report See Note (Normal) Comments: Exam Number: [id number] DIGITAL BILATERAL MAMMOGRAM HISTORYThis is a 48-year-old [...] mammograms werealso examined with computer-aided detection software ([employer]Global[employer] GroupckMosso, [employer] Reported By: JOHNNIE HUIZAR 48-Jra-959538:05 Thin prep Pap Comments: Source.............Cervical;EndocervicalLMP / Prev Treat...MKL=784297Ei. of containers..01 CYTYC Thin Prep VialPATIENT NOT FASTINGClinical Information: [id number] PERFORMED BY: DARA [employer] (43321) [address] [place] [id number] . . (Normal) DIAGNOSIS: SPRCS (Normal) Comments: UNSATISFACTORY FOR EVALUATION.Suggest follow up as clinically appropriate.Specimen processed and examined but unsatisfactory for evaluation becauseof insufficient cellularity.V72.31 ; Routine gynecologi julianne Latanya Jang, Oceanographer Geological (ASCP)Rhianna Wick, Supervisory Oceanographer Geological (ASCP) Note: PAPSMR (Normal) Comments: The Pap [...] resulttherefore, no HPV testing was performed. . 76-Ccb-148935:04 ELBOW,MIN 3 VIEWS (MT) Radiology Report See Note (Normal) Comments: Exam Number: [id number] CLINICAL:Injured as a child, no recent injury, [...] delineated above. Reported By: ANJANA IRENE M.D. 53-Rpg-400518:07 Thin prep Pap Comments: Source.............Cervical;EndocervicalLMP / Prev Treat...EFJ=412979Fg. of containers..01 CYTYC Thin Prep VialPATIENT NOT FASTINGClinical Information: ADD [id number] PERFORMED BY: [employer] (92051) [address] [place] [id number] . . (Normal) DIAGNOSIS: SPRCS (Normal) Comments: NEGATIVE FOR INTRAEPITHELIAL LESION AND MALIGNANCY.CELLULAR CHANGES ASSOCIATED WITH ATROPHY ARE PRESENT.THIS SPECIMEN WAS RESCREENED PART OF OUR OVEREDGER PROGRAM.Satisfactory for e valuation. Endocervical and/or squamous metaplasticcells (endocervical component) are present.V72.31 ; Routine gynecological examinationYuli Monroe, Oceanographer Geological (ASCP)Janice Bryant, Supervisory Oceanographer Geological (ASCP) Note: PAPSMR (Normal) Comments: The Pap [...] resulttherefore, no HPV testing was performed. . 86-Cqh-39218:37 BILAT SCRN DIGITAL & CAD Radiology Report See Note (Normal) Comments: Exam Number: [id number] BILATERAL DIGITAL SCREENING MAMMOGRAM WITH COMPUTER-ASSISTED DETECTION [...] The mammogramswere also examined with computer-aided detection software([employer]cr[employer].). Reported By: OCHOA CAM M.D. :36 DEXA BONE DENSITY STUDY () Radiology Report See Note (Normal) Comments: Exam Number: [id number] DEXA BONE DENSITY STUDY 2006. HISTORYOsteopenia, postmenopausal. [...] the BMD was measu red at 0.734 g/ec6vxel a T-score of -1.7 and a Z-score of -1.3. Compared to theprevious study of 2006, the bone density of the total left hip hasincreased 0.4%, which is not significant. IMPRESSIONThe patient meets WHO criteria for osteopenia with moderate increasedrisk for fracture. There has been no significant change from theprevious study of 2006. Reported By: OCHOA CAM M.D. 5-Cwx-571666:0 GLU GTT-2 HOUR 91 mg/dL (Normal) Comments: 2HR GTT GLU 2 HR GLU GTT-2 HOUR from 0509:M33536R. 3 Range: 70-120 :1 GLU GTT-1 HOUR 105 mg/dL (Abnormal) Comments: 2HR GTT GLU 1 HR GLU GTT-1 HOUR from 0509:J09867I. 5 Range: 120-170 0-Brt-940828:2 GLU GTT-30 min. 106 mg/dL (Abnormal) Comments: 2HR GTT GLU 1/2 HR GLU GTT-30 min. from 0509:O98165Z. 5 Range: 110-170 1-Kcm-546416:5 GLU GTT-FASTING 75 mg/dL (Normal) Comments: 2HR GTT FASTING GLU GTT-FASTING from 0509:X59324E. 0 Range: 70-110 Comments: GLUCOSE TOLERANCE TEST Reference Interval Non- Adults Fasting 70 - 110 30 minutes 110 - 170 1 hour 120 - 170 2 hour 70 - 120 3 hour 70 - 110 4 hour 70 - 110 5 hour 70 - 110 8-Ckx-508078:22 CBCD,SMEAR DIFF BAND 3 % (Normal) Range: [...] T PROT 7.3 g/dL (Normal) Range: 6.4-8.2 9-Gwq-019991:22 ESTROGEN 4549 38 pg/mL (Normal) Comments: Prepubertal <40 Female Cycle: 1-10 Days 61 - 394 11-20 Days 122 - 437 21-30 Days 156 - 350 Post-Menopausal <40 HMG Treatment for Ovulation Induction: 400 - 800Performed At: [facility] [place], [place] [id number] At: [facility]ab[facility] Xhciaksvmk6[address] [place], [place] [id number] 6-Ytl-104902:22 LIPID CHOL 169 mg/dL (Normal) Comments: <200 [...] mg/dL VLDL 9 mg/dL (Normal) Range: 5-40 7-Wqf-085797:22 PROGESTER. 4317 0.2 ng/mL (Normal) Comments: Female: Follicular 0.2 - 1.4 Luteal 3.3 - 25.6 Mid-luteal 4.4 - 28.0 Postmenopausal 0.0 - 0.7 : 1st Trimester 11.2 - 90.0 2nd Trimester 25.5 - 89.4 3rd Trimester 48.4 - 422.5 8-Hzp-153452:22 TESTOST [id number] TESTOSTER %FREE 1.84 % (Normal) Range: 0.50-2.80 TESTOSTER,FREE 0.52 ng/dL (Normal) Range: 0.10-0.85 TESTOSTER,TOTAL 28 ng/dL (Normal) Range: 14-76 :22 TSH 3.87 {uIU/mL} (Normal) Range: 0.34-4.82 :50 HgA1C , Office (21124) HgA1C , Office 5.1 % (Normal) Range: 4.6 - 7.1 :50 Blood Glucose , Office (65505) Blood Glucose , Office 97 (Normal) :18 [...] :18 COMP METABOLIC Comments: RESULTS FAXED 05/11/07 1357 MELYSSA VALDEZ. A/G 1.2 {RATIO} (Normal) Range: [...] mg/dL (Normal) Range: 70-110 :55 CALC U24 4684 Comments: PATIENT SPECIMEN IS 25 MINUTES OVER THE SUGGESTED 24 HOURCOLLECTION TIME [place]UM,U 57787 7.1 mg/dL (Normal) CALCIUM,U24 92.3 {mg/24_hr} (Abnormal) Range: 100.0-300.0 Comments: Performed At: [address] [id number] 19-Muw-745757:14 CBCD,SMEAR DIFF BAND 1 % (Normal) Range: [...] :14 PHOS 2.7 mg/dL (Normal) Range: 2.5-4.9 20-Lip-625098:14 PROT.[id number] ALBUMIN,UR 33.7 % (Normal) MLHYT-6-VOPD,U 4.3 % (Normal) RQGCK-1-HBSC,U 23.7 % (Normal) BETA GLOB,U 29.6 % (Normal) GAMMA GLOB,U 8.7 % (Normal) M-SPIKE,U SeeNote % (Normal) Comments: Result: Not Observed NOTE Comment (Normal) Comments: Protein electrophoresis scan will follow via mail orcourier. PROTEIN,UR 11.2 mg/dL (Normal) Range: 0.0-15.0 :14 PTH,MCGOAL23372 PTH,Intact 24 pg/mL (Normal) Range: 12-65 Comments: Performed At: [address] [id number] SPE [id number] A/G RATIO 1.7 (Normal) Range: 0.7-2.0 ALBUMIN [...] {uIU/mL} (Normal) Range: 0.34-4.82 :14 VITD 1,25 85417 24.3 pg/mL (Normal) Range: 15.9-55.6 Comments: Performed At: [address] [id number] At: [address] [id number] 46-Vue-590605:11 [facility] Radiology Report See Note (Normal) Comments: Exam Number: [id number] BILATERAL SCREENING MAMMOGRAM COMPARISONComparison study October 03, [...] mammogramswere also examined with computer-aided detection soft duvall([employer].). Reported By: CHARAN QUIJANO M.D. 66-Jnj-673710:09 DEXA BONE DENSITY STUDY (HP) Radiology Report See Note (Normal) Comments: Exam Number: [id number] BONE DENSITOMETRY HISTORYOsteopenia. TECHNIQUE Bone densitometry of [...] density is measured at 3.8% less than dp5184. The T- value of the left femoral neck is -2.5 which is in the range ofosteoporosis. The T-value of the total left hip is -1.7 which is in the range ofosteopenia. Bone mineral density is measured at 12.5% less than dg8199. IMPRESSIONThere is osteopenia of the lumbar spine and total left hip. Reported By: EMERY WILLIAM M.D. 87-Svj-929232:15 Urinalysis, Office (10570) UA - BILIRUBIN Negative (Normal) UA - [...] TRIMETHOPRIM/SULFAMETHOXAZ $$ >=320 R 18-Sep-20068:51 Urinalysis, Office (21969) UA - BILIRUBIN Negative (Normal) UA - [...] 6 MONTHS Indication: Hyperglyceridemia Planned Observations IRON (52680)Indication: Hematest positive stools On: 10-Xdl-947747:24 Request CBC with manual diff (91569)Indication: Hematest positive stools On: 22-Uuv-220370:23 Request Thin prep Pap (55453)Indication: Well woman exam with routine gynecological exam On: 97-Xpx-15024:25 Request LIPID PANEL (32065)Indication: Low HDL (under 40) On: 49-Puw-663847:25 Request LIPID PANEL (56214)Indication: Hyperglyceridemia On: 76-Jqy-629691:25 Request HEPATIC FUNCTION PANEL (13152)Indication: Elevated LFTs On: 24-Aex-636561:25 Request MONA CULTURE-BLOOD (11895)Indication: syncope On: 32-Ykg-332352:14 Request Comments: x2 METABOLIC PANEL, COMPREHENSIVE (82585)Indication: syncope On: 20-Fyd-755629:14 Request CBC WITH MANUAL DIFF (03240)Indication: syncope On: 95-Yyd-224643:14 Request METABOLIC PANEL, COMPREHENSIVE (51699) On: 98-Pbr-567669:31 Request HEPATIC FUNCTION PANEL (73545)Indication: Low HDL (under 40) On: 33-Fch-291570:31 Request LIPID PANEL (57042)Indication: Low HDL (under 40) On: 89-Dgv-914897:31 Request METABOLIC PANEL, COMPREHENSIVE (32115)Indication: Osteopenia On: :29 Request CBC WITH MANUAL DIFF (20346)Indication: Osteopenia On: 85-Wnv-192996:29 Request VITAMIN D, 1, 25-DIHYDROXY (12480)Indication: Osteopenia On: :28 Request URINE CALCIUM MAE TIMED 24 Hour (98003)Indication: Osteopenia On: 75-Oyo-733356:28 Request UPEP (02563)Indication: Osteopenia On: 19-Sao-835200:28 Request SPEP (23087)Indication: Osteopenia On: :28 Request TSH (48718)Indication: Osteopenia On: :28 Request PHOSPHORUS (90094)Indication: Osteopenia On: :28 Request PARATHORMONE (38582)Indication: Osteopenia On: 30-Ibh-351507:28 Request Thin prep Pap (22346)Indication: Well woman exam with routine gynecological exam On: 64-Upp-778024:13 Request LIPID PANEL (74268)Indication: Hyperglyceridemia On: :56 Request HEPATIC FUNCTION PANEL (37475)Indication: Hyperglyceridemia On: :56 Request Comments: 6mos Planned Encounters Medical; General Medical - On: 30-Jan-2018 10:45 [facility] Irma Vásquez DO, DO, Kathleen Planned Procedures MAMMOGRAM BREAST BILATERAL On: 13-Jan-2018 Intent SCREENING DIGITAL (05166)By: Irma Vásquez DO, DO, Kathleen Wax CurettesBy: Irma Vásquez DO On: 23-Apr-2017 Intent Irma Vásquez DO Ear Irrigation (06081)By: Rachel On: 23-Apr-2017 Irma Frances DO, DO, Kathleen Comments: Bilateral ear irrigated with warm water and debrox solution Wax currettes usedSmall amount of yellow cerumen removed Pt tolerated well MSMITH,DYNAMO REPAIRER X-RAY LEFT KNEE, 3 VIEWS (97662)By: On: 24-Jan-2017 Irma Ramon DO, DO, Kathleen Flu Vaccine (Quadrivalent) 93991Ow: On: 10-Dec-2016 Intent Irma Vásquez DO, DO, Comments: lot: [id number]: 08/04/17ite/route: L ori, IMamt: 0.5mlVIS and ABN signed when applicableJOLEEN Dumont SCREENING DIGITAL TOMOSYNTHESIS OF On: 10-Dec-2016 Intent BREAST (70904)By: Mari Ruvalcaba Aerosol Treatment (62102)By: Wolfgang On: 14-Nov-2015 Intent DYNAMO REPAIRER Masha Aerosol Treatment (42246)By: Rachel On: 07-Jun-2015 Intent Irma GRANGER DO, Kathleen Comments: more a/e more noise Aerosol Treatment (06079)By: Wolfgang On: 02-Jun-2015 Intent Masha CARRERA BILATERAL MAMMOGRAMS (12906)By: On: 06-Apr-2015 Intent Alison Rodriguez DO Carotid DopplerBy: Alison Rodriguez DO On: 11-Aug-2013 Intent MAMMOGRAM, SCREENING, BOTH BREAST On: 06-Aug-2013 Intent (21010)By: Alison Rodriguez DO Comments: dec MAMMOGRAM, SCREENING, BOTH BREASTS On: 07-Dec-2012 Intent (98872)By: Alison Rodriguez DO Comments: dec Eprescribed prescriptions On: 07-Dec-2012 Intent (G8553)By: Julia Bermudez Eprescribed prescriptions On: 19-Aug-2012 Intent (G8553)By: Julia Bermudez DXA, BONE DENSITY, AXIAL SKELETON On: 26-Jun-2012 Intent (11577)By: Alison Rodriguez DO IMMUNIZ ADMNIN, 1 VAC, SNGL/COMBO On: 28-Nov-2011 Intent (08107)By: Kim Naidu LPN Comments: Lot #:[id number] date:04.29Amount given:prefilled syringeSite given:L Dltd, IMGiven by: MALLY Flores signed FLU VAC, SPLIT, >3 YEARS, INTRAMUSC On: 28-Nov-2011 Intent (03606)By: Kim Naidu LPN Aerosol Treatment (81240)By: Alissa On: 02-Aug-2011 Intent CARLOTARosie E MAMMOGRAM, SCREENING, BOTH BREASTS On: 29-May-2011 Intent (33393)By: Alison Rodriguez DO Aerosol Treatment (59643)By: Alissa On: 23-Apr-2011 Intent Rosie VAN Pneumovax (60271)By: Roger CARRERA, On: 14-Jan-2011 Intent Valentina Solares Comments: Lot #[id number]- L arm, IMDose 0.5mlgiven by:zee FLU VAC, SPLIT, >3 YEARS, INTRAMUSC On: 27-Nov-2010 Intent (14388)By: Princess Beavers Comments: Lot #:[id number] date:mount given:0.5mlRoute: IMSite given:left deltGiven by: LEATHA Flores Radiology - Thoracic SpineBy: Michael On: 27-Nov-2010 Intent DO, Alison A PNEUM VAC ADLT/IMUMNOSPR, SBC/INTRM On: 27-Nov-2010 Intent (54806)By: Princess Beavers Comments: received in 2004 IMMUNIZ ADMNIN, 1 VAC, SNGL/COMBO On: 27-Nov-2010 Intent (54693)By: Princess Beavers Eprescribed prescriptions On: 19-Jun-2010 Intent (G8553)By: Alison Rodriguez DO Radiology - Chest- PA and LatBy: On: 19-Jun-2010 Intent Michael GRANGER Alison A Wax CurettesBy: Ciesa SPECIAL FORCES ENGINEER SERGEANT, Antonella On: 25-May-2010 Intent Ear Irrigation (34752)By: Ciesa On: 25-May-2010 Intent CARLOTA Antonella Ear Irrigation (08481)By: Rachel On: 21-May-2010 Intent Irma GRANGER DO, Kathleen Comments: L Wax CurettesBy: Irma Vásquez DO On: 21-May-2010 Intent Irma Vásquez DO DXA, BONE DENSITY, AXIAL SKELETON On: 27-Apr-2010 Intent (78823)By: Princess Beavers MAMMOGRAM, SCREENING, BOTH BREASTS On: 27-Apr-2010 Intent (98598)By: Pricness Beavers Wax Currettes (88190)By: Michael GRANGER, On: 27-Jan-2009 Intent Alison A Ear Irrigation (62746)By: Michael GRANGER, On: 27-Jan-2009 Intent Alison A Comments: done by [facility] TDAP VACCINE >7 IM (66172)By: Michael On: 27-Jan-2009 Intent DO Alison A Comments: Lot #[id number]/17/2011Site-left deltoidDose0.5mlgiven by Zenobia English LPN MAMMOGRAM, SCREENING, BOTH BREASTS On: 27-Jan-2009 Intent (46840)By: Michael GRANGER, Alison A FLU VAC, SPLIT, >3 YEARS, INTRAMUSC On: 25-Nov-2008 Intent (16401)By: Moriah Mosley LPN IMMUNIZ ADMNIN, 1 VAC, SNGL/COMBO On: 25-Nov-2008 Intent (46268)By: Moriah Mosley LPN Comments: lot # [id number]-VDHWxtiqk-TLewub- 0.5ML tolerated well CHenderson Wax CurettesBy: Alison Rodriguez DO A On: 08-Aug-2008 Intent Ear Irrigation (50932)By: Michael GRANGER, On: 08-Aug-2008 Intent Alison A Comments: done km b/l pt tolerated well Spirometry (14474)By: Michael GRANGER, On: 08-Aug-2008 Intent Alison A Comments: done kmgood effort and curve normal Aerosol Treatment (21778)By: Michael On: 08-Aug-2008 Alison Frances DO Comments: done km with albuterol 0.83% pt tolerated well Inhaler Demo (46463)By: Michael GRANGER, On: 11-Apr-2008 Intent Alison A Spirometry (95458)By: Michael GRANGER, On: 11-Apr-2008 Intent Alison A Comments: good effort and curve mild airway obstruction Pulse Oximetry (35814)By: Michael GRANGER, On: 11-Apr-2008 Intent Alison A Comments: 97% on room air Radiology - Elbow - LeftBy: Michael On: 11-Apr-2008 Alison Frances DO FLU VAC, SPLIT, >3 YEARS, INTRAMUSC On: 22-Dec-2007 Intent (50275)By: Pamela Kelly RN Comments: Lot #:[id number] date:07/26Amount given:0.5mlRoute: imSite given:Right deltoidGiven by: Amilcar Obrien LPN IMMUNIZ ADMNIN, 1 VAC, SNGL/COMBO On: 22-Dec-2007 Intent (31455)By: Pamela Kelly RN MAMMOGRAM, SCREENING, BOTH BREASTS On: 11-Nov-2007 Intent (01348)By: Alison Rodriguez DO Aerosol Treatment (24887)By: Alissa On: 02-Nov-2007 Intent Rosie VAN Comments: waiver signed Pulse Oximetry (59183)By: Alissa On: 02-Nov-2007 Intent Rosie VAN Comments: waiver signed 96% r/a MAMMOGRAM, SCREENING, BOTH BREASTS On: 15-Sep-2007 Intent (54068)By: Alison Rodriguez DO DXA, BONE DENSITY, AXIAL SKELETON On: 15-Sep-2007 Intent (66302)By: Alison Rodriguez DO Echo CompleteBy: Alison Rodriguez DO On: 11-May-2007 Intent IV Needle placement (26479)By: On: 11-May-2007 Intent TYE Elena Comments: #22 gauge needle placed to right anticub area without difficulty per karo INFUSION, NORMAL SALINE 1000 mlBy: On: 11-May-2007 Intent TYE Elena Comments: Lot #:[id number] date:09-25 Amount given:1000 ml Route: IV Site given:right anticub Given by: karo EKG (75768)By: Alison Rodriguez DO On: 11-May-2007 Intent Comments: rsr with no acute st/t changes-- normal sinus with normal axis Aerosol Treatment (56807)By: Michael On: 11-May-2007 Intent Alison GRANGER Pulse Oximetry (51518)By: Michael GRANGER, On: 11-May-2007 Intent Alison A Ear Irrigation (80537)By: Michael GRANGER, On: 09-Dec-2006 Intent Alison A Flu Vaccine, Split IM (99204)By: On: 09-Dec-2006 Intent Alison Rodriguez DO Comments: given in left deltoid, 0.5cc, lot#[id number], exp.6.30.08 WF DXA, BONE DENSITY, AXIAL SKELETON On: 15-Oct-2006 Intent (51546)By: Alison Rodriguez DO Comments: see if because high risk on prednisone her insurance will cover yearly MAMMOGRAM, SCREENING, BOTH BREASTS On: 15-Oct-2006 Intent (01097)By: Alison Rodriguez DO Instructions Name Dates Details [...] LFT (790.6), Low HDL (272.5), Hypertriglycerides (272.1), [facility] Office Visit On: [...]
== END ==
PROVIDERS: Family Provider Internal Medicine; PCP Internal Medicine; Referring Provider Internal Medicine; Visit Provider Internal Medicine
DX: Z12.31 Encounter for screening mammogram for malignant neoplasm of breast (principal)
CPT/HCPCS: 77063; 77067

== ENCOUNTER → 2019-03-24 | Outpatient (CLI) | payer BC, SELFPAY ==
--- NOTE | 2019-03-24 10:51 | BI_ITS ---
MAMMOGRAPHY - BILATERAL SCREENING REASON FOR EXAM: Female, 58 years old. Routine annual screening examination. PERTINENT HISTORY: Non-contributory. TECHNIQUE: Digital bilateral breast lea (3D mammographic acquisition) in the CC and MLO projections. 2-D mediolateral oblique (MLO) and craniocaudad (CC) views of both breasts were obtained. CAD: Full Field Digital Mammography with Computer Added Detection was performed. COMPARISON: Comparison is made with prior examination dated September 01, 2018 and January 20, 2017. FINDINGS: Breast Composition: The breasts are heterogeneously dense, which may obscure small masses. There are no dominant masses or suspicious calcifications. Stable small benign-appearing bilateral axillary lymph nodes. No other significant abnormalities are identified. There has been no significant change since the prior study. BI/SCREEN MAMM (CAD) W/LEA BILAT IMPRESSION: Stable bilateral screening mammogram. Yearly follow-up mammogram recommended. (A) ASSESSMENT CATEGORY: BIRADS Category 2: Benign. A letter regarding these results will be sent to the patient by the facility within 30 days. Approximately 10% of breast cancers are not detected by mammography. A normal mammogram should not delay biopsy of a clinically suspicious abnormality. [id number] Electronically Signed: Johnnie Bejarano, at 15:24 EST , Service support ,
== END | disposition home or self-care (01) ==
PROVIDERS: PCP Internal Medicine; Referring Provider Internal Medicine; Visit Provider Internal Medicine
DX: Z12.31 Encounter for screening mammogram for malignant neoplasm of breast (principal)
CPT/HCPCS: 77063; 77067

== ENCOUNTER → 2020-03-29 13:28 | Outpatient (CLI) | payer OTHER, SELFPAY ==
--- NOTE | 2020-03-29 13:33 | BI_ITS ---
MAMMOGRAPHY - BILATERAL SCREENING REASON FOR EXAM: Female, 59 years old. Routine annual screening examination. PERTINENT HISTORY: Non-contributory. TECHNIQUE: Digital bilateral breast lea (3D mammographic acquisition) in the CC and MLO projections. 2-D mediolateral oblique (MLO) and craniocaudad (CC) views of both breasts were obtained. CAD: Full Field Digital Mammography with Computer Added Detection was performed. COMPARISON: Comparison is made with prior study dated 03/24/2019 and 03/04/2018. FINDINGS: Breast Composition: The breasts are heterogeneously dense, which may obscure small masses. There are no dominant masses or suspicious calcifications. No other significant abnormalities are identified. There has been no significant change since the prior study. BI/SCRN MAMM (CAD)W/LEA BILAT IMPRESSION: Stable bilateral screening mammogram. Yearly follow-up mammogram recommended. (A) ASSESSMENT CATEGORY: BIRADS Category 1: Negative. A letter regarding these results will be sent to the patient by the facility within 30 days. Approximately 10% of breast cancers are not detected by mammography. A normal mammogram should not delay biopsy of a clinically suspicious abnormality. [id number] Electronically Signed: Johnnie Bejarano MD at 14:30 EST , Service support ,
== END ==
PROVIDERS: PCP Internal Medicine; Referring Provider Internal Medicine; Visit Provider Internal Medicine
DX: Z12.31 Encounter for screening mammogram for malignant neoplasm of breast (principal)
CPT/HCPCS: 77063; 77067

== ENCOUNTER → 2020-11-30 | Outpatient (CLI) | payer OTHER, SELFPAY ==
[2020-12-05 16:54] LABS: HPV APTIMA, High Risk Negative (Negative)
== END | disposition home or self-care (01) ==
PROVIDERS: PCP Internal Medicine; Visit Provider Obstetrics & Gynecology
DX: Z01.419 Encounter for gynecological examination (general) (routine) without abnormal findings (principal)
CPT/HCPCS: 87624; 88175; G0145

== ENCOUNTER 2021-03-30 13:11 | Outpatient (CLI) | payer BC, SELFPAY ==
--- NOTE | 2021-03-30 13:13 | BI_ITS ---
MAMMOGRAPHY - BILATERAL SCREENING REASON FOR EXAM: Female, 60 years old. Routine annual screening examination. PERTINENT HISTORY: Non-contributory. TECHNIQUE: Digital bilateral breast lea (3D mammographic acquisition) in the CC and MLO projections. 2-D mediolateral oblique (MLO) and craniocaudad (CC) views of both breasts were obtained. CAD: Full Field Digital Mammography with Computer Added Detection was performed. COMPARISON: Comparison is made with prior study of 03/29/2020 and 03/24/2019. FINDINGS: Breast Composition: The breasts are heterogeneously dense, which may obscure small masses. There are no dominant masses or suspicious calcifications. No other significant abnormalities are identified. There has been no significant change since the prior study. BI/SCRN MAMM (CAD)W/LEA BILAT IMPRESSION: Stable bilateral screening mammogram. Yearly follow-up mammogram recommended. (A) ASSESSMENT CATEGORY: BIRADS Category 1: Negative. A letter regarding these results will be sent to the patient by the facility within 30 days. Approximately 10% of breast cancers are not detected by mammography. A normal mammogram should not delay biopsy of a clinically suspicious abnormality. [id number] Electronically Signed: Johnnie Bejarano MD at 14:12 EST ,
== END 2021-03-30 23:59 | disposition home or self-care (01) ==
LOC: OPBI 13:11
PROVIDERS: PCP Internal Medicine; Referring Provider Internal Medicine; Visit Provider Internal Medicine
DX: Z12.31 Encounter for screening mammogram for malignant neoplasm of breast (principal)
CPT/HCPCS: 77063; 77067

== ENCOUNTER 2021-12-14 11:00 | Outpatient (RCR) | payer BC, OTHER, SELFPAY ==
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
== END 2021-12-14 19:00 | disposition home or self-care (01) ==
LOC: PT 11:00
PROVIDERS: PCP Internal Medicine; Referring Provider Internal Medicine; Visit Provider Internal Medicine
DX: S16.1XXD Strain of muscle, fascia and tendon at neck level, subsequent encounter (principal); V89.2XXD Person injured in unspecified motor-vehicle accident, traffic, subsequent encounter; M62.830 Muscle spasm of back
CPT/HCPCS: 97110; 97162; 97164

== ENCOUNTER → 2022-01-08 | Outpatient (CLI) | payer BC, SELFPAY ==
--- NOTE | 2022-01-08 13:32 | BD_ITS ---
STUDY: DUAL ENERGY X-RAY ABSORPTIOMETRY / DXA REASON FOR EXAM: Female, 61 years old. Screening TECHNIQUE: Bone Mineral Density (BMD) measurements of lumbar spine and bilateral hips were obtained. COMPARISON: Comparison is made with prior study dated 02/12/2018. FINDINGS: Lumbar Spine (L1-L4): g/cm2 (0.987) / T-score (-0.5) / Z-score (1.1) Findings are suggestive of normal bone density with a low fracture risk. Left Femur Total: g/cm2 (0.686) / T-score (-2.1) / Z-score (-1.0) Left Femoral Neck: g/cm2 (0.529) / T-score (-2.9) / Z-score (-1.4) Right Femur Total: g/cm2 (0.753) / T-score (-1.6) / Z-score (-0.4) Right Femoral Neck: g/cm2 (0.578) / T-score (-2.4) / Z-score (-1.0) The T-Scores on the most recent prior examination were: Lumbar Spine (L1-L4): There has been worsening of bone density since the previous examination. Left Femur Total: which represents a worsening of 1.1%. Right Femur Total: which represents an improvement of 1%. BD/Dexa Bone Density Study IMPRESSION: The patient is considered osteoporotic as outlined below according to World Erwin Organization (WHO) criteria with a high fracture risk. There has been worsening of bone density since the previous examination. Reference Information: The T-score is the number of standard deviations above or below the standard which is normal for young adults at their peak bone mineral density. The World Health Organization (WHO) interprets the T-scores as follows: Above -1 Normal bone density Between -1 and -2.5 Osteopenia Equal to / or below -2.5 Osteoporosis As a practical clinical guideline, osteopenia may be graded as follows: Mild -1 through -1.5 Moderate -1.6 through -2.0 Severe -2.1 through -2.4 The Z-score is the number of standard deviations above or below age-matched controls. A Z-score of less than -1.5 would be considered abnormal. References: 1. NIH Osteoporosis and Related Bone Diseases www osteo.org 2. International Society for Clinical Densitometry www iscd.org 3. National Osteoporosis Foundation www nof.org Electronically Signed: Johnnie Bejarano MD at 10:15 EST ,
== END | disposition home or self-care (01) ==
LOC: OPBD 13:25
PROVIDERS: PCP Internal Medicine; Visit Provider Obstetrics & Gynecology
DX: E28.39 Other primary ovarian failure (principal)
CPT/HCPCS: 77080

== ENCOUNTER → 2022-10-23 | Outpatient (CLI) | payer BC, SELFPAY ==
[2022-10-23 17:53] LABS: Absolute Lymphocyte Count 2.89 X10^3/uL (0.83-4.51); Absolute Neutrophil Count 6.1 X10^3/uL (2.0-7.7); Basophil# 0.05 X10^3/uL; Basophil% 0.5 % (0-1); Hematocrit 42.7 % (37-47); Hemoglobin 14.1 g/dL (12.0-15.0); Lymphocyte # 2.89 X10^3/ul (0.83-4.51); Lymphocyte % 29.8 % (19-41); Mean Corpuscular Hgb 30.7 pg (27.0-32.0); Mean Platelet Vol. 9.4 fl (6.2-12.0); Monocyte# 0.51 X10^3/uL; Monocyte% 5.3 % (0-10); NRBC Flagged by Analyzer 0 % (0-5); Neutrophil # 6.14 X10^3/uL (2.7-7.7); Neutrophil % 63.2 % (47-70); Platelet Count 272 K/mm3 (150-450); RBC Distribution Width CV 12.8 % (11.6-14.6); RBC Distribution Width SD 43.7 fl (35.1-43.9); Red Blood Count 4.59 M/mm3 (4.2-5.4); White Blood Count 9.7 K/mm3 (4.4-11.0)
[2022-10-23 18:21] LABS: ALB/GLOB Ratio 1.2 RATIO (0.9-2.4); AST(SGOT) 21 U/L (15-37); Alanine Aminotransfer ALT/SGPT 24 U/L (13-56); Alkaline Phosphatase 75 U/L (45-117); Anion Gap 6 (5-15); BUN 24 mg/dL (7-18); BUN/Creat Ratio 25.9 RATIO (10-20); Calcium,Total 9.5 mg/dL (8.5-10.1); Chloride 103 mmol/L (98-107); Creatinine, Serum 0.93 mg/dL (0.55-1.02); EST Glomerular Filtration Rate 65 mL/min (>60); Est Glom Filt Rate - Afr Amer 78 mL/min (>60); Globulin 3.4 g/dL (2.2-4.2); Glucose 96 mg/dL (74-106); Potassium 3.8 mmol/L (3.5-5.1); Protein, Total 7.4 g/dL (6.4-8.2); Sodium Level 138 mmol/L (136-145); Thyroid Stim Hormone (TSH) 1.67 uIU/mL (0.358-3.74); Troponin-I HS 10 pg/mL (3.0-54.0)
== END | disposition home or self-care (01) ==
LOC: MTLAB 16:34
PROVIDERS: PCP Internal Medicine; Referring Provider Internal Medicine; Visit Provider Internal Medicine
DX: R07.89 Other chest pain (principal)
CPT/HCPCS: 36415; 80053; 84443; 84484; 85025

== ENCOUNTER → 2023-01-27 | Outpatient (CLI) | payer BC, SELFPAY ==
--- NOTE | 2023-01-27 12:42 | BI_ITS ---
MAMMOGRAPHY - BILATERAL SCREENING REASON FOR EXAM: Female, 62 years old. Routine annual screening examination. PERTINENT HISTORY: Non-contributory. TECHNIQUE: Digital bilateral breast lea (3D mammographic acquisition) in the CC and MLO projections. 2-D mediolateral oblique (MLO) and craniocaudad (CC) views of both breasts were obtained. CAD: Full Field Digital Mammography with Computer Added Detection was performed. COMPARISON: Comparison is made with prior study dated March 30, 2021 and March 29, 2020. FINDINGS: Breast Composition: The breasts are heterogeneously dense, which may obscure small masses. There are no dominant masses or suspicious calcifications. No other significant abnormalities are identified. There has been no significant change since the prior study. BI/SCRN MAMM (CAD)W/LEA BILAT IMPRESSION: Stable bilateral screening mammogram. Yearly follow-up mammogram recommended. (A) ASSESSMENT CATEGORY: BIRADS Category 1: Negative. A letter regarding these results will be sent to the patient by the facility within 30 days. Approximately 10% of breast cancers are not detected by mammography. A normal mammogram should not delay biopsy of a clinically suspicious abnormality. [id number] Electronically Signed: Johnnie Bejarano MD at 13:33 EST ,
== END | disposition home or self-care (01) ==
LOC: OPBI 12:42
PROVIDERS: PCP Internal Medicine; Referring Provider Obstetrics & Gynecology; Visit Provider Obstetrics & Gynecology
DX: Z12.31 Encounter for screening mammogram for malignant neoplasm of breast (principal)
CPT/HCPCS: 77063; 77067

== ENCOUNTER 2023-04-08 11:30 | Outpatient (RCR) | payer BC, SELFPAY ==
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
--- NOTE | 2023-06-18 12:17 | HP.PT.NRP(2) ---
Patient Information Patient Information: MELYSSA DOSS was seen in my office for initial evaluation on . The following Plan of Care was established for this patient: Last Seen Last Seen: This patient was last seen in our office . Pertinent comments regarding their Physical therapy will appear below: At this point I will be discontinuing this patient from physical therapy. I would be happy to see this patient again in the future if found appropriate by the physician. Thank you! Masha Jaimes, MPT
== END 2023-04-08 19:00 | disposition home or self-care (01) ==
LOC: PT 11:30
PROVIDERS: PCP Internal Medicine; Referring Provider Psychiatry & Neurology Neurology; Visit Provider Psychiatry & Neurology Neurology
DX: H81.392 Other peripheral vertigo, left ear (principal)
CPT/HCPCS: 97162; 97530

== ENCOUNTER 2024-02-24 20:06 | Emergency (ER) | payer MEDICARE, SELFPAY ==
[2024-02-24 20:10] VITALS: BP 158/72; PULSE 73; RESP 18; TEMP 36.2; O2SAT 100
--- NOTE | 2024-02-24 20:14 | RAD_ITS ---
STUDY: X-RAY - LEFT WRIST REASON FOR EXAM: Female, 63 years old. pain TECHNIQUE: 3 view(s) of the wrist were obtained. COMPARISON: None. FINDINGS: Normal distal ulna. On the lateral view there is suggestion of a possible hairline fracture of the dorsal surface of the distal radius however clinical correlation is recommended. Normal radiocarpal articulation. Degenerative changes of the distal radioulnar articulation. Normal carpal bones. Normal carpal articulations. Normal carpometacarpal articulation of the thumb. Normal second through fifth carpometacarpal articulations. Normal visualized metacarpal bones. The soft tissue structures are unremarkable. RAD/Wrist min 3 Views IMPRESSION: Findings suspicious for hairline fracture of the distal radius. Clinical correlation recommended Electronically Signed: Bib Haider MD at 21:03 [facility] ,
[2024-02-24 21:04] VITALS: BMI 22.4
[2024-02-24] MEDS: HYDROcodone Bitartrate/Apap 5/325 Tablet PO ×2 (21:39→23:05)
--- NOTE | 2024-02-24 22:35 | EDS_ITS ---
HPI History of Present Illness HPI Narrative: Patient presents with left wrist injury that occurred today. Patient states she was playing pickle ball when she fell backwards onto her left wrist. Patient states her pain is dull. Patient states it is worse with movement. Patient states it is better with rest. Patient denies any paresthesias or weakness. Patient denies any head injury or loss of consciousness. Patient denies any other injuries. Patient is right-hand dominant. 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 Osteopenia Hypothyroidism Home Medications ?Medication ?Instructions ?Recorded ?Last Taken ?Type calcium carbonate (Calcium 600) 600 mg PO ONCE 02/06/17 Unknown History cholecalciferol (vitamin D3) 125 5,000 unit PO ONCE 02/06/17 Unknown History mcg (5,000 unit) capsule levothyroxine 75 mcg tablet PO 02/06/17 Unknown History (Synthroid) magnesium 250 mg tablet 250 mg PO ONCE 02/06/17 Unknown History turmeric 100 mg-niesha 150 cap PO 01/04/22 Unknown History mg-olive 50 mg-oreg 150 mg-capryl capsule glucosamine sulfate 500 mg tablet 500 mg PO QDAY 02/12/24 Unknown History (Glucosamine) hydrocodone-acetaminophen 5-325mg 1 tab PO Q6H PRN PRN Pain 3 days 02/24/24 Unknown Rx 5mg-325mg #10 TABLETS Allergy/AdvReac Type Severity Reaction Status Date / Time clindamycin Allergy Mild nausea Verified 02/24/24 20:10 epinephrine Allergy Mild heart Verified 02/24/24 20:10 palpitations Latex, Natural Rubber Allergy Mild rash Verified 02/24/24 20:10 levofloxacin (From Levaquin) Allergy Mild Other Verified 02/24/24 20:10 penicillin V Allergy Mild unknown Verified 02/24/24 20:10 Family History Mother Fibromyalgia Arthritis Father Heart disease Pre-diabetes Surgical History Hx of appendectomy History of tonsillectomy Broken nose Elbow fracture Hx of appendectomy Hx of tonsillectomy Social History Smoking Status: Never smoker alcohol intake: current details: social substance use type: does not use caffeine: Yes what type of physical activity do you participate in: walking frequency: 3-4 times per week seatbelt use: always do you feel safe at home: Yes additional social history: [employer]- passed 2022 Patient works at [employer] ED Constitutional Constitutional ED: Denies chills or fever(s) Eyes Eyes: Denies blurry vision or change in vision ENT ENT ED: Denies rhinorrhea or sore throat Cardiovascular Cardiovascular: Denies chest pain or palpitations Respiratory/Chest Respiratory/Chest: Denies cough or dyspnea Gastrointestinal Gastrointestinal: Denies nausea or vomiting Genitourinary Genitourinary ED: Denies dysuria or hematuria Musculoskeletal Musculoskeletal: Denies back pain or neck pain Integumentary Denies abscess or rash Neurologic Neurologic: Denies headache(s) or weakness Allergic/Immunologic Allergic/Immunologic ED: Denies mouth swelling or urticaria EXAM Physical Exam Const Vital Signs: 02/24/24 20:10 Temperature 97.1 F L Temperature Source Temporal Pulse Rate 73 Respiratory Rate 18 Blood Pressure 158/72 H Blood Pressure Mean 100 Pulse Ox 100 Oxygen Delivery Method Room Air Positive well nourished and well developed General Appearance ED: well developed and NAD HEENT Reports moist mucous membranes normocephalic and atraumatic Neck full ROM and supple Extremity Extremity Narrative: There is tenderness and edema over the left wrist and distal radius. There is no bony crepitus or step-off. Range of motion was limited in all motions of the left wrist secondary to pain. Radial pulses are equal bilaterally. Sensation is intact to light touch in the radial, median, and ulnar areas. Strength is 5/5 in the radial, median, and ulnar areas. Neuro oriented x3, CN's II-XII intact bilaterally, moves all extremities, no focal motor deficits and no sensory deficits noted Sensorium / Orientation: alert Motor Exam: strength 5/5 throughout Psych mental status grossly normal MDM MDM MDM Narrative Medical decision making narrative: Differential diagnosis includes fracture, sprain, and contusion. X-rays of the left wrist will be obtained to assess for fracture. Radiography Diagnostic Testing: Clinical Impression(s) from Imaging Studies Wrist X-Ray 02/24/24 20:14 IMPRESSION: Findings suspicious for hairline fracture of the distal radius. Clinical correlation recommended Electronically Signed: Bib Haider MD at 21:03 EST Reading Location ID and State: [address] [place] [address] Tel , Service support , X-rays of the left wrist were obtained. There are 3 views. On my independent interpretation, there is a questionable nondisplaced fracture on the dorsal aspect of the left distal radius. There is no angulation. Radiologist also interpreted the x-rays and agrees. Treatment and Re-Evaluation Narrative: Patient was given a dose of [place]. Patient was advised of her findings. Patient was advised of the need for a splint for her wrist. Patient is agreeable with this. Patient was placed in a well-padded custom made volar splint using 3 inch Ortho-Glass. Neurovascular exam was intact before and after the procedure. Patient tolerated procedure well. Patient was instructed to follow-up with orthopedics in 5 to 7 days. Patient was instructed to ice and elevate the left wrist. Patient was given a prescription for a short course of [place]. Patient was instructed to return if worse in any way. Patient understood and was agreeable with the plan. All questions were answered. Procedures Upper Extremity Splints Upper Extremity Splint: Orthoglass and Volar Splint Fabrication: Fabricated Location: Left Discharge Plan Triage Chief Complaint: Upper Extremity Injury ED Provider: Tony Vasquez Dx/Rx/DC Orders Clinical Impression: Distal radius fracture, left, Fall Instructions: ED Fracture, Upper Extremity Prescriptions: New hydrocodone-acetaminophen 5-325 mg tablet 1 tab PO Q6H PRN PRN (Reason: Pain) 3 Days Qty: 10 0RF No Action levothyroxine [Synthroid] 75 mcg tablet PO cholecalciferol (vitamin D3) 5,000 unit capsule 5,000 unit PO ONCE calcium carbonate [Calcium 600] 600 mg calcium (1,500 mg) tablet 600 mg PO ONCE magnesium 250 mg tablet 250 mg PO ONCE [id number]-[id number]-oreg-capry 100 mg-150 mg- 50 mg-150 mg capsule PO glucosamine sulfate [Glucosamine] 500 mg tablet 500 mg PO QDAY Rx Instructions: administer with a meal Stand Alone Forms: [facility] Referral Primary Care Provider: Irma Ramos Referrals: Vinny Gamez DO [Med Staff - Active Staff] - 5-7 Days Irma Ramos DO [Primary Care Provider] - 1-2 Weeks Print Language: Maori Disposition Disposition: Home, Self Care Discharge Date/Time: 02/24/24 23:05
[2024-02-24 22:59] VITALS: BP 146/73; PULSE 85; RESP 16; TEMP 36.6; O2SAT 97
== END 2024-02-24 23:05 | disposition home or self-care (01) ==
PROVIDERS: Emergency Provider Emergency Medicine; PCP Internal Medicine; Visit Provider Emergency Medicine
DX: S52.502A Unspecified fracture of the lower end of left radius, initial encounter for closed fracture (principal); W19.XXXA Unspecified fall, initial encounter; Y93.69 Activity, other involving other sports and athletics played as a team or group
CPT/HCPCS: 29125; 73110; 99284

== ENCOUNTER → 2024-03-09 | Outpatient (CLI) | payer MEDICARE, SELFPAY ==
--- NOTE | 2024-03-09 16:27 | BI_ITS ---
MAMMOGRAPHY - BILATERAL SCREENING REASON FOR EXAM: Female, 63 years old. Routine annual screening examination. PERTINENT HISTORY: Non-contributory. TECHNIQUE: Digital bilateral breast lea (3D mammographic acquisition) in the CC and MLO projections. 2-D mediolateral oblique (MLO) and craniocaudad (CC) views of both breasts were obtained. CAD: Full Field Digital Mammography with Computer Added Detection was performed. COMPARISON: Comparison is made with prior study dated October 28, 2022 and March 30, 2021. FINDINGS: Breast Composition: The breasts are heterogeneously dense, which may obscure small masses. There are no dominant masses or suspicious calcifications. No other significant abnormalities are identified. There has been no significant change since the prior study. BI/SCRN MAMM (CAD)W/LEA BILAT IMPRESSION: Stable bilateral screening mammogram. Yearly follow-up mammogram recommended. (A) ASSESSMENT CATEGORY: BIRADS Category 1: Negative. A letter regarding these results will be sent to the patient by the facility within 30 days. Approximately 10% of breast cancers are not detected by mammography. A normal mammogram should not delay biopsy of a clinically suspicious abnormality. [id number] Electronically Signed: Johnnie Bejarano MD at 10:04 EST ,
--- NOTE | 2024-03-09 16:29 | BD_ITS ---
STUDY: DUAL ENERGY X-RAY ABSORPTIOMETRY / DXA REASON FOR EXAM: Female, 63 years old. Osteoporosis, estrogen deficiency TECHNIQUE: Bone Mineral Density (BMD) measurements of lumbar spine and bilateral hips were obtained. COMPARISON: Comparison is made with prior study dated January 08, 2022. FINDINGS: Lumbar Spine (L1-L4): g/cm2 (1.005) / T-score (-0.4) / Z-score (1.4) Findings are suggestive of normal bone density with a low fracture risk. Left Femur Total: g/cm2 (0.694) / T-score (-2.0) / Z-score (-0.8) Left Femoral Neck: g/cm2 (0.544) / T-score (-2.8) / Z-score (-1.2) Right Femur Total: g/cm2 (0.744) / T-score (-1.6) / Z-score (-0.1) Right Femoral Neck: g/cm2 (0.615) / T-score (-2.1) / Z-score (-0.6) The T-Scores on the most recent prior examination were: Lumbar Spine (L1-L4): There has been improvement of bone density since the previous examination. Left Femur Total: which represents an improvement of 1.1%. Right Femur Total: which represents a worsening of 1.1%. BD/Dexa Bone Density Study IMPRESSION: The patient is considered osteoporotic as outlined below according to World [employer] Organization (WHO) criteria with a high fracture risk. There has been improvement of bone density since the previous examination. Reference Information: The T-score is the number of standard deviations above or below the standard which is normal for young adults at their peak bone mineral density. The World Health Organization (WHO) interprets the T-scores as follows: Above -1 Normal bone density Between -1 and -2.5 Osteopenia Equal to / or below -2.5 Osteoporosis As a practical clinical guideline, osteopenia may be graded as follows: Mild -1 through -1.5 Moderate -1.6 through -2.0 Severe -2.1 through -2.4 The Z-score is the number of standard deviations above or below age-matched controls. A Z-score of less than -1.5 would be considered abnormal. References: 1. NIH Osteoporosis and Related Bone Diseases www osteo.org 2. International Society for Clinical Densitometry www iscd.org 3. National Osteoporosis Foundation www nof.org Electronically Signed: Johnnie Bejarano MD at 8:58 EST ,
== END | disposition home or self-care (01) ==
LOC: OPBD 16:26
PROVIDERS: PCP Internal Medicine; Referring Provider Obstetrics & Gynecology; Visit Provider Obstetrics & Gynecology
DX: Z12.31 Encounter for screening mammogram for malignant neoplasm of breast (principal); M81.0 Age-related osteoporosis without current pathological fracture; E28.39 Other primary ovarian failure
CPT/HCPCS: 77063; 77067; 77080

== ENCOUNTER → 2024-08-04 | Outpatient (CLI) | payer MEDICARE, SELFPAY ==
[2024-08-04 10:48] LABS: Absolute Lymphocyte Count 1.91 X10^3/uL (0.83-4.51); Absolute Neutrophil Count 3.5 X10^3/uL (2.0-7.7); Basophil# 0.04 X10^3/uL; Basophil% 0.7 % (0-1); Eosinophil# 0.16 X10^3/uL; Eosinophils% 2.6 % (0-5); Hematocrit 42.8 % (37-47); Lymphocyte # 1.91 X10^3/ul (0.83-4.51); Lymphocyte % 31.5 % (19-41); Mean Corp Hgb Conc 32.7 g/dL (32-36); Mean Corpuscular Hgb 30.4 pg (27.0-32.0); Mean Platelet Vol. 9.3 fl (6.2-12.0); Monocyte# 0.44 X10^3/uL; Monocyte% 7.2 % (0-10); NRBC Flagged by Analyzer 0 % (0-5); Neutrophil # 3.51 X10^3/uL (2.7-7.7); Neutrophil % 57.8 % (47-70); Platelet Count 266 K/mm3 (150-450); RBC Distribution Width CV 12.9 % (11.6-14.6); RBC Distribution Width SD 43.8 fl (35.1-43.9); White Blood Count 6.1 K/mm3 (4.4-11.0)
[2024-08-04 11:19] LABS: ALB/GLOB Ratio 1.8 RATIO (0.9-2.4); AST(SGOT) 24 U/L (<=31); Alanine Aminotransfer ALT/SGPT 21 U/L (<=34); Albumin, Serum 4.4 g/dL (3.4-4.8); Alkaline Phosphatase 79 U/L (35-104); Anion Gap 10 (5-15); BUN 19 mg/dL (4-19); BUN/Creat Ratio 22.1 RATIO (10-20); Calcium,Total 9.7 mg/dL (7.6-11.0); Carbon Dioxide 28.9 mmol/L (21.0-32.0); Chloride 103 mmol/L (98-108); Creatinine, Serum 0.85 mg/dL (0.70-1.20); EST Glomerular Filtration Rate 76 (>60); Globulin 2.4 g/dL (2.2-4.2); Glucose 80 mg/dL (70-99); Potassium 4.1 mmol/L (3.3-5.1); Protein, Total 6.7 g/dL (5.9-8.4); Sodium Level 142 mmol/L (133-145); Total Bilirubin 0.51 mg/dL (0.00-1.30)
== END | disposition home or self-care (01) ==
PROVIDERS: PCP Internal Medicine; Referring Provider Physician Assistant Medical; Visit Provider Physician Assistant Medical
DX: B00.1 Herpesviral vesicular dermatitis (principal)
CPT/HCPCS: 36415; 80053; 85025

== ENCOUNTER → 2024-08-12 | Outpatient (CLI) | payer MEDICARE, SELFPAY ==
[2024-08-18 02:07] LABS: Lyme IgG P18 Ab Absent (.); Lyme IgG P23 Ab Absent (.); Lyme IgG P28 Ab Absent (.); Lyme IgG P30 Ab Absent (.); Lyme IgG P39 Ab Absent (.); Lyme IgG P41 Ab Present (.); Lyme IgG P45 Ab Absent (.); Lyme IgG P58 Ab Absent (.); Lyme IgG P66 Ab Absent (.); Lyme IgG P93 Ab Absent (.); Lyme IgG WB Interpretation Negative (Negative); Lyme IgM P23 Ab Absent (.); Lyme IgM P39 Ab Absent (.); Lyme IgM P41 Ab Absent (.); Lyme IgM WB Interpretation Negative (Negative)
== END | disposition home or self-care (01) ==
LOC: MTLAB 11:43
PROVIDERS: PCP Internal Medicine; Referring Provider Physician Assistant Medical; Visit Provider Physician Assistant Medical
DX: A69.20 Lyme disease, unspecified (principal)
CPT/HCPCS: 36415; 86617